=== PATIENT | female | born 1960 | race American Indian/Alaskan Native ===

== ENCOUNTER 2016-10-22 15:02 | Observation (INO) | payer MEDICAID, OTHER ==
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
[2016-10-22 17:06] VITALS: BMI 21.8
[2016-10-22] MEDS ORDERED: Sodium Chloride 0.9% 1,000 ML IV STA (17:07)
[2016-10-22] MEDS ORDERED: Nystatin 100,000 Units/ml Oral Susp 5 ml UD PO STA (17:08)
[2016-10-22 18:10] LABS: ADD MANUAL DIFF? NO
[2016-10-22 18:14] LABS: BASO # 0.01 K/mm3 (0.0-2.0); BASO % 0.3 % (0.0-3.0); EOS # 0.2 (0.0-0.7); GRAN % 41.7 % (50.0-68.0); HEMATOCRIT 34.7 % (36.0-48.0); LYMPH % 35.1 % (22.0-35.0); MEAN CELL VOLUME 97.5 fL (80.0-105.0); MEAN CORPUSCULAR HEMOGLOBIN 33.1 pg (25.0-35.0); MEAN PLATELET VOLUME 10.6 fl (7.0-11.0); MONO # 0.4 (0.1-0.6); MONO % 14.9 % (1.0-6.0); PLATELET COUNT 126 10^3/uL (120.0-450.0); RED CELL DISTRIBUTION WIDTH 12.4 % (11.5-14.5)
[2016-10-22 18:23] LABS: WHITE BLOOD COUNT 2.9 10^3/ul (4.5-11.0)
[2016-10-22 18:24] LABS: ALB/GLOB RATIO 0.8 (1.1-1.8); ALKALINE PHOSPHATASE 62 U/L (38-133); ALT/SGPT 31 U/L (7-56); AST/SGOT 42 U/L (15-39); BILIRUBIN,TOTAL 0.6 mg/dL (0.2-1.3); BLOOD UREA NITROGEN 11 mg/dL (7-21); CALCIUM 8.8 mg/dL (8.4-10.5); CARBON DIOXIDE 26 mmol/L (21-33); CHLORIDE 110 mmol/L (98-107); GFR AFRICAN-AMERICAN > 60; GLUCOSE,RANDOM 85 mg/dL (70-110); LIPASE 182 U/L (23-300); POTASSIUM 3.8 mmol/L (3.6-5.0); SODIUM 144 mmol/L (132-148); TOTAL PROTEIN 8.8 g/dL (5.8-8.3)
[2016-10-22 18:36] LABS: TROPONIN I < 0.01 ng/mL
[2016-10-22 18:39] LABS: URINE BILIRUBIN SMALL (NEGATIVE); URINE BLOOD NEGATIVE (NEGATIVE); URINE GLUCOSE (UA) NEGATIVE (NEGATIVE); URINE KETONE TRACE mg/dL (NEGATIVE); URINE LEUKOCYTE ESTERASE NEGATIVE Leu/uL (NEGATIVE); URINE PROTEIN 30 mg/dL (<30 mg/dL)
[2016-10-22] MEDS ORDERED: Iohexol 350 MG/100 ML VIAL ONE (19:07)
[2016-10-22 19:14] LABS: URINE APPEARANCE CLEAR (CLEAR); URINE COLOR YELLOW (YELLOW)
[2016-10-22 19:24] LABS: URINE RBC 0 - 2 /hpf (0-2)
[2016-10-22 19:25] LABS: URINE BACTERIA RARE (NEG)
--- NOTE | 2016-10-22 21:52 | CP.PCM.HP ---
<BarbaraKelby - Last Filed: 10/22/16 23:05> History of Present Illness - History of Present Illness History of Present Illness: Patient is a 56yo F noncomliant with her HIV and HepB Meds who is coming to the ED for a 1mo history of epigastric pain, that comes and goes, and is usually worse when she eats meals. She has no dysphagia, does not choke on foods, no extreme halitosis. patient denies any CP, or SOB. Patient does not follow up with her doctors or take medicines because she is tired of taking them, and believes that the side effects from the medicines are worse than her illnesses. She has been off of HIV medications for 4-5 years now. She smokes 1 pack of cigarettes daily, and has no desire to quit. She is of sound mind, has good insight into her illness, and knows that not taking her medication will likely leave her at some point dying but believes that the side effects from the medicines are worse than this and will lead to her faster than not taking them. The patient denies any CULLEN, changes in vision, double vision, blurry vision, CP, SOB, PMhx: HIV+, HepB+, denies other medical issues FamHx: Mom DMII, HTN, Dad of unknown causes Health Maintanence: has not had a mammogram, colonoscopy, or pap smear in the past 10-15 years Allergies: denies Social: unemployed; on welfare. Smokes 1ppd x 40 years, denies other illicit drugs Present on Admission - Present on Admission Any Indicators Present on Admission: No History of DVT/PE: No History of Uncontrolled Diabetes: No Urinary Catheter: No Decubitus Ulcer Present: No Review of Systems - Constitutional Constitutional: As Per HPI Past Patient History - Past Social History Smoking Status: Heavy Smoker > 10 Cigarettes Daily - CARDIAC Hx Cardiac Disorders: (m) - HEMATOLOGICAL/ONCOLOGICAL Hx Human Immunodeficiency Virus (HIV): Yes - PSYCHIATRIC Hx Substance Use: No - SURGICAL HISTORY Hx Section: Yes (1979 1982 1984) - ANESTHESIA Hx Anesthesia: Yes Hx Anesthesia Reactions: No Hx Malignant Hyperthermia: No Meds Allergies/Adverse Reactions: Allergies Allergy/AdvReac Type Severity Reaction Status Date / Time No Known Allergies Allergy Unverified 10/22/16 17:07 Physical Exam - Constitutional Appears: Well, Non-toxic - Head Exam Head Exam: ATRAUMATIC - Eye Exam Eye Exam: EOMI, Normal appearance - ENT Exam ENT Exam: Mucous Membranes Moist Additional comments: +Yennifer that is easily scraped off, on tongue and in back of throat - Neck Exam Neck exam: Negative for: Lymphadenopathy - Respiratory Exam Respiratory Exam: Clear to Auscultation Bilateral, NORMAL BREATHING PATTERN. absent: Rales, Rhonchi, Wheezes Additional comments: +cough - Cardiovascular Exam Cardiovascular Exam: REGULAR RHYTHM, +S1, +S2 - GI/Abdominal Exam GI & Abdominal Exam: Normal Bowel Sounds, Organomegaly (Liver palpable below the costal margin +6cm ), Soft. absent: Tenderness - Rectal Exam Rectal Exam: Deferred - Extremities Exam Extremities exam: Positive for: full ROM. Negative for: calf tenderness - Back Exam Back exam: absent: CVA tenderness (L), CVA tenderness (R) Results - Vital Signs Recent Vital Signs: Last Vital Signs Temp 97.8 F 10/22/16 17:11 Pulse 93 H 10/22/16 21:38 Resp 18 10/22/16 21:38 BP 127/73 10/22/16 21:38 Pulse Ox 98 10/22/16 21:38 - Labs Result Diagrams: 10/22/16 18:03 10/22/16 18:03 Assessment & Plan - Assessment and Plan (Free Text) Assessment: Patient is a 56yo F admitted for Esophagitis Esophagitis 2/2 to HIV and non compliance -AIDS defining illness -patient is adamant that drugs will alter her disease course worse than not taking them; education offered and patient is extremely stubborn -Diflucan 200mg PO for 7-14 days -Chest abdomen and pelvis pending HIV; most likely AIDS -Ordered Viral Load, CD4/CD8 levels; most recent was CD4 of 260, as well as HIV typing -ID consult; Dr. Mora Hep B -Viral Loads and typing ordered -patient has never been on treatment Proph -Pepcid -Patient is ambulatory and is requesting to not have DVT prophylaxis Case Discussed and seen with Dr. Meir Castillo PGY1 Night Float [phone] Decision To Admit - Pt Status Changed To: Hospital Disposition Of: Observation - . Bed Request Type: Med/Surg Admitting Physician: Francis Worley <Francis Worley - Last Filed: 11/05/16 19:27> Results - Vital Signs Recent Vital Signs: Last Vital Signs Temp 98.0 F 10/23/16 08:00 Pulse 86 10/23/16 08:00 Resp 20 10/23/16 08:00 BP 96/67 L 10/23/16 08:00 Pulse Ox 100 10/23/16 08:00 - Labs Result Diagrams: 10/23/16 07:00 10/23/16 07:00 Attending/Attestation - Attestation I have personally seen and examined this patient.: Yes I have fully participated in the care of the patient.: Yes I have reviewed all pertinent clinical information: Yes
[2016-10-23 07:23] LABS: BASO # 0.01 K/mm3 (0.0-2.0); BASO % 0.5 % (0.0-3.0); EOS # 0.3 (0.0-0.7); EOS % 11.6 % (1.5-5.0); GRAN # 0.86 (1.4-6.5); GRAN % 39.7 % (50.0-68.0); HEMATOCRIT 33.9 % (36.0-48.0); LYMPH # 0.7 (1.2-3.4); LYMPH % 31.5 % (22.0-35.0); MEAN CELL VOLUME 96.3 fL (80.0-105.0); MEAN CORPUSCULAR HEMOGLOBIN 32.7 pg (25.0-35.0); MEAN CORPUSCULAR HGB CONC 33.9 g/dl (31.0-37.0); MEAN PLATELET VOLUME 10.3 fl (7.0-11.0); MONO # 0.4 (0.1-0.6); MONO % 16.7 % (1.0-6.0); PLATELET COUNT 116 10^3/uL (120.0-450.0); RED CELL DISTRIBUTION WIDTH 12.4 % (11.5-14.5)
[2016-10-23 07:35] LABS: ADD MANUAL DIFF? NO; WHITE BLOOD COUNT 2.2 10^3/ul (4.5-11.0)
[2016-10-23 07:49] LABS: FREE T4 0.85 ng/dL (0.78-2.19)
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
[2016-10-23 08:03] LABS: ALB/GLOB RATIO 0.8 (1.1-1.8); ALKALINE PHOSPHATASE 57 U/L (38-133); ALT/SGPT 21 U/L (7-56); AST/SGOT 38 U/L (15-39); BILIRUBIN,TOTAL 0.5 mg/dL (0.2-1.3); BLOOD UREA NITROGEN 8 mg/dL (7-21); CALCIUM 8.7 mg/dL (8.4-10.5); CARBON DIOXIDE 25 mmol/L (21-33); CHLORIDE 114 mmol/L (98-107); CHOLESTEROL 104 mg/dL (130-200); GFR AFRICAN-AMERICAN > 60; GLUCOSE,RANDOM 86 mg/dL (70-110); POTASSIUM 3.8 mmol/L (3.6-5.0); SODIUM 145 mmol/L (132-148); TOTAL PROTEIN 8.2 g/dL (5.8-8.3)
[2016-10-23 08:04] LABS: THYROID STIMULATING HORMONE 1.27 mIU/mL (0.46-4.68)
--- NOTE | 2016-10-23 08:56 | CP.PCM.PN ---
Subjective - Date & Time of Evaluation Date of Evaluation: 10/23/16 Time of Evaluation: 08:52 - Subjective Subjective: Patient seen at bedside. She notes epigastric and substernal discomfort which is worse with swallowing solids. states she has not been eating regularly due to these symptoms over the past month. Patient denies GERD, hx gastric ulcers, hemoptysis, nausea, vomiting, or diarrhea. There is a persistent cough which she states is chronic. Patient with known hx HIV, Hep B. She is not on any medications currently. Objective - Vital Signs/Intake and Output Vital Signs (last 24 hours): Temp Pulse Resp BP Pulse Ox 97.8 F 76 18 112/74 98 10/22/16 17:11 10/23/16 00:31 10/23/16 00:31 10/23/16 00:31 10/22/16 21:38 - Medications Medications: Current Medications Acetaminophen (Tylenol 325mg Tab) 650 mg PO Q6H PRN PRN Reason: Fever >100.4 F Famotidine (Pepcid) 20 mg PO HS CLARICE Last Admin: 10/23/16 04:51 Dose: Not Given Fluconazole (Diflucan Iv 200 Mg/100 Ml Ns) 100 mls @ 100 mls/hr IVPB DAILY CLARICE PRN Reason: Protocol Nicotine (Nicoderm Cq) 1 patch TD DAILY CLARICE Trimethoprim/Sulfamethoxazole (Bactrim Ds Tab) 1 tab PO DAILY CLARICE PRN Reason: Protocol - Labs Labs: 10/23/16 07:00 10/23/16 07:00 - Head Exam Head Exam: ATRAUMATIC, NORMOCEPHALIC - ENT Exam ENT Exam: Mucous Membranes Moist. absent: Normal Exam (white plaque posterior pharynx ) - Neck Exam Neck Exam: Full ROM. absent: Lymphadenopathy - Respiratory Exam Respiratory Exam: Clear to Ausculation Bilateral, Rales. absent: Rhonchi, Wheezes - Cardiovascular Exam Cardiovascular Exam: REGULAR RHYTHM, +S1, +S2 - GI/Abdominal Exam GI & Abdominal Exam: Soft, Normal Bowel Sounds. absent: Tenderness - Extremities Exam Extremities Exam: absent: Calf Tenderness, Pedal Edema - Neurological Exam Neurological Exam: Alert, Awake, Oriented x3 - Psychiatric Exam Psychiatric exam: Normal Affect, Normal Mood - Skin Skin Exam: Normal Color, Warm Assessment and Plan - Assessment and Plan (Free Text) Assessment: 56 y/o female with hx HIV and Hep B. Patient is noncompliant with antiretroviral therapy. CD4 count and viral load are unknown. Patient presents with dysphagia, odynophagia concerning for infective esophagitis given HIV status. CT abd/pelvis reveals lympadenopathy of the celiac and mesenteric plexus as well as a 2.5 cm bladder lesion. odynophagia and dysphagia 2/2 infective esophagitis vs reflux esophagitis vs gastritis - CT results as above - NPO pending further GI w/u -
--- NOTE | 2016-10-23 08:56 | RAD ---
HISTORY: medical clearance COMPARISON: No prior. FINDINGS: LUNGS: No active pulmonary disease. PLEURA: No significant pleural effusion identified, no pneumothorax apparent. CARDIOVASCULAR: Normal. OSSEOUS STRUCTURES: No significant abnormalities. VISUALIZED UPPER ABDOMEN: Normal. OTHER FINDINGS: None. IMPRESSION: No active disease.
[2016-10-23 09:48] VITALS: BP 96/67; PULSE 86; RESP 20; TEMP 98; O2SAT 100
--- NOTE | 2016-10-23 09:51 | CARD ---
APPROVED REPORT EKG Measurement Heart [id number] <Conclusion> Normal sinus rhythm Normal ECG
[2016-10-23] MEDS ORDERED: Tmp-Smz 800 mg-160 mg DS Tab PO SCH (10:00)
[2016-10-23] MEDS ORDERED: Fluconazole IV 200mg/100 ml NS 100 ML IVPB SCH (10:00)
--- NOTE | 2016-10-23 14:23 | CP.PCM.CON ---
History of Present Illness - History of Present Illness History of Present Illness: 56 year old female with PMH of HIV, non-compliant with medications, does not know her last CD4 count or virus load, chronic active hepatitis B, history of heavy smoking came in to [facility] complaining of epigastric pain for the past month, with worsening in the last 2-3 days, with associated intermittent nausea but no vomiting. The patient denies dysphagia or odynophagia , no fever or chills, no diarrhea. The patient states that she feels food slowly going down into her stomach and then she would feel a sharp pain. The patient denies fever or chills, no chest pain, no SOB, no headache or dizziness , no diarrhea, no dysuria. In the ED, CT scan of the abdomen and pelvis revealed mesenteric lymphadenopathy. Infectious Diseases consult is requested to further evaluate and manage. Review of Systems - Review of Systems All systems: reviewed and no additional remarkable complaints except (as per HPI ) Past Patient History - Past Social History Smoking Status: Heavy Smoker > 10 Cigarettes Daily - CARDIAC Hx Cardiac Disorders: No (m) - HEMATOLOGICAL/ONCOLOGICAL Hx Blood Disorders: Yes Hx Hepatitis B: Yes Hx Human Immunodeficiency Virus (HIV): Yes - MUSCULOSKELETAL/RHEUMATOLOGICAL Hx Falls: No - GENITOURINARY/GYNECOLOGICAL Hx Sexually Transmitted Disorders: Yes - PSYCHIATRIC Hx Substance Use: No - SURGICAL HISTORY Hx Surgeries: Yes (c section X3) - ANESTHESIA Hx Anesthesia: Yes Hx Anesthesia Reactions: No Hx Malignant Hyperthermia: No Meds Allergies/Adverse Reactions: Allergies Allergy/AdvReac Type Severity Reaction Status Date / Time No Known Allergies Allergy Unverified 10/22/16 17:07 Physical Exam - Constitutional Appears: Non-toxic, No Acute Distress - Head Exam Head Exam: NORMAL INSPECTION - ENT Exam ENT Exam: Mucous Membranes Moist Additional comments: thrush noted on the posterior pharyngeal area - Neck Exam Neck exam: Negative for: Lymphadenopathy, Meningismus - Respiratory Exam Respiratory Exam: Decreased Breath Sounds - Cardiovascular Exam Cardiovascular Exam: +S1, +S2 - GI/Abdominal Exam GI & Abdominal Exam: Soft. absent: Tenderness Results - Vital Signs Recent Vital Signs: Last Vital Signs Temp 98.0 F 10/23/16 08:00 Pulse 86 10/23/16 08:00 Resp 20 10/23/16 08:00 BP 96/67 L 10/23/16 08:00 Pulse Ox 100 10/23/16 08:00 - Labs Result Diagrams: 10/23/16 07:00 10/23/16 07:00 Labs: Laboratory Results - last 24 hr 10/23/16 10/23/16 10/23/16 07:00 07:00 07:00 WBC 2.2 L* D RBC 3.52 Hgb 11.5 L Hct 33.9 L MCV 96.3 MCH 32.7 MCHC 33.9 RDW 12.4 Plt Count 116 L MPV 10.3 Gran % 39.7 L Lymph % (Auto) 31.5 Bates % (Auto) 16.7 H Eos % (Auto) 11.6 H Baso % (Auto) 0.5 Gran # 0.86 L Lymph # 0.7 L Bates # 0.4 Eos # 0.3 Baso # 0.01 Sodium 145 Potassium 3.8 Chloride 114 H Carbon Dioxide 25 Anion Gap 10 BUN 8 Creatinine 0.6 Est GFR ( Amer) > 60 Est GFR (Non-Af Amer) > 60 Random Glucose 86 Hemoglobin A1c Calcium 8.7 Total Bilirubin 0.5 AST 38 ALT 21 Alkaline Phosphatase 57 Total Protein 8.2 Albumin 3.6 Globulin 4.6 Albumin/Globulin Ratio 0.8 L Triglycerides 111 Cholesterol 104 L LDL Cholesterol Direct 41 HDL Cholesterol 30 Free T4 0.85 TSH 3rd Generation 1.27 10/23/16 07:30 WBC RBC Hgb Hct MCV MCH MCHC RDW Plt Count MPV Gran % Lymph % (Auto) Bates % (Auto) Eos % (Auto) Baso % (Auto) Gran # Lymph # Bates # Eos # Baso # Sodium Potassium Chloride Carbon Dioxide Anion Gap BUN Creatinine Est GFR ( Amer) Est GFR (Non-Af Amer) Random Glucose Hemoglobin A1c 5.9 Calcium Total Bilirubin AST ALT Alkaline Phosphatase Total Protein Albumin Globulin Albumin/Globulin Ratio Triglycerides Cholesterol LDL Cholesterol Direct HDL Cholesterol Free T4 TSH 3rd Generation Assessment & Plan - Assessment and Plan (Free Text) Plan: Assessment Oral thrush probably candidiasis in a patient with HIV, non-compliant with medications, does not know her last CD4 count or virus load Epigastric pain, etiology to be determined bilateral mesenteric lymphadenopathy, probably related to HIV, need to rule out other causes chronic active hepatitis B history of heavy smoking Plan Started patient on Diflucan and monitor clinical response Follow up CD4 count, HIV-1 virus load, RPR, serum Crypt Ag, Quantiferon TB test ; will start pneumocystis prophylaxis (ie. PO Bactrim) ordered blood cx for AFB as part of work up for mesenteric lymphadenopathy follow up GI evaluation discussed with patient that she needs to be on HIV meds and this is best restarted as an outpatient - patient states she will follow up with her regular HIV doctor
--- NOTE | 2016-10-23 16:45 | CP.PCM.DIS ---
<Swapnil Shields - Last Filed: 10/23/16 16:35> Provider - Provider Date of Admission: 10/22/16 20:43 Attending physician: Susanna Vera MD Primary care physician: NO PRIMARY CARE PROVIDER Consults: Dr. Bossman Long - GI Time Spent in preparation of Discharge (in minutes): 35 Diagnosis - Discharge Diagnosis (1) Dysphagia Status: Acute (2) HIV (human immunodeficiency virus infection) Status: Acute Hospital Course - Lab Results Lab Results: Most Recent Lab Values WBC 2.2 10^3/ul (4.5-11.0) L* D 10/23/16 07:00 RBC 3.52 10^6/uL (3.5-6.1) 10/23/16 07:00 Hgb 11.5 gm/dL (12.0-16.0) L 10/23/16 07:00 Hct 33.9 % (36.0-48.0) L 10/23/16 07:00 MCV 96.3 fL (80.0-105.0) 10/23/16 07:00 MCH 32.7 pg (25.0-35.0) 10/23/16 07:00 MCHC 33.9 g/dl (31.0-37.0) 10/23/16 07:00 RDW 12.4 % (11.5-14.5) 10/23/16 07:00 Plt Count 116 10^3/uL (120.0-450.0) L 10/23/16 07:00 MPV 10.3 fl (7.0-11.0) 10/23/16 07:00 Gran % 39.7 % (50.0-68.0) L 10/23/16 07:00 Lymph % (Auto) 31.5 % (22.0-35.0) 10/23/16 07:00 [place] % (Auto) 16.7 % (1.0-6.0) H 10/23/16 07:00 Eos % (Auto) 11.6 % (1.5-5.0) H 10/23/16 07:00 Baso % (Auto) 0.5 % (0.0-3.0) 10/23/16 07:00 Gran # 0.86 (1.4-6.5) L 10/23/16 07:00 Lymph # 0.7 (1.2-3.4) L 10/23/16 07:00 [place] # 0.4 (0.1-0.6) 10/23/16 07:00 Eos # 0.3 (0.0-0.7) 10/23/16 07:00 Baso # 0.01 K/mm3 (0.0-2.0) 10/23/16 07:00 Sodium 145 mmol/L (132-148) 10/23/16 07:00 Potassium 3.8 mmol/L (3.6-5.0) 10/23/16 07:00 Chloride 114 mmol/L (98-107) H 10/23/16 07:00 Carbon Dioxide 25 mmol/L (21-33) 10/23/16 07:00 Anion Gap 10 (10-20) 10/23/16 07:00 BUN 8 mg/dL (7-21) 10/23/16 07:00 Creatinine 0.6 mg/dL (0.5-1.4) 10/23/16 07:00 Est GFR ( Amer) > 60 10/23/16 07:00 Est GFR (Non-Af Amer) > 60 10/23/16 07:00 Random Glucose 86 mg/dL (70-110) 10/23/16 07:00 Hemoglobin A1c 5.9 % (4.2-6.5) 10/23/16 07:30 Calcium 8.7 mg/dL (8.4-10.5) 10/23/16 07:00 Total Bilirubin 0.5 mg/dL (0.2-1.3) 10/23/16 07:00 AST 38 U/L (15-39) 10/23/16 07:00 ALT 21 U/L (7-56) 10/23/16 07:00 Alkaline Phosphatase 57 U/L (38-133) 10/23/16 07:00 Lactate Dehydrogenase 598 U/L (333-699) 10/22/16 18:03 Total Creatine Kinase 103 U/L (35-230) 10/22/16 18:03 Troponin I < 0.01 ng/mL 10/22/16 18:03 Total Protein 8.2 g/dL (5.8-8.3) 10/23/16 07:00 Albumin 3.6 g/dL (3.0-4.8) 10/23/16 07:00 Globulin 4.6 gm/dL 10/23/16 07:00 Albumin/Globulin Ratio 0.8 (1.1-1.8) L 10/23/16 07:00 Triglycerides 111 mg/dL (35-160) 10/23/16 07:00 Cholesterol 104 mg/dL (130-200) L 10/23/16 07:00 LDL Cholesterol Direct 41 mg/dL (0-129) 10/23/16 07:00 HDL Cholesterol 30 mg/dL (29-60) 10/23/16 07:00 Lipase 182 U/L (23-300) 10/22/16 18:03 Free T4 0.85 ng/dL (0.78-2.19) 10/23/16 07:00 TSH 3rd Generation 1.27 mIU/mL (0.46-4.68) 10/23/16 07:00 Urine Color Yellow (YELLOW) 10/22/16 18:28 Urine Appearance Clear (CLEAR) 10/22/16 18:28 Urine pH 6.0 (4.7-8.0) 10/22/16 18:28 Ur Specific [place] 1.025 (1.005-1.035) 10/22/16 18:28 Urine Protein 30 mg/dL (<30 mg/dL) H 10/22/16 18:28 Urine Glucose (UA) Negative mg/dL (NEGATIVE) 10/22/16 18:28 Urine Ketones Trace mg/dL (NEGATIVE) H 10/22/16 18:28 Urine Blood Negative (NEGATIVE) 10/22/16 18:28 Urine Nitrate Negative (NEGATIVE) 10/22/16 18:28 Urine Bilirubin Small (NEGATIVE) H 10/22/16 18:28 Urine Urobilinogen 4.0 E.U./dL (<1 E.U./dL) H 10/22/16 18:28 Ur Leukocyte Esterase Negative Brennen/uL (NEGATIVE) 10/22/16 18:28 Urine RBC 0 - 2 /hpf (0-2) 10/22/16 18:28 Urine WBC 2 - 5 /hpf (0-6) 10/22/16 18:28 Ur Epithelial Cells 3 - 4 /hpf (0-5) 10/22/16 18:28 Urine Bacteria Rare (NEG) 10/22/16 18:28 Hyaline Casts 0 - 2 /hpf 10/22/16 18:28 - Hospital Course Hospital Course: Patient is a 56yo F noncomliant with her HIV and HepB Meds who is coming to the ED for a 1mo history of epigastric pain and dysphagia. Patient does not follow up with her doctors or take medicines because she is tired of taking them, and believes that the side effects from the medicines are worse than her illnesses. She has been off of HIV medications for 4-5 years. She smokes 1 pack of cigarettes daily, and has no desire to quit. The patient was admitted for epigastric pain and dysphagia in the setting of HIV for concerns of viral esophagitis. CT abd/pelvis was done revealing mesenteric and celiac plexus lymphadenopathy. Lab results revealed leukopenia. Recent CD4 and viral load levels are not known. The patient was started on Nystatin oral suspension for likely oral candidiasis. However this morning the patient expressed wishes to leave AMA. The patient was educated on her chronic diseases including HIV and Hep B. She was instructed on the importance of antiretroviral medications. She was further advised to remain in the hospital for treatment of her acute GI problems. The patient expressed understanding of her disease and of our advice. She ultimately decided to sign out of the hospital AMA. Patient is advised to return to the ED if her symptoms worsen or change. She is advised to seek outpatient care for her HIV. Discharge Exam - Head Exam Head Exam: NORMAL INSPECTION - Eye Exam Eye Exam: EOMI, PERRL - ENT Exam ENT Exam: Mucous Membranes Moist - Respiratory Exam Respiratory Exam: Clear to PA & Lateral. absent: Rales, Rhonchi - Cardiovascular Exam Cardiovascular Exam: REGULAR RHYTHM, +S1, +S2 - GI/Abdominal Exam GI & Abdominal Exam: Normal Bowel Sounds. absent: Soft, Tenderness - Extremities Exam Extremities exam: full ROM, pedal pulses present - Neurological Exam Neurological exam: Alert, Oriented x3 - Psychiatric Exam Psychiatric exam: Normal Affect, Normal Mood - Skin Skin Exam: Normal Color, Warm Discharge Plan - Discharge Medications Prescriptions: Fluconazole [Diflucan] 100 mg PO DAILY #20 tab - Follow Up Plan Condition: STABLE Disposition: AGAINST MEDICAL ADVICE Instructions: Human Immunodeficiency Virus and Acquired Immune Deficiency Syndrome (DC), Human Immunodeficiency Virus and Acquired Immune Deficiency Syndrome (GEN) Referrals: PCP,NO [Primary Care Provider] - <Susanna Vera - Last Filed: 10/23/16 21:34> Provider - Provider Date of Admission: 10/22/16 20:43 Attending physician: Susanna Vera MD Primary care physician: NO PRIMARY CARE PROVIDER Hospital Course - Lab Results Lab Results: Most Recent Lab Values WBC 2.2 10^3/ul (4.5-11.0) L* D 10/23/16 07:00 RBC 3.52 10^6/uL (3.5-6.1) 10/23/16 07:00 Hgb 11.5 gm/dL (12.0-16.0) L 10/23/16 07:00 Hct 33.9 % (36.0-48.0) L 10/23/16 07:00 MCV 96.3 fL (80.0-105.0) 10/23/16 07:00 MCH 32.7 pg (25.0-35.0) 10/23/16 07:00 MCHC 33.9 g/dl (31.0-37.0) 10/23/16 07:00 RDW 12.4 % (11.5-14.5) 10/23/16 07:00 Plt Count 116 10^3/uL (120.0-450.0) L 10/23/16 07:00 MPV 10.3 fl (7.0-11.0) 10/23/16 07:00 Gran % 39.7 % (50.0-68.0) L 10/23/16 07:00 Lymph % (Auto) 31.5 % (22.0-35.0) 10/23/16 07:00 [place] % (Auto) 16.7 % (1.0-6.0) H 10/23/16 07:00 Eos % (Auto) 11.6 % (1.5-5.0) H 10/23/16 07:00 Baso % (Auto) 0.5 % (0.0-3.0) 10/23/16 07:00 Gran # 0.86 (1.4-6.5) L 10/23/16 07:00 Lymph # 0.7 (1.2-3.4) L 10/23/16 07:00 [place] # 0.4 (0.1-0.6) 10/23/16 07:00 Eos # 0.3 (0.0-0.7) 10/23/16 07:00 Baso # 0.01 K/mm3 (0.0-2.0) 10/23/16 07:00 Sodium 145 mmol/L (132-148) 10/23/16 07:00 Potassium 3.8 mmol/L (3.6-5.0) 10/23/16 07:00 Chloride 114 mmol/L (98-107) H 10/23/16 07:00 Carbon Dioxide 25 mmol/L (21-33) 10/23/16 07:00 Anion Gap 10 (10-20) 10/23/16 07:00 BUN 8 mg/dL (7-21) 10/23/16 07:00 Creatinine 0.6 mg/dL (0.5-1.4) 10/23/16 07:00 Est GFR ( Amer) > 60 10/23/16 07:00 Est GFR (Non-Af Amer) > 60 10/23/16 07:00 Random Glucose 86 mg/dL (70-110) 10/23/16 07:00 Hemoglobin A1c 5.9 % (4.2-6.5) 10/23/16 07:30 Calcium 8.7 mg/dL (8.4-10.5) 10/23/16 07:00 Total Bilirubin 0.5 mg/dL (0.2-1.3) 10/23/16 07:00 AST 38 U/L (15-39) 10/23/16 07:00 ALT 21 U/L (7-56) 10/23/16 07:00 Alkaline Phosphatase 57 U/L (38-133) 10/23/16 07:00 Lactate Dehydrogenase 598 U/L (333-699) 10/22/16 18:03 Total Creatine Kinase 103 U/L (35-230) 10/22/16 18:03 Troponin I < 0.01 ng/mL 10/22/16 18:03 Total Protein 8.2 g/dL (5.8-8.3) 10/23/16 07:00 Albumin 3.6 g/dL (3.0-4.8) 10/23/16 07:00 Globulin 4.6 gm/dL 10/23/16 07:00 Albumin/Globulin Ratio 0.8 (1.1-1.8) L 10/23/16 07:00 Triglycerides 111 mg/dL (35-160) 10/23/16 07:00 Cholesterol 104 mg/dL (130-200) L 10/23/16 07:00 LDL Cholesterol Direct 41 mg/dL (0-129) 10/23/16 07:00 HDL Cholesterol 30 mg/dL (29-60) 10/23/16 07:00 Lipase 182 U/L (23-300) 10/22/16 18:03 Free T4 0.85 ng/dL (0.78-2.19) 10/23/16 07:00 TSH 3rd Generation 1.27 mIU/mL (0.46-4.68) 10/23/16 07:00 Urine Color Yellow (YELLOW) 10/22/16 18:28 Urine Appearance Clear (CLEAR) 10/22/16 18:28 Urine pH 6.0 (4.7-8.0) 10/22/16 18:28 Ur Specific [place] 1.025 (1.005-1.035) 10/22/16 18:28 Urine Protein 30 mg/dL (<30 mg/dL) H 10/22/16 18:28 Urine Glucose (UA) Negative mg/dL (NEGATIVE) 10/22/16 18:28 Urine Ketones Trace mg/dL (NEGATIVE) H 10/22/16 18:28 Urine Blood Negative (NEGATIVE) 10/22/16 18:28 Urine Nitrate Negative (NEGATIVE) 10/22/16 18:28 Urine Bilirubin Small (NEGATIVE) H 10/22/16 18:28 Urine Urobilinogen 4.0 E.U./dL (<1 E.U./dL) H 10/22/16 18:28 Ur Leukocyte Esterase Negative Brennen/uL (NEGATIVE) 10/22/16 18:28 Urine RBC 0 - 2 /hpf (0-2) 10/22/16 18:28 Urine WBC 2 - 5 /hpf (0-6) 10/22/16 18:28 Ur Epithelial Cells 3 - 4 /hpf (0-5) 10/22/16 18:28 Urine Bacteria Rare (NEG) 10/22/16 18:28 Hyaline Casts 0 - 2 /hpf 10/22/16 18:28 RPR Nonreactive (NONREACTIVE) 10/23/16 08:39 Attending/Attestation - Attestation I have personally seen and examined this patient.: Yes I have fully participated in the care of the patient.: Yes I have reviewed all pertinent clinical information, including history, physical exam and plan: Yes Notes (Text): Patient left AMA.
[2016-10-25 06:15] LABS: % CD16+CD56+(NK CELL) 19 Percent (4-25); % CD19 (B CELL) 21 Percent (6-29); % CD3 (MATURE T CELL) 58 Percent (57-85); ABSOLUTE CD16+CD56+CELLS 145 Cells/mcL (70-760)
[2016-10-26 10:32] LABS: HEP B VIRUS DNA 2.44 Log IU/mL; HEP B VIRUS DNA 274 IU/mL
[2016-10-29 18:30] LABS: HIV-1 GENOTYPE DETECTED
== END 2016-10-23 12:19 | disposition left against medical advice (07) ==
LOC: ED 15:02 → ERH 20:43 → 5RSO 10-23 00:13
PROVIDERS: ADMIT Hospitalist; ATTEND Hospitalist
DX: B37.0 Candidal stomatitis (principal); B37.81 Candidal esophagitis; B20 Human immunodeficiency virus [HIV] disease; R13.10 Dysphagia, unspecified; Z91.14 Patient's other noncompliance with medication regimen; R59.1 Generalized enlarged lymph nodes; D70.9 Neutropenia, unspecified; B18.1 Chronic viral hepatitis B without delta-agent; F17.210 Nicotine dependence, cigarettes, uncomplicated; Z91.19 Patient's noncompliance with other medical treatment and regimen; Z83.3 Family history of diabetes mellitus; Z82.49 Family history of ischemic heart disease and other diseases of the circulatory system
CPT/HCPCS: 36415; 71010; 74177; 80053; 80061; 81001; 82550; 83036; 83615; 83690; 84439; 84443; 84484; 85025; 86355; 86357; 86359; 86360; 86403; 86480; 86592; 87517; 87536; 87901; 93005; 96374; 99284; G0378; J7040; Q9967

== ENCOUNTER 2017-11-18 12:25 | Emergency (ER) | payer MEDICARE, MEDICAID ==
[2017-11-18 13:03] VITALS: BMI 18.8
[2017-11-18] MEDS ORDERED: Sodium Chloride 0.9% 1,000 ML IV ONE (13:04)
[2017-11-18 13:27] VITALS: RESP 18
--- NOTE | 2017-11-18 13:42 | RAD ---
HISTORY: r/o infiltrate COMPARISON: No prior. FINDINGS: LUNGS: Diffuse interstitial infiltrates. Rule out pulmonary edema/ CHF versus interstitial pneumonitis or interstitial pneumonia. PLEURA: No significant pleural effusion identified, no pneumothorax apparent. CARDIOVASCULAR: Normal. OSSEOUS STRUCTURES: No significant abnormalities. VISUALIZED UPPER ABDOMEN: Normal. OTHER FINDINGS: None. IMPRESSION: Diffuse interstitial infiltrates ; rule out pulmonary edema/ CHF versus interstitial pneumonitis or interstitial pneumonia
[2017-11-18 13:52] LABS: BASO # 0.05 K/mm3 (0.0-2.0); BASO % 0.7 % (0.0-3.0); EOS # 0.2 (0.0-0.7); EOS % 2.5 % (1.5-5.0); GRAN # 5.99 (1.4-6.5); GRAN % 78.4 % (50.0-68.0); LYMPH # 1.1 (1.2-3.4); LYMPH % 14.7 % (22.0-35.0); MEAN CELL VOLUME 98.5 fl (80.0-105.0); MEAN CORPUSCULAR HEMOGLOBIN 32.6 pg (25.0-35.0); MEAN CORPUSCULAR HGB CONC 33.1 g/dl (31.0-37.0); MEAN PLATELET VOLUME 11.4 fl (7.0-11.0); MONO # 0.3 (0.1-0.6); MONO % 3.7 % (1.0-6.0); RBC 3.37 10^6/uL (3.5-6.1); WHITE BLOOD COUNT 7.6 10^3/ul (4.5-11.0)
[2017-11-18 14:10] LABS: ALB/GLOB RATIO 0.7 (1.1-1.8); ALBUMIN 3.1 g/dL (3.0-4.8); CALCIUM 8.4 mg/dL (8.4-10.5); GFR AFRICAN-AMERICAN > 60; GFR NON-AFRICAN AMERICAN > 60
[2017-11-18 14:11] LABS: ALT/SGPT 22 U/L (7-56); AST/SGOT 67 U/L (14-36); BLOOD UREA NITROGEN 32 mg/dL (7-21)
[2017-11-18 14:20] LABS: TROPONIN I < 0.01 ng/mL
[2017-11-18 16:13] VITALS: BP 111/73; PULSE 75; TEMP 98.1; O2SAT 99
--- NOTE | 2017-11-18 17:09 | ED PDOC ---
Arrival/HPI - General Chief Complaint: Weakness/Neurological Deficit Time Seen by Provider: 11/18/17 12:52 Historian: Patient - History of Present Illness Narrative History of Present Illness (Text): 11/18/17 13:03 57 year old female, with past medical history of HIV (diagnosed in 1997) not currently on HAART and unknown CD4 count, presents to the Emergency department complaining of dyspnea on exertion and generalized weakness for past week. Patient states worsening symptoms prompting her to present to the Emergency department for medical evaluation. Patient denies any fever, chills, nausea, vomiting, diarrhea, abdominal pain, chest pain, dysuria or any other complaints. Time/Duration: 1 week Symptom Onset: Gradual Symptom Course: Unchanged Activities at Onset: Light Context: Home Past Medical History - Provider Review Nursing Documentation Reviewed: Yes - Cardiac Hx Cardiac Disorders: No (m) - Hematological/Oncological Hx Blood Disorders: Yes Hx Hepatitis B: Yes - Musculoskeletal/Rheumatological Hx Falls: No - Genitourinary/Gynecological Hx Sexually Transmitted Diseases: Yes - Psychiatric Hx Substance Use: No - Surgical History Hx Section: Yes (1979 1982 1984) - Anesthesia Hx Anesthesia: Yes Hx Anesthesia Reactions: No Hx Malignant Hyperthermia: No Family/Social History - Physician Review Nursing Documentation Reviewed: Yes Family/Social History: No Known Family HX Smoking Status: Heavy Smoker > 10 Cigarettes Daily Hx Alcohol Use: No Hx Substance Use: No Allergies/Home Meds Allergies/Adverse Reactions: Allergies No Known Allergies Allergy (Unverified 10/22/16 17:07) Review of Systems - Physician Review All systems were reviewed & negative as marked: Yes - Review of Systems Constitutional: Normal. absent: Fevers Eyes: Normal ENT: Normal Respiratory: SOB Cardiovascular: Normal. absent: Chest Pain Gastrointestinal: Normal. absent: Abdominal Pain, Diarrhea, Nausea, Vomiting Genitourinary Female: Normal. absent: Dysuria Musculoskeletal: Normal Skin: Normal Neurological: Normal Endocrine: Normal Hemo/Lymphatic: Normal Psychiatric: Normal Physical Exam Vital Signs Reviewed: Yes Vital Signs Temp Pulse Resp BP Pulse Ox 11/18/17 15:30 98.1 F 75 18 111/73 99 11/18/17 13:30 93 H 18 106/71 96 11/18/17 12:26 97.8 F 119 H 18 92/66 L 93 L Temperature: Afebrile Blood Pressure: Hypotensive Pulse: Tachycardic Respiratory Rate: Normal Appearance: Positive for: Non-Toxic, Comfortable, Other (Thin) Pain Distress: None Mental Status: Positive for: Alert and Oriented X 3 - Systems Exam Head: Present: Atraumatic, Normocephalic Pupils: Present: PERRL Extroacular Muscles: Present: EOMI Conjunctiva: Present: Normal Mouth: Present: Other (Small amount of oral thrush.) Neck: Present: Normal Range of Motion Respiratory/Chest: Present: Good Air Exchange, Other (Coarse breath sounds bilaterally.). No: Respiratory Distress, Accessory Muscle Use Cardiovascular: Present: Regular Rate and Rhythm, Normal S1, S2. No: Murmurs Abdomen: No: Tenderness, Distention, Peritoneal Signs Back: Present: Normal Inspection Upper Extremity: Present: Normal Inspection. No: Cyanosis, Edema Lower Extremity: Present: Normal Inspection. No: Edema Neurological: Present: GCS=15, CN II-XII Intact, Speech Normal Skin: Present: Warm, Dry, Normal Color. No: Rashes Psychiatric: Present: Alert, Oriented x 3, Normal Insight, Normal Concentration Medical Decision Making ED Course and Treatment: 11/18/17 13:03 Impression: 57 year old female presents to the Emergency department complaining of dyspnea on exertion and generalized weakness. Plan: -- EKG -- Labs -- IV Fluids -- Chest X-ray -- Blood Culture -- Urine Culture -- Urinalysis -- Reassess and disposition Prior Visits: Notes and results from previous visits were reviewed. Progress Notes: 11/18/17 13:05 EKG: Ordered, reviewed, and independently interpreted the EKG. Rate : 120 BPM Rhythm : Sinus Tachycardia 11/18/17 13:40 Chest X-ray reviewed by radiologist, shows: Diffuse interstitial infiltrates; rule out pulmonary edema/CHF versus interstitial pneumonia or interstitial pneumonia. 11/18/17 14:00 Discussed extensively with patient regarding her chest X-ray and blood work however patient refuses further treatment. Patient is aware and understands and persists with her decision to leave against medical advice. Leaving Against Medical Advice (AMA): The patient is choosing to leave against medical advice. I have personally explained to the patient that choosing to do so may result in permanent bodily harm or . I have discussed at great length that without further evaluation and monitoring there may be unforeseen circumstances and/or deterioration causing permanent bodily harm or as a result of their choice. The patient is alert, oriented, and shows the mental capacity to make clear decisions regarding the patients health care at this time. The patient continues to wish to leave against medical advice. In light of the patients decision to leave against medical advice, follow-up has been arranged and the patient is aware of the importance to following up as instructed. The patient has been advised that they should return to the emergency room immediately if they change their mind at any time, or if their condition begins to change or worsen in any way. - Lab Interpretations Lab Results: 11/18/17 13:10 11/18/17 13:10 Lab Results 11/18/17 13:10: Sodium 147, Potassium 3.2 L, Chloride 112 H, Carbon Dioxide 24, Anion Gap 14, BUN 32 H, Creatinine 0.7, Est GFR ( Amer) > 60, Est GFR ( Non-Af Amer) > 60, Random Glucose 118 H, Calcium 8.4, Magnesium 2.5 H, Total Bilirubin 0.8, AST 67 H, ALT 22, Alkaline Phosphatase 49, Lactate Dehydrogenase 2104 H, Total Creatine Kinase 73, Troponin I < 0.01, Total Protein 7.6, Albumin 3.1, Globulin 4.6, Albumin/Globulin Ratio 0.7 L 11/18/17 13:10: WBC 7.6 D, RBC 3.37 L, Hgb 11.0 L, Hct 33.2 L, MCV 98.5, MCH 32.6, MCHC 33.1, RDW 14.0, Plt Count 234, MPV 11.4 H, Gran % 78.4 H, Lymph % ( Auto) 14.7 L, [place] % (Auto) 3.7, Eos % (Auto) 2.5, Baso % (Auto) 0.7, Gran # 5.99, Lymph # (Auto) 1.1 L, [place] # (Auto) 0.3, Eos # (Auto) 0.2, Baso # (Auto) 0.05 - RAD Interpretation Radiology Orders: 11/18/17 13:04 CHEST PORTABLE [RAD] Stat Nurse Staff: Radiologist - EKG Interpretation Interpreted by ED Physician: Yes Type: 12 lead EKG - Medication Orders Current Medication Orders: Discontinued Medications Sodium Chloride (Sodium Chloride 0.9%) 1,000 mls @ 250 mls/hr IV .Q4H ONE Stop: 11/18/17 17:03 Last Admin: 11/18/17 13:30 Dose: 250 mls/hr eMAR Start Stop Document 11/18/17 13:30 CHARMAINE (Rec: 11/18/17 14:14 CHARMAINE [id number]) Intravenous Solution Start Date 11/18/17 Start Time 13:30 End Date 11/18/17 End time 15:20 Total Infusion Time 110 - Scribe Statement The provider has reviewed the documentation as recorded by the Scribe Rowan Bishop. All medical record entries made by the Scribe were at my direction and personally dictated by me. I have reviewed the chart and agree that the record accurately reflects my personal performance of the history, physical exam, medical decision making, and the department course for this patient. I have also personally directed, reviewed, and agree with the discharge instructions and disposition. Disposition/Present on Arrival - Present on Arrival Any Indicators Present on Arrival: No History of DVT/PE: No History of Uncontrolled Diabetes: No Urinary Catheter: No History of Decub. Ulcer: No History Surgical Site Infection Following: None - Disposition Have Diagnosis and Disposition been Completed?: Yes Diagnosis: PCP (pneumocystis carinii pneumonia), AIDS, Weakness, Oral thrush Disposition: AGAINST MEDICAL ADVICE Disposition Time: 14:00 Patient Problems: Current Active Problems Problem Status Onset PCP (pneumocystis carinii pneumonia) Acute AIDS Acute Weakness Acute Oral thrush Acute Condition: UNKNOWN Discharge Instructions (ExitCare): Pneumocystis Pneumonia (PCP), HIV/AIDS (DC) , Thrush (DC), Human Immunodeficiency Virus and Acquired Immune Deficiency Syndrome (ED), Weakness (ED) Additional Instructions: BJ HUERTA, thank you for letting us take care of you today. Your provider was Michel Collins DO and you were treated for GENERAL WEAKNESS. The emergency medical care you received today was directed at your acute symptoms. If you were prescribed any medication, please fill it and take as directed. It may take several days for your symptoms to resolve. Return to the Emergency Department if your symptoms worsen, do not improve, or if you have any other problems. Please contact your doctor or call one of the physicians/clinics you have been referred to that are listed on the Patient Visit Information form that is included in your discharge packet. Bring any paperwork you were given at discharge with you along with any medications you are taking to your follow up visit. Our treatment cannot replace ongoing medical care by a primary care provider outside of the emergency department. Thank you for allowing the [facility] team to be part of your care today. YOU SIGNED OUT AGAINST MEDICAL ADVICE. YOU HAVE A PNEUMONIA THAT MAY INDICATE A VERY LOW T-CELL COUNT. FOLLOW UP WITH YOUR PRIMARY CARE DOCTOR IMMEDIATELY. RETURN IF YOU HAVE ANY CONCERNS OR SYMPTOMS WORSEN. Prescriptions: Ketoconazole 2% Cr [Nizoral] 1 appl TP BID #1 tube Nystatin [Nystatin Oral Susp] 5 ml PO BID 5 Days ml Sulfamethoxazole/Trimethoprim [Bactrim DS 800 mg-160 mg] 1 tab PO BID #28 tab Referrals: PCP,NO [Primary Care Provider] - Follow up with primary Forms: [employer] ([place]ian), WORK NOTE
--- NOTE | 2017-11-19 09:33 | CARD ---
APPROVED REPORT EKG Measurement Heart [id number] <Conclusion> Sinus tachycardia Small q in lll No change except the rate is faster
== END 2017-11-18 15:30 | disposition left against medical advice (07) ==
LOC: ED 12:25
DX: B59 Pneumocystosis (principal); B20 Human immunodeficiency virus [HIV] disease; R53.1 Weakness; B37.0 Candidal stomatitis
CPT/HCPCS: 71045; 80053; 82550; 83615; 83735; 84484; 85025; 87040; 93005; 96360; 96361; 99285; J7030

== ENCOUNTER 2017-11-20 18:18 | Inpatient (IN) | payer MEDICARE, MEDICAID ==
[2017-11-20 18:19] VITALS: BMI 18.8
[2017-11-20] MEDS ORDERED: Sodium Chloride 0.9% 1,000 ML IV STA (19:04)
--- NOTE | 2017-11-20 19:15 | ED PDOC ---
Arrival/HPI - General Chief Complaint: Respiratory Distress Time Seen by Provider: 11/20/17 18:55 Historian: Patient, Family (Daughter) - History of Present Illness Narrative History of Present Illness (Text): 11/20/17 19:06 Patient is a 57 year old female whose past medical history includes HIV, and who presents to the Emergency department with her daughter complaining of pneumonia and hallucinations. Patient's daughter reports that the patient was at the emergency department 2 days ago and was diagnosed with pneumonia. At that time admission was recommended but the patient refused and signed an AMA. Per daughter, today patient has started to experience hallucinations such as thinking her sister was in the hospital, which she wasn't, and seeing a woman, who wasn't there. Patient has a history of HIV and restarted her HAART treatment 2 days ago. Daughter states that the patient has also been experiencing lightheadedness, headache, stool and urinary incontinence, and nonproductive cough. Patient denies any fever, chest pain, or any other complaints at this time. Of note during the patients last emergency department visit she was discharged with Bactrim and Ketoconazole for her pneumonia and oral thrush. PMD:(patient hasn't seen PMD yet) Time/Duration: < week (2 days ago) Symptom Onset: Sudden Symptom Course: Unchanged Context: Home Past Medical History - Provider Review Nursing Documentation Reviewed: Yes - Infectious Disease Hx of Infectious Diseases: None - Reproductive Menopause: Yes - Cardiac Hx Cardiac Disorders: No (m) - Hematological/Oncological Hx Blood Disorders: Yes Hx Hepatitis B: Yes - Musculoskeletal/Rheumatological Hx Falls: No - Genitourinary/Gynecological Hx Sexually Transmitted Diseases: Yes - Psychiatric Hx Substance Use: No - Surgical History Hx Section: Yes (1979 1982 1984) - Anesthesia Hx Anesthesia: Yes Hx Anesthesia Reactions: No Hx Malignant Hyperthermia: No Family/Social History - Physician Review Nursing Documentation Reviewed: Yes Family/Social History: No Known Family HX Smoking Status: Heavy Smoker > 10 Cigarettes Daily Hx Alcohol Use: No Hx Substance Use: No Allergies/Home Meds Allergies/Adverse Reactions: Allergies No Known Allergies Allergy (Unverified 10/22/16 17:07) Home Medications: Home Meds Medication Instructions Recorded Confirmed Dolutegravir Sodium [Tivicay] 500 mg PO DAILY 11/20/17 11/20/17 Review of Systems - Physician Review All systems were reviewed & negative as marked: Yes - Review of Systems Constitutional: absent: Fevers Cardiovascular: absent: Chest Pain Physical Exam - Physical Exam Narrative Physical Exam (Text): 11/20/17 19:20 Constitutional: No acute distress. Head: Normocephalic. Atraumatic. Eyes: PERRL. ENT: Moist mucous membranes. Oral thrush. Neck: Supple. Cardiovascular: Tachycardic. Chest: No tenderness. Respiratory: Coarse breath sounds bilaterally. Pulse Ox:90% GI: Soft. Nontender. Nondistended. Back: No CVA tenderness. Musculoskeletal: No tenderness or swelling of extremities. Skin: No rash. Neurologic: Alert, no focal deficit. sensation to touch of bilateral lower extremity and saddle area intact. Vital Signs Reviewed: Yes Vital Signs Temp Pulse Resp BP Pulse Ox 11/20/17 20:14 111 H 18 100/67 92 L 11/20/17 18:27 97.2 F L 110 H 22 105/72 86 L Temperature: Afebrile Blood Pressure: Normal Pulse: Tachycardic Respiratory Rate: Normal Appearance: Positive for: Well-Appearing Mental Status: Positive for: Alert and Oriented X 3 Medical Decision Making ED Course and Treatment: 11/20/17 19:04 Impression: Patient is a 57 year old female who presents to the Emergency department complaining of pneumonia and recent hallucinations. Differential Diagnosis included but are not limited to: Pneumonia vs. UTI vs. Anemia vs. Dehydration Plan: --EKG --Chest X-ray --Urinalysis --labs --Blood work --Blood and urine culture -- Reassess and disposition Prior Visits: Notes and results from previous visits were reviewed. Patient was last seen in the emergency department on 11/18/17 and was diagnosed with pneumocystis carinii pneumonia, AIDS, weakness, and oral thrush. Recommended that patient be admitted but she declined and signed an AMA. Of note CD4 count was 95 in October 2016. Progress Notes: 11/20/17 19:04 EKG shows sinus tachycardia at [address]/T wave changes. Interpreted by me. 11/20/17 19:10 Chest X-ray shows diffuse interstitial infiltrates. Interpreted by me. 11/20/17 19:42 Code Sepsis called. 11/20/17 20:49 Discussed case with the medical office representative, who is aware of patient and hand off given. 11/20/17 20:[address]Guli Vera, who is aware and accepts patient's admission to Hospitalist service. - Critical Care Critical Care Minutes: 30 minutes - Lab Interpretations Lab Results: 11/20/17 19:25 11/20/17 19:25 Lab Results 11/20/17 20:17: Blood Type Confirm O POSITIVE 11/20/17 19:56: Urine Color Yellow, Urine Appearance Clear, Urine pH 6.0, Ur Specific [place] >= 1.030, Urine Protein 30 H, Urine Glucose (UA) Negative, Urine Ketones Negative, Urine Blood Negative, Urine Nitrate Negative, Urine Bilirubin Negative, Urine Urobilinogen 4.0 H, Ur Leukocyte Esterase Negative, Urine RBC 0 - 2, Urine WBC 0 - 2, Ur Epithelial Cells 1 - 3 11/20/17 19:36: Blood Type O POSITIVE, Antibody Screen Negative, BBK History Checked No verified bt 11/20/17 19:30: pO2 58 H, VBG pH 7.41, VBG pCO2 32.0 L, VBG HCO3 20.3 L, VBG Total CO2 21.3 L, VBG O2 Sat (Calc) 92.6 H, VBG Base Excess -3.4 L, VBG Potassium 5.1, Glucose 126 H, Lactate 3.8 H, FiO2 21.0, Sodium 137.0, Chloride 110.0 H, Venous Blood Potassium 5.1 11/20/17 19:25: Sodium 142, Potassium 3.2 L, Chloride 109 H, Carbon Dioxide 20 L , Anion Gap 17, BUN 27 H, Creatinine 0.8, Est GFR ( Amer) > 60, Est GFR ( Non-Af Amer) > 60, Random Glucose 118 H, Calcium 8.5, Total Bilirubin 0.7, AST 44 H D, ALT 16, Alkaline Phosphatase 55, Total Protein 6.7, Albumin 2.5 L, Globulin 4.2, Albumin/Globulin Ratio 0.6 L 11/20/17 19:25: WBC 10.9 D, RBC 3.13 L, Hgb 10.4 L, Hct 30.7 L, MCV 98.1, MCH 33.2, MCHC 33.9, RDW 14.6 H, Plt Count 223, MPV 11.7 H, Gran % 74.5 H, Lymph % ( Auto) 18.5 L, [place] % (Auto) 2.8, Eos % (Auto) 1.3 L, Baso % (Auto) 2.9, Gran # 8.11 H, Lymph # (Auto) 2.0, [place] # (Auto) 0.3, Eos # (Auto) 0.1, Baso # (Auto) 0.32 I have reviewed the lab results: Yes - RAD Interpretation Radiology Orders: 11/20/17 19:04 CHEST PORTABLE [RAD] Stat Restaurant Cook: ED Physician - EKG Interpretation Interpreted by ED Physician: Yes Type: 12 lead EKG - Medication Orders Current Medication Orders: Trimethoprim/Sulfamethoxazole (300 mg/ Dextrose) 500 mls @ 250 mls/hr IVPB Q8H CLARICE Discontinued Medications Sodium Chloride (Sodium Chloride 0.9%) 1,000 mls @ 999 mls/hr IV .Q1H1M STA Stop: 11/20/17 20:04 Last Admin: 11/20/17 19:29 Dose: 999 mls/hr eMAR Start Stop Document 11/20/17 19:29 CNR (Rec: 11/20/17 19:29 CNR [facility] [id number] Intravenous Solution Start Date 11/20/17 Start Time 19:29 Sodium Chloride (Sodium Chloride 0.9%) 500 mls @ 999 mls/hr IV .Q31M STA Stop: 11/20/17 20:12 - Scribe Statement The provider has reviewed the documentation as recorded by the Scribe Pollo Flood Provider Scribe Attestation: All medical record entries made by the Scribe were at my direction and personally dictated by me. I have reviewed the chart and agree that the record accurately reflects my personal performance of the history, physical exam, medical decision making, and the department course for this patient. I have also personally directed, reviewed, and agree with the discharge instructions and disposition. Disposition/Present on Arrival - Present on Arrival Any Indicators Present on Arrival: No History of DVT/PE: No History of Uncontrolled Diabetes: No Urinary Catheter: No History of Decub. Ulcer: No History Surgical Site Infection Following: None - Disposition Have Diagnosis and Disposition been Completed?: Yes Diagnosis: PCP (pneumocystis jiroveci pneumonia), Sepsis Disposition: HOSPITALIZED Disposition Time: 21:06 Patient Plan: Admission, Telemetry Condition: GUARDED Forms: [facility] ([place])
[2017-11-20 19:37] LABS: VENOUS BLOOD GAS BASE EXCESS -3.4 mmol/L (0.0-2.0); VENOUS BLOOD GAS PO2 58 mm/Hg (30-55); VENOUS BLOOD PH 7.41 (7.32-7.43)
[2017-11-20 19:41] LABS: BASO # 0.32 K/mm3 (0.0-2.0); BASO % 2.9 % (0.0-3.0); EOS # 0.1 (0.0-0.7); EOS % 1.3 % (1.5-5.0); GRAN # 8.11 (1.4-6.5); GRAN % 74.5 % (50.0-68.0); HEMOGLOBIN 10.4 g/dL (12.0-16.0); LYMPH % 18.5 % (22.0-35.0); MEAN CELL VOLUME 98.1 fl (80.0-105.0); MEAN CORPUSCULAR HEMOGLOBIN 33.2 pg (25.0-35.0); MEAN CORPUSCULAR HGB CONC 33.9 g/dl (31.0-37.0); MEAN PLATELET VOLUME 11.7 fl (7.0-11.0); MONO # 0.3 (0.1-0.6); MONO % 2.8 % (1.0-6.0); RBC 3.13 10^6/uL (3.5-6.1); RED CELL DISTRIBUTION WIDTH 14.6 % (11.5-14.5); WHITE BLOOD COUNT 10.9 10^3/ul (4.5-11.0)
[2017-11-20] MEDS ORDERED: Sodium Chloride 0.9% 500 ML IV STA (19:42)
[2017-11-20 20:00] LABS: ALB/GLOB RATIO 0.6 (1.1-1.8); ALBUMIN 2.5 g/dL (3.0-4.8); ALT/SGPT 16 U/L (7-56); AST/SGOT 44 U/L (14-36); BLOOD UREA NITROGEN 27 mg/dL (7-21); CALCIUM 8.5 mg/dL (8.4-10.5); GFR AFRICAN-AMERICAN > 60; GFR NON-AFRICAN AMERICAN > 60
[2017-11-20 20:00] LABS: URINE BILIRUBIN NEGATIVE (NEGATIVE); URINE BLOOD NEGATIVE (NEGATIVE); URINE GLUCOSE (UA) NEGATIVE (NEGATIVE); URINE LEUKOCYTE ESTERASE NEGATIVE Leu/uL (NEGATIVE); URINE PROTEIN 30 mg/dL (<30 mg/dL)
[2017-11-20 20:11] LABS: URINE COLOR YELLOW (YELLOW)
[2017-11-20 20:12] LABS: URINE APPEARANCE CLEAR (CLEAR)
[2017-11-20 20:34] LABS: URINE RBC 0 - 2 /hpf (0-2); URINE WBC 0 - 2 /hpf (0-6)
[2017-11-20] MEDS: Sulfamethoxazole/Trimethoprim 300 MG in Dextrose 5% In Water 500 ML IVPB SCH (21:29)
[2017-11-20] MEDS ORDERED: Potassium Chloride 40 mEq/30 ml LIQ UD PO STA (22:23)
--- NOTE | 2017-11-20 22:37 | CP.PCM.HP ---
Addendum entered and electronically signed by Job Lawson DO 11/21/17 02:01: Job Lawson, PGY-[address] Vera A rapid response was called at 1:11 am, in which patient was hypoxic, tachypneic and tachycardic. Team responded and patient was noted to be on BIPAP and using accessory respiratory muscles. On auscultation, patient was noted to have bilateral decreased, coarse breath sounds. ABG and CXR were completed. Patient was transferred to ICU for continued monitoring. For further detail, please refer to [employer] OPERATOR note. Plan: - monitor respiratory status - continue patient on BIPAP - start systemic steroids - continue management as previously outlined Original Note: History of Present Illness - History of Present Illness History of Present Illness: PGY-[address] Ruben Vera Ms. Valladares is a 57 year old female with PMH of hepatitis B, non-compliance, HIV , and AIDS with CD4 of 95 in 2017 who presented to ED with daughter for complaints of worsening hallucinations and altered mental status. She was here a few days ago and was diagnosed with PCP pnemonia at that time but signed out AMA. Patient is a poor historian and HPI taken from patient and prior notes. Per daughter, patient began to have visual hallucinations today and she was able to convince her to return to ED. Patient was coughing frequently during exam. Patient has a history of HIV with likely non-compliance but daughter reports HAART therapy was restarted 2 days ago. Per daughter, patient has also been experiencing dizziness, headache, nonproductive cough and incontinence of urine and stool. Patient also admits to feeling abdominal pain. She denies fever , chest pain, shortness of breath, nausea or vomiting. PMH: AIDS, hepatitis B Home Medications: non-compliant with HAART therapy PSH: c/s x 1 Allergies: NKDA Fam Hx: non-contributory Soc Hx: denies drinking or drug use, smokes 1-2 PPD for at least 20 years Present on Admission - Present on Admission Any Indicators Present on Admission: No History of DVT/PE: No History of Uncontrolled Diabetes: No Urinary Catheter: No Decubitus Ulcer Present: No Review of Systems - Review of Systems Review of Systems: A 12 point ROS was reviewed with patient and negative except as stated in HPI Past Patient History - Infectious Disease Hx of Infectious Diseases: None - Past Social History Smoking Status: Heavy Smoker > 10 Cigarettes Daily - CARDIAC Hx Cardiac Disorders: No (m) - HEMATOLOGICAL/ONCOLOGICAL Hx Blood Disorders: Yes Hx Hepatitis B: Yes - MUSCULOSKELETAL/RHEUMATOLOGICAL Hx Falls: No - GENITOURINARY/GYNECOLOGICAL Hx Sexually Transmitted Disorders: Yes - PSYCHIATRIC Hx Substance Use: No - SURGICAL HISTORY Hx Section: Yes (1979 1982 1984) - ANESTHESIA Hx Anesthesia: Yes Hx Anesthesia Reactions: No Hx Malignant Hyperthermia: No Meds Allergies/Adverse Reactions: Allergies Allergy/AdvReac Type Severity Reaction Status Date / Time No Known Allergies Allergy Unverified 10/22/16 17:07 Results - Vital Signs Recent Vital Signs: Last Vital Signs Temp 97.2 F L 11/20/17 18:27 Pulse 111 H 11/20/17 20:14 Resp 18 11/20/17 20:14 BP 100/67 11/20/17 20:14 Pulse Ox 92 L 11/20/17 20:14 - Labs Result Diagrams: 11/20/17 19:25 11/20/17 19:25 Assessment & Plan - Assessment and Plan (Free Text) Assessment: Ms. Valladares is a 57 year old female with PMH of hepatitis B, non-compliance, HIV , and AIDS with CD4 of 95 in 2017 presents with sepsis likely secondary to PCP PNA. 1. Sepsis -Likely secondary to PCP PNA -Lactate of 3.8, tachycardic, hypoxic -Bactrim continued -Broad spectrum vanc/zosyn -Septic w/u -ID consult, pulm consult -F/u repeat lactate in AM -F/u CD4 count 2. Hypokalemia -KCl 40mEq given -F/u K and Mg in AM 3. Hepatitis B -Patient non-compliant, unknown if treated in past -Will educate importance of treatment 4. GI/DVT prophylaxis: protonix 40 and lovenox 40 sunitha Ward DO IM Resident PGY-1
--- NOTE | 2017-11-20 22:45 | PCM.SEPTIC ---
<WardMichael - Last Filed: 11/20/17 22:42> Sepsis Progress Note - Reassessment Type Date of Evaluation: 11/20/17 Time of Evaluation: 22:30 Reassessment Type: Non-invasive reassessment - Non Invasive Reassessment Were the most recent vital sign reviewed: Yes Vital Sign (Latest): Temp Pulse Resp BP Pulse Ox 97.2 F L 111 H 18 100/67 92 L 11/20/17 18:27 11/20/17 20:14 11/20/17 20:14 11/20/17 20:14 11/20/17 20:14 Cardiovascular: Yes: Tachycardia. No: Gallop, JVD, Murmur, Irregularly Irregular Respiratory: Yes: Normal Breath Sounds Capillary Refill: Normal (Less than 2 sec) Pulses: Normal Radial, Normal Dorsalis Pedis, Normal Posterior Tibialis Skin: Normal Color, Warm, Dry - Invasive Reassessment (complete 2 of 4) Was a Central Venous Pressure Measurement obtained within 6 Hours after the presentation of septic shock: No Was a central venous oxygen measurement obtained within 6 hours after the presentation of septic shock: No Was a bedside cardiovascular ultrasound performed within 6 hours after the presentation of septic shock: No Was a passive leg raise performed or was a fluid challenge performed within 6 hrs of the initial fluid bolus: No Passive Leg Raise Result: Not Applicable Fluid Challenge performed: No <Marva Rendon - Last Filed: 11/21/17 01:49> Sepsis Progress Note - Non Invasive Reassessment Vital Sign (Latest): Temp Pulse Resp BP Pulse Ox 99.6 F 126 H 36 H 116/83 99 11/20/17 23:25 11/21/17 00:47 11/21/17 00:50 11/21/17 00:47 11/21/17 00:50 Attending/Attestation - Attestation I have personally seen and examined this patient.: Yes I have fully participated in the care of the patient.: Yes I have reviewed all pertinent clinical information, including history, physical exam and plan: Yes Notes (Text): 11/21/17 01:00 Pt seen with the resident.Agree with documentation .Plan of treatment is already in place.
[2017-11-20] MEDS: Sodium Chloride 0.9% 1,000 ML IV SCH (22:55)
[2017-11-20 23:23] LABS: VENOUS BLOOD GAS BASE EXCESS -7.3 mmol/L (0.0-2.0); VENOUS BLOOD GAS PO2 72 mm/Hg (30-55); VENOUS BLOOD PH 7.32 (7.32-7.43)
[2017-11-20 23:25] LABS: IRON 51 ug/dL (45-180)
[2017-11-20 23:35] LABS: % IRON SATURATION 31 % (20-55); TOTAL IRON BINDING CAPACITY 167 ug/dL (265-497)
[2017-11-20] MEDS: Vancomycin 1gm in NS 250ml 1 GM/250 ML BAG IVPB SCH (23:41)
[2017-11-20] MEDS ORDERED: Albuterol-Ipratrop 3 mg / 0.5 (3 ml) UD IH STA ×2 (23:48→23:53)
[2017-11-21] MEDS: Levalbuterol 1.25 MG/3 ML Inhal Soln UD IH PRN ×2 (00:06→07:46)
[2017-11-21 01:41] LABS: ARTERIAL BLOOD GAS HCO3 17.3 mmol/L (21-28); ARTERIAL BLOOD GAS O2 SAT 100.1 % (95-98); ARTERIAL BLOOD GAS PCO2 26 mm/Hg (35-45); ARTERIAL BLOOD GAS PH 7.43 (7.35-7.45); ARTERIAL BLOOD GAS TCO2 18.1 mmol.L (22-28)
--- NOTE | 2017-11-21 01:59 | CP.PCM.CON ---
History of Present Illness - History of Present Illness History of Present Illness: Ms. Valladares is a 57 year old female with PMH of hepatitis B, non-compliance, HIV , and AIDS with CD4 of 95 in 2017 who presented to ED with daughter for complaints of worsening hallucinations and altered mental status. She was here a few days ago and was diagnosed with PCP pnemonia at that time but signed out AMA. Patient is a poor historian and HPI taken from patient and prior notes. Per daughter, patient began to have visual hallucinations today and she was able to convince her to return to ED. Patient was coughing frequently during exam. Patient has a history of HIV with likely non-compliance but daughter reports HAART therapy was restarted 2 days ago. Per daughter, patient has also been experiencing dizziness, headache, nonproductive cough and incontinence of urine and stool. Patient also admits to feeling abdominal pain. She denies fever , chest pain, shortness of breath, nausea or vomiting. PMH: AIDS, hepatitis B Home Medications: non-compliant with HAART therapy PSH: c/s x 1 Allergies: NKDA Fam Hx: non-contributory Soc Hx: denies drinking or drug use, smokes 1-2 PPD for at least 20 years Review of Systems - Review of Systems Systems not reviewed;Unavailable: Respiratory Distress Past Patient History - Infectious Disease Hx of Infectious Diseases: None - Past Social History Smoking Status: Heavy Smoker > 10 Cigarettes Daily - CARDIAC Hx Cardiac Disorders: No (m) - HEMATOLOGICAL/ONCOLOGICAL Hx Blood Disorders: Yes Hx Hepatitis B: Yes - MUSCULOSKELETAL/RHEUMATOLOGICAL Hx Falls: No - GENITOURINARY/GYNECOLOGICAL Hx Sexually Transmitted Disorders: Yes - PSYCHIATRIC Hx Substance Use: No - SURGICAL HISTORY Hx Section: Yes (1979 1982 1984) - ANESTHESIA Hx Anesthesia: Yes Hx Anesthesia Reactions: No Hx Malignant Hyperthermia: No Meds Allergies/Adverse Reactions: Allergies Allergy/AdvReac Type Severity Reaction Status Date / Time No Known Allergies Allergy Unverified 10/22/16 17:07 - Medications Medications: Current Medications Enoxaparin Sodium (Lovenox) 40 mg SC DAILY [facility] PRN Reason: Protocol Fluconazole (Diflucan) 100 mg PO BID [facility] PRN Reason: Protocol Trimethoprim/Sulfamethoxazole (300 mg/ Dextrose) 500 mls @ 250 mls/hr IVPB Q8H [facility] Last Admin: 11/20/17 21:29 Dose: 250 mls/hr Sodium Chloride (Sodium Chloride 0.9%) 1,000 mls @ 125 mls/hr IV .Q8H [facility] Last Admin: 11/20/17 22:55 Dose: 125 mls/hr Vancomycin HCl (Vancomycin 1gm) 1 gm in 250 mls @ 167 mls/hr IVPB Q12H [facility] PRN Reason: Protocol Last Admin: 11/20/17 23:41 Dose: 167 mls/hr Piperacillin Sod/Tazobactam Sod (Zosyn 4.5 Gm In Ns 100ml) 4.5 gm in 100 mls @ 200 mls/hr IVPB Q6 [facility] PRN Reason: Protocol Stop: 11/21/17 06:29 Levalbuterol HCl (Xopenex) 1.25 mg IH [id number] PRN PRN Reason: Shortness of Breath Last Admin: 11/21/17 00:06 Dose: 1.25 mg Dolutegravir Sodium [Tivicay] 500 Mg ( Home Med) 500 mg PO DAILY [facility] Pantoprazole Sodium (Protonix Ec Tab) 40 mg PO 0600 [facility] Results - Vital Signs Recent Vital Signs: Last Vital Signs Temp 99.6 F 11/20/17 23:25 Pulse 126 H 11/21/17 00:47 Resp 36 H 11/21/17 00:50 BP 116/83 11/21/17 00:47 Pulse Ox 99 11/21/17 00:50 - Labs Result Diagrams: 11/20/17 19:25 11/20/17 19:25 Labs: Laboratory Results - last 24 hr 11/20/17 11/20/17 11/20/17 23:00 23:00 23:00 pO2 72 H VBG pH 7.32 VBG pCO2 35.0 L VBG HCO3 18.0 L VBG Total CO2 19.1 L VBG O2 Sat (Calc) 95.6 H VBG Base Excess -7.3 L VBG Potassium 3.2 L Sodium 139.0 Chloride 114.0 H Glucose 126 H Lactate 2.7 H FiO2 21.0 POC Glucose (mg/dL) Magnesium 1.9 Iron 51 TIBC 167 L % Saturation 31 Lactate Dehydrogenase Venous Blood Potassium 3.2 L 11/20/17 11/21/17 23:00 01:37 pO2 VBG pH VBG pCO2 VBG HCO3 VBG Total CO2 VBG O2 Sat (Calc) VBG Base Excess VBG Potassium Sodium Chloride Glucose Lactate FiO2 POC Glucose (mg/dL) 93 Magnesium Iron TIBC % Saturation Lactate Dehydrogenase 1624 H Venous Blood Potassium
--- NOTE | 2017-11-21 02:00 | PCM.RRT ---
<Michael Ward - Last Filed: 11/21/17 03:16> [employer] Nurse Assessment - Situation Date: 11/21/17 Time [employer] was called: 01:10 [employer] Responder Arrival Time: 01:12 [employer] Location:: [address] [place] [address] Room Number: 264 [employer] Reason for Call: Respiratory Distress [employer] Called By: RN - IV IV Inserted during [employer]?: No - Respiratory Oxygen Delivery Method: BiPAP @% Received Nebulizer Treatments:: No Was the Patient Ventilated with Bag/Mask 100% O2?: No Secretions Suctioned?: No Was the Patient Intubated?: No Was the Patient Placed on a Ventilator?: No - Diagnostic Test Ordered EKG: No Chest X-Ray: Yes CT Scan: No - Stat Labs Ordered [employer] Stat Labs Ordered: ABG [employer] Other Labs Ordered: ABG SHOCK CPR started during [employer]?: No - Vital Signs Vital Sign: Rapid Response Vital Sign Blood Pressure 100/72 Pulse Rate 125 Respiratory Rate 45 Oxygen Saturation 99 - Finger Stick Blood Glucose Finger Stick Blood Glucose: 93 - Time [employer] Ended Time [employer] Ended: 01:47 - Vital Signs at end of [employer] Vital Signs at end of [employer]: Rapid Response End Vital Sign Blood Pressure 116/83 Pulse Rate 121 Respiratory Rate 40 Temperature 100.0 F O2 Sat by Pulse Oximetry 91 - Recommendations 5) [employer] Level of Care Recommendations: Transfer to ICU Notifications: Attending Physician I.Reason for [employer] - A) Acute Change in Patient: (Select all that apply): Acute change in SpO2 less - Neurological Status (Select all that apply): Alert, Responsive, Verbal, Follows Commands Other (Please specify): hallucinating - Respiratory Oxygen Delivery Method: BiPAP @% - Constitutional Appears: In Acute Distress, Unkempt - Head Head Exam: ATRAUMATIC, NORMAL INSPECTION, NORMOCEPHALIC - Eyes Eye Exam: Normal appearance - Respiratory Exam Respiratory Exam: Wheezes, Respiratory Distress Additional comments: tachypneic, coarse breath sounds b/l - Cardiovascular Exam Cardiovascular Exam: Tachycardia. absent: Diastolic murmur, Gallop, +S4, Murmur - GI/Abdominal Exam GI & Abdominal Exam: Soft. absent: Guarding, Tenderness - Neurological Exam Neurological Exam: Alert, Awake - Extremities Exam Extremities Exam: Normal Capillary Refill Plan - Assessment of Findings&Treatment Plan [employer] called by RN at 1:11 am Patient was found to be short of breath. Patient was found tachypneic and tachycardic. Patient has a history of HIV with last CD4 count of 95 in 2017. She was admitted last month for shortness of breath and was being treated for PCP pnemonia. She then signed out AMA. Today she was admitted again with sepsis (lactate of 3.8-->2.5) and likely PCP pneumonia. Patient denies any chest pain or any other complaints. Parking Enforcement Technician present at bedside. BiPap was placed on the patient. ABG was performed. pH of 7.47, PCO2 26 and PO2 of 123. CXR was performed. Pending official read. No acute changes from prior CXR on admission. Patient was transferred to ICU for continued care. Case and plan was discussed in detail and referred to Dr Ruben Vera on ICU service. Michael Ward DO IM Resident PGY-1 <Marva Rendon - Last Filed: 11/21/17 06:22> [employer] Nurse Assessment - Vital Signs Vital Sign: Rapid Response Vital Sign Blood Pressure 100/72 Pulse Rate 125 Respiratory Rate 45 Oxygen Saturation 99 - Vital Signs at end of [employer] Vital Signs at end of [employer]: Rapid Response End Vital Sign Blood Pressure 116/83 Pulse Rate 121 Respiratory Rate 40 Temperature 100.0 F O2 Sat by Pulse Oximetry 91 Attending/Attestation - Attestation I have personally seen and examined this patient.: Yes I have fully participated in the care of the patient.: Yes I have reviewed all pertinent clinical information, including history, physical exam and plan: Yes Notes (Text): 11/21/17 06:07 Pt seen and examined with the resident during RR encounter. She was noted to be tachypneic.Her accessory muscles were in use. O/E her breath sounds were noted to be coarse,no wheezing was noted. IMP:Respiratory Insufficiency. PLAN;:Pt was referred to Dr Ruben Vera for transfer to ICU.She was accepted by her and transferred to the ICU. 11/21/17 06:21
[2017-11-21] MEDS: Piperacill/Tazo 4.5gm in NS 4.5 GM/100 ML BAG IVPB SCH ×2 (02:58→05:24)
[2017-11-21] MEDS: Sulfamethoxazole/Trimethoprim 300 MG in Dextrose 5% In Water 500 ML IVPB SCH ×3 (04:15→20:32)
[2017-11-21] MEDS: Pantoprazole 40 mg EC Tab PO SCH (05:24)
--- NOTE | 2017-11-21 07:02 | RAD ---
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 FINDINGS: LUNGS: Bilateral airspace disease identified at the bilateral bases likely reflecting atelectasis. This overlies diffuse increased interstitial pattern which is a granular interstitial projection suggesting likely acute subacute interstitial pneumonitis as the pulmonary vascular pattern appears normal and the interstitial pattern and appeared normal in prior chest radiograph 10/22/2016. Further clinical correlation recommended. PLEURA: No significant pleural effusion identified, no pneumothorax apparent. CARDIOVASCULAR: Normal. OSSEOUS STRUCTURES: No significant abnormalities. VISUALIZED UPPER ABDOMEN: Normal. OTHER FINDINGS: None. IMPRESSION: Bilateral basilar atelectasis likely overlies diffuse interstitial pulmonary disease of a likely infectious or inflammatory etiology. Cardiac silhouette appears normal again and there is no definitive pulmonary vascular congestion. 1. Bold
--- NOTE | 2017-11-21 07:23 | RAD ---
HISTORY: cough, dyspnea COMPARISON: Portable chest 11/18/2017. FINDINGS: LUNGS: Additional or inflammatory pneumonitis is again reiterated though mild CHF is not excluded. No interval change in appearance bilaterally. . PLEURA: No significant pleural effusion identified, no pneumothorax apparent. CARDIOVASCULAR: Normal. OSSEOUS STRUCTURES: No significant abnormalities. VISUALIZED UPPER ABDOMEN: Normal. OTHER FINDINGS: None. IMPRESSION: Stable mild diffuse bilateral pulmonary infiltrates persist. No alveolitis pleural effusion or pneumothorax bilaterally. No pulmonary vascular congestion apparent.
[2017-11-21 07:52] LABS: VENOUS BLOOD GAS BASE EXCESS -8.8 mmol/L (0.0-2.0); VENOUS BLOOD GAS PO2 149 mm/Hg (30-55); VENOUS BLOOD PH 7.34 (7.32-7.43)
[2017-11-21 08:30] LABS: BASO # 0.05 K/mm3 (0.0-2.0); BASO % 0.5 % (0.0-3.0); EOS # 0.1 (0.0-0.7); EOS % 0.5 % (1.5-5.0); GRAN # 9.48 (1.4-6.5); GRAN % 87.7 % (50.0-68.0); HEMOGLOBIN 8.4 g/dL (12.0-16.0); LYMPH # 1.1 (1.2-3.4); MEAN CELL VOLUME 97.6 fl (80.0-105.0); MEAN CORPUSCULAR HEMOGLOBIN 33.1 pg (25.0-35.0); MEAN CORPUSCULAR HGB CONC 33.9 g/dl (31.0-37.0); MEAN PLATELET VOLUME 11.4 fl (7.0-11.0); MONO # 0.1 (0.1-0.6); MONO % 1.3 % (1.0-6.0); RBC 2.54 10^6/uL (3.5-6.1); RED CELL DISTRIBUTION WIDTH 14.3 % (11.5-14.5); WHITE BLOOD COUNT 10.8 10^3/ul (4.5-11.0)
[2017-11-21] MEDS: Enoxaparin 40 mg Syringe SC SCH (09:14)
[2017-11-21] MEDS: MethylPREDNISolone 40 mg Vial IVP SCH ×2 (09:14→21:56)
[2017-11-21] MEDS ORDERED: Magnesium Sulfate 2 gm/50 ml 2 GM/50 ML BAG IVPB ONE (09:14)
[2017-11-21] MEDS: Vancomycin 1gm in NS 250ml 1 GM/250 ML BAG IVPB SCH (09:15)
[2017-11-21] MEDS: Nystatin-Triamcinolone Ointment(30 gm) TOP SCH ×2 (09:15→18:14)
[2017-11-21] MEDS: Sodium Chloride 0.9% 1,000 ML IV SCH (09:17)
[2017-11-21] MEDS ORDERED: DOLUTEGRAVIR SODIUM PO SCH (10:00)
--- NOTE | 2017-11-21 11:01 | CP.CCUPN ---
<Foreign Cormier - Last Filed: 11/21/17 12:41> CCU Subjective - Physician Review Subjective (Free Text): Foreign Cormier, PGY1 Critical Care Progress Note for Dr. Borges Patient was examined at bedside this morning. She was alert and oriented to person and place (AAOx2). Patient was able to have a brief conversation with me but is a poor historian. Patient unable to give an appropriate review of systems. CCU Objective - Vital Signs / Intake & Output Vital Signs (Last 4 hours): Vital Signs Resp 11/21/17 09:23 31 H Intake and Output (Last 8hrs): Intake & Output 11/20/17 11/21/17 11/21/17 22:59 06:59 14:59 Intake Total 2950 Output Total 600 Balance 2350 Intake: IV 2950 0.9 1500 Left Hand 250 abx 200 bactrim 1000 Output: Urine 600 Urethral (Whelan) 0 Urine, Voided 600 Other: Voiding Method Incontinent # Bowel Movements 1 - Physical Exam Head: Positive for: Atraumatic, Normocephalic. Negative for: Tenderness Pupils: Positive for: PERRL Extroacular Muscles: Positive for: EOMI Conjunctiva: Positive for: Normal Nose (External): Positive for: Other (High Flow 100% ) Nose (Internal): Positive for: Normal Inspection Respiratory/Chest: Positive for: Decreased Breath Sounds. Negative for: Respiratory Distress, Wheezes, Rales, Rhonchi Cardiovascular: Positive for: Normal S1, S2, Tachycardic. Negative for: Murmurs Abdomen: Positive for: Normal Bowel Sounds. Negative for: Tenderness, Distention, Peritoneal Signs, Rebound, Guarding Upper Extremity: Positive for: Normal Inspection Lower Extremity: Positive for: Normal Inspection, NORMAL PULSES. Negative for: Edema, CALF TENDERNESS, Cyanosis Neurological: Positive for: Speech Normal Skin: Positive for: Warm, Dry, Rashes (Fungal rash at perineal crease) Psychiatric: Positive for: Alert (x2 ), Other (Unknown baseline mental status) . Negative for: Oriented x 3 - Medications Active Medications: Active Medications Generic Name Dose Route Start Last Admin Trade Name Freq PRN Reason Stop Dose Admin Enoxaparin Sodium 40 mg 11/21/17 10:00 11/21/17 09:14 Lovenox SC 40 mg DAILY CLARICE Administration Protocol Fluconazole 100 mg 11/21/17 10:00 11/21/17 09:15 Diflucan PO 100 mg BID CLARICE Administration Protocol Trimethoprim/Sulfamethoxazole 500 mls @ 250 mls/hr 11/20/17 20:30 11/21/17 04 :15 300 mg/ Dextrose IVPB 250 mls/hr Q8H CLARICE Administration Levalbuterol HCl 1.25 mg 11/20/17 23:54 11/21/17 07:46 Xopenex IH 1.25 mg [id number] PRN Administration Shortness of Breath Levofloxacin/Dextrose 750 mg 11/22/17 10:00 Levaquin 750mg IVPB 12/01/17 10:01 DAILY CLARICE Protocol Methylprednisolone 40 mg 11/21/17 10:00 11/21/17 09:14 Solu-Medrol IVP 40 mg Q12 CLARICE Administration Dolutegravir Sodium 500 mg 11/21/17 10:00 [Tivicay] 500 Mg ( PO Home Med) DAILY CLARICE Nystatin/Triamcinolone Acetonide 0 gm 11/21/17 10:00 11/21/17 09:15 Nystatin/Triamcinolone Ointment TOP 1 applic BID CLARICE Administration Pantoprazole Sodium 40 mg 11/21/17 06:00 11/21/17 05:24 Protonix Ec Tab PO 40 mg 0600 CLARICE Administration - Patient Studies Lab Studies: Lab Studies 11/21/17 11/21/17 11/21/17 Range/Units 08:00 07:15 07:15 WBC 10.8 (4.5-11.0) 10^3/ul RBC 2.54 L (3.5-6.1) 10^6/uL Hgb 8.4 L D (12.0-16.0) g/dL Hct 24.8 L (36.0-48.0) % MCV 97.6 (80.0-105.0) fl MCH 33.1 (25.0-35.0) pg MCHC 33.9 (31.0-37.0) g/dl RDW 14.3 (11.5-14.5) % Plt Count 171 (120.0-450.0) 10^3/uL MPV 11.4 H (7.0-11.0) fl Gran % 87.7 H (50.0-68.0) % Lymph % (Auto) 10.0 L (22.0-35.0) % Peach % (Auto) 1.3 (1.0-6.0) % Eos % (Auto) 0.5 L (1.5-5.0) % Baso % (Auto) 0.5 (0.0-3.0) % Gran # 9.48 H (1.4-6.5) Lymph # (Auto) 1.1 L (1.2-3.4) Peach # (Auto) 0.1 (0.1-0.6) Eos # (Auto) 0.1 (0.0-0.7) Baso # (Auto) 0.05 (0.0-2.0) K/mm3 pCO2 (35-45) mm/Hg pO2 149 H (30-55) mm/Hg HCO3 (21-28) mmol/L ABG pH (7.35-7.45) ABG Total CO2 (22-28) mmol.L ABG O2 Saturation (95-98) % ABG Base Excess (-2.0-3.0) mmol/L ABG Potassium (3.6-5.2) mmol/L VBG pH 7.34 (7.32-7.43) VBG pCO2 29.0 L (40-60) VBG HCO3 15.6 L (21-28) mmol/l VBG Total CO2 16.5 L (22-28) mmol.L VBG O2 Sat (Calc) 100.1 H (40-65) % VBG Base Excess -8.8 L (0.0-2.0) mmol/L VBG Potassium 3.0 L (3.6-5.2) mmol/L Sodium 142.0 (132-148) mmol/L Chloride 116.0 H (98-107) mmol/L Glucose 93 (65-105) mg/dl Lactate 3.8 H (0.7-2.1) mmol/L FiO2 21.0 % POC Glucose (mg/dL) (65-110) mg/dL Magnesium 1.2 L (1.7-2.2) mg/dL Iron (45-180) ug/dL TIBC (265-497) ug/dL % Saturation (20-55) % Lactate Dehydrogenase (333-699) U/L Arterial Blood Potassium (3.6-5.2) mmol/L Venous Blood Potassium 3.0 L (3.6-5.2) mmol/L 11/21/17 11/21/17 11/20/17 Range/Units 01:37 01:30 23:00 WBC (4.5-11.0) 10^3/ul RBC (3.5-6.1) 10^6/uL Hgb (12.0-16.0) g/dL Hct (36.0-48.0) % MCV (80.0-105.0) fl MCH (25.0-35.0) pg MCHC (31.0-37.0) g/dl RDW (11.5-14.5) % Plt Count (120.0-450.0) 10^3/uL MPV (7.0-11.0) fl Gran % (50.0-68.0) % Lymph % (Auto) (22.0-35.0) % Peach % (Auto) (1.0-6.0) % Eos % (Auto) (1.5-5.0) % Baso % (Auto) (0.0-3.0) % Gran # (1.4-6.5) Lymph # (Auto) (1.2-3.4) Peach # (Auto) (0.1-0.6) Eos # (Auto) (0.0-0.7) Baso # (Auto) (0.0-2.0) K/mm3 pCO2 26 L (35-45) mm/Hg pO2 128.0 H (30-55) mm/Hg HCO3 17.3 L (21-28) mmol/L ABG pH 7.43 (7.35-7.45) ABG Total CO2 18.1 L (22-28) mmol.L ABG O2 Saturation 100.1 H (95-98) % ABG Base Excess -5.4 L (-2.0-3.0) mmol/L ABG Potassium 2.9 L (3.6-5.2) mmol/L VBG pH (7.32-7.43) VBG pCO2 (40-60) VBG HCO3 (21-28) mmol/l VBG Total CO2 (22-28) mmol.L VBG O2 Sat (Calc) (40-65) % VBG Base Excess (0.0-2.0) mmol/L VBG Potassium (3.6-5.2) mmol/L Sodium 142.0 (132-148) mmol/L Chloride 114.0 H (98-107) mmol/L Glucose 92 (65-105) mg/dl Lactate 2.4 H (0.7-2.1) mmol/L FiO2 100.0 % POC Glucose (mg/dL) 93 (65-110) mg/dL Magnesium (1.7-2.2) mg/dL Iron (45-180) ug/dL TIBC (265-497) ug/dL % Saturation (20-55) % Lactate Dehydrogenase 1624 H (333-699) U/L Arterial Blood Potassium 2.9 L (3.6-5.2) mmol/L Venous Blood Potassium (3.6-5.2) mmol/L 11/20/17 11/20/17 11/20/17 Range/Units 23:00 23:00 23:00 WBC (4.5-11.0) 10^3/ul RBC (3.5-6.1) 10^6/uL Hgb (12.0-16.0) g/dL Hct (36.0-48.0) % MCV (80.0-105.0) fl MCH (25.0-35.0) pg MCHC (31.0-37.0) g/dl RDW (11.5-14.5) % Plt Count (120.0-450.0) 10^3/uL MPV (7.0-11.0) fl Gran % (50.0-68.0) % Lymph % (Auto) (22.0-35.0) % Peach % (Auto) (1.0-6.0) % Eos % (Auto) (1.5-5.0) % Baso % (Auto) (0.0-3.0) % Gran # (1.4-6.5) Lymph # (Auto) (1.2-3.4) Peach # (Auto) (0.1-0.6) Eos # (Auto) (0.0-0.7) Baso # (Auto) (0.0-2.0) K/mm3 pCO2 (35-45) mm/Hg pO2 72 H (30-55) mm/Hg HCO3 (21-28) mmol/L ABG pH (7.35-7.45) ABG Total CO2 (22-28) mmol.L ABG O2 Saturation (95-98) % ABG Base Excess (-2.0-3.0) mmol/L ABG Potassium (3.6-5.2) mmol/L VBG pH 7.32 (7.32-7.43) VBG pCO2 35.0 L (40-60) VBG HCO3 18.0 L (21-28) mmol/l VBG Total CO2 19.1 L (22-28) mmol.L VBG O2 Sat (Calc) 95.6 H (40-65) % VBG Base Excess -7.3 L (0.0-2.0) mmol/L VBG Potassium 3.2 L (3.6-5.2) mmol/L Sodium 139.0 (132-148) mmol/L Chloride 114.0 H (98-107) mmol/L Glucose 126 H (65-105) mg/dl Lactate 2.7 H (0.7-2.1) mmol/L FiO2 21.0 % POC Glucose (mg/dL) (65-110) mg/dL Magnesium 1.9 (1.7-2.2) mg/dL Iron 51 (45-180) ug/dL TIBC 167 L (265-497) ug/dL % Saturation 31 (20-55) % Lactate Dehydrogenase (333-699) U/L Arterial Blood Potassium (3.6-5.2) mmol/L Venous Blood Potassium 3.2 L (3.6-5.2) mmol/L Laboratory Results - last 24 hr 11/20/17 11/20/17 11/20/17 23:00 23:00 23:00 WBC RBC Hgb Hct MCV MCH MCHC RDW Plt Count MPV Gran % Lymph % (Auto) Peach % (Auto) Eos % (Auto) Baso % (Auto) Gran # Lymph # (Auto) Peach # (Auto) Eos # (Auto) Baso # (Auto) pCO2 pO2 72 H HCO3 ABG pH ABG Total CO2 ABG O2 Saturation ABG Base Excess ABG Potassium VBG pH 7.32 VBG pCO2 35.0 L VBG HCO3 18.0 L VBG Total CO2 19.1 L VBG O2 Sat (Calc) 95.6 H VBG Base Excess -7.3 L VBG Potassium 3.2 L Sodium 139.0 Chloride 114.0 H Glucose 126 H Lactate 2.7 H FiO2 21.0 POC Glucose (mg/dL) Magnesium 1.9 Iron 51 TIBC 167 L % Saturation 31 Lactate Dehydrogenase Arterial Blood Potassium Venous Blood Potassium 3.2 L 11/20/17 11/21/17 11/21/17 23:00 01:30 01:37 WBC RBC Hgb Hct MCV MCH MCHC RDW Plt Count MPV Gran % Lymph % (Auto) Peach % (Auto) Eos % (Auto) Baso % (Auto) Gran # Lymph # (Auto) Peach # (Auto) Eos # (Auto) Baso # (Auto) pCO2 26 L pO2 128.0 H HCO3 17.3 L ABG pH 7.43 ABG Total CO2 18.1 L ABG O2 Saturation 100.1 H ABG Base Excess -5.4 L ABG Potassium 2.9 L VBG pH VBG pCO2 VBG HCO3 VBG Total CO2 VBG O2 Sat (Calc) VBG Base Excess VBG Potassium Sodium 142.0 Chloride 114.0 H Glucose 92 Lactate 2.4 H FiO2 100.0 POC Glucose (mg/dL) 93 Magnesium Iron TIBC % Saturation Lactate Dehydrogenase 1624 H Arterial Blood Potassium 2.9 L Venous Blood Potassium 11/21/17 11/21/17 11/21/17 07:15 07:15 08:00 WBC 10.8 RBC 2.54 L Hgb 8.4 L D Hct 24.8 L MCV 97.6 MCH 33.1 MCHC 33.9 RDW 14.3 Plt Count 171 MPV 11.4 H Gran % 87.7 H Lymph % (Auto) 10.0 L Peach % (Auto) 1.3 Eos % (Auto) 0.5 L Baso % (Auto) 0.5 Gran # 9.48 H Lymph # (Auto) 1.1 L Peach # (Auto) 0.1 Eos # (Auto) 0.1 Baso # (Auto) 0.05 pCO2 pO2 149 H HCO3 ABG pH ABG Total CO2 ABG O2 Saturation ABG Base Excess ABG Potassium VBG pH 7.34 VBG pCO2 29.0 L VBG HCO3 15.6 L VBG Total CO2 16.5 L VBG O2 Sat (Calc) 100.1 H VBG Base Excess -8.8 L VBG Potassium 3.0 L Sodium 142.0 Chloride 116.0 H Glucose 93 Lactate 3.8 H FiO2 21.0 POC Glucose (mg/dL) Magnesium 1.2 L Iron TIBC % Saturation Lactate Dehydrogenase Arterial Blood Potassium Venous Blood Potassium 3.0 L Review of Systems - Review of Systems Systems not reviewed;Unavailable: Altered Mental Status Critical Care Progress Note - Extremities/Vascular Does the Patient have a Central Venous Catheter?: No Does the Patient need a Central Venous Catheter?: No Does the Patient have a Whelan Catheter?: Yes Does the Patient need a Whelan Catheter?: Yes (AMS (baseline unknown)) - Prophylaxis GI Prophylaxis GI: PPI - Prophylaxis DVT Prophylaxis DVT: Lovenox - Nutrition Nutrition: Nutrition Category Date Time Status Regular Diet [DIET] Diets 11/21/17 Breakfast Ordered Assessment/Plan - Assessment and Plan (Free Text) Assessment: Patient is a 57 y/o F with PMHx of hepatitis B, non-compliance, HIV and AIDS ( last CD4 95) who presented to the ED for hallucinations and altered mental status, as per daughter. Patient was recently diagnosed with Pneumocystis pneumonia (PCP) but signed out AMA after last visit. Patient is on HAART therapy. Imaging showed diffuse pulmonary infiltrates - patient started on bactrim and steroids to resolve PCP Pneumonia. Patient became anxious, hypoxic, and was using respiratory muscles for breathing - FILTER TIP INSPECTOR was called and patient started on BiPAP and managed under ICU. Currently, patient hypoxia has improved and has been switched off to High flow. Plan: Neuro: - Altered Mental Status - baseline unknown, currently AAOx2 - Maintain normothermia - Utox f/u - Psych f/u Pulm: - Patient switched from BiPAP to High Flow 100% - Maintain SaO2 > 92% - CXR (11/20): diffuse pulmonary infiltrates Cardio: - Maintain MAP > 65 - Monitor sinus tachycardia GI: - GI ppx - protonix - Diet: regular Renal: - Replete lytes as needed Heme: - Lovenox ppx ID: - PCP Pneumonia (Last CD4 count 95 in 2017) - f/u new CD4 count - c/w bactrim and steroids - c/w vanco - Confirm with ID in regards to restarting on HAART therapy Endo: - Maintain euglycemia - Glucose within normal limits Dispo: Patient is still under management of the ICU. Case discussed and reviewed with Attending Physician - Dr. Borges. <Roger Borges - Last Filed: 11/21/17 13:11> CCU Objective - Vital Signs / Intake & Output Vital Signs (Last 4 hours): Vital Signs Pulse Resp BP Pulse Ox 11/21/17 12:10 106 H 35 H 96 11/21/17 12:03 89/55 L 93 L 11/21/17 12:00 89/52 L 94 L 11/21/17 11:59 111 H 29 H 95/59 L 92 L 11/21/17 11:50 112 H 33 H 88 L 11/21/17 11:40 110 H 53 H 98 11/21/17 11:30 108 H 32 H 98 11/21/17 11:20 113 H 43 H 92 L 11/21/17 11:10 111 H 34 H 91 L 11/21/17 11:00 111 H 28 H 88/60 L 98 11/21/17 10:50 113 H 31 H 94 L 11/21/17 10:40 115 H 40 H 94 L 11/21/17 10:30 110 H 34 H 96 11/21/17 10:20 119 H 30 H 92 L 11/21/17 10:10 116 H 92 L 11/21/17 10:00 113 H 98/64 L 91 L 11/21/17 09:50 112 H 37 H 97 11/21/17 09:40 116 H 35 H 92 L 11/21/17 09:30 121 H 29 H 87 L 11/21/17 09:23 31 H 11/21/17 09:20 117 H 43 H 92 L 11/21/17 09:10 120 H 38 H 87 L Intake and Output (Last 8hrs): Intake & Output 11/20/17 11/21/17 11/21/17 22:59 06:59 14:59 Intake Total 2950 Output Total 600 Balance 2350 Intake: IV 2950 0.9 1500 Left Hand 250 abx 200 bactrim 1000 Output: Urine 600 Urethral (Whelan) 0 Urine, Voided 600 Other: Voiding Method Incontinent # Bowel Movements 1 - Medications Active Medications: Active Medications Generic Name Dose Route Start Last Admin Trade Name Freq PRN Reason Stop Dose Admin Enoxaparin Sodium 40 mg 11/21/17 10:00 11/21/17 09:14 Lovenox SC 40 mg DAILY CLARICE Administration Protocol Fluconazole 100 mg 11/21/17 10:00 11/21/17 09:15 Diflucan PO 100 mg BID CLARICE Administration Protocol Trimethoprim/Sulfamethoxazole 500 mls @ 250 mls/hr 11/20/17 20:30 11/21/17 04 :15 300 mg/ Dextrose IVPB 250 mls/hr Q8H CLARICE Administration Levalbuterol HCl 1.25 mg 11/20/17 23:54 11/21/17 07:46 Xopenex IH 1.25 mg [id number] PRN Administration Shortness of Breath Levofloxacin/Dextrose 750 mg 11/22/17 10:00 Levaquin 750mg IVPB 12/01/17 10:01 DAILY CLARICE Protocol Methylprednisolone 40 mg 11/21/17 10:00 11/21/17 09:14 Solu-Medrol IVP 40 mg Q12 CLARICE Administration Dolutegravir Sodium 500 mg 11/21/17 10:00 [Tivicay] 500 Mg ( PO Home Med) DAILY CLARICE Nystatin/Triamcinolone Acetonide 0 gm 11/21/17 10:00 11/21/17 09:15 Nystatin/Triamcinolone Ointment TOP 1 applic BID CLARICE Administration Pantoprazole Sodium 40 mg 11/21/17 06:00 11/21/17 05:24 Protonix Ec Tab PO 40 mg 0600 CLARICE Administration Quetiapine Fumarate 25 mg 11/21/17 22:00 Seroquel PO HS CLARICE Protocol Ziprasidone 10 mg 11/21/17 12:23 Geodon Inj IM Q12H PRN severe agitaiton/psychosis Protocol - Patient Studies Lab Studies: Lab Studies 11/21/17 11/21/17 11/21/17 Range/Units 12:00 10:00 08:00 WBC 10.8 (4.5-11.0) 10^3/ul RBC 2.54 L (3.5-6.1) 10^6/uL Hgb 8.4 L D (12.0-16.0) g/dL Hct 24.8 L (36.0-48.0) % MCV 97.6 (80.0-105.0) fl MCH 33.1 (25.0-35.0) pg MCHC 33.9 (31.0-37.0) g/dl RDW 14.3 (11.5-14.5) % Plt Count 171 (120.0-450.0) 10^3/uL MPV 11.4 H (7.0-11.0) fl Gran % 87.7 H (50.0-68.0) % Lymph % (Auto) 10.0 L (22.0-35.0) % Peach % (Auto) 1.3 (1.0-6.0) % Eos % (Auto) 0.5 L (1.5-5.0) % Baso % (Auto) 0.5 (0.0-3.0) % Gran # 9.48 H (1.4-6.5) Lymph # (Auto) 1.1 L (1.2-3.4) Peach # (Auto) 0.1 (0.1-0.6) Eos # (Auto) 0.1 (0.0-0.7) Baso # (Auto) 0.05 (0.0-2.0) K/mm3 pCO2 (35-45) mm/Hg pO2 82 H (30-55) mm/Hg HCO3 (21-28) mmol/L ABG pH (7.35-7.45) ABG Total CO2 (22-28) mmol.L ABG O2 Saturation (95-98) % ABG Base Excess (-2.0-3.0) mmol/L ABG Potassium (3.6-5.2) mmol/L VBG pH 7.45 H (7.32-7.43) VBG pCO2 26.0 L (40-60) VBG HCO3 18.1 L (21-28) mmol/l VBG Total CO2 18.9 L (22-28) mmol.L VBG O2 Sat (Calc) 98.3 H (40-65) % VBG Base Excess -4.3 L (0.0-2.0) mmol/L VBG Potassium 4.4 (3.6-5.2) mmol/L Sodium 139.0 142 (132-148) mmol/L Chloride 113.0 H 112 H (98-107) mmol/L Glucose 112 H (65-105) mg/dl Lactate 3.3 H (0.7-2.1) mmol/L FiO2 21.0 % Potassium 4.1 (3.6-5.0) mmol/L Carbon Dioxide 18 L (21-33) mmol/L Anion Gap 16 (10-20) BUN 16 (7-21) mg/dL Creatinine 0.7 (0.7-1.2) mg/dl Est GFR ( Amer) > 60 Est GFR (Non-Af Amer) > 60 POC Glucose (mg/dL) (65-110) mg/dL Random Glucose 100 (70-110) mg/dL Calcium 7.4 L (8.4-10.5) mg/dL Magnesium (1.7-2.2) mg/dL Iron (45-180) ug/dL TIBC (265-497) ug/dL % Saturation (20-55) % Transferrin (206-381) mg/dL Ferritin ng/mL Total Bilirubin 0.8 (0.2-1.3) mg/dL AST 58 H D (14-36) U/L ALT 20 (7-56) U/L Alkaline Phosphatase 57 (38-126) U/L Lactate Dehydrogenase (333-699) U/L Total Protein 6.6 (5.8-8.3) g/dL Albumin 2.5 L (3.0-4.8) g/dL Globulin 4.1 gm/dL Albumin/Globulin Ratio 0.6 L (1.1-1.8) Procalcitonin (0.19-0.49) NG/ML Arterial Blood Potassium (3.6-5.2) mmol/L Venous Blood Potassium 4.4 (3.6-5.2) mmol/L 11/21/17 11/21/17 11/21/17 Range/Units 07:15 07:15 01:37 WBC (4.5-11.0) 10^3/ul RBC (3.5-6.1) 10^6/uL Hgb (12.0-16.0) g/dL Hct (36.0-48.0) % MCV (80.0-105.0) fl MCH (25.0-35.0) pg MCHC (31.0-37.0) g/dl RDW (11.5-14.5) % Plt Count (120.0-450.0) 10^3/uL MPV (7.0-11.0) fl Gran % (50.0-68.0) % Lymph % (Auto) (22.0-35.0) % Peach % (Auto) (1.0-6.0) % Eos % (Auto) (1.5-5.0) % Baso % (Auto) (0.0-3.0) % Gran # (1.4-6.5) Lymph # (Auto) (1.2-3.4) Peach # (Auto) (0.1-0.6) Eos # (Auto) (0.0-0.7) Baso # (Auto) (0.0-2.0) K/mm3 pCO2 (35-45) mm/Hg pO2 149 H (30-55) mm/Hg HCO3 (21-28) mmol/L ABG pH (7.35-7.45) ABG Total CO2 (22-28) mmol.L ABG O2 Saturation (95-98) % ABG Base Excess (-2.0-3.0) mmol/L ABG Potassium (3.6-5.2) mmol/L VBG pH 7.34 (7.32-7.43) VBG pCO2 29.0 L (40-60) VBG HCO3 15.6 L (21-28) mmol/l VBG Total CO2 16.5 L (22-28) mmol.L VBG O2 Sat (Calc) 100.1 H (40-65) % VBG Base Excess -8.8 L (0.0-2.0) mmol/L VBG Potassium 3.0 L (3.6-5.2) mmol/L Sodium 142.0 (132-148) mmol/L Chloride 116.0 H (98-107) mmol/L Glucose 93 (65-105) mg/dl Lactate 3.8 H (0.7-2.1) mmol/L FiO2 21.0 % Potassium (3.6-5.0) mmol/L Carbon Dioxide (21-33) mmol/L Anion Gap (10-20) BUN (7-21) mg/dL Creatinine (0.7-1.2) mg/dl Est GFR ( Amer) Est GFR (Non-Af Amer) POC Glucose (mg/dL) 93 (65-110) mg/dL Random Glucose (70-110) mg/dL Calcium (8.4-10.5) mg/dL Magnesium 1.2 L (1.7-2.2) mg/dL Iron (45-180) ug/dL TIBC (265-497) ug/dL % Saturation (20-55) % Transferrin (206-381) mg/dL Ferritin ng/mL Total Bilirubin (0.2-1.3) mg/dL AST (14-36) U/L ALT (7-56) U/L Alkaline Phosphatase (38-126) U/L Lactate Dehydrogenase (333-699) U/L Total Protein (5.8-8.3) g/dL Albumin (3.0-4.8) g/dL Globulin gm/dL Albumin/Globulin Ratio (1.1-1.8) Procalcitonin (0.19-0.49) NG/ML Arterial Blood Potassium (3.6-5.2) mmol/L Venous Blood Potassium 3.0 L (3.6-5.2) mmol/L 11/21/17 11/20/17 11/20/17 Range/Units 01:30 23:00 23:00 WBC (4.5-11.0) 10^3/ul RBC (3.5-6.1) 10^6/uL Hgb (12.0-16.0) g/dL Hct (36.0-48.0) % MCV (80.0-105.0) fl MCH (25.0-35.0) pg MCHC (31.0-37.0) g/dl RDW (11.5-14.5) % Plt Count (120.0-450.0) 10^3/uL MPV (7.0-11.0) fl Gran % (50.0-68.0) % Lymph % (Auto) (22.0-35.0) % Peach % (Auto) (1.0-6.0) % Eos % (Auto) (1.5-5.0) % Baso % (Auto) (0.0-3.0) % Gran # (1.4-6.5) Lymph # (Auto) (1.2-3.4) Peach # (Auto) (0.1-0.6) Eos # (Auto) (0.0-0.7) Baso # (Auto) (0.0-2.0) K/mm3 pCO2 26 L (35-45) mm/Hg pO2 128.0 H 72 H (30-55) mm/Hg HCO3 17.3 L (21-28) mmol/L ABG pH 7.43 (7.35-7.45) ABG Total CO2 18.1 L (22-28) mmol.L ABG O2 Saturation 100.1 H (95-98) % ABG Base Excess -5.4 L (-2.0-3.0) mmol/L ABG Potassium 2.9 L (3.6-5.2) mmol/L VBG pH 7.32 (7.32-7.43) VBG pCO2 35.0 L (40-60) VBG HCO3 18.0 L (21-28) mmol/l VBG Total CO2 19.1 L (22-28) mmol.L VBG O2 Sat (Calc) 95.6 H (40-65) % VBG Base Excess -7.3 L (0.0-2.0) mmol/L VBG Potassium 3.2 L (3.6-5.2) mmol/L Sodium 142.0 139.0 (132-148) mmol/L Chloride 114.0 H 114.0 H (98-107) mmol/L Glucose 92 126 H (65-105) mg/dl Lactate 2.4 H 2.7 H (0.7-2.1) mmol/L FiO2 100.0 21.0 % Potassium (3.6-5.0) mmol/L Carbon Dioxide (21-33) mmol/L Anion Gap (10-20) BUN (7-21) mg/dL Creatinine (0.7-1.2) mg/dl Est GFR ( Amer) Est GFR (Non-Af Amer) POC Glucose (mg/dL) (65-110) mg/dL Random Glucose (70-110) mg/dL Calcium (8.4-10.5) mg/dL Magnesium (1.7-2.2) mg/dL Iron (45-180) ug/dL TIBC (265-497) ug/dL % Saturation (20-55) % Transferrin (206-381) mg/dL Ferritin ng/mL Total Bilirubin (0.2-1.3) mg/dL AST (14-36) U/L ALT (7-56) U/L Alkaline Phosphatase (38-126) U/L Lactate Dehydrogenase 1624 H (333-699) U/L Total Protein (5.8-8.3) g/dL Albumin (3.0-4.8) g/dL Globulin gm/dL Albumin/Globulin Ratio (1.1-1.8) Procalcitonin (0.19-0.49) NG/ML Arterial Blood Potassium 2.9 L (3.6-5.2) mmol/L Venous Blood Potassium 3.2 L (3.6-5.2) mmol/L 11/20/17 11/20/17 11/20/17 Range/Units 23:00 23:00 23:00 WBC (4.5-11.0) 10^3/ul RBC (3.5-6.1) 10^6/uL Hgb (12.0-16.0) g/dL Hct (36.0-48.0) % MCV (80.0-105.0) fl MCH (25.0-35.0) pg MCHC (31.0-37.0) g/dl RDW (11.5-14.5) % Plt Count (120.0-450.0) 10^3/uL MPV (7.0-11.0) fl Gran % (50.0-68.0) % Lymph % (Auto) (22.0-35.0) % Peach % (Auto) (1.0-6.0) % Eos % (Auto) (1.5-5.0) % Baso % (Auto) (0.0-3.0) % Gran # (1.4-6.5) Lymph # (Auto) (1.2-3.4) Peach # (Auto) (0.1-0.6) Eos # (Auto) (0.0-0.7) Baso # (Auto) (0.0-2.0) K/mm3 pCO2 (35-45) mm/Hg pO2 (30-55) mm/Hg HCO3 (21-28) mmol/L ABG pH (7.35-7.45) ABG Total CO2 (22-28) mmol.L ABG O2 Saturation (95-98) % ABG Base Excess (-2.0-3.0) mmol/L ABG Potassium (3.6-5.2) mmol/L VBG pH (7.32-7.43) VBG pCO2 (40-60) VBG HCO3 (21-28) mmol/l VBG Total CO2 (22-28) mmol.L VBG O2 Sat (Calc) (40-65) % VBG Base Excess (0.0-2.0) mmol/L VBG Potassium (3.6-5.2) mmol/L Sodium (132-148) mmol/L Chloride (98-107) mmol/L Glucose (65-105) mg/dl Lactate (0.7-2.1) mmol/L FiO2 % Potassium (3.6-5.0) mmol/L Carbon Dioxide (21-33) mmol/L Anion Gap (10-20) BUN (7-21) mg/dL Creatinine (0.7-1.2) mg/dl Est GFR ( Amer) Est GFR (Non-Af Amer) POC Glucose (mg/dL) (65-110) mg/dL Random Glucose (70-110) mg/dL Calcium (8.4-10.5) mg/dL Magnesium (1.7-2.2) mg/dL Iron 51 (45-180) ug/dL TIBC 167 L (265-497) ug/dL % Saturation 31 (20-55) % Transferrin 86.34 L (206-381) mg/dL Ferritin ng/mL Total Bilirubin (0.2-1.3) mg/dL AST (14-36) U/L ALT (7-56) U/L Alkaline Phosphatase (38-126) U/L Lactate Dehydrogenase (333-699) U/L Total Protein (5.8-8.3) g/dL Albumin (3.0-4.8) g/dL Globulin gm/dL Albumin/Globulin Ratio (1.1-1.8) Procalcitonin 0.21 (0.19-0.49) NG/ML Arterial Blood Potassium (3.6-5.2) mmol/L Venous Blood Potassium (3.6-5.2) mmol/L 11/20/17 Range/Units 23:00 WBC (4.5-11.0) 10^3/ul RBC (3.5-6.1) 10^6/uL Hgb (12.0-16.0) g/dL Hct (36.0-48.0) % MCV (80.0-105.0) fl MCH (25.0-35.0) pg MCHC (31.0-37.0) g/dl RDW (11.5-14.5) % Plt Count (120.0-450.0) 10^3/uL MPV (7.0-11.0) fl Gran % (50.0-68.0) % Lymph % (Auto) (22.0-35.0) % Peach % (Auto) (1.0-6.0) % Eos % (Auto) (1.5-5.0) % Baso % (Auto) (0.0-3.0) % Gran # (1.4-6.5) Lymph # (Auto) (1.2-3.4) Peach # (Auto) (0.1-0.6) Eos # (Auto) (0.0-0.7) Baso # (Auto) (0.0-2.0) K/mm3 pCO2 (35-45) mm/Hg pO2 (30-55) mm/Hg HCO3 (21-28) mmol/L ABG pH (7.35-7.45) ABG Total CO2 (22-28) mmol.L ABG O2 Saturation (95-98) % ABG Base Excess (-2.0-3.0) mmol/L ABG Potassium (3.6-5.2) mmol/L VBG pH (7.32-7.43) VBG pCO2 (40-60) VBG HCO3 (21-28) mmol/l VBG Total CO2 (22-28) mmol.L VBG O2 Sat (Calc) (40-65) % VBG Base Excess (0.0-2.0) mmol/L VBG Potassium (3.6-5.2) mmol/L Sodium (132-148) mmol/L Chloride (98-107) mmol/L Glucose (65-105) mg/dl Lactate (0.7-2.1) mmol/L FiO2 % Potassium (3.6-5.0) mmol/L Carbon Dioxide (21-33) mmol/L Anion Gap (10-20) BUN (7-21) mg/dL Creatinine (0.7-1.2) mg/dl Est GFR ( Amer) Est GFR (Non-Af Amer) POC Glucose (mg/dL) (65-110) mg/dL Random Glucose (70-110) mg/dL Calcium (8.4-10.5) mg/dL Magnesium 1.9 (1.7-2.2) mg/dL Iron (45-180) ug/dL TIBC (265-497) ug/dL % Saturation (20-55) % Transferrin (206-381) mg/dL Ferritin 444.0 ng/mL Total Bilirubin (0.2-1.3) mg/dL AST (14-36) U/L ALT (7-56) U/L Alkaline Phosphatase (38-126) U/L Lactate Dehydrogenase (333-699) U/L Total Protein (5.8-8.3) g/dL Albumin (3.0-4.8) g/dL Globulin gm/dL Albumin/Globulin Ratio (1.1-1.8) Procalcitonin (0.19-0.49) NG/ML Arterial Blood Potassium (3.6-5.2) mmol/L Venous Blood Potassium (3.6-5.2) mmol/L Laboratory Results - last 24 hr 11/20/17 11/20/17 11/20/17 23:00 23:00 23:00 WBC RBC Hgb Hct MCV MCH MCHC RDW Plt Count MPV Gran % Lymph % (Auto) Peach % (Auto) Eos % (Auto) Baso % (Auto) Gran # Lymph # (Auto) Peach # (Auto) Eos # (Auto) Baso # (Auto) pCO2 pO2 HCO3 ABG pH ABG Total CO2 ABG O2 Saturation ABG Base Excess ABG Potassium VBG pH VBG pCO2 VBG HCO3 VBG Total CO2 VBG O2 Sat (Calc) VBG Base Excess VBG Potassium Sodium Chloride Glucose Lactate FiO2 Potassium Carbon Dioxide Anion Gap BUN Creatinine Est GFR ( Amer) Est GFR (Non-Af Amer) POC Glucose (mg/dL) Random Glucose Calcium Magnesium 1.9 Iron TIBC % Saturation Transferrin 86.34 L Ferritin 444.0 Total Bilirubin AST ALT Alkaline Phosphatase Lactate Dehydrogenase Total Protein Albumin Globulin Albumin/Globulin Ratio Procalcitonin 0.21 Arterial Blood Potassium Venous Blood Potassium 11/20/17 11/20/17 11/20/17 23:00 23:00 23:00 WBC RBC Hgb Hct MCV MCH MCHC RDW Plt Count MPV Gran % Lymph % (Auto) Peach % (Auto) Eos % (Auto) Baso % (Auto) Gran # Lymph # (Auto) Peach # (Auto) Eos # (Auto) Baso # (Auto) pCO2 pO2 72 H HCO3 ABG pH ABG Total CO2 ABG O2 Saturation ABG Base Excess ABG Potassium VBG pH 7.32 VBG pCO2 35.0 L VBG HCO3 18.0 L VBG Total CO2 19.1 L VBG O2 Sat (Calc) 95.6 H VBG Base Excess -7.3 L VBG Potassium 3.2 L Sodium 139.0 Chloride 114.0 H Glucose 126 H Lactate 2.7 H FiO2 21.0 Potassium Carbon Dioxide Anion Gap BUN Creatinine Est GFR ( Amer) Est GFR (Non-Af Amer) POC Glucose (mg/dL) Random Glucose Calcium Magnesium Iron 51 TIBC 167 L % Saturation 31 Transferrin Ferritin Total Bilirubin AST ALT Alkaline Phosphatase Lactate Dehydrogenase 1624 H Total Protein Albumin Globulin Albumin/Globulin Ratio Procalcitonin Arterial Blood Potassium Venous Blood Potassium 3.2 L 11/21/17 11/21/17 11/21/17 01:30 01:37 07:15 WBC RBC Hgb Hct MCV MCH MCHC RDW Plt Count MPV Gran % Lymph % (Auto) Peach % (Auto) Eos % (Auto) Baso % (Auto) Gran # Lymph # (Auto) Peach # (Auto) Eos # (Auto) Baso # (Auto) pCO2 26 L pO2 128.0 H HCO3 17.3 L ABG pH 7.43 ABG Total CO2 18.1 L ABG O2 Saturation 100.1 H ABG Base Excess -5.4 L ABG Potassium 2.9 L VBG pH VBG pCO2 VBG HCO3 VBG Total CO2 VBG O2 Sat (Calc) VBG Base Excess VBG Potassium Sodium 142.0 Chloride 114.0 H Glucose 92 Lactate 2.4 H FiO2 100.0 Potassium Carbon Dioxide Anion Gap BUN Creatinine Est GFR ( Amer) Est GFR (Non-Af Amer) POC Glucose (mg/dL) 93 Random Glucose Calcium Magnesium 1.2 L Iron TIBC % Saturation Transferrin Ferritin Total Bilirubin AST ALT Alkaline Phosphatase Lactate Dehydrogenase Total Protein Albumin Globulin Albumin/Globulin Ratio Procalcitonin Arterial Blood Potassium 2.9 L Venous Blood Potassium 11/21/17 11/21/17 11/21/17 07:15 08:00 10:00 WBC 10.8 RBC 2.54 L Hgb 8.4 L D Hct 24.8 L MCV 97.6 MCH 33.1 MCHC 33.9 RDW 14.3 Plt Count 171 MPV 11.4 H Gran % 87.7 H Lymph % (Auto) 10.0 L Peach % (Auto) 1.3 Eos % (Auto) 0.5 L Baso % (Auto) 0.5 Gran # 9.48 H Lymph # (Auto) 1.1 L Peach # (Auto) 0.1 Eos # (Auto) 0.1 Baso # (Auto) 0.05 pCO2 pO2 149 H HCO3 ABG pH ABG Total CO2 ABG O2 Saturation ABG Base Excess ABG Potassium VBG pH 7.34 VBG pCO2 29.0 L VBG HCO3 15.6 L VBG Total CO2 16.5 L VBG O2 Sat (Calc) 100.1 H VBG Base Excess -8.8 L VBG Potassium 3.0 L Sodium 142.0 142 Chloride 116.0 H 112 H Glucose 93 Lactate 3.8 H FiO2 21.0 Potassium 4.1 Carbon Dioxide 18 L Anion Gap 16 BUN 16 Creatinine 0.7 Est GFR ( Amer) > 60 Est GFR (Non-Af Amer) > 60 POC Glucose (mg/dL) Random Glucose 100 Calcium 7.4 L Magnesium Iron TIBC % Saturation Transferrin Ferritin Total Bilirubin 0.8 AST 58 H D ALT 20 Alkaline Phosphatase 57 Lactate Dehydrogenase Total Protein 6.6 Albumin 2.5 L Globulin 4.1 Albumin/Globulin Ratio 0.6 L Procalcitonin Arterial Blood Potassium Venous Blood Potassium 3.0 L 11/21/17 12:00 WBC RBC Hgb Hct MCV MCH MCHC RDW Plt Count MPV Gran % Lymph % (Auto) Peach % (Auto) Eos % (Auto) Baso % (Auto) Gran # Lymph # (Auto) Peach # (Auto) Eos # (Auto) Baso # (Auto) pCO2 pO2 82 H HCO3 ABG pH ABG Total CO2 ABG O2 Saturation ABG Base Excess ABG Potassium VBG pH 7.45 H VBG pCO2 26.0 L VBG HCO3 18.1 L VBG Total CO2 18.9 L VBG O2 Sat (Calc) 98.3 H VBG Base Excess -4.3 L VBG Potassium 4.4 Sodium 139.0 Chloride 113.0 H Glucose 112 H Lactate 3.3 H FiO2 21.0 Potassium Carbon Dioxide Anion Gap BUN Creatinine Est GFR ( Amer) Est GFR (Non-Af Amer) POC Glucose (mg/dL) Random Glucose Calcium Magnesium Iron TIBC % Saturation Transferrin Ferritin Total Bilirubin AST ALT Alkaline Phosphatase Lactate Dehydrogenase Total Protein Albumin Globulin Albumin/Globulin Ratio Procalcitonin Arterial Blood Potassium Venous Blood Potassium 4.4 Critical Care Progress Note - Nutrition Nutrition: Nutrition Category Date Time Status Regular Diet [DIET] Diets 11/21/17 Breakfast Ordered Assessment/Plan - Assessment and Plan (Free Text) Plan: Patient seen and examined on rounds with resident, agree with note with following additions/exceptions: Patient is 57yo female with PMHx of hepatitis B, non-compliance, HIV and AIDS ( last CD4 95), presented with AMS, and diffuse bilateral infiltrates on CXR, and hypoxia. Pt is currently afebrile, BP stable, remains on high flow O2, on Bactrim and Steroids for PCP tx, AAOx2, NAD. LDH markedly increased. Pt has hx of non compliance, and has signed out AMA in the past. ABg with improving oxygenation PNA, PCP Hypoxia HIV/AIDS Hep B Recommend: - cont with high flow as toelrated, maintain sat 90%, monitor resp status closely - duonebs PRN - Steroids, IV Solumedrol - Cont with Bactrim IV for PCP tx - follow up ID - repeat CD4 count - daily CXR, ABG - FS control - monitor LFTs - GI ppx - DVT ppx - monitor in MICU
[2017-11-21 11:25] LABS: ALB/GLOB RATIO 0.6 (1.1-1.8); ALBUMIN 2.5 g/dL (3.0-4.8); ALT/SGPT 20 U/L (7-56); AST/SGOT 58 U/L (14-36); BLOOD UREA NITROGEN 16 mg/dL (7-21); CALCIUM 7.4 mg/dL (8.4-10.5); GFR AFRICAN-AMERICAN > 60; GFR NON-AFRICAN AMERICAN > 60
[2017-11-21 12:10] LABS: VENOUS BLOOD GAS BASE EXCESS -4.3 mmol/L (0.0-2.0); VENOUS BLOOD GAS PO2 82 mm/Hg (30-55); VENOUS BLOOD PH 7.45 (7.32-7.43)
--- NOTE | 2017-11-21 14:45 | CON ---
DATE: 11/21/2017 CHIEF COMPLAINT: Shortness of breath and cough. HISTORY OF PRESENT ILLNESS: This is a 57-year-old female, positive HIV and AIDS, noncompliant with medications, admitted to the emergency room. Two days prior to the emergency room, the patient was in the emergency room, was found have a pneumonia and advised admission, she signed out AMA. The patient is a poor historian. She appears to be confused at times at times; however, at times she is awake. There is no chest pain. No abdominal pain, diarrhea, or constipation. PAST MEDICAL HISTORY: Significant for HIV and AIDS, and hepatitis B. PAST SURGICAL HISTORY: Noncontributory. ALLERGIES: THE PATIENT HAS NO KNOWN ALLERGIES. The patient is noncompliant with her HIV medications. She is noncompliant for health maintenance. She has not had the mammogram, colonoscopy, or Pap smears. SOCIAL HISTORY: She is a smoker. Unemployed. MEDICATIONS: Listed as dolutegravir. PHYSICAL EXAMINATION: GENERAL: The patient is in bed, appearing chronically ill, debilitated. VITAL SIGNS: Temperature of 99.6, heart rate of 115, respiratory rate of 22, and blood pressure is 92/50. The patient's oxygen saturation was 63% and came up to 100% on BiPAP. HEENT: Oral thrush. NECK: Supple. LUNGS: Decreased breath sounds. HEART: Normal S1 and S2. ABDOMEN: Soft and nontender. LABORATORY EXAMINATION: Reveals white count of 10,000, hemoglobin of 10, and platelets of 223. ABG reveals the patient's pCO2 is 26. The patient's pO2 was 58 with a pH of 7.41 and lactic acid 3.8. The patient's LDH is 1624. BUN of 27, creatinine of 0.8. Random glucose 118. LFTs; AST is mildly elevated. Urinalysis is unremarkable. Microbiology is pending. The patient had a chest x-ray from yesterday reveals inflammatory pneumonitis, mild congestive heart failure is not excluded. I reviewed the chest x-ray myself, it appears like a PCP. The patient also had a chest x-ray this morning with bilateral atelectasis, diffuse interstitial pulmonary disease. History and examination written by Dr. Michael Ward reviewed. ASSESSMENT AND PLAN: This is a 57-year-old female, who was admitted with tachycardia, dyspnea, hypoxic, with infiltrates, no LDH elevation, patient with acquired immunodeficiency syndrome with hepatitis B. The patient had an elevated human immunodeficiency virus RNA in 10/2016, 5.29 logs with a t-cell of 11% last year and absolute T4 of 95, which meets criteria for acquired immunodeficiency syndrome. 1. The patient had severe sepsis with end stage acquired immunodeficiency syndrome and Pneumocystis carinii pneumonia. Review of orders reveals a repeat t-cells had been requested. Blood cultures, urine cultures, and sputum cultures requested. Procalcitonin has been requested. The patient has been started on Bactrim, fluconazole, dolutegravir, vancomycin, losartan, and started the patient also on Levaquin. Discontinue the vancomycin, I do not believe the patient is an intravenous drug abuser. This is most consistent with PCP. Cryptococcal pneumonia may present with x-ray as CMV, although the t-cells may be too high for CMV; however, it is from the last year and we will order a CMV, PCR, Cryptococcal antigen. I will follow closely with you. Overall prognosis is quite poor for this patient who is noncompliant with medications. We are interested to find out what HIV medication she is taking in addition to the dolutegravir. Dolutegravir is integrase inhibitor and it should be a part of a combination of antiviral drug most often either tenofovir or FTC or abacavir. It should not be taken as monotherapy as an integrase inhibitor. We will follow closely with you. Kelby Justin MD
[2017-11-21] MEDS: Emtricitabine-Tenofovir 200 mg-300 mg Tab PO SCH (18:13)
--- NOTE | 2017-11-21 19:42 | CP.PCM.PN ---
<Omari Davis - Last Filed: 11/21/17 19:37> Subjective - Date & Time of Evaluation Date of Evaluation: 11/21/17 Time of Evaluation: 17:10 - Subjective Subjective: Omari Davis DO PGY-1, [facility] Progress Note Pt seen and examined at bedside this am. States she feels tired, otherwise denies any acute complaints. Pt a poor historian, unable to verbalize why she was admitted to the hospital. Pt observed dry coughing during encounter. Pt had rapid response overnight on medical floor for respiratory distress and was thus transferred to the ICU. Objective - Vital Signs/Intake and Output Vital Signs (last 24 hours): Temp Pulse Resp BP Pulse Ox 97.7 F 98 H 26 H 95/64 L 97 11/21/17 08:04 11/21/17 18:00 11/21/17 17:20 11/21/17 17:00 11/21/17 17:20 Intake and Output: 11/21/17 11/22/17 18:59 06:59 Intake Total 2400 Output Total 290 Balance 2110 - Medications Medications: Current Medications Emtricitabine/Tenofovir (Truvada 200 Mg-300 Mg) 1 tab PO DAILY [facility] PRN Reason: Protocol Last Admin: 11/21/17 18:13 Dose: 1 tab Enoxaparin Sodium (Lovenox) 40 mg SC DAILY [facility] PRN Reason: Protocol Last Admin: 11/21/17 09:14 Dose: 40 mg Fluconazole (Diflucan) 100 mg PO BID [facility] PRN Reason: Protocol Last Admin: 11/21/17 18:13 Dose: 100 mg Trimethoprim/Sulfamethoxazole (300 mg/ Dextrose) 500 mls @ 250 mls/hr IVPB Q8H [facility] Last Admin: 11/21/17 13:00 Dose: 250 mls/hr Levalbuterol HCl (Xopenex) 1.25 mg IH [id number] PRN PRN Reason: Shortness of Breath Last Admin: 11/21/17 07:46 Dose: 1.25 mg Levofloxacin/Dextrose (Levaquin 750mg) 750 mg IVPB DAILY [facility] PRN Reason: Protocol Stop: 12/01/17 10:01 Methylprednisolone (Solu-Medrol) 40 mg IVP Q12 [facility] Last Admin: 11/21/17 09:14 Dose: 40 mg Non-Formulary Medication (Dolutegravir Sodium [Tivicay]) 50 mg PO DAILY [facility] Nystatin/Triamcinolone Acetonide (Nystatin/Triamcinolone Ointment) 0 gm TOP BID [facility] Last Admin: 11/21/17 18:14 Dose: 1 applic Pantoprazole Sodium (Protonix Ec Tab) 40 mg PO 0600 [facility] Last Admin: 11/21/17 05:24 Dose: 40 mg Quetiapine Fumarate (Seroquel) 25 mg PO HS [facility] PRN Reason: Protocol Ziprasidone (Geodon Inj) 10 mg IM Q12H PRN; Protocol PRN Reason: severe agitaiton/psychosis - Labs Labs: 11/21/17 08:00 11/21/17 10:00 - Constitutional Appears: No Acute Distress, Chronically Ill - Head Exam Head Exam: ATRAUMATIC, NORMOCEPHALIC - Eye Exam Eye Exam: EOMI, Normal appearance, PERRL - Respiratory Exam Respiratory Exam: Decreased Breath Sounds - Cardiovascular Exam Cardiovascular Exam: Tachycardia, +S1, +S2 - GI/Abdominal Exam GI & Abdominal Exam: Soft, Normal Bowel Sounds - Extremities Exam Extremities Exam: Full ROM, Normal Capillary Refill, Normal Inspection - Neurological Exam Neurological Exam: Alert, Awake Additional comments: Oriented x2 - Psychiatric Exam Psychiatric exam: Flat Affect - Skin Skin Exam: Dry, Intact, Normal Color, Warm Assessment and Plan - Assessment and Plan (Free Text) Assessment: 57 y/o F with PMHx of hepatitis B, non-compliance, HIV and AIDS (last CD4 95) who presented to the ED for hallucinations and altered mental status, as per daughter. Patient was recently diagnosed with Pneumocystis pneumonia (PCP) but signed out AMA after last visit. Patient is on HAART therapy. Imaging showed diffuse pulmonary infiltrates - patient started on bactrim and steroids for PCP Pneumonia. Patient became anxious, hypoxic, and was using respiratory muscles for breathing - QUALITY MEASUREMENT SPECIALIST was called overnight and patient started on BiPAP and managed under ICU. Pt's hypoxia has since improved and pt was transitioned from BiPap to high flow. Plan: Sepsis Likely secondary to PCP PNA Lactate of 3.8 on admission trending down, pt tachycardic, hypoxic C/w Bactrim for PCP Pneumonia Broad spectrum vanc/zosyn F/u lab work-up ID and pulm consulted, f/u recs F/u repeat CD4 ct (last CD4 was 95 in 2017) Hypokalemia S/p KCl 40mEq Continue to trend electrolytes Hepatitis B Patient non-compliant, unknown if treated in past Will educate importance of treatment AIDS Hx non-compliance with HAART therapy Spoke with [facility] pharmacy to get updated med list for pt Pt was on dolutegravir and truvada prior F/u ID recs re restarting HAART therapy Will follow while pt is in CCU GI/DVT prophylaxis: protonix 40 and lovenox 40 subQ Plan d/w Dr. Christianson, attending <Day Christianson - Last Filed: 11/22/17 07:53> Objective - Vital Signs/Intake and Output Vital Signs (last 24 hours): Temp Pulse Resp BP Pulse Ox 97.7 F 93 H 25 H 94/57 L 98 11/21/17 08:04 11/22/17 05:00 11/22/17 06:00 11/22/17 05:00 11/22/17 05:00 Intake and Output: 11/22/17 11/22/17 06:59 18:59 Intake Total 2400 Output Total 290 Balance 2110 - Medications Medications: Current Medications Emtricitabine/Tenofovir (Truvada 200 Mg-300 Mg) 1 tab PO DAILY [facility] PRN Reason: Protocol Last Admin: 11/21/17 18:13 Dose: 1 tab Enoxaparin Sodium (Lovenox) 40 mg SC DAILY [facility] PRN Reason: Protocol Last Admin: 11/21/17 09:14 Dose: 40 mg Fluconazole (Diflucan) 100 mg PO BID [facility] PRN Reason: Protocol Last Admin: 11/21/17 18:13 Dose: 100 mg Trimethoprim/Sulfamethoxazole (300 mg/ Dextrose) 500 mls @ 250 mls/hr IVPB Q8H [facility] Last Admin: 11/22/17 03:39 Dose: 250 mls/hr Levalbuterol HCl (Xopenex) 1.25 mg IH [id number] PRN PRN Reason: Shortness of Breath Last Admin: 11/21/17 07:46 Dose: 1.25 mg Levofloxacin/Dextrose (Levaquin 750mg) 750 mg IVPB DAILY [facility] PRN Reason: Protocol Stop: 12/01/17 10:01 Methylprednisolone (Solu-Medrol) 40 mg IVP Q12 [facility] Last Admin: 11/21/17 21:56 Dose: 40 mg Non-Formulary Medication (Dolutegravir Sodium [Tivicay]) 50 mg PO DAILY [facility] Nystatin/Triamcinolone Acetonide (Nystatin/Triamcinolone Ointment) 0 gm TOP BID [facility] Last Admin: 11/21/17 18:14 Dose: 1 applic Pantoprazole Sodium (Protonix Ec Tab) 40 mg PO 0600 [facility] Last Admin: 11/22/17 05:11 Dose: 40 mg Quetiapine Fumarate (Seroquel) 25 mg PO HS [facility] PRN Reason: Protocol Last Admin: 11/21/17 21:57 Dose: 25 mg Ziprasidone (Geodon Inj) 10 mg IM Q12H PRN; Protocol PRN Reason: severe agitaiton/psychosis - Labs Labs: 11/21/17 08:00 11/21/17 10:00 Attending/Attestation - Attestation I have personally seen and examined this patient.: Yes I have fully participated in the care of the patient.: Yes I have reviewed all pertinent clinical information, including history, physical exam and plan: Yes Notes (Text): 11/21/17 57 year old female with past medical history of hepatitis B, HIV/AIDS (last CD4 count 95) who presented with AMS, hallucinations and dyspnea. CXR showed diffuse pulmonary infiltrates and she is being treated for PCP pneumonia with bactrim and steroids. On HAART therapy. ID and pulmonary are following. Psychiatry evaluation was appreciated for delirium. Will replete and repeat lytes (potassium). Day Christianson MD Hospitalist.
--- NOTE | 2017-11-21 23:04 | CON ---
DATE: 11/21/2017 HISTORY OF PRESENT ILLNESS: Shortly, patient is a 57-year-old female with reported history of HIV. Recently, patient was evaluated by emergency room physician. Patient was diagnosed with pneumonia, but patient signed against medical advice. Patient was brought in by her daughter on 11/20/2017 status post altered mental status and visual hallucinations and worsening of breathing symptoms. Psych consult was called for hallucinations and possible medication management. Patient was seen and examined. Previous history reviewed. Discussed with the nursing staff at ICU. Patient presented to be confused, disorganized. Patient does not know where she is. Actively hallucinating during the interview. Patient was staring on the wall and appears to be frightened, started to cry. Patient said that she is seeing unusual things such as bad people. Patient obviously is in delirium stage. Patient is a poor and unreliable historian, was not able to provide any history. PHYSICAL EXAMINATION: VITAL SIGNS: Reviewed. Pulse was 106, blood pressure 89/55, respirations 35, oxygen saturation was low at 93. MEDICATIONS: Reviewed. Patient is on Lovenox, Diflucan, levalbuterol, Levaquin, Solu-Medrol, Tivicay, nystatin. Also, patient is on Protonix, trimethoprim, sulfamethoxazole. This senior writer will implement Geodon as needed for severe agitation and Seroquel 25 mg at the nighttime to help the patient with psychotic symptoms and delirium stage. LABORATORY DATA: Hematology reviewed. Hemoglobin and hematocrit 8.4 and 24.8. Blood gas reviewed. Chemistry reviewed. Urinalysis did not show any infection. Patient had chest x-ray which showed bilateral basilar atelectasis, likely diffuse interstitial pulmonary disease, likely infectious or inflammatory etiology. MENTAL STATUS EXAMINATION: As this senior writer described above, patient is confused, disoriented, was not able to provide any history. Patient is actually hallucinating, paranoid and guarded during the interview. Patient was not able to describe her mood, but basically, patient is on altered mental status, impaired insight and judgment, and impulses are unpredictable. IMPRESSION: Most likely, patient is in delirium stage which is related to the medical issues, human immunodeficiency virus as well as pneumonia. PLAN: Continue current management. Continue current medication. This senior writer implemented Geodon as needed for agitation as well as Seroquel at the nighttime scheduled in order to help the patient with psychotic symptoms which are related to delirium stage patient is in. We will follow up and advise accordingly. Should you have any questions, give me a call back. Thank you very much for letting me participate in the care of your patient. Marla Najera MD
[2017-11-22 00:22] LABS: BARBITURATES, UR NEGATIVE (NEGATIVE); BENZODIAZEPINES, UR NEGATIVE (NEGATIVE); OPIATES, UR NEGATIVE (NEGATIVE); PHENCYCLIDINE, UR NEGATIVE (NEGATIVE)
[2017-11-22] MEDS: Sulfamethoxazole/Trimethoprim 300 MG in Dextrose 5% In Water 500 ML IVPB SCH ×3 (03:39→20:59)
[2017-11-22] MEDS: Pantoprazole 40 mg EC Tab PO SCH (05:11)
--- NOTE | 2017-11-22 08:32 | CARD ---
APPROVED REPORT EKG Measurement Heart [id number] MD [id number] <Conclusion> Sinus tachycardia NSSTW changes Small q in lll Mildly prolonged QTc
[2017-11-22 08:38] LABS: HEMOGLOBIN 9.3 g/dL (12.0-16.0); MEAN CELL VOLUME 95.7 fl (80.0-105.0); MEAN CORPUSCULAR HEMOGLOBIN 33.3 pg (25.0-35.0); MEAN CORPUSCULAR HGB CONC 34.8 g/dl (31.0-37.0); MEAN PLATELET VOLUME 10.7 fl (7.0-11.0); RBC 2.79 10^6/uL (3.5-6.1); RED CELL DISTRIBUTION WIDTH 14.6 % (11.5-14.5); WHITE BLOOD COUNT 12.6 10^3/ul (4.5-11.0)
[2017-11-22 08:49] LABS: ALB/GLOB RATIO 0.6 (1.1-1.8); ALBUMIN 2.2 g/dL (3.0-4.8); ALT/SGPT 25 U/L (7-56); AST/SGOT 54 U/L (14-36); BLOOD UREA NITROGEN 17 mg/dL (7-21); CALCIUM 7.7 mg/dL (8.4-10.5); GFR AFRICAN-AMERICAN > 60; GFR NON-AFRICAN AMERICAN > 60
[2017-11-22 09:08] LABS: INR 1.26 (0.93-1.08); PROTHROMBIN TIME 14.6 SECONDS (9.4-12.5)
--- NOTE | 2017-11-22 10:32 | CP.PCM.CON ---
History of Present Illness - History of Present Illness History of Present Illness: Neurology Consult Note for Dr. Lewis CC: AMS HPI: 57 year old female with past medical history of AIDS with recent initiation of HAART therapy, last known CD4 count 95 in 2017, PCP, oral thrush, who presented to [facility] complaining of pneumonia and hallucinations. Per reports patient had been experiencing visual hallucinations and false thoughts. Per report patient has been experiencing lightheadedness, headache, stool and urinary incontinence. 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 Patient was evaluated in ED and found to have sepsis secondary to PCP pneumonia with elevated lactate of 3.8 and tachycardia. While on floor(11/21/17) patient was found to be tachypneic and tachycardic. Patient was placed on BiPAP and transferred to ICU for respiratory distress. ICU notes indicate patient was AAOx2 and conversant. Today during interview patient is noted to have limited cooperation with active response to internal stimuli. Patient reports seeing and hearing 2 dogs in the room with the intent of hurting her. Patient is able to offer her name only. She denies pain, weakness, numbness. 12 point ROS is limited secondary to poor cooperation with questioning. PMH: HIV with recent start of HAART therapy, Hepatitis B PSH: x1 FMH: Non-contributory SOCHx: Tobacco: 1-2 PPD for 20+ years, ETOH: Denies, ID: Denies ALL: NKDA MEDS: Non compliance Review of Systems - Review of Systems Review of Systems: Limited ROS by patient secondary to delirium vs. psychosis Past Patient History - Infectious Disease Hx of Infectious Diseases: None - Past Social History Smoking Status: Heavy Smoker > 10 Cigarettes Daily Alcohol: None Drugs: Denies - CARDIAC Hx Cardiac Disorders: No - PULMONARY Hx Respiratory Disorders: Yes Hx Pneumonia: Yes - NEUROLOGICAL Hx Neurological Disorder: No - HEENT Hx HEENT Problems: No - RENAL Hx Chronic Kidney Disease: No - ENDOCRINE/METABOLIC Hx Endocrine Disorders: No - HEMATOLOGICAL/ONCOLOGICAL Hx Blood Disorders: Yes Hx AIDS: Yes Hx Hepatitis B: Yes Hx Human Immunodeficiency Virus (HIV): Yes - INTEGUMENTARY Hx Dermatological Problems: Yes (DERMATITIS) - MUSCULOSKELETAL/RHEUMATOLOGICAL Hx Falls: No (DENIES) - GASTROINTESTINAL Hx Gastrointestinal Disorders: Yes (ESOPHAGITIS, THRUSH) - GENITOURINARY/GYNECOLOGICAL Hx Sexually Transmitted Disorders: Yes - PSYCHIATRIC Hx Psychophysiologic Disorder: No (DENIES) - SURGICAL HISTORY Hx Surgeries: Yes (C SECTION) - ANESTHESIA Hx Anesthesia: Yes Hx Anesthesia Reactions: No Hx Malignant Hyperthermia: No Meds Allergies/Adverse Reactions: Allergies Allergy/AdvReac Type Severity Reaction Status Date / Time No Known Allergies Allergy Unverified 10/22/16 17:07 - Medications Medications: Current Medications Emtricitabine/Tenofovir (Truvada 200 Mg-300 Mg) 1 tab PO DAILY [facility] PRN Reason: Protocol Last Admin: 11/21/17 18:13 Dose: 1 tab Enoxaparin Sodium (Lovenox) 40 mg SC DAILY [facility] PRN Reason: Protocol Last Admin: 11/21/17 09:14 Dose: 40 mg Fluconazole (Diflucan) 100 mg PO BID [facility] PRN Reason: Protocol Last Admin: 11/21/17 18:13 Dose: 100 mg Trimethoprim/Sulfamethoxazole (300 mg/ Dextrose) 500 mls @ 250 mls/hr IVPB Q8H [facility] Last Admin: 11/22/17 03:39 Dose: 250 mls/hr Levalbuterol HCl (Xopenex) 1.25 mg IH [id number] PRN PRN Reason: Shortness of Breath Last Admin: 11/21/17 07:46 Dose: 1.25 mg Levofloxacin/Dextrose (Levaquin 750mg) 750 mg IVPB DAILY [facility] PRN Reason: Protocol Stop: 12/01/17 10:01 Methylprednisolone (Solu-Medrol) 40 mg IVP Q12 [facility] Last Admin: 11/21/17 21:56 Dose: 40 mg Non-Formulary Medication (Dolutegravir Sodium [Tivicay]) 50 mg PO DAILY [facility] Nystatin/Triamcinolone Acetonide (Nystatin/Triamcinolone Ointment) 0 gm TOP BID [facility] Last Admin: 11/21/17 18:14 Dose: 1 applic Pantoprazole Sodium (Protonix Ec Tab) 40 mg PO 0600 [facility] Last Admin: 11/22/17 05:11 Dose: 40 mg Quetiapine Fumarate (Seroquel) 25 mg PO HS [facility] PRN Reason: Protocol Last Admin: 11/21/17 21:57 Dose: 25 mg Ziprasidone (Geodon Inj) 10 mg IM Q12H PRN; Protocol PRN Reason: severe agitaiton/psychosis Physical Exam - Constitutional Appears: Agitated Additional comments: 57 year old female who appears stated age with active response to internal stimuli - Head Exam Head Exam: ATRAUMATIC, NORMAL INSPECTION, NORMOCEPHALIC - Eye Exam Eye Exam: EOMI, PERRL. absent: Nystagmus, Scleral icterus - ENT Exam Additional comments: oral thrush - Neck Exam Neck exam: Positive for: Full Rom - Cardiovascular Exam Cardiovascular Exam: REGULAR RHYTHM, +S1, +S2 - GI/Abdominal Exam GI & Abdominal Exam: Soft. absent: Tenderness - Extremities Exam Extremities exam: Negative for: calf tenderness, pedal edema - Neurological Exam Neurological exam: Alert Additional comments: Motor and sensory grossly intact Limited neuro exam due to patient poor cooperation with instruction - Psychiatric Exam Psychiatric exam: Agitated Additional comments: Reports visual and auditory hallucinations Poor insight Tangentential speech at times, time-delayed response to questioning - Skin Skin Exam: Dry, Intact Results - Vital Signs Recent Vital Signs: Last Vital Signs Temp 97.7 F 11/21/17 08:04 Pulse 93 H 11/22/17 08:50 Resp 24 11/22/17 08:50 BP 89/53 L 11/22/17 08:00 Pulse Ox 96 11/22/17 08:50 - Labs Result Diagrams: 11/22/17 08:20 11/22/17 08:20 Labs: Laboratory Results - last 24 hr 11/20/17 11/20/17 11/20/17 23:00 23:00 23:00 WBC RBC Hgb Hct MCV MCH MCHC RDW Plt Count MPV PT INR pO2 VBG pH VBG pCO2 VBG HCO3 VBG Total CO2 VBG O2 Sat (Calc) VBG Base Excess VBG Potassium Glucose Lactate FiO2 Sodium Potassium Chloride Carbon Dioxide Anion Gap BUN Creatinine Est GFR ( Amer) Est GFR (Non-Af Amer) Random Glucose Calcium Phosphorus Magnesium Transferrin 86.34 L Ferritin 444.0 Total Bilirubin AST ALT Alkaline Phosphatase Total Protein Albumin Globulin Albumin/Globulin Ratio Procalcitonin 0.21 Venous Blood Potassium Urine Opiates Screen Urine Methadone Screen Ur Barbiturates Screen Ur Phencyclidine Scrn Ur Amphetamines Screen U Benzodiazepines Scrn U Oth Cocaine Metabols U Cannabinoids Screen 11/21/17 11/21/17 11/21/17 10:00 12:00 23:50 WBC RBC Hgb Hct MCV MCH MCHC RDW Plt Count MPV PT INR pO2 82 H VBG pH 7.45 H VBG pCO2 26.0 L VBG HCO3 18.1 L VBG Total CO2 18.9 L VBG O2 Sat (Calc) 98.3 H VBG Base Excess -4.3 L VBG Potassium 4.4 Glucose 112 H Lactate 3.3 H FiO2 21.0 Sodium 142 139.0 Potassium 4.1 Chloride 112 H 113.0 H Carbon Dioxide 18 L Anion Gap 16 BUN 16 Creatinine 0.7 Est GFR ( Amer) > 60 Est GFR (Non-Af Amer) > 60 Random Glucose 100 Calcium 7.4 L Phosphorus Magnesium Transferrin Ferritin Total Bilirubin 0.8 AST 58 H D ALT 20 Alkaline Phosphatase 57 Total Protein 6.6 Albumin 2.5 L Globulin 4.1 Albumin/Globulin Ratio 0.6 L Procalcitonin Venous Blood Potassium 4.4 Urine Opiates Screen Negative Urine Methadone Screen Negative Ur Barbiturates Screen Negative Ur Phencyclidine Scrn Negative Ur Amphetamines Screen Negative U Benzodiazepines Scrn Negative U Oth Cocaine Metabols Negative U Cannabinoids Screen Negative 11/22/17 11/22/17 11/22/17 08:20 08:20 08:20 WBC 12.6 H RBC 2.79 L Hgb 9.3 L Hct 26.7 L MCV 95.7 MCH 33.3 MCHC 34.8 RDW 14.6 H Plt Count 191 MPV 10.7 PT 14.6 H INR 1.26 H pO2 VBG pH VBG pCO2 VBG HCO3 VBG Total CO2 VBG O2 Sat (Calc) VBG Base Excess VBG Potassium Glucose Lactate FiO2 Sodium 141 Potassium 4.1 Chloride 113 H Carbon Dioxide 17 L Anion Gap 16 BUN 17 Creatinine 0.7 Est GFR ( Amer) > 60 Est GFR (Non-Af Amer) > 60 Random Glucose 99 Calcium 7.7 L Phosphorus 3.5 Magnesium 2.7 H Transferrin Ferritin Total Bilirubin 0.3 AST 54 H ALT 25 Alkaline Phosphatase 56 Total Protein 6.2 Albumin 2.2 L Globulin 4.0 Albumin/Globulin Ratio 0.6 L Procalcitonin Venous Blood Potassium Urine Opiates Screen Urine Methadone Screen Ur Barbiturates Screen Ur Phencyclidine Scrn Ur Amphetamines Screen U Benzodiazepines Scrn U Oth Cocaine Metabols U Cannabinoids Screen Assessment & Plan - Assessment and Plan (Free Text) Assessment: 57 year old female with past medical history of AIDS last known CD4 count of 95 in 2017, Hepatitis B, with recent diagnosis of PCP started on bactrim, patient had acute respiratory distress on floor thought to be secondary to acute exacerbation of chf, patient transferred to ICU. Neurology has been consulted for altered mental status. AMS: - Etiology: Delerium vs. AIDS related infectious process vs. psychosis with underlying psychiatric disorder vs. metabolic derangement - Psych intiated Geodon, Seroquel HS - MRI w/ and without contrast - RPR negative , absent ring enhancing lesions on imaging - CMV, HSV Case and plan discussed with attending - Date & Time Date: 11/22/17 Time: 10:32
[2017-11-22] MEDS: Enoxaparin 40 mg Syringe SC SCH (10:37)
[2017-11-22] MEDS: levoFLOXacin 750 mg in D5W 150 ML BAG IVPB SCH (10:38)
[2017-11-22] MEDS: MethylPREDNISolone 40 mg Vial IVP SCH ×2 (10:44→21:00)
--- NOTE | 2017-11-22 10:49 | CP.CCUPN ---
<Foreign Cormier - Last Filed: 11/22/17 11:47> CCU Subjective - Physician Review Subjective (Free Text): Foreign Cormier, PGY1 Critical Care Progress Note for Dr. Borges Patient was examined at bedside this morning. She was alert and oriented to person only (AAOx1). Patient is a poor historian and is unable to give an appropriate review of systems. Patient has occasional hallucinations during interview. CCU Objective - Vital Signs / Intake & Output Vital Signs (Last 4 hours): Vital Signs Pulse Resp BP Pulse Ox 11/22/17 08:50 93 H 24 96 11/22/17 08:40 94 H 45 H 97 11/22/17 08:30 102 H 32 H 99 11/22/17 08:20 92 H 22 98 11/22/17 08:10 91 H 22 98 11/22/17 08:00 94 H 27 H 89/53 L 97 11/22/17 07:50 94 H 25 H 98 11/22/17 07:40 95 H 27 H 98 11/22/17 07:30 92 H 32 H 98 11/22/17 07:20 94 H 24 98 11/22/17 07:10 93 H 24 98 11/22/17 07:03 93 H 28 H 92/65 L 97 11/22/17 07:00 89/47 L 98 11/22/17 06:50 97 Intake and Output (Last 8hrs): Intake & Output 11/21/17 11/22/17 11/22/17 22:59 06:59 14:59 Intake Total 2400 1200 Output Total 290 700 Balance 2110 500 Intake: IV 1000 bactrim 1000 Oral 200 Other 2400 Output: Urine 290 700 Urethral (Whelan) 290 700 Other: # Bowel Movements 1 - Physical Exam Head: Positive for: Atraumatic, Normocephalic. Negative for: Tenderness Pupils: Positive for: PERRL Extroacular Muscles: Positive for: EOMI Conjunctiva: Positive for: Normal Mouth: Positive for: Moist Mucous Membranes Nose (External): Positive for: Other (High Flow 50%) Nose (Internal): Positive for: Normal Inspection Respiratory/Chest: Positive for: Decreased Breath Sounds. Negative for: Respiratory Distress, Wheezes, Rales, Rhonchi Cardiovascular: Positive for: Regular Rate and Rhythm, Normal S1, S2. Negative for: Murmurs Abdomen: Positive for: Normal Bowel Sounds. Negative for: Tenderness, Distention, Peritoneal Signs, Rebound, Guarding Genitourinary/Pelvic Exam: Positive for: Other (Whelan in place) Upper Extremity: Positive for: Normal Inspection. Negative for: Cyanosis, Edema Lower Extremity: Positive for: Normal Inspection, NORMAL PULSES. Negative for: Edema, CALF TENDERNESS, Cyanosis Neurological: Positive for: Speech Normal Skin: Positive for: Warm, Dry, Rashes (Fungal rash at perineal crease) Psychiatric: Positive for: Alert (x1 ), Hallucinations, Other (Unknown baseline mental status). Negative for: Oriented x 3 - Medications Active Medications: Active Medications Generic Name Dose Route Start Last Admin Trade Name Freq PRN Reason Stop Dose Admin Emtricitabine/Tenofovir 1 tab 11/21/17 15:30 11/21/17 18:13 Truvada 200 Mg-300 Mg PO 1 tab DAILY CLARICE Administration Protocol Enoxaparin Sodium 40 mg 11/21/17 10:00 11/22/17 10:37 Lovenox SC 40 mg DAILY CLARICE Administration Protocol Fluconazole 100 mg 11/21/17 10:00 11/22/17 10:37 Diflucan PO 100 mg BID CLARICE Administration Protocol Trimethoprim/Sulfamethoxazole 500 mls @ 250 mls/hr 11/20/17 20:30 11/22/17 03 :39 300 mg/ Dextrose IVPB 250 mls/hr Q8H CLARICE Administration Levalbuterol HCl 1.25 mg 11/20/17 23:54 11/21/17 07:46 Xopenex IH 1.25 mg [id number] PRN Administration Shortness of Breath Levofloxacin/Dextrose 750 mg 11/22/17 10:00 11/22/17 10:38 Levaquin 750mg IVPB 12/01/17 10:01 750 mg DAILY CLARICE Administration Protocol Methylprednisolone 40 mg 11/21/17 10:00 11/21/17 21:56 Solu-Medrol IVP 40 mg Q12 CLARICE Administration Non-Formulary Medication 50 mg 11/21/17 15:09 Dolutegravir Sodium [Tivicay] PO DAILY CLARICE Nystatin/Triamcinolone Acetonide 0 gm 11/21/17 10:00 11/21/17 18:14 Nystatin/Triamcinolone Ointment TOP 1 applic BID CLARICE Administration Pantoprazole Sodium 40 mg 11/21/17 06:00 11/22/17 05:11 Protonix Ec Tab PO 40 mg 0600 CLARICE Administration Quetiapine Fumarate 25 mg 11/21/17 22:00 11/21/17 21:57 Seroquel PO 25 mg HS CLARICE Administration Protocol Ziprasidone 10 mg 11/21/17 12:23 Geodon Inj IM Q12H PRN severe agitaiton/psychosis Protocol - Patient Studies Lab Studies: Lab Studies 11/22/17 11/22/17 11/22/17 Range/Units 08:20 08:20 08:20 WBC 12.6 H (4.5-11.0) 10^3/ul RBC 2.79 L (3.5-6.1) 10^6/uL Hgb 9.3 L (12.0-16.0) g/dL Hct 26.7 L (36.0-48.0) % MCV 95.7 (80.0-105.0) fl MCH 33.3 (25.0-35.0) pg MCHC 34.8 (31.0-37.0) g/dl RDW 14.6 H (11.5-14.5) % Plt Count 191 (120.0-450.0) 10^3/uL MPV 10.7 (7.0-11.0) fl PT 14.6 H (9.4-12.5) SECONDS INR 1.26 H (0.93-1.08) pO2 (30-55) mm/Hg VBG pH (7.32-7.43) VBG pCO2 (40-60) VBG HCO3 (21-28) mmol/l VBG Total CO2 (22-28) mmol.L VBG O2 Sat (Calc) (40-65) % VBG Base Excess (0.0-2.0) mmol/L VBG Potassium (3.6-5.2) mmol/L Glucose (65-105) mg/dl Lactate (0.7-2.1) mmol/L FiO2 % Sodium 141 (132-148) mmol/L Potassium 4.1 (3.6-5.0) mmol/L Chloride 113 H (98-107) mmol/L Carbon Dioxide 17 L (21-33) mmol/L Anion Gap 16 (10-20) BUN 17 (7-21) mg/dL Creatinine 0.7 (0.7-1.2) mg/dl Est GFR ( Amer) > 60 Est GFR (Non-Af Amer) > 60 Random Glucose 99 (70-110) mg/dL Calcium 7.7 L (8.4-10.5) mg/dL Phosphorus 3.5 (2.5-4.5) mg/dL Magnesium 2.7 H (1.7-2.2) mg/dL Transferrin (206-381) mg/dL Ferritin ng/mL Total Bilirubin 0.3 (0.2-1.3) mg/dL AST 54 H (14-36) U/L ALT 25 (7-56) U/L Alkaline Phosphatase 56 (38-126) U/L Total Protein 6.2 (5.8-8.3) g/dL Albumin 2.2 L (3.0-4.8) g/dL Globulin 4.0 gm/dL Albumin/Globulin Ratio 0.6 L (1.1-1.8) Procalcitonin (0.19-0.49) NG/ML Venous Blood Potassium (3.6-5.2) mmol/L Urine Opiates Screen (NEGATIVE) Urine Methadone Screen (NEGATIVE) Ur Barbiturates Screen (NEGATIVE) Ur Phencyclidine Scrn (NEGATIVE) Ur Amphetamines Screen (NEGATIVE) U Benzodiazepines Scrn (NEGATIVE) U Oth Cocaine Metabols (NEGATIVE) U Cannabinoids Screen (NEGATIVE) 11/21/17 11/21/17 11/21/17 Range/Units 23:50 12:00 10:00 WBC (4.5-11.0) 10^3/ul RBC (3.5-6.1) 10^6/uL Hgb (12.0-16.0) g/dL Hct (36.0-48.0) % MCV (80.0-105.0) fl MCH (25.0-35.0) pg MCHC (31.0-37.0) g/dl RDW (11.5-14.5) % Plt Count (120.0-450.0) 10^3/uL MPV (7.0-11.0) fl PT (9.4-12.5) SECONDS INR (0.93-1.08) pO2 82 H (30-55) mm/Hg VBG pH 7.45 H (7.32-7.43) VBG pCO2 26.0 L (40-60) VBG HCO3 18.1 L (21-28) mmol/l VBG Total CO2 18.9 L (22-28) mmol.L VBG O2 Sat (Calc) 98.3 H (40-65) % VBG Base Excess -4.3 L (0.0-2.0) mmol/L VBG Potassium 4.4 (3.6-5.2) mmol/L Glucose 112 H (65-105) mg/dl Lactate 3.3 H (0.7-2.1) mmol/L FiO2 21.0 % Sodium 139.0 142 (132-148) mmol/L Potassium 4.1 (3.6-5.0) mmol/L Chloride 113.0 H 112 H (98-107) mmol/L Carbon Dioxide 18 L (21-33) mmol/L Anion Gap 16 (10-20) BUN 16 (7-21) mg/dL Creatinine 0.7 (0.7-1.2) mg/dl Est GFR ( Amer) > 60 Est GFR (Non-Af Amer) > 60 Random Glucose 100 (70-110) mg/dL Calcium 7.4 L (8.4-10.5) mg/dL Phosphorus (2.5-4.5) mg/dL Magnesium (1.7-2.2) mg/dL Transferrin (206-381) mg/dL Ferritin ng/mL Total Bilirubin 0.8 (0.2-1.3) mg/dL AST 58 H D (14-36) U/L ALT 20 (7-56) U/L Alkaline Phosphatase 57 (38-126) U/L Total Protein 6.6 (5.8-8.3) g/dL Albumin 2.5 L (3.0-4.8) g/dL Globulin 4.1 gm/dL Albumin/Globulin Ratio 0.6 L (1.1-1.8) Procalcitonin (0.19-0.49) NG/ML Venous Blood Potassium 4.4 (3.6-5.2) mmol/L Urine Opiates Screen Negative (NEGATIVE) Urine Methadone Screen Negative (NEGATIVE) Ur Barbiturates Screen Negative (NEGATIVE) Ur Phencyclidine Scrn Negative (NEGATIVE) Ur Amphetamines Screen Negative (NEGATIVE) U Benzodiazepines Scrn Negative (NEGATIVE) U Oth Cocaine Metabols Negative (NEGATIVE) U Cannabinoids Screen Negative (NEGATIVE) 11/20/17 11/20/17 11/20/17 Range/Units 23:00 23:00 23:00 WBC (4.5-11.0) 10^3/ul RBC (3.5-6.1) 10^6/uL Hgb (12.0-16.0) g/dL Hct (36.0-48.0) % MCV (80.0-105.0) fl MCH (25.0-35.0) pg MCHC (31.0-37.0) g/dl RDW (11.5-14.5) % Plt Count (120.0-450.0) 10^3/uL MPV (7.0-11.0) fl PT (9.4-12.5) SECONDS INR (0.93-1.08) pO2 (30-55) mm/Hg VBG pH (7.32-7.43) VBG pCO2 (40-60) VBG HCO3 (21-28) mmol/l VBG Total CO2 (22-28) mmol.L VBG O2 Sat (Calc) (40-65) % VBG Base Excess (0.0-2.0) mmol/L VBG Potassium (3.6-5.2) mmol/L Glucose (65-105) mg/dl Lactate (0.7-2.1) mmol/L FiO2 % Sodium (132-148) mmol/L Potassium (3.6-5.0) mmol/L Chloride (98-107) mmol/L Carbon Dioxide (21-33) mmol/L Anion Gap (10-20) BUN (7-21) mg/dL Creatinine (0.7-1.2) mg/dl Est GFR ( Amer) Est GFR (Non-Af Amer) Random Glucose (70-110) mg/dL Calcium (8.4-10.5) mg/dL Phosphorus (2.5-4.5) mg/dL Magnesium (1.7-2.2) mg/dL Transferrin 86.34 L (206-381) mg/dL Ferritin 444.0 ng/mL Total Bilirubin (0.2-1.3) mg/dL AST (14-36) U/L ALT (7-56) U/L Alkaline Phosphatase (38-126) U/L Total Protein (5.8-8.3) g/dL Albumin (3.0-4.8) g/dL Globulin gm/dL Albumin/Globulin Ratio (1.1-1.8) Procalcitonin 0.21 (0.19-0.49) NG/ML Venous Blood Potassium (3.6-5.2) mmol/L Urine Opiates Screen (NEGATIVE) Urine Methadone Screen (NEGATIVE) Ur Barbiturates Screen (NEGATIVE) Ur Phencyclidine Scrn (NEGATIVE) Ur Amphetamines Screen (NEGATIVE) U Benzodiazepines Scrn (NEGATIVE) U Oth Cocaine Metabols (NEGATIVE) U Cannabinoids Screen (NEGATIVE) Laboratory Results - last 24 hr 11/20/17 11/20/17 11/20/17 23:00 23:00 23:00 WBC RBC Hgb Hct MCV MCH MCHC RDW Plt Count MPV PT INR pO2 VBG pH VBG pCO2 VBG HCO3 VBG Total CO2 VBG O2 Sat (Calc) VBG Base Excess VBG Potassium Glucose Lactate FiO2 Sodium Potassium Chloride Carbon Dioxide Anion Gap BUN Creatinine Est GFR ( Amer) Est GFR (Non-Af Amer) Random Glucose Calcium Phosphorus Magnesium Transferrin 86.34 L Ferritin 444.0 Total Bilirubin AST ALT Alkaline Phosphatase Total Protein Albumin Globulin Albumin/Globulin Ratio Procalcitonin 0.21 Venous Blood Potassium Urine Opiates Screen Urine Methadone Screen Ur Barbiturates Screen Ur Phencyclidine Scrn Ur Amphetamines Screen U Benzodiazepines Scrn U Oth Cocaine Metabols U Cannabinoids Screen 11/21/17 11/21/17 11/21/17 10:00 12:00 23:50 WBC RBC Hgb Hct MCV MCH MCHC RDW Plt Count MPV PT INR pO2 82 H VBG pH 7.45 H VBG pCO2 26.0 L VBG HCO3 18.1 L VBG Total CO2 18.9 L VBG O2 Sat (Calc) 98.3 H VBG Base Excess -4.3 L VBG Potassium 4.4 Glucose 112 H Lactate 3.3 H FiO2 21.0 Sodium 142 139.0 Potassium 4.1 Chloride 112 H 113.0 H Carbon Dioxide 18 L Anion Gap 16 BUN 16 Creatinine 0.7 Est GFR ( Amer) > 60 Est GFR (Non-Af Amer) > 60 Random Glucose 100 Calcium 7.4 L Phosphorus Magnesium Transferrin Ferritin Total Bilirubin 0.8 AST 58 H D ALT 20 Alkaline Phosphatase 57 Total Protein 6.6 Albumin 2.5 L Globulin 4.1 Albumin/Globulin Ratio 0.6 L Procalcitonin Venous Blood Potassium 4.4 Urine Opiates Screen Negative Urine Methadone Screen Negative Ur Barbiturates Screen Negative Ur Phencyclidine Scrn Negative Ur Amphetamines Screen Negative U Benzodiazepines Scrn Negative U Oth Cocaine Metabols Negative U Cannabinoids Screen Negative 11/22/17 11/22/17 11/22/17 08:20 08:20 08:20 WBC 12.6 H RBC 2.79 L Hgb 9.3 L Hct 26.7 L MCV 95.7 MCH 33.3 MCHC 34.8 RDW 14.6 H Plt Count 191 MPV 10.7 PT 14.6 H INR 1.26 H pO2 VBG pH VBG pCO2 VBG HCO3 VBG Total CO2 VBG O2 Sat (Calc) VBG Base Excess VBG Potassium Glucose Lactate FiO2 Sodium 141 Potassium 4.1 Chloride 113 H Carbon Dioxide 17 L Anion Gap 16 BUN 17 Creatinine 0.7 Est GFR ( Amer) > 60 Est GFR (Non-Af Amer) > 60 Random Glucose 99 Calcium 7.7 L Phosphorus 3.5 Magnesium 2.7 H Transferrin Ferritin Total Bilirubin 0.3 AST 54 H ALT 25 Alkaline Phosphatase 56 Total Protein 6.2 Albumin 2.2 L Globulin 4.0 Albumin/Globulin Ratio 0.6 L Procalcitonin Venous Blood Potassium Urine Opiates Screen Urine Methadone Screen Ur Barbiturates Screen Ur Phencyclidine Scrn Ur Amphetamines Screen U Benzodiazepines Scrn U Oth Cocaine Metabols U Cannabinoids Screen Review of Systems - Review of Systems Systems not reviewed;Unavailable: Altered Mental Status Critical Care Progress Note - Extremities/Vascular Does the Patient have a Central Venous Catheter?: No Does the Patient need a Central Venous Catheter?: No Does the Patient have a Whelan Catheter?: Yes Does the Patient need a Whelan Catheter?: Yes (AMS) - Prophylaxis GI Prophylaxis GI: PPI - Prophylaxis DVT Prophylaxis DVT: Lovenox - Nutrition Nutrition: Nutrition Category Date Time Status Heart Healthy Diet [DIET] Diets 11/22/17 Breakfast Active Assessment/Plan - Assessment and Plan (Free Text) Assessment: Patient is a 57 y/o F with PMHx of hepatitis B, non-compliance, HIV and AIDS ( last CD4 95) who presented to the ED for hallucinations and altered mental status, as per daughter. Patient was recently diagnosed with Pneumocystis pneumonia (PCP) but signed out AMA after last visit. Patient is on HAART therapy. Imaging showed diffuse pulmonary infiltrates - patient started on bactrim and steroids to resolve PCP Pneumonia. Patient became anxious, hypoxic, and was using respiratory muscles for breathing - [employer] OPERATOR was called and patient started on BiPAP and managed under ICU. Currently, patient hypoxia has improved and has been switched off to High flow 50% with plan to titrate off and switch to ventimask. Plan: Neuro: - Altered Mental Status - baseline unknown, currently AAOx1 with occasional visual hallucinations - Maintain normothermia - Utox negative - Psych rec to c/w current management and Geoden PRN/Seroquel CLARICE - Neurology f/u Pulm: - Patient on High Flow 50%, goal is to titrate down to ventimask - Maintain SaO2 > 92% - CXR (11/20): diffuse pulmonary infiltrates - c/w steroids Cardio: - Maintain MAP > 65 - Sinus tachycardia - resolving, HR 90s GI: - GI ppx - protonix - Diet: regular Renal: - Replete lytes as needed Heme: - Lovenox DVT ppx ID: - PCP Pneumonia (Last CD4 count 95 in 2017) - f/u new CD4 count - c/w bactrim - Patient taking Truvada and Dolutegravir for HAART (med-rec on 11/21) - ID f/u: patient restarted on HAART therapy - Blood Cx negative x2 (11/22) Endo: - Maintain euglycemia - Glucose within normal limits Dispo: Patient is still under management of the ICU. Case discussed and reviewed with Attending Physician - Dr. Borges. <Roger Borges - Last Filed: 11/22/17 12:03> CCU Objective - Vital Signs / Intake & Output Vital Signs (Last 4 hours): Vital Signs Pulse Resp Pulse Ox 11/22/17 08:50 93 H 24 96 11/22/17 08:40 94 H 45 H 97 11/22/17 08:30 102 H 32 H 99 11/22/17 08:20 92 H 22 98 11/22/17 08:10 91 H 22 98 Intake and Output (Last 8hrs): Intake & Output 11/21/17 11/22/17 11/22/17 22:59 06:59 14:59 Intake Total 2400 1200 Output Total 290 700 Balance 2110 500 Intake: IV 1000 bactrim 1000 Oral 200 Other 2400 Output: Urine 290 700 Urethral (Whelan) 290 700 Other: # Bowel Movements 1 - Medications Active Medications: Active Medications Generic Name Dose Route Start Last Admin Trade Name Freq PRN Reason Stop Dose Admin Emtricitabine/Tenofovir 1 tab 11/21/17 15:30 11/21/17 18:13 Truvada 200 Mg-300 Mg PO 1 tab DAILY CLARICE Administration Protocol Enoxaparin Sodium 40 mg 11/21/17 10:00 11/22/17 10:37 Lovenox SC 40 mg DAILY CLARICE Administration Protocol Fluconazole 100 mg 11/21/17 10:00 11/22/17 10:37 Diflucan PO 100 mg BID CLARICE Administration Protocol Trimethoprim/Sulfamethoxazole 500 mls @ 250 mls/hr 11/20/17 20:30 11/22/17 03 :39 300 mg/ Dextrose IVPB 250 mls/hr Q8H CLARICE Administration Levalbuterol HCl 1.25 mg 11/20/17 23:54 11/21/17 07:46 Xopenex IH 1.25 mg [id number] PRN Administration Shortness of Breath Levofloxacin/Dextrose 750 mg 11/22/17 10:00 11/22/17 10:38 Levaquin 750mg IVPB 12/01/17 10:01 750 mg DAILY CLARICE Administration Protocol Methylprednisolone 40 mg 11/21/17 10:00 11/22/17 10:44 Solu-Medrol IVP 40 mg Q12 CLARICE Administration Non-Formulary Medication 50 mg 11/21/17 15:09 Dolutegravir Sodium [Tivicay] PO DAILY CLARICE Nystatin/Triamcinolone Acetonide 0 gm 11/21/17 10:00 11/21/17 18:14 Nystatin/Triamcinolone Ointment TOP 1 applic BID CLARICE Administration Pantoprazole Sodium 40 mg 11/21/17 06:00 11/22/17 05:11 Protonix Ec Tab PO 40 mg 0600 CLARICE Administration Quetiapine Fumarate 25 mg 11/21/17 22:00 11/21/17 21:57 Seroquel PO 25 mg HS CLARICE Administration Protocol Ziprasidone 10 mg 11/21/17 12:23 Geodon Inj IM Q12H PRN severe agitaiton/psychosis Protocol - Patient Studies Lab Studies: Lab Studies 11/22/17 11/22/17 11/22/17 Range/Units 08:20 08:20 08:20 WBC 12.6 H (4.5-11.0) 10^3/ul RBC 2.79 L (3.5-6.1) 10^6/uL Hgb 9.3 L (12.0-16.0) g/dL Hct 26.7 L (36.0-48.0) % MCV 95.7 (80.0-105.0) fl MCH 33.3 (25.0-35.0) pg MCHC 34.8 (31.0-37.0) g/dl RDW 14.6 H (11.5-14.5) % Plt Count 191 (120.0-450.0) 10^3/uL MPV 10.7 (7.0-11.0) fl PT 14.6 H (9.4-12.5) SECONDS INR 1.26 H (0.93-1.08) pO2 (30-55) mm/Hg VBG pH (7.32-7.43) VBG pCO2 (40-60) VBG HCO3 (21-28) mmol/l VBG Total CO2 (22-28) mmol.L VBG O2 Sat (Calc) (40-65) % VBG Base Excess (0.0-2.0) mmol/L VBG Potassium (3.6-5.2) mmol/L Sodium 141 (132-148) mmol/L Chloride 113 H (98-107) mmol/L Glucose (65-105) mg/dl Lactate (0.7-2.1) mmol/L FiO2 % Potassium 4.1 (3.6-5.0) mmol/L Carbon Dioxide 17 L (21-33) mmol/L Anion Gap 16 (10-20) BUN 17 (7-21) mg/dL Creatinine 0.7 (0.7-1.2) mg/dl Est GFR ( Amer) > 60 Est GFR (Non-Af Amer) > 60 Random Glucose 99 (70-110) mg/dL Calcium 7.7 L (8.4-10.5) mg/dL Phosphorus 3.5 (2.5-4.5) mg/dL Magnesium 2.7 H (1.7-2.2) mg/dL Total Bilirubin 0.3 (0.2-1.3) mg/dL AST 54 H (14-36) U/L ALT 25 (7-56) U/L Alkaline Phosphatase 56 (38-126) U/L Total Protein 6.2 (5.8-8.3) g/dL Albumin 2.2 L (3.0-4.8) g/dL Globulin 4.0 gm/dL Albumin/Globulin Ratio 0.6 L (1.1-1.8) Procalcitonin (0.19-0.49) NG/ML Venous Blood Potassium (3.6-5.2) mmol/L Urine Opiates Screen (NEGATIVE) Urine Methadone Screen (NEGATIVE) Ur Barbiturates Screen (NEGATIVE) Ur Phencyclidine Scrn (NEGATIVE) Ur Amphetamines Screen (NEGATIVE) U Benzodiazepines Scrn (NEGATIVE) U Oth Cocaine Metabols (NEGATIVE) U Cannabinoids Screen (NEGATIVE) 11/21/17 11/21/17 11/21/17 Range/Units 23:50 12:00 10:00 WBC (4.5-11.0) 10^3/ul RBC (3.5-6.1) 10^6/uL Hgb (12.0-16.0) g/dL Hct (36.0-48.0) % MCV (80.0-105.0) fl MCH (25.0-35.0) pg MCHC (31.0-37.0) g/dl RDW (11.5-14.5) % Plt Count (120.0-450.0) 10^3/uL MPV (7.0-11.0) fl PT (9.4-12.5) SECONDS INR (0.93-1.08) pO2 82 H (30-55) mm/Hg VBG pH 7.45 H (7.32-7.43) VBG pCO2 26.0 L (40-60) VBG HCO3 18.1 L (21-28) mmol/l VBG Total CO2 18.9 L (22-28) mmol.L VBG O2 Sat (Calc) 98.3 H (40-65) % VBG Base Excess -4.3 L (0.0-2.0) mmol/L VBG Potassium 4.4 (3.6-5.2) mmol/L Sodium 139.0 (132-148) mmol/L Chloride 113.0 H (98-107) mmol/L Glucose 112 H (65-105) mg/dl Lactate 3.3 H (0.7-2.1) mmol/L FiO2 21.0 % Potassium 4.1 (3.6-5.0) mmol/L Carbon Dioxide (21-33) mmol/L Anion Gap (10-20) BUN (7-21) mg/dL Creatinine (0.7-1.2) mg/dl Est GFR ( Amer) Est GFR (Non-Af Amer) Random Glucose (70-110) mg/dL Calcium (8.4-10.5) mg/dL Phosphorus (2.5-4.5) mg/dL Magnesium (1.7-2.2) mg/dL Total Bilirubin (0.2-1.3) mg/dL AST (14-36) U/L ALT (7-56) U/L Alkaline Phosphatase (38-126) U/L Total Protein (5.8-8.3) g/dL Albumin (3.0-4.8) g/dL Globulin gm/dL Albumin/Globulin Ratio (1.1-1.8) Procalcitonin (0.19-0.49) NG/ML Venous Blood Potassium 4.4 (3.6-5.2) mmol/L Urine Opiates Screen Negative (NEGATIVE) Urine Methadone Screen Negative (NEGATIVE) Ur Barbiturates Screen Negative (NEGATIVE) Ur Phencyclidine Scrn Negative (NEGATIVE) Ur Amphetamines Screen Negative (NEGATIVE) U Benzodiazepines Scrn Negative (NEGATIVE) U Oth Cocaine Metabols Negative (NEGATIVE) U Cannabinoids Screen Negative (NEGATIVE) 11/20/17 Range/Units 23:00 WBC (4.5-11.0) 10^3/ul RBC (3.5-6.1) 10^6/uL Hgb (12.0-16.0) g/dL Hct (36.0-48.0) % MCV (80.0-105.0) fl MCH (25.0-35.0) pg MCHC (31.0-37.0) g/dl RDW (11.5-14.5) % Plt Count (120.0-450.0) 10^3/uL MPV (7.0-11.0) fl PT (9.4-12.5) SECONDS INR (0.93-1.08) pO2 (30-55) mm/Hg VBG pH (7.32-7.43) VBG pCO2 (40-60) VBG HCO3 (21-28) mmol/l VBG Total CO2 (22-28) mmol.L VBG O2 Sat (Calc) (40-65) % VBG Base Excess (0.0-2.0) mmol/L VBG Potassium (3.6-5.2) mmol/L Sodium (132-148) mmol/L Chloride (98-107) mmol/L Glucose (65-105) mg/dl Lactate (0.7-2.1) mmol/L FiO2 % Potassium (3.6-5.0) mmol/L Carbon Dioxide (21-33) mmol/L Anion Gap (10-20) BUN (7-21) mg/dL Creatinine (0.7-1.2) mg/dl Est GFR ( Amer) Est GFR (Non-Af Amer) Random Glucose (70-110) mg/dL Calcium (8.4-10.5) mg/dL Phosphorus (2.5-4.5) mg/dL Magnesium (1.7-2.2) mg/dL Total Bilirubin (0.2-1.3) mg/dL AST (14-36) U/L ALT (7-56) U/L Alkaline Phosphatase (38-126) U/L Total Protein (5.8-8.3) g/dL Albumin (3.0-4.8) g/dL Globulin gm/dL Albumin/Globulin Ratio (1.1-1.8) Procalcitonin 0.21 (0.19-0.49) NG/ML Venous Blood Potassium (3.6-5.2) mmol/L Urine Opiates Screen (NEGATIVE) Urine Methadone Screen (NEGATIVE) Ur Barbiturates Screen (NEGATIVE) Ur Phencyclidine Scrn (NEGATIVE) Ur Amphetamines Screen (NEGATIVE) U Benzodiazepines Scrn (NEGATIVE) U Oth Cocaine Metabols (NEGATIVE) U Cannabinoids Screen (NEGATIVE) Laboratory Results - last 24 hr 11/20/17 11/21/17 11/21/17 23:00 10:00 12:00 WBC RBC Hgb Hct MCV MCH MCHC RDW Plt Count MPV PT INR pO2 82 H VBG pH 7.45 H VBG pCO2 26.0 L VBG HCO3 18.1 L VBG Total CO2 18.9 L VBG O2 Sat (Calc) 98.3 H VBG Base Excess -4.3 L VBG Potassium 4.4 Sodium 139.0 Chloride 113.0 H Glucose 112 H Lactate 3.3 H FiO2 21.0 Potassium 4.1 Carbon Dioxide Anion Gap BUN Creatinine Est GFR ( Amer) Est GFR (Non-Af Amer) Random Glucose Calcium Phosphorus Magnesium Total Bilirubin AST ALT Alkaline Phosphatase Total Protein Albumin Globulin Albumin/Globulin Ratio Procalcitonin 0.21 Venous Blood Potassium 4.4 Urine Opiates Screen Urine Methadone Screen Ur Barbiturates Screen Ur Phencyclidine Scrn Ur Amphetamines Screen U Benzodiazepines Scrn U Oth Cocaine Metabols U Cannabinoids Screen 11/21/17 11/22/17 11/22/17 23:50 08:20 08:20 WBC 12.6 H RBC 2.79 L Hgb 9.3 L Hct 26.7 L MCV 95.7 MCH 33.3 MCHC 34.8 RDW 14.6 H Plt Count 191 MPV 10.7 PT 14.6 H INR 1.26 H pO2 VBG pH VBG pCO2 VBG HCO3 VBG Total CO2 VBG O2 Sat (Calc) VBG Base Excess VBG Potassium Sodium Chloride Glucose Lactate FiO2 Potassium Carbon Dioxide Anion Gap BUN Creatinine Est GFR ( Amer) Est GFR (Non-Af Amer) Random Glucose Calcium Phosphorus Magnesium Total Bilirubin AST ALT Alkaline Phosphatase Total Protein Albumin Globulin Albumin/Globulin Ratio Procalcitonin Venous Blood Potassium Urine Opiates Screen Negative Urine Methadone Screen Negative Ur Barbiturates Screen Negative Ur Phencyclidine Scrn Negative Ur Amphetamines Screen Negative U Benzodiazepines Scrn Negative U Oth Cocaine Metabols Negative U Cannabinoids Screen Negative 11/22/17 08:20 WBC RBC Hgb Hct MCV MCH MCHC RDW Plt Count MPV PT INR pO2 VBG pH VBG pCO2 VBG HCO3 VBG Total CO2 VBG O2 Sat (Calc) VBG Base Excess VBG Potassium Sodium 141 Chloride 113 H Glucose Lactate FiO2 Potassium 4.1 Carbon Dioxide 17 L Anion Gap 16 BUN 17 Creatinine 0.7 Est GFR ( Amer) > 60 Est GFR (Non-Af Amer) > 60 Random Glucose 99 Calcium 7.7 L Phosphorus 3.5 Magnesium 2.7 H Total Bilirubin 0.3 AST 54 H ALT 25 Alkaline Phosphatase 56 Total Protein 6.2 Albumin 2.2 L Globulin 4.0 Albumin/Globulin Ratio 0.6 L Procalcitonin Venous Blood Potassium Urine Opiates Screen Urine Methadone Screen Ur Barbiturates Screen Ur Phencyclidine Scrn Ur Amphetamines Screen U Benzodiazepines Scrn U Oth Cocaine Metabols U Cannabinoids Screen Critical Care Progress Note - Nutrition Nutrition: Nutrition Category Date Time Status Heart Healthy Diet [DIET] Diets 11/22/17 Breakfast Active Assessment/Plan - Assessment and Plan (Free Text) Plan: Patient seen and examined on rounds with resident, agree with note with following additions/exceptions: Patient is 57yo female with PMHx of hepatitis B, non-compliance, HIV and AIDS ( last CD4 95), presented with AMS, and diffuse bilateral infiltrates on CXR, and hypoxia. Pt is currently afebrile, BP stable, remains on high flow O2, O2 requirements decreasing, currently on 50%, 50LPM On Bactrim and Steroids for PCP tx. LDH markedly increased. ABG with improving oxygenation Comfortable in NAD PNA, PCP Hypoxia HIV/AIDS Hep B Recommend: - cont with high flow as tolerated, maintain sat 90%, monitor resp status closely - duonebs PRN - Steroids, IV Solumedrol - Cont with Bactrim IV for PCP tx - follow up ID - repeat CD4 count - daily CXR, ABG - FS control - monitor LFTs - GI ppx - DVT ppx - monitor in MICU
[2017-11-22] MEDS: Emtricitabine-Tenofovir 200 mg-300 mg Tab PO SCH (12:38)
[2017-11-22] MEDS: Nystatin-Triamcinolone Ointment(30 gm) TOP SCH ×2 (12:45→17:15)
--- NOTE | 2017-11-22 15:16 | PN ---
DATE: 11/22/2017 SUBJECTIVE: The patient was admitted to ICU, status post change in mental status and pneumonia. Psych consult was called for evaluation of hallucinations which seems to be disturbing for the patient. The patient had visual hallucinations and auditory hallucinations for what this instructional writer started Seroquel 25 mg at the nighttime. From this instructional writer perspective, the patient most likely has delirium and some cognitive limitations due to AIDS and HIV. The patient was followed up today. The patient presented to be psychotic and actively hallucinating, seeing people and the patient feels that she is in hell. The patient obviously appears to be frightened and scared. The patient denied history of mental illness, but seems to be very poor and unreliable historian. This instructional writer obtained collateral information from the nursing staff. As per nursing staff, the patient is hallucinating, disorganized, had difficulty to eat. PHYSICAL EXAMINATION: VITAL SIGNS: Reviewed. Pulse is 93, blood pressure is low 90/47, respirations 23, oxygen saturation is 97. MEDICATIONS: Reviewed. The patient is on Truvada, Lovenox, fluconazole, Xopenex, Levaquin, Solu-Medrol, nystatin, Protonix, Seroquel 25 mg at the nighttime. This instructional writer will increase it to 25 mg twice a day. The patient is on trimethoprim-sulfamethoxazole and Geodon as needed. The patient did not required Geodon, but was compliant with the Seroquel. Overall, the patient does not exhibit any aggressive for agitated behavior, but the patient obviously is psychotic and delirious. MENTAL STATUS EXAMINATION: The patient appears to be alert. The patient appears to be actively hallucinating and responding to internal stimuli. The patient was not able to describe her mood, but she feels that she is in hell. Thought process disorganized. Thought content, the patient obviously psychotic, disorganized, paranoid and actively hallucinating. Insight and judgment seems to be impaired. Impulses are unpredictable. IMPRESSION: Patient is in delirium stage, also rule out human immunodeficiency virus-related dementia. PLAN: Seroquel was increased. Continue current management, and current indications. Dr. Brown will follow up on this patient over the weekend. Should you have any questions give me a call back. Thank you very much for letting me participate in the care of your patient Marla Najera MD [facility] # [id number]
[2017-11-22 17:13] LABS: % CD4 (T HELPER CELL) 17 Percent (30-61); % CD8 (SUPPRESSOR T CELL) 35 Percent (12-42); ABSOLUTE CD19 CELLS 182 Cells/mcL (110-660); ABSOLUTE CD3 CELLS 322 Cells/mcL (840-3060); ABSOLUTE CD4 CELLS 99 Cells/mcL (490-1740); ABSOLUTE CD8 CELLS 204 Cells/mcL (180-1170); ABSOLUTE LYMPHOCYTES 612 Cells/mcL (850-3900); HELPER/SUPPRESSOR RATIO 0.49 Ratio (0.86-5.00)
[2017-11-22] MEDS: Non Formulary Medication (Dolutegravir Sodium [Tivicay] 50 MG) PO SCH ×2 (17:38→18:55)
--- NOTE | 2017-11-22 18:18 | CP.PCM.PN ---
<Omari Davis - Last Filed: 11/22/17 18:14> Subjective - Date & Time of Evaluation Date of Evaluation: 11/22/17 Time of Evaluation: 11:00 - Subjective Subjective: Pt seen and examined at bedside. Agusto, lacks insight into why she was admitted. No acute complaints, on high flow oxygen. Objective - Vital Signs/Intake and Output Vital Signs (last 24 hours): Temp Pulse Resp BP Pulse Ox 97.7 F 112 H 32 H 114/65 79 L 11/21/17 08:04 11/22/17 18:00 11/22/17 18:00 11/22/17 18:00 11/22/17 18:00 Intake and Output: 11/22/17 11/22/17 06:59 18:59 Intake Total 3600 Output Total 990 Balance 2610 - Medications Medications: Current Medications Emtricitabine/Tenofovir (Truvada 200 Mg-300 Mg) 1 tab PO DAILY [facility] PRN Reason: Protocol Last Admin: 11/22/17 12:38 Dose: 1 tab Enoxaparin Sodium (Lovenox) 40 mg SC DAILY [facility] PRN Reason: Protocol Last Admin: 11/22/17 10:37 Dose: 40 mg Fluconazole (Diflucan) 100 mg PO BID [facility] PRN Reason: Protocol Last Admin: 11/22/17 17:14 Dose: 100 mg Trimethoprim/Sulfamethoxazole (300 mg/ Dextrose) 500 mls @ 250 mls/hr IVPB Q8H [facility] Last Admin: 11/22/17 13:27 Dose: 250 mls/hr Levalbuterol HCl (Xopenex) 1.25 mg IH [id number] PRN PRN Reason: Shortness of Breath Last Admin: 11/21/17 07:46 Dose: 1.25 mg Levofloxacin/Dextrose (Levaquin 750mg) 750 mg IVPB DAILY [facility] PRN Reason: Protocol Stop: 12/01/17 10:01 Last Admin: 11/22/17 10:38 Dose: 750 mg Methylprednisolone (Solu-Medrol) 40 mg IVP Q12 [facility] Last Admin: 11/22/17 10:44 Dose: 40 mg Non-Formulary Medication (Dolutegravir Sodium [Tivicay]) 50 mg PO DAILY [facility] Last Admin: 11/22/17 17:38 Dose: Not Given Nystatin/Triamcinolone Acetonide (Nystatin/Triamcinolone Ointment) 0 gm TOP BID [facility] Last Admin: 11/22/17 17:15 Dose: 1 applic Pantoprazole Sodium (Protonix Ec Tab) 40 mg PO 0600 [facility] Last Admin: 11/22/17 05:11 Dose: 40 mg Quetiapine Fumarate (Seroquel) 25 mg PO AMHS [facility] PRN Reason: Protocol Ziprasidone (Geodon Inj) 10 mg IM Q12H PRN; Protocol PRN Reason: severe agitaiton/psychosis - Labs Labs: 11/22/17 08:20 11/22/17 08:20 PT 14.6 SECONDS (9.4-12.5) H 11/22/17 08:20 INR 1.26 (0.93-1.08) H 11/22/17 08:20 - Constitutional Appears: No Acute Distress, Older Than Stated Age, Chronically Ill - Head Exam Head Exam: ATRAUMATIC, NORMAL INSPECTION - Eye Exam Eye Exam: EOMI, Normal appearance, PERRL - ENT Exam ENT Exam: Mucous Membranes Moist - Neck Exam Neck Exam: Full ROM, Normal Inspection - Respiratory Exam Respiratory Exam: Decreased Breath Sounds - Cardiovascular Exam Cardiovascular Exam: REGULAR RHYTHM, +S1, +S2 - GI/Abdominal Exam GI & Abdominal Exam: Soft, Normal Bowel Sounds - Extremities Exam Extremities Exam: Full ROM, Normal Capillary Refill, Normal Inspection - Neurological Exam Neurological Exam: Alert, Awake - Skin Skin Exam: Dry, Intact, Normal Color, Warm Assessment and Plan - Assessment and Plan (Free Text) Assessment: 57 y/o F with PMHx of hepatitis B, non-compliance, HIV and AIDS (last CD4 95) who presented to the ED for hallucinations and altered mental status, as per daughter. Patient was recently diagnosed with Pneumocystis pneumonia (PCP) but signed out AMA after last visit. Patient is on HAART therapy. Imaging showed diffuse pulmonary infiltrates - patient started on bactrim and steroids for PCP Pneumonia. Patient became anxious, hypoxic, and was using respiratory muscles for breathing - [employer] was called overnight and patient started on BiPAP and managed under ICU. Pt's hypoxia has since improved and pt was transitioned from BiPap to high flow. Plan: Sepsis Likely secondary to PCP PNA Lactate of 3.8 on admission trending down, pt tachycardic, hypoxic C/w Bactrim for PCP Pneumonia Levaquin 750 mg daily F/u lab work-up ID and pulm consulted, f/u recs F/u repeat CD4 ct (last CD4 was 95 in 2017) Altered Mental Status Neuro, psych consulted, f/u results F/u MRI brain Hypokalemia S/p KCl 40mEq Continue to trend electrolytes Hepatitis B Patient non-compliant, unknown if treated in past Will educate importance of treatment AIDS Hx non-compliance with HAART therapy Spoke with [facility] pharmacy to get updated med list for pt Pt was on dolutegravir and truvada prior F/u ID recs re restarting HAART therapy Will follow while pt is in CCU GI/DVT prophylaxis: protonix 40 and lovenox 40 subQ Plan d/w Dr. Christianson, attending <Day Christianson - Last Filed: 11/22/17 18:34> Objective - Vital Signs/Intake and Output Vital Signs (last 24 hours): Temp Pulse Resp BP Pulse Ox 97.7 F 112 H 32 H 114/65 79 L 11/21/17 08:04 11/22/17 18:00 11/22/17 18:00 11/22/17 18:00 11/22/17 18:00 Intake and Output: 11/22/17 11/22/17 06:59 18:59 Intake Total 3600 Output Total 990 Balance 2610 - Medications Medications: Current Medications Emtricitabine/Tenofovir (Truvada 200 Mg-300 Mg) 1 tab PO DAILY [facility] PRN Reason: Protocol Last Admin: 11/22/17 12:38 Dose: 1 tab Enoxaparin Sodium (Lovenox) 40 mg SC DAILY [facility] PRN Reason: Protocol Last Admin: 11/22/17 10:37 Dose: 40 mg Fluconazole (Diflucan) 100 mg PO BID [facility] PRN Reason: Protocol Last Admin: 11/22/17 17:14 Dose: 100 mg Trimethoprim/Sulfamethoxazole (300 mg/ Dextrose) 500 mls @ 250 mls/hr IVPB Q8H [facility] Last Admin: 11/22/17 13:27 Dose: 250 mls/hr Levalbuterol HCl (Xopenex) 1.25 mg IH [id number] PRN PRN Reason: Shortness of Breath Last Admin: 11/21/17 07:46 Dose: 1.25 mg Levofloxacin/Dextrose (Levaquin 750mg) 750 mg IVPB DAILY [facility] PRN Reason: Protocol Stop: 12/01/17 10:01 Last Admin: 11/22/17 10:38 Dose: 750 mg Methylprednisolone (Solu-Medrol) 40 mg IVP Q12 [facility] Last Admin: 11/22/17 10:44 Dose: 40 mg Non-Formulary Medication (Dolutegravir Sodium [Tivicay]) 50 mg PO DAILY [facility] Last Admin: 11/22/17 17:38 Dose: Not Given Nystatin/Triamcinolone Acetonide (Nystatin/Triamcinolone Ointment) 0 gm TOP BID [facility] Last Admin: 11/22/17 17:15 Dose: 1 applic Pantoprazole Sodium (Protonix Ec Tab) 40 mg PO 0600 [facility] Last Admin: 11/22/17 05:11 Dose: 40 mg Quetiapine Fumarate (Seroquel) 25 mg PO AMHS [facility] PRN Reason: Protocol Ziprasidone (Geodon Inj) 10 mg IM Q12H PRN; Protocol PRN Reason: severe agitaiton/psychosis - Labs Labs: 11/22/17 08:20 11/22/17 08:20 PT 14.6 SECONDS (9.4-12.5) H 11/22/17 08:20 INR 1.26 (0.93-1.08) H 11/22/17 08:20 Attending/Attestation - Attestation I have personally seen and examined this patient.: Yes I have fully participated in the care of the patient.: Yes I have reviewed all pertinent clinical information, including history, physical exam and plan: Yes Notes (Text): 11/22/17 18:33 57 year old female with past medical history of hepatitis B, HIV/AIDS (last CD4 count 95) who presented with AMS, hallucinations and dyspnea. CXR showed diffuse pulmonary infiltrates and she is being treated for PCP pneumonia with bactrim and steroids. HAART therapy ordered. ID and pulmonary are following. Psychiatry is following for delirium. Neurology consultation was requested as well and MRI brain study is ordered. Day Christianson MD Hospitalist.
[2017-11-22] MEDS: DOLUTEGRAVIR SODIUM 50 MG PO SCH (18:56)
--- NOTE | 2017-11-22 23:33 | PN ---
DATE: 11/22/2017 SUBJECTIVE: Patient is in bed, in no acute distress, seen earlier this morning in the ICU 129, bed 2. She is short of breath. She had un uneventful night. PHYSICAL EXAMINATION: VITAL SIGNS: Temperature is 97, blood pressure is 114/60, respiratory rate of 30, heart rate of 112. HEENT: Unremarkable. NECK: Supple. LUNGS: Decreased breath sounds. HEART: Normal S1 and S2. ABDOMEN: Soft. LABORATORY DATA: Reveals a white count 12,600, hemoglobin of 9, platelets of 197. BUN is 17, creatinine of 0.7, procalcitonin 0.21. Microbiology reveals the patient's blood cultures are negative, nasal MRSA is negative, urine cultures are negative. Patient's T-cells are reported to be 17% with an absolute count of 99%. Review of orders revealed the patient's CMV, PCR is pending, Cryptococcal antigen is pending and currently the patient is on Bactrim, Levaquin, Solu-Medrol. MRI of the head is ordered. ASSESSMENT AND PLAN: This is a 57-year-old female with end-stage acquired immune deficiency syndrome and hepatitis B. 1. Sepsis with most likely pneumocystis pneumonia, although pathogen should be consider, currently on Bactrim, steroids, awaiting for further workup, order of should be positive in pneumocystis pneumonia. Overall prognosis is quite poor for this patient, who is noncompliant with her HIV medications. Kelby Justin MD
[2017-11-23] MEDS: Sulfamethoxazole/Trimethoprim 300 MG in Dextrose 5% In Water 500 ML IVPB SCH ×3 (05:56→19:54)
[2017-11-23] MEDS: Pantoprazole 40 mg EC Tab PO SCH (05:57)
[2017-11-23 06:20] LABS: BASO # 0.02 K/mm3 (0.0-2.0); BASO % 0.2 % (0.0-3.0); GRAN % 92.1 % (50.0-68.0); HEMOGLOBIN 9.5 g/dL (12.0-16.0); LYMPH # 0.9 (1.2-3.4); LYMPH % 6.5 % (22.0-35.0); MEAN CELL VOLUME 96.2 fl (80.0-105.0); MEAN CORPUSCULAR HEMOGLOBIN 32.6 pg (25.0-35.0); MEAN CORPUSCULAR HGB CONC 33.9 g/dl (31.0-37.0); MEAN PLATELET VOLUME 10.7 fl (7.0-11.0); MONO # 0.2 (0.1-0.6); MONO % 1.2 % (1.0-6.0); PLATELET COUNT 199 10^3/uL (120.0-450.0); RBC 2.91 10^6/uL (3.5-6.1); RED CELL DISTRIBUTION WIDTH 14.9 % (11.5-14.5); WHITE BLOOD COUNT 13.1 10^3/ul (4.5-11.0)
[2017-11-23 06:37] LABS: ALB/GLOB RATIO 0.5 (1.1-1.8); ALBUMIN 2.3 g/dL (3.0-4.8); ALT/SGPT 24 U/L (7-56); AST/SGOT 59 U/L (14-36); BLOOD UREA NITROGEN 18 mg/dL (7-21); CALCIUM 8.3 mg/dL (8.4-10.5); GFR AFRICAN-AMERICAN > 60; GFR NON-AFRICAN AMERICAN > 60
[2017-11-23 07:28] LABS: ATYPICAL LYMPHOCYTE 1 % (0.0-0.0); BAND 1 % (0-2); LYMPHOCYTE 3 % (22.0-35.0); MONOCYTE 1 % (1.0-6.0); NEUTROPHIL 94 % (50.0-70.0)
[2017-11-23 07:29] LABS: ANISOCYTOSIS 1+; PLATELET ESTIMATE NORMAL (NORMAL)
--- NOTE | 2017-11-23 09:39 | PN ---
DATE: 11/23/2017 SUBJECTIVE: The patient is in seen early this morning in the unit. She is less short of breath. No fevers. PHYSICAL EXAMINATION: VITAL SIGNS: Temperature is 97, blood pressure is 101/60, respiratory rate of 18, heart rate of 98. HEENT: Examination is unremarkable. NECK: Supple. LUNGS: Have decreased breath sounds. HEART: Normal S1, S2. ABDOMEN: Soft, nontender. DATA: Laboratory examination reveals a white count of 13,000, hemoglobin of 9, platelets of 199. Coagulation is noted. Chemistries reveal a BUN of 18, creatinine of 0.8 and urinalysis is noted. T cells, absolute T4 is 99 with percentage at 17%. ASSESSMENT AND PLAN: This is a 57-year-old female seen in the Intensive Care Unit 129, bed 2, who has end-stage acquired immunodeficiency syndrome, hepatitis B, sepsis with Pneumocystis carinii, on Bactrim, steroids and Levaquin; workup in progress. The patient is scheduled for an MRI of the brain. We will follow with you. Kelby Justin MD
[2017-11-23] MEDS: levoFLOXacin 750 mg in D5W 150 ML BAG IVPB SCH (10:48)
[2017-11-23] MEDS: Emtricitabine-Tenofovir 200 mg-300 mg Tab PO SCH (10:48)
[2017-11-23] MEDS: MethylPREDNISolone 40 mg Vial IVP SCH ×2 (10:48→23:00)
[2017-11-23] MEDS: Enoxaparin 40 mg Syringe SC SCH (10:49)
[2017-11-23] MEDS: DOLUTEGRAVIR SODIUM 50 MG PO SCH (10:50)
--- NOTE | 2017-11-23 11:21 | PN ---
DATE: 11/23/2017 SUBJECTIVE: The patient is resting in bed, comfortable, on facemask O2, O2 saturation is stable. No active coughing or congestion. No complaints of pain. No respiratory distress. The patient is awake and responds to the spoken word. No abdominal pain. No diarrhea. PHYSICAL EXAMINATION: VITAL SIGNS: Note that his temperature is 97.5, pulse is 98, respirations are 25 and her BP is 101/60. SKIN: Warm and dry. HEENT: Head atraumatic, normocephalic. Eyes reactive to light. Ears, Nose and Throat seemed to be within normal limits. NECK: Supple. No JVD. No thyroid enlargement or lymph nodes. HEART: Has regular rate and rhythm. Normal S1, S2. LUNGS: Reveal rare rhonchi at the bases. ABDOMEN: Soft. Decreased bowel sounds. GENITALIA AND RECTAL: Deferred. MUSCULOSKELETAL: No joint deformities. EXTREMITIES: Reveal trace to 1+ lower extremity edema. NEUROLOGIC: The patient is awake and alert. Moving all extremities. LABORATORY DATA: Laboratories reveal a white count of 13.1, hemoglobin is 9.5, hematocrit 28 with platelets of 199,000. Sodium is 143, potassium 4.4, chloride 114, CO2 of 18 with a BUN of 18, creatinine of 0.8 and glucose of 101. IMPRESSION: This patient has Pneumocystis carinii pneumonia with acquired immune deficiency syndrome. She has resolving sepsis and anemia as well as hepatitis B. As far as our plan, we will continue with O2 support and follow her O2 saturations closely. The patient will continue with Bactrim, Diflucan as well as Levaquin and is on prophylactic Lovenox as well. She is getting Protonix and Xopenex and is on Solu-Medrol. We will continue to treat aggressively along with the other consultants and the primary care doctor. Gallito Ramos MD
--- NOTE | 2017-11-23 12:43 | CP.PCM.PN ---
<Omari Davis - Last Filed: 11/23/17 18:06> Subjective - Date & Time of Evaluation Date of Evaluation: 11/23/17 Time of Evaluation: 11:30 - Subjective Subjective: Pt seen at bedside. AAOx1, alert but confused. Unable to verbalize how she is feeling or why she is in the hospital. No acute complaints. No acute events reported overnight. Objective - Vital Signs/Intake and Output Vital Signs (last 24 hours): Temp Pulse Resp BP Pulse Ox 97.5 F L 98 H 43 H 101/60 74 L 11/23/17 06:00 11/23/17 06:20 11/23/17 06:20 11/23/17 06:00 11/23/17 06:20 Intake and Output: 11/23/17 11/23/17 06:59 18:59 Intake Total 1160 Output Total 1200 Balance -40 - Medications Medications: Current Medications Emtricitabine/Tenofovir (Truvada 200 Mg-300 Mg) 1 tab PO DAILY [facility] PRN Reason: Protocol Last Admin: 11/23/17 10:48 Dose: 1 tab Enoxaparin Sodium (Lovenox) 40 mg SC DAILY [facility] PRN Reason: Protocol Last Admin: 11/23/17 10:49 Dose: 40 mg Fluconazole (Diflucan) 100 mg PO BID [facility] PRN Reason: Protocol Last Admin: 11/23/17 10:48 Dose: 100 mg Home Med (Home Med) 1 unit PO DAILY [facility] Last Admin: 11/23/17 10:50 Dose: 1 unit Trimethoprim/Sulfamethoxazole (300 mg/ Dextrose) 500 mls @ 250 mls/hr IVPB Q8H [facility] Last Admin: 11/23/17 05:56 Dose: 250 mls/hr Levalbuterol HCl (Xopenex) 1.25 mg IH [id number] PRN PRN Reason: Shortness of Breath Last Admin: 11/21/17 07:46 Dose: 1.25 mg Levofloxacin/Dextrose (Levaquin 750mg) 750 mg IVPB DAILY [facility] PRN Reason: Protocol Stop: 12/01/17 10:01 Last Admin: 11/23/17 10:48 Dose: 750 mg Methylprednisolone (Solu-Medrol) 40 mg IVP Q12 [facility] Last Admin: 11/23/17 10:48 Dose: 40 mg Nystatin/Triamcinolone Acetonide (Nystatin/Triamcinolone Ointment) 0 gm TOP BID [facility] Last Admin: 11/22/17 17:15 Dose: 1 applic Pantoprazole Sodium (Protonix Ec Tab) 40 mg PO 0600 [facility] Last Admin: 11/23/17 05:57 Dose: 40 mg Quetiapine Fumarate (Seroquel) 25 mg PO AMHS [facility] PRN Reason: Protocol Last Admin: 11/23/17 10:48 Dose: 25 mg Ziprasidone (Geodon Inj) 10 mg IM Q12H PRN; Protocol PRN Reason: severe agitaiton/psychosis - Labs Labs: 11/23/17 05:30 11/23/17 05:30 PT 14.6 SECONDS (9.4-12.5) H 11/22/17 08:20 INR 1.26 (0.93-1.08) H 11/22/17 08:20 - Constitutional Appears: No Acute Distress, Older Than Stated Age, Chronically Ill - Head Exam Head Exam: ATRAUMATIC, NORMOCEPHALIC - Eye Exam Eye Exam: EOMI, Normal appearance - ENT Exam ENT Exam: Mucous Membranes Moist - Neck Exam Neck Exam: Full ROM, Normal Inspection - Respiratory Exam Respiratory Exam: Decreased Breath Sounds - Cardiovascular Exam Cardiovascular Exam: REGULAR RHYTHM, +S1, +S2 - GI/Abdominal Exam GI & Abdominal Exam: Soft, Normal Bowel Sounds - Extremities Exam Extremities Exam: Full ROM, Normal Capillary Refill, Normal Inspection - Neurological Exam Neurological Exam: Alert, Awake Additional comments: Oriented x1 - Psychiatric Exam Psychiatric exam: Flat Affect - Skin Skin Exam: Dry, Intact, Normal Color, Warm Assessment and Plan - Assessment and Plan (Free Text) Assessment: 57 y/o F with PMHx of hepatitis B, non-compliance, HIV and AIDS (last CD4 95) who presented to the ED for hallucinations and altered mental status, as per daughter. Patient was recently diagnosed with Pneumocystis pneumonia (PCP) but signed out AMA after last visit. Patient is on HAART therapy. Imaging showed diffuse pulmonary infiltrates - patient started on bactrim and steroids for PCP Pneumonia. Patient became anxious, hypoxic, and was using respiratory muscles for breathing - ARCHITECTURE TECHNICIAN was called overnight and patient started on BiPAP and managed under ICU. Pt's hypoxia has since improved and pt was transitioned from BiPap to high flow to venti mask. Plan: Sepsis Likely secondary to PCP PNA Lactate of 3.8 on admission trending down, pt tachycardic, hypoxic CXR demonstrated diffuse pulmonary infiltrates C/w Bactrim for PCP Pneumonia Levaquin 750 mg daily F/u lab work-up Blood cx NGTD after 48 hrs MRSA neg, urine cx neg RPR neg, f/u CMV and HSV ID and pulm consulted, f/u recs Repeat CD4 ct 99 (previous CD4 was 95 in 2017) Altered Mental Status Neuro, psych consulted, f/u results Per psych: pt on Seroquel; Ziprasidone prn F/u MRI brain Hypokalemia S/p KCl 40mEq Continue to trend electrolytes Hepatitis B Patient non-compliant, unknown if treated in past Will educate importance of treatment AIDS Hx non-compliance with HAART therapy Spoke with [facility] pharmacy to get updated med list for pt Pt was on dolutegravir and truvada prior Pt restarted on HAART therapy F/u ID recs Will follow while pt is in CCU GI/DVT prophylaxis: protonix 40 and lovenox 40 subQ Plan d/w Dr. Christianson, attending Omari Davis DO PGY-1, Metallurgical Engineering Teacher Pager #[phone] <Day Christianson - Last Filed: 11/23/17 19:14> Objective - Vital Signs/Intake and Output Vital Signs (last 24 hours): Temp Pulse Resp BP Pulse Ox 96.7 F L 120 H 26 H 106/66 95 11/23/17 16:35 11/23/17 16:44 11/23/17 12:00 11/23/17 12:00 11/23/17 12:00 Intake and Output: 11/23/17 11/24/17 18:59 06:59 Intake Total 570 Output Total 900 Balance -330 - Medications Medications: Current Medications Emtricitabine/Tenofovir (Truvada 200 Mg-300 Mg) 1 tab PO DAILY [facility] PRN Reason: Protocol Last Admin: 11/23/17 10:48 Dose: 1 tab Enoxaparin Sodium (Lovenox) 40 mg SC DAILY [facility] PRN Reason: Protocol Last Admin: 11/23/17 10:49 Dose: 40 mg Fluconazole (Diflucan) 100 mg PO BID [facility] PRN Reason: Protocol Last Admin: 11/23/17 17:03 Dose: 100 mg Home Med (Home Med) 1 unit PO DAILY [facility] Last Admin: 11/23/17 10:50 Dose: 1 unit Trimethoprim/Sulfamethoxazole (300 mg/ Dextrose) 500 mls @ 250 mls/hr IVPB Q8H [facility] Last Admin: 11/23/17 13:14 Dose: 250 mls/hr Levalbuterol HCl (Xopenex) 1.25 mg IH [id number] PRN PRN Reason: Shortness of Breath Last Admin: 11/21/17 07:46 Dose: 1.25 mg Levofloxacin/Dextrose (Levaquin 750mg) 750 mg IVPB DAILY [facility] PRN Reason: Protocol Stop: 12/01/17 10:01 Last Admin: 11/23/17 10:48 Dose: 750 mg Methylprednisolone (Solu-Medrol) 40 mg IVP Q12 [facility] Last Admin: 11/23/17 10:48 Dose: 40 mg Nystatin/Triamcinolone Acetonide (Nystatin/Triamcinolone Ointment) 0 gm TOP BID [facility] Last Admin: 11/23/17 17:02 Dose: 1 applic Pantoprazole Sodium (Protonix Ec Tab) 40 mg PO 0600 [facility] Last Admin: 11/23/17 05:57 Dose: 40 mg Quetiapine Fumarate (Seroquel) 25 mg PO AMHS [facility] PRN Reason: Protocol Last Admin: 11/23/17 10:48 Dose: 25 mg Ziprasidone (Geodon Inj) 10 mg IM Q12H PRN; Protocol PRN Reason: severe agitaiton/psychosis - Labs Labs: 11/23/17 05:30 11/23/17 05:30 PT 14.6 SECONDS (9.4-12.5) H 11/22/17 08:20 INR 1.26 (0.93-1.08) H 11/22/17 08:20 Attending/Attestation - Attestation I have personally seen and examined this patient.: Yes I have fully participated in the care of the patient.: Yes I have reviewed all pertinent clinical information, including history, physical exam and plan: Yes Notes (Text): 11/23/17 19:13 57 year old female with past medical history of hepatitis B, HIV/AIDS (last CD4 count 95) who presented with AMS, hallucinations and dyspnea. CXR showed diffuse pulmonary infiltrates and she is being treated for PCP pneumonia with bactrim and steroids. HAART therapy ordered. ID and pulmonary are following. Psychiatry and neurolog are following for delirium. MRI brain is pending. Will replete and repeat lytes. Day Christianson MD Hospitalist.
[2017-11-23] MEDS: Nystatin-Triamcinolone Ointment(30 gm) TOP SCH ×2 (12:49→17:02)
--- NOTE | 2017-11-23 21:08 | CON ---
DATE: 11/23/2017 HISTORY OF PRESENT ILLNESS: The patient is a 57-year-old -[place], whom psychiatrist is following for visual and auditory hallucinations while being admitted to the ICU. It seems to be secondary to delirium and possibly dementia. The patient apparently had been actively hallucinating and started on Seroquel for these symptoms. I reviewed Dr. Najera's psychiatric consultation and recent staff note from the unit. I also visited the patient at the bedside. The patient appears to comprehend most of my questioning; however, her responses are brief and she appears anxious and hypervigilant. The patient continues to report that she is hallucinating, she sees people their head being cut off and she feels hallucination. She does not really endorse having any auditory hallucinations right now. She is distressed and depressed about the hallucinations; however, she does not want to . She denies having any suicidal thoughts or thoughts of harming others. The patient is disoriented. She does not know where she is. She has no idea what the month or the year are. When I asked her about location, she says that she is in "[facility] She remains disorganized, unpredictable, confused, hallucinating, and requires continued psychiatric and medical followup as she cannot care for herself. Vital signs and labs were reviewed. IMPRESSION: The patient has delirium, rule out age-related dementia as well with Dr. Najera. RELEVANT PSYCHIATRIC MEDICATIONS: Include Seroquel 25 mg in the a.m. and at bedtime as well as Geodon 10 mg IM every 12 hours p.r.n. RECOMMENDATIONS: We will continue with Seroquel total of 25 mg in the a.m. and at bedtime. Here, the patient received one dose yesterday last night and another dose on 11/21/2017. The patient has not received enough of these doses to determine if current regimen is effective. We will follow up in the a.m., Saturday, to monitor her progress at this medication dose. If she requires earlier followup, please re-consult and I would be glad to follow up earlier. Maria Victoria Brown MD [facility] # [id number]
[2017-11-24] MEDS: Sulfamethoxazole/Trimethoprim 300 MG in Dextrose 5% In Water 500 ML IVPB SCH ×3 (05:30→21:03)
[2017-11-24] MEDS: Pantoprazole 40 mg EC Tab PO SCH (05:36)
--- NOTE | 2017-11-24 05:46 | CP.PCM.PN ---
Subjective - Date & Time of Evaluation Date of Evaluation: 11/24/17 Time of Evaluation: 05:41 - Subjective Subjective: Ms. Valladares was seen and examined at the bedside in ICU. She is awake, but confused and hallucinations. She claims of seeing ants by the bedside and state of being in her aunt's house. She is unable to participate during assessment. However, she does not exhibit any restlessness or agitation. According to staff , she moves all extremities but guards.She is currently on venti mask for oxygen maintenance. There was no untoward events overnight. Objective - Vital Signs/Intake and Output Vital Signs (last 24 hours): Temp Pulse Resp BP Pulse Ox 96.7 F L 108 H 22 111/66 98 11/23/17 16:35 11/23/17 19:00 11/23/17 19:00 11/23/17 19:00 11/23/17 19:00 Intake and Output: 11/23/17 11/24/17 18:59 06:59 Intake Total 570 Output Total 900 Balance -330 - Medications Medications: Current Medications Emtricitabine/Tenofovir (Truvada 200 Mg-300 Mg) 1 tab PO DAILY [facility] PRN Reason: Protocol Last Admin: 11/23/17 10:48 Dose: 1 tab Enoxaparin Sodium (Lovenox) 40 mg SC DAILY [facility] PRN Reason: Protocol Last Admin: 11/23/17 10:49 Dose: 40 mg Fluconazole (Diflucan) 100 mg PO BID [facility] PRN Reason: Protocol Last Admin: 11/23/17 17:03 Dose: 100 mg Home Med (Home Med) 1 unit PO DAILY [facility] Last Admin: 11/23/17 10:50 Dose: 1 unit Trimethoprim/Sulfamethoxazole (300 mg/ Dextrose) 500 mls @ 250 mls/hr IVPB Q8H [facility] Last Admin: 11/24/17 05:30 Dose: 250 mls/hr Levalbuterol HCl (Xopenex) 1.25 mg IH [id number] PRN PRN Reason: Shortness of Breath Last Admin: 11/21/17 07:46 Dose: 1.25 mg Levofloxacin/Dextrose (Levaquin 750mg) 750 mg IVPB DAILY [facility] PRN Reason: Protocol Stop: 12/01/17 10:01 Last Admin: 11/23/17 10:48 Dose: 750 mg Methylprednisolone (Solu-Medrol) 40 mg IVP Q12 [facility] Last Admin: 11/23/17 23:00 Dose: 40 mg Nystatin/Triamcinolone Acetonide (Nystatin/Triamcinolone Ointment) 0 gm TOP BID [facility] Last Admin: 11/23/17 17:02 Dose: 1 applic Pantoprazole Sodium (Protonix Ec Tab) 40 mg PO 0600 [facility] Last Admin: 11/24/17 05:36 Dose: Not Given Quetiapine Fumarate (Seroquel) 25 mg PO AMHS [facility] PRN Reason: Protocol Last Admin: 11/23/17 23:00 Dose: 25 mg Ziprasidone (Geodon Inj) 10 mg IM Q12H PRN; Protocol PRN Reason: severe agitaiton/psychosis - Labs Labs: 11/23/17 05:30 11/23/17 05:30 PT 14.6 SECONDS (9.4-12.5) H 11/22/17 08:20 INR 1.26 (0.93-1.08) H 11/22/17 08:20 - Constitutional Appears: No Acute Distress - Head Exam Head Exam: NORMAL INSPECTION - Eye Exam Pupil Exam: PERRL - Neurological Exam Neurological Exam: Awake Neuro motor strength exam: Left Upper Extremity: 3, Right Upper Extremity: 3, Left Lower Extremity: 3, Right Lower Extremity: 3 Additional comments: awake, unable to participate during assessment. Assessment and Plan (1) Altered mental status Assessment & Plan: Case discussed with Dr. Lewis, continue all current medical regimen including antiviral. Pending MRI of the brain. Recommend to treat any underlying infection , hydration, supportive management. Status: Acute
[2017-11-24 06:28] LABS: BASO # 0.01 K/mm3 (0.0-2.0); BASO % 0.1 % (0.0-3.0); GRAN # 8.75 (1.4-6.5); GRAN % 92.1 % (50.0-68.0); HEMOGLOBIN 8.8 g/dL (12.0-16.0); LYMPH # 0.5 (1.2-3.4); LYMPH % 5.5 % (22.0-35.0); MEAN CELL VOLUME 95.5 fl (80.0-105.0); MEAN CORPUSCULAR HEMOGLOBIN 32.8 pg (25.0-35.0); MEAN CORPUSCULAR HGB CONC 34.4 g/dl (31.0-37.0); MEAN PLATELET VOLUME 11.9 fl (7.0-11.0); MONO # 0.2 (0.1-0.6); MONO % 2.3 % (1.0-6.0); RBC 2.68 10^6/uL (3.5-6.1); RED CELL DISTRIBUTION WIDTH 15.5 % (11.5-14.5); WHITE BLOOD COUNT 9.5 10^3/ul (4.5-11.0)
[2017-11-24 08:21] LABS: ALB/GLOB RATIO 0.6 (1.1-1.8); ALBUMIN 2.3 g/dL (3.0-4.8); ALT/SGPT 34 U/L (7-56); AST/SGOT 55 U/L (14-36); BLOOD UREA NITROGEN 17 mg/dL (7-21); CALCIUM 8.3 mg/dL (8.4-10.5); GFR AFRICAN-AMERICAN > 60; GFR NON-AFRICAN AMERICAN > 60
--- NOTE | 2017-11-24 09:23 | CT ---
PROCEDURE: CT HEAD WITHOUT CONTRAST. HISTORY: AMS change COMPARISON: None available. TECHNIQUE: Axial computed tomography images were obtained through the head/brain without intravenous contrast. Coronal and sagittal reconstructed images. Radiation dose: Total exam DLP = 746.32 mGy-cm. This CT exam was performed using one or more of the following dose reduction techniques: Automated exposure control, adjustment of the mA and/or kV according to patient size, and/or use of iterative reconstruction technique. FINDINGS: HEMORRHAGE: No intracranial hemorrhage. BRAIN: No mass effect or edema. Cortical atrophy, periventricular small vessel disease. VENTRICLES: Unremarkable. No hydrocephalus. CALVARIUM: Unremarkable. PARANASAL SINUSES: Unremarkable as visualized. No significant inflammatory changes. MASTOID AIR CELLS: Unremarkable as visualized. No inflammatory changes. OTHER FINDINGS: None. IMPRESSION: No acute intracranial abnormalities. No significant findings to account for the clinical presentation.
[2017-11-24] MEDS: Emtricitabine-Tenofovir 200 mg-300 mg Tab PO SCH (09:46)
[2017-11-24] MEDS: Enoxaparin 40 mg Syringe SC SCH (09:46)
[2017-11-24] MEDS: Nystatin-Triamcinolone Ointment(30 gm) TOP SCH ×2 (09:47→17:29)
[2017-11-24] MEDS: levoFLOXacin 500 MG TAB PO SCH (09:47)
[2017-11-24] MEDS: DOLUTEGRAVIR SODIUM 50 MG PO SCH (09:47)
[2017-11-24] MEDS: MethylPREDNISolone 40 mg Vial IVP SCH ×2 (09:47→22:31)
[2017-11-24] MEDS: Dextrose 5%/0.45% NS 1,000 ML IV SCH (10:59)
--- NOTE | 2017-11-24 11:00 | CON ---
DATE: 11/24/2017 THIS IS A PROGRESS NOTE HISTORY OF PRESENT ILLNESS: The patient is seen early this morning in the ICU. She is doing much better. No fevers. No chills. PHYSICAL EXAMINATION: VITAL SIGNS: Temperature is 97, blood pressure is 114/60, respiratory rate of 20. HEENT: Examination of HEENT is unremarkable. NECK: Supple. LUNGS: Have decreased breath sounds. HEART: Normal S1 and S2. ABDOMEN: Soft. LABORATORY DATA: Laboratory examination reveals a white count of 9.5, hemoglobin of 8, platelets of 191. Coagulation is noted. INR of 1.26. Chemistries are noted. The patient's BUN 17, creatinine of 0.3. The patient's procalcitonin is 0.21. The urinalysis is noted. T cells are noted to be at 17% with a absolute count of 99. Blood cultures are negative. Urine cultures are no growth. MRSA screen is not detected. CAT scan of the head was done, results are not available. progress note from this morning. ASSESSMENT AND PLAN: A 57-year-old female in the Intensive Care Unit 129, bed 2 with end-stage acquired immune deficiency syndrome and hepatitis B, who was admitted with sepsis with end-stage acquired immune deficiency syndrome and Pneumocystis carinii, on steroids, Bactrim, Levaquin. Agree with an MRI of the head. I will follow closely with you. Kelby Justin MD MTDSreedhar
--- NOTE | 2017-11-24 12:57 | PN ---
DATE: 11/24/2017 INDUSTRIAL REAL ESTATE AGENT NOTE SUBJECTIVE: The patient is resting in bed. No acute distress. Still seems to be fairly confused. The patient is scheduled for CT scan of the head. increased shortness of breath, cough, congestion. PHYSICAL EXAMINATION: VITAL SIGNS: Note that her temperature is 97.1, her pulse is 91, respirations 17, and BP is 114/69. SKIN: Warm and dry. HEENT: Head is atraumatic, normocephalic. Eyes reactive to light. Ears, nose and throat seemed to be within normal limits. NECK: Supple. No JVD. No thyroid enlargement or lymph nodes. HEART: Has regular rate and rhythm. Normal S1, S2. LUNGS: Reveal rare rhonchi at the bases. ABDOMEN: Soft. Decreased bowel sounds. GENITALIA: Deferred. RECTAL: Deferred. MUSCULOSKELETAL: No joint deformities. EXTREMITIES: Reveal no significant edema. NEUROLOGICAL: She seems to be confused, but moving all extremities. DATA: Laboratories reveal a white count of 9.5, hemoglobin is 8.8, hematocrit 25.6 with platelets of 191,000. The patient's sodium is 143, potassium 4.4, chloride 114, CO2 of 18 with a BUN of 18, creatinine of 0.8 and a glucose of 101. IMPRESSION: As far as my impression, this patient has Pneumocystis pneumonia with acquired immune deficiency syndrome. She has resolving sepsis with anemia and hepatitis B. Note that the patient does have some altered mental status, etiology unclear. PLAN: As far as our plan, we will continue with O2 support and follow her O2 saturations. The patient is scheduled for CT scan of the head. The patient is on Bactrim as well as Diflucan and Levaquin and prophylactic Lovenox. She is getting Protonix and Xopenex as well as Solu-Medrol. Gallito Ramos MD
--- NOTE | 2017-11-24 17:37 | CP.PCM.PN ---
<Omari Davis - Last Filed: 11/24/17 17:32> Subjective - Date & Time of Evaluation Date of Evaluation: 11/24/17 Time of Evaluation: 08:30 - Subjective Subjective: Pt examined at bedside. Per RN, pt was having issues with swallowing food, eval done today with ADVERTISING WRITER. Per overnight ICU team, pt appeared more confused from baseline and CT head was done this am. Pt stated "[id number]" when asked to state her name. Objective - Vital Signs/Intake and Output Vital Signs (last 24 hours): Temp Pulse Resp BP Pulse Ox 97.8 F 130 H 22 114/71 94 L 11/24/17 09:35 11/24/17 16:01 11/24/17 16:01 11/24/17 16:01 11/24/17 16:01 Intake and Output: 11/24/17 11/24/17 06:59 18:59 Intake Total 1100 Output Total 1000 Balance 100 - Medications Medications: Current Medications Emtricitabine/Tenofovir (Truvada 200 Mg-300 Mg) 1 tab PO DAILY [facility] PRN Reason: Protocol Last Admin: 11/24/17 09:46 Dose: 1 tab Enoxaparin Sodium (Lovenox) 40 mg SC DAILY [facility] PRN Reason: Protocol Last Admin: 11/24/17 09:46 Dose: 40 mg Fluconazole (Diflucan) 100 mg PO DAILY [facility] PRN Reason: Protocol Stop: 12/01/17 10:01 Last Admin: 11/24/17 09:47 Dose: 100 mg Home Med (Home Med) 1 unit PO DAILY [facility] Last Admin: 11/24/17 09:47 Dose: 1 unit Trimethoprim/Sulfamethoxazole (300 mg/ Dextrose) 500 mls @ 250 mls/hr IVPB Q8H [facility] Last Admin: 11/24/17 13:14 Dose: 250 mls/hr Dextrose/Sodium Chloride (Dextrose 5%/0.45% Ns 1000 Ml) 1,000 mls @ 75 mls/hr IV .[id number] [facility] Last Admin: 11/24/17 10:59 Dose: 75 mls/hr Levalbuterol HCl (Xopenex) 1.25 mg IH [id number] PRN PRN Reason: Shortness of Breath Last Admin: 11/21/17 07:46 Dose: 1.25 mg Levofloxacin (Levaquin) 500 mg PO DAILY [facility] PRN Reason: Protocol Stop: 12/01/17 10:01 Last Admin: 11/24/17 09:47 Dose: 500 mg Methylprednisolone (Solu-Medrol) 40 mg IVP Q12 [facility] Last Admin: 11/24/17 09:47 Dose: 40 mg Nystatin/Triamcinolone Acetonide (Nystatin/Triamcinolone Ointment) 0 gm TOP BID [facility] Last Admin: 11/24/17 09:47 Dose: 1 applic Pantoprazole Sodium (Protonix Ec Tab) 40 mg PO 0600 [facility] Last Admin: 11/24/17 05:36 Dose: Not Given Quetiapine Fumarate (Seroquel) 25 mg PO AMHS [facility] PRN Reason: Protocol Last Admin: 11/24/17 09:46 Dose: 25 mg Ziprasidone (Geodon Inj) 10 mg IM Q12H PRN; Protocol PRN Reason: severe agitaiton/psychosis Last Admin: 11/24/17 07:36 Dose: 10 mg - Labs Labs: 11/24/17 06:00 11/24/17 07:55 PT 14.6 SECONDS (9.4-12.5) H 11/22/17 08:20 INR 1.26 (0.93-1.08) H 11/22/17 08:20 - Constitutional Appears: No Acute Distress, Chronically Ill - Head Exam Head Exam: ATRAUMATIC, NORMAL INSPECTION, NORMOCEPHALIC - Eye Exam Eye Exam: EOMI, Normal appearance, PERRL - ENT Exam ENT Exam: Mucous Membranes Moist - Neck Exam Neck Exam: Full ROM, Normal Inspection - Respiratory Exam Additional comments: Decreased breath sounds in lungs b/l - Cardiovascular Exam Cardiovascular Exam: Tachycardia, +S1, +S2 - GI/Abdominal Exam GI & Abdominal Exam: Soft, Normal Bowel Sounds - Extremities Exam Extremities Exam: Full ROM, Normal Capillary Refill, Normal Inspection - Neurological Exam Neurological Exam: Alert, Awake Additional comments: Oriented x1 - Psychiatric Exam Psychiatric exam: Flat Affect - Skin Skin Exam: Dry, Intact, Normal Color, Warm Assessment and Plan - Assessment and Plan (Free Text) Assessment: 57 y/o F with PMHx of hepatitis B, non-compliance, HIV and AIDS (last CD4 95) who presented to the ED for hallucinations and altered mental status, as per daughter. Patient was recently diagnosed with Pneumocystis pneumonia (PCP) but signed out AMA after last visit. Patient is on HAART therapy. Imaging showed diffuse pulmonary infiltrates - patient started on bactrim and steroids for PCP Pneumonia. Patient became anxious, hypoxic, and was using respiratory muscles for breathing - WEB OPERATIONS SPECIALIST was called overnight and patient started on BiPAP and managed under ICU. Pt's hypoxia has since improved and pt was transitioned from BiPap to high flow to venti mask, now saturating well on nasal cannula. Plan: Sepsis Likely secondary to PCP PNA Lactate of 3.8 on admission trending down, pt tachycardic, hypoxic CXR demonstrated diffuse pulmonary infiltrates C/w Bactrim for PCP Pneumonia Levaquin 750 mg daily F/u lab work-up Blood cx neg MRSA neg, urine cx neg RPR neg, f/u CMV and HSV ID and pulm consulted, f/u recs Repeat CD4 ct 99 (previous CD4 was 95 in 2017) Altered Mental Status Neuro, psych consulted, f/u results Per psych: pt on Seroquel; Ziprasidone prn Repeat CT this am showed no acute change F/u MRI brain tomorrow am Hypokalemia S/p KCl 40mEq Continue to trend electrolytes Hepatitis B Patient non-compliant, unknown if treated in past Will educate importance of treatment AIDS Hx non-compliance with HAART therapy [facility] for [facility] Pt was on dolutegravir and truvada prior Pt restarted on HAART therapy F/u ID recs Will follow while pt is in CCU GI/DVT prophylaxis: protonix 40 and lovenox 40 subQ Plan d/w Dr. Christianson, attending Omari Davis DO PGY-1, Physical Therapy Professor Pager #[phone] <Day Christianson - Last Filed: 12/03/17 07:43> Objective - Vital Signs/Intake and Output Vital Signs (last 24 hours): Temp Pulse Resp BP Pulse Ox 97.8 F 85 18 94/59 L 93 L 12/02/17 21:50 12/02/17 21:50 12/02/17 21:50 12/02/17 21:50 12/02/17 21:50 Intake and Output: 12/03/17 12/03/17 06:59 18:59 Intake Total 540 Balance 540 - Medications Medications: Current Medications Atovaquone (Mepron) 750 mg PO BID [facility] PRN Reason: Protocol Last Admin: 12/02/17 18:16 Dose: Not Given Emtricitabine/Tenofovir (Truvada 200 Mg-300 Mg) 1 tab PO DAILY [facility] PRN Reason: Protocol Last Admin: 12/02/17 10:22 Dose: 1 tab Enoxaparin Sodium (Lovenox) 40 mg SC DAILY [facility] PRN Reason: Protocol Last Admin: 11/30/17 10:17 Dose: 40 mg Home Med (Home Med) 1 unit PO DAILY [facility] Last Admin: 12/02/17 10:21 Dose: 1 unit Dextrose/Sodium Chloride (Dextrose 5%/0.45% Ns 1000 Ml) 1,000 mls @ 75 mls/hr IV .[id number] [facility] Last Admin: 12/02/17 04:54 Dose: Not Given Levetiracetam (Keppra 500mg Ivpb) 500 mg in 100 mls @ 400 mls/hr IV Q12 [facility] Last Admin: 12/02/17 21:35 Dose: 400 mls/hr Levalbuterol HCl (Xopenex) 1.25 mg IH [id number] PRN PRN Reason: Shortness of Breath Last Admin: 11/21/17 07:46 Dose: 1.25 mg Metoprolol Tartrate (Lopressor) 12.5 mg PO BID [facility] Last Admin: 12/02/17 18:16 Dose: Not Given Nystatin/Triamcinolone Acetonide (Nystatin/Triamcinolone Ointment) 0 gm TOP BID [facility] Last Admin: 12/02/17 18:16 Dose: 1 applic Pantoprazole Sodium (Protonix Ec Tab) 40 mg PO 0600 [facility] Last Admin: 12/03/17 05:49 Dose: 40 mg Prednisone (Prednisone Tab) 30 mg PO DAILY [facility] Stop: 12/03/17 23:59 Last Admin: 12/02/17 10:23 Dose: 30 mg Prednisone (Prednisone Tab) 20 mg PO DAILY [facility] Stop: 12/05/17 23:59 Prednisone (Prednisone Tab) 10 mg PO DAILY [facility] Stop: 12/08/17 23:55 Prednisone (Prednisone Tab) 5 mg PO DAILY [facility] Stop: 12/10/17 11:55 Quetiapine Fumarate (Seroquel) 200 mg PO AMHS [facility] PRN Reason: Protocol Last Admin: 12/02/17 21:35 Dose: 200 mg Ziprasidone (Geodon Inj) 20 mg IM Q8H PRN; Protocol PRN Reason: severe agitaiton/psychosis Last Admin: 12/02/17 03:41 Dose: 20 mg - Labs Labs: 12/03/17 06:45 12/03/17 06:45 PT 14.6 SECONDS (9.4-12.5) H 11/22/17 08:20 INR 1.26 (0.93-1.08) H 11/22/17 08:20 Attending/Attestation - Attestation I have personally seen and examined this patient.: Yes I have fully participated in the care of the patient.: Yes I have reviewed all pertinent clinical information, including history, physical exam and plan: Yes Notes (Text): 57 year old female with past medical history of hepatitis B, HIV/AIDS (last CD4 count 95) who presented with AMS, hallucinations and dyspnea. CXR showed diffuse pulmonary infiltrates and she is being treated for PCP pneumonia with bactrim and steroids. HAART therapy ordered. ID and pulmonary are following. Psychiatry and neurology are following for delirium. MRI brain is still pending and CT head was ordered for this morning. Day Christianson MD Hospitalist.
[2017-11-25] MEDS: Dextrose 5%/0.45% NS 1,000 ML IV SCH ×2 (02:34→13:30)
[2017-11-25] MEDS: Sulfamethoxazole/Trimethoprim 300 MG in Dextrose 5% In Water 500 ML IVPB SCH ×3 (05:00→20:22)
[2017-11-25 05:35] LABS: GRAN # 6.8 (1.4-6.5); GRAN % 93.1 % (50.0-68.0); HEMOGLOBIN 10.2 g/dL (12.0-16.0); LYMPH # 0.4 (1.2-3.4); LYMPH % 4.8 % (22.0-35.0); MEAN CELL VOLUME 95.2 fl (80.0-105.0); MEAN CORPUSCULAR HEMOGLOBIN 32.4 pg (25.0-35.0); MEAN PLATELET VOLUME 10.6 fl (7.0-11.0); MONO # 0.2 (0.1-0.6); MONO % 2.1 % (1.0-6.0); RBC 3.15 10^6/uL (3.5-6.1); RED CELL DISTRIBUTION WIDTH 15.4 % (11.5-14.5); WHITE BLOOD COUNT 7.3 10^3/ul (4.5-11.0)
[2017-11-25 06:00] LABS: ALB/GLOB RATIO 0.6 (1.1-1.8); ALBUMIN 2.4 g/dL (3.0-4.8); ALT/SGPT 42 U/L (7-56); AST/SGOT 96 U/L (14-36); BLOOD UREA NITROGEN 13 mg/dL (7-21); CALCIUM 8.6 mg/dL (8.4-10.5); GFR AFRICAN-AMERICAN > 60; GFR NON-AFRICAN AMERICAN > 60
[2017-11-25] MEDS: Pantoprazole 40 mg EC Tab PO SCH (07:36)
[2017-11-25] MEDS ORDERED: Gadodiamide 287 MG/ML VIAL (15ML) IV ONE (08:29)
[2017-11-25] MEDS: DOLUTEGRAVIR SODIUM 50 MG PO SCH (09:29)
[2017-11-25] MEDS: levoFLOXacin 500 MG TAB PO SCH (09:30)
[2017-11-25] MEDS: Nystatin-Triamcinolone Ointment(30 gm) TOP SCH ×2 (09:30→18:32)
[2017-11-25] MEDS: Enoxaparin 40 mg Syringe SC SCH (09:30)
--- NOTE | 2017-11-25 09:52 | CP.CCUPN ---
<Foreign Cormier - Last Filed: 11/25/17 11:13> CCU Subjective - Physician Review Subjective (Free Text): Foreign Cormier PGY1 Critical Care Progress Note for Dr. Borges Patient was examined at bedside this morning. Patient appeared to be tired and was unable to respond to questions appropriately. Patient is a poor historian and is unable to give an appropriate review of systems. No overnight changes, as per nursing staff. CCU Objective - Vital Signs / Intake & Output Vital Signs (Last 4 hours): Vital Signs Pulse 11/25/17 06:00 88 Intake and Output (Last 8hrs): Intake & Output 11/24/17 11/25/17 11/25/17 22:59 06:59 14:59 Intake Total 1300 900 Output Total 1600 1400 Balance -300 -500 Intake: IV 1100 900 Right Wrist 600 900 bactrim 500 Oral 200 Output: Urine 1400 1400 Urethral (Whelan) 1400 1400 Stool 200 Other: # Bowel Movements 1 - Physical Exam Head: Positive for: Atraumatic, Normocephalic. Negative for: Tenderness Pupils: Positive for: PERRL Extroacular Muscles: Positive for: EOMI Conjunctiva: Positive for: Normal Mouth: Positive for: Moist Mucous Membranes Nose (External): Positive for: Other (Nasal Cannula (2 L)) Nose (Internal): Positive for: Normal Inspection Respiratory/Chest: Positive for: Decreased Breath Sounds. Negative for: Respiratory Distress, Accessory Muscle Use, Wheezes, Rales, Rhonchi Cardiovascular: Positive for: Normal S1, S2, Tachycardic. Negative for: Murmurs Abdomen: Positive for: Normal Bowel Sounds. Negative for: Tenderness, Distention, Peritoneal Signs, Rebound, Guarding Genitourinary/Pelvic Exam: Positive for: Other (Whelan in place) Upper Extremity: Positive for: Normal Inspection. Negative for: Cyanosis, Edema Lower Extremity: Positive for: Normal Inspection, NORMAL PULSES. Negative for: Edema, CALF TENDERNESS, Cyanosis Neurological: Positive for: Speech Normal Skin: Positive for: Warm, Dry, Rashes (Fungal rash at perineal crease) Psychiatric: Positive for: Hallucinations. Negative for: Alert, Oriented x 3 - Medications Active Medications: Active Medications Generic Name Dose Route Start Last Admin Trade Name Freq PRN Reason Stop Dose Admin Emtricitabine/Tenofovir 1 tab 11/21/17 15:30 11/24/17 09:46 Truvada 200 Mg-300 Mg PO 1 tab DAILY CL[facility]ICE Administration Protocol Enoxaparin Sodium 40 mg 11/21/17 10:00 11/25/17 09:30 Lovenox SC 40 mg DAILY CL[facility] Administration Protocol Fluconazole 100 mg 11/24/17 10:00 11/25/17 09:29 Diflucan PO 12/01/17 10:01 100 mg DAILY [facility] Administration Protocol Home Med 1 unit 11/22/17 10:00 11/25/17 09:29 Home Med PO 1 unit DAILY [facility] Administration Trimethoprim/Sulfamethoxazole 500 mls @ 250 mls/hr 11/20/17 20:30 11/25/17 05 :00 300 mg/ Dextrose IVPB 250 mls/hr Q8H [facility] Administration Dextrose/Sodium Chloride 1,000 mls @ 75 mls/hr 11/24/17 10:45 11/25/17 02:34 Dextrose 5%/0.45% Ns 1000 Ml IV 75 mls/hr .[id number] [facility] Administration Levalbuterol HCl 1.25 mg 11/20/17 23:54 11/21/17 07:46 Xopenex IH 1.25 mg [id number] PRN Administration Shortness of Breath Levofloxacin 500 mg 11/24/17 10:00 11/25/17 09:30 Levaquin PO 12/01/17 10:01 500 mg DAILY [facility] Administration Protocol Methylprednisolone 40 mg 11/25/17 10:00 Solu-Medrol IVP DAILY [facility] Metoprolol Tartrate 25 mg 11/25/17 10:00 Lopressor PO BID [facility] Nystatin/Triamcinolone Acetonide 0 gm 11/21/17 10:00 11/25/17 09:30 Nystatin/Triamcinolone Ointment TOP 1 applic BID [facility] Administration Pantoprazole Sodium 40 mg 11/21/17 06:00 11/25/17 07:36 Protonix Ec Tab PO 40 mg 0600 [facility] Administration Quetiapine Fumarate 25 mg 11/22/17 22:00 11/25/17 09:31 Seroquel PO 25 mg AMHS [facility] Administration Protocol Ziprasidone 10 mg 11/21/17 12:23 11/25/17 02:27 Geodon Inj IM 10 mg Q12H PRN Administration severe agitaiton/psychosis Protocol - Patient Studies Lab Studies: Lab Studies 11/25/17 11/25/17 11/25/17 Range/Units 06:45 05:15 05:15 WBC 7.3 D (4.5-11.0) 10^3/ul RBC 3.15 L (3.5-6.1) 10^6/uL Hgb 10.2 L (12.0-16.0) g/dL Hct 30.0 L (36.0-48.0) % MCV 95.2 (80.0-105.0) fl MCH 32.4 (25.0-35.0) pg MCHC 34.0 (31.0-37.0) g/dl RDW 15.4 H (11.5-14.5) % Plt Count 194 (120.0-450.0) 10^3/uL MPV 10.6 (7.0-11.0) fl Gran % 93.1 H (50.0-68.0) % Lymph % (Auto) 4.8 L (22.0-35.0) % Redwood % (Auto) 2.1 (1.0-6.0) % Eos % (Auto) 0.0 L (1.5-5.0) % Baso % (Auto) 0.0 (0.0-3.0) % Gran # 6.80 H (1.4-6.5) Lymph # (Auto) 0.4 L (1.2-3.4) Redwood # (Auto) 0.2 (0.1-0.6) Eos # (Auto) 0.0 (0.0-0.7) Baso # (Auto) 0.00 (0.0-2.0) K/mm3 Sodium 144 (132-148) mmol/L Potassium 4.4 (3.6-5.0) mmol/L Chloride 114 H (98-107) mmol/L Carbon Dioxide 20 L (21-33) mmol/L Anion Gap 14 (10-20) BUN 13 (7-21) mg/dL Creatinine 0.8 (0.7-1.2) mg/dl Est GFR ( Amer) > 60 Est GFR (Non-Af Amer) > 60 Random Glucose 126 H (70-110) mg/dL Calcium 8.6 (8.4-10.5) mg/dL Phosphorus 3.2 (2.5-4.5) mg/dL Magnesium 2.3 H (1.7-2.2) mg/dL Total Bilirubin 0.3 (0.2-1.3) mg/dL AST 96 H D (14-36) U/L ALT 42 (7-56) U/L Alkaline Phosphatase 54 (38-126) U/L Total Protein 6.6 (5.8-8.3) g/dL Albumin 2.4 L (3.0-4.8) g/dL Globulin 4.3 gm/dL Albumin/Globulin Ratio 0.6 L (1.1-1.8) Cryptococcus Ag Screen (Not Detected) 11/21/17 Range/Units 10:45 WBC (4.5-11.0) 10^3/ul RBC (3.5-6.1) 10^6/uL Hgb (12.0-16.0) g/dL Hct (36.0-48.0) % MCV (80.0-105.0) fl MCH (25.0-35.0) pg MCHC (31.0-37.0) g/dl RDW (11.5-14.5) % Plt Count (120.0-450.0) 10^3/uL MPV (7.0-11.0) fl Gran % (50.0-68.0) % Lymph % (Auto) (22.0-35.0) % Redwood % (Auto) (1.0-6.0) % Eos % (Auto) (1.5-5.0) % Baso % (Auto) (0.0-3.0) % Gran # (1.4-6.5) Lymph # (Auto) (1.2-3.4) Redwood # (Auto) (0.1-0.6) Eos # (Auto) (0.0-0.7) Baso # (Auto) (0.0-2.0) K/mm3 Sodium (132-148) mmol/L Potassium (3.6-5.0) mmol/L Chloride (98-107) mmol/L Carbon Dioxide (21-33) mmol/L Anion Gap (10-20) BUN (7-21) mg/dL Creatinine (0.7-1.2) mg/dl Est GFR ( Amer) Est GFR (Non-Af Amer) Random Glucose (70-110) mg/dL Calcium (8.4-10.5) mg/dL Phosphorus (2.5-4.5) mg/dL Magnesium (1.7-2.2) mg/dL Total Bilirubin (0.2-1.3) mg/dL AST (14-36) U/L ALT (7-56) U/L Alkaline Phosphatase (38-126) U/L Total Protein (5.8-8.3) g/dL Albumin (3.0-4.8) g/dL Globulin gm/dL Albumin/Globulin Ratio (1.1-1.8) Cryptococcus Ag Screen Not detected (Not Detected) Laboratory Results - last 24 hr 11/21/17 11/25/17 11/25/17 10:45 05:15 05:15 WBC 7.3 D RBC 3.15 L Hgb 10.2 L Hct 30.0 L MCV 95.2 MCH 32.4 MCHC 34.0 RDW 15.4 H Plt Count 194 MPV 10.6 Gran % 93.1 H Lymph % (Auto) 4.8 L Redwood % (Auto) 2.1 Eos % (Auto) 0.0 L Baso % (Auto) 0.0 Gran # 6.80 H Lymph # (Auto) 0.4 L Redwood # (Auto) 0.2 Eos # (Auto) 0.0 Baso # (Auto) 0.00 Sodium 144 Potassium 4.4 Chloride 114 H Carbon Dioxide 20 L Anion Gap 14 BUN 13 Creatinine 0.8 Est GFR ( Amer) > 60 Est GFR (Non-Af Amer) > 60 Random Glucose 126 H Calcium 8.6 Phosphorus Magnesium Total Bilirubin 0.3 AST 96 H D ALT 42 Alkaline Phosphatase 54 Total Protein 6.6 Albumin 2.4 L Globulin 4.3 Albumin/Globulin Ratio 0.6 L Cryptococcus Ag Screen Not detected 11/25/17 06:45 WBC RBC Hgb Hct MCV MCH MCHC RDW Plt Count MPV Gran % Lymph % (Auto) Redwood % (Auto) Eos % (Auto) Baso % (Auto) Gran # Lymph # (Auto) Redwood # (Auto) Eos # (Auto) Baso # (Auto) Sodium Potassium Chloride Carbon Dioxide Anion Gap BUN Creatinine Est GFR ( Amer) Est GFR (Non-Af Amer) Random Glucose Calcium Phosphorus 3.2 Magnesium 2.3 H Total Bilirubin AST ALT Alkaline Phosphatase Total Protein Albumin Globulin Albumin/Globulin Ratio Cryptococcus Ag Screen Review of Systems - Review of Systems Systems not reviewed;Unavailable: Altered Mental Status Critical Care Progress Note - Extremities/Vascular Does the Patient have a Central Venous Catheter?: No Does the Patient need a Central Venous Catheter?: No Does the Patient have a Whelan Catheter?: Yes Does the Patient need a Whelan Catheter?: Yes (AMS) - Prophylaxis GI Prophylaxis GI: PPI - Prophylaxis DVT Prophylaxis DVT: Lovenox - Nutrition Nutrition: Nutrition Category Date Time Status Altered GI/Hepatic Diet [DIET] Diets 11/24/17 Dinner Ordered Assessment/Plan - Assessment and Plan (Free Text) Assessment: Patient is a 57 y/o F with PMHx of hepatitis B, non-compliance, HIV and AIDS ( last CD4 95) who presented to the ED for hallucinations and altered mental status, as per daughter. Patient was recently diagnosed with Pneumocystis pneumonia (PCP) but signed out AMA after last visit. Patient is on HAART therapy. Imaging showed diffuse pulmonary infiltrates - patient started on bactrim and steroids to resolve PCP Pneumonia. Patient became anxious, hypoxic, and was using respiratory muscles for breathing - [employer] was called and patient started on BiPAP and managed under ICU. During ICU course, patient hypoxia has improved and has been switched off from High Flow to Ventimask. Patient is currently on nasal cannula (2 Liters) and saturating well with no respiratory distress. There are no acute issues at the present moment and patient will be transferred out of the ICU to telemetry due to sinus tachycardia. Plan: Neuro: - Altered Mental Status - baseline unknown with occasional hallucinations - Maintain normothermia - Utox negative - Psych rec to c/w current management and Geoden PRN/Seroquel [facility] - Neurology recs appreciated - MRI (11/25): official read pending Pulm: - Patient on Nasal Cannula 2 Liters, saturating well and in no respiratory distress - Maintain SaO2 > 92% - CXR (11/20): diffuse pulmonary infiltrates - Taper steroids Cardio: - Maintain MAP > 65 - Sinus tachycardia: HR 116 today - Lopressor 25 q12 GI: - GI ppx - protonix - Diet: regular Renal: - Replete lytes as needed Heme: - Lovenox DVT ppx ID: - PCP Pneumonia (Last CD4 count 95 in 2017) - f/u new CD4 count - c/w bactrim - Patient taking Truvada and Dolutegravir for HAART (med-rec on 11/21) - ID f/u: patient restarted on HAART therapy - Blood Cx negative x2 (11/22) Endo: - Maintain euglycemia - Glucose within normal limits Dispo: There are no acute issues. Patient is hemodynamically stable for transfer to Telemetry. Case discussed and reviewed with Attending Physician - Dr. Borges. <Roger Borges - Last Filed: 11/25/17 11:33> CCU Objective - Vital Signs / Intake & Output Vital Signs (Last 4 hours): Vital Signs Pulse BP 11/25/17 10:08 133 H 111/84 Intake and Output (Last 8hrs): Intake & Output 11/24/17 11/25/17 11/25/17 22:59 06:59 14:59 Intake Total 1300 900 Output Total 1600 1400 Balance -300 -500 Intake: IV 1100 900 Right Wrist 600 900 bactrim 500 Oral 200 Output: Urine 1400 1400 Urethral (Whelan) 1400 1400 Stool 200 Other: # Bowel Movements 1 - Medications Active Medications: Active Medications Generic Name Dose Route Start Last Admin Trade Name Amie PRN Reason Stop Dose Admin Emtricitabine/Tenofovir 1 tab 11/21/17 15:30 11/25/17 10:10 Truvada 200 Mg-300 Mg PO 1 tab DAILY [facility] Administration Protocol Enoxaparin Sodium 40 mg 11/21/17 10:00 11/25/17 09:30 Lovenox SC 40 mg DAILY CL[facility] Administration Protocol Fluconazole 100 mg 11/24/17 10:00 11/25/17 09:29 Diflucan PO 12/01/17 10:01 100 mg DAILY CL[facility] Administration Protocol Home Med 1 unit 11/22/17 10:00 11/25/17 09:29 Home Med PO 1 unit DAILY [facility] Administration Trimethoprim/Sulfamethoxazole 500 mls @ 250 mls/hr 11/20/17 20:30 11/25/17 05 :00 300 mg/ Dextrose IVPB 250 mls/hr Q8H [facility] Administration Dextrose/Sodium Chloride 1,000 mls @ 75 mls/hr 11/24/17 10:45 11/25/17 02:34 Dextrose 5%/0.45% Ns 1000 Ml IV 75 mls/hr .[id number] [facility] Administration Levalbuterol HCl 1.25 mg 11/20/17 23:54 11/21/17 07:46 Xopenex IH 1.25 mg [id number] PRN Administration Shortness of Breath Levofloxacin 500 mg 11/24/17 10:00 11/25/17 09:30 Levaquin PO 12/01/17 10:01 500 mg DAILY CL[facility] Administration Protocol Methylprednisolone 40 mg 11/25/17 10:00 11/25/17 10:10 Solu-Medrol IVP 40 mg DAILY [facility] Administration Metoprolol Tartrate 25 mg 11/25/17 10:00 11/25/17 10:08 Lopressor PO 25 mg BID CL[facility] Administration Nystatin/Triamcinolone Acetonide 0 gm 11/21/17 10:00 11/25/17 09:30 Nystatin/Triamcinolone Ointment TOP 1 applic BID CL[facility] Administration Pantoprazole Sodium 40 mg 11/21/17 06:00 11/25/17 07:36 Protonix Ec Tab PO 40 mg 0600 [facility] Administration Quetiapine Fumarate 25 mg 11/22/17 22:00 11/25/17 09:31 Seroquel PO 25 mg AMHS CL[facility] Administration Protocol Ziprasidone 10 mg 11/21/17 12:23 11/25/17 02:27 Geodon Inj IM 10 mg Q12H PRN Administration severe agitaiton/psychosis Protocol - Patient Studies Lab Studies: Lab Studies 11/25/17 11/25/17 11/25/17 Range/Units 06:45 05:15 05:15 WBC 7.3 D (4.5-11.0) 10^3/ul RBC 3.15 L (3.5-6.1) 10^6/uL Hgb 10.2 L (12.0-16.0) g/dL Hct 30.0 L (36.0-48.0) % MCV 95.2 (80.0-105.0) fl MCH 32.4 (25.0-35.0) pg MCHC 34.0 (31.0-37.0) g/dl RDW 15.4 H (11.5-14.5) % Plt Count 194 (120.0-450.0) 10^3/uL MPV 10.6 (7.0-11.0) fl Gran % 93.1 H (50.0-68.0) % Lymph % (Auto) 4.8 L (22.0-35.0) % Redwood % (Auto) 2.1 (1.0-6.0) % Eos % (Auto) 0.0 L (1.5-5.0) % Baso % (Auto) 0.0 (0.0-3.0) % Gran # 6.80 H (1.4-6.5) Lymph # (Auto) 0.4 L (1.2-3.4) Redwood # (Auto) 0.2 (0.1-0.6) Eos # (Auto) 0.0 (0.0-0.7) Baso # (Auto) 0.00 (0.0-2.0) K/mm3 Sodium 144 (132-148) mmol/L Potassium 4.4 (3.6-5.0) mmol/L Chloride 114 H (98-107) mmol/L Carbon Dioxide 20 L (21-33) mmol/L Anion Gap 14 (10-20) BUN 13 (7-21) mg/dL Creatinine 0.8 (0.7-1.2) mg/dl Est GFR ( Amer) > 60 Est GFR (Non-Af Amer) > 60 Random Glucose 126 H (70-110) mg/dL Calcium 8.6 (8.4-10.5) mg/dL Phosphorus 3.2 (2.5-4.5) mg/dL Magnesium 2.3 H (1.7-2.2) mg/dL Total Bilirubin 0.3 (0.2-1.3) mg/dL AST 96 H D (14-36) U/L ALT 42 (7-56) U/L Alkaline Phosphatase 54 (38-126) U/L Total Protein 6.6 (5.8-8.3) g/dL Albumin 2.4 L (3.0-4.8) g/dL Globulin 4.3 gm/dL Albumin/Globulin Ratio 0.6 L (1.1-1.8) Cryptococcus Ag Screen (Not Detected) 11/21/17 Range/Units 10:45 WBC (4.5-11.0) 10^3/ul RBC (3.5-6.1) 10^6/uL Hgb (12.0-16.0) g/dL Hct (36.0-48.0) % MCV (80.0-105.0) fl MCH (25.0-35.0) pg MCHC (31.0-37.0) g/dl RDW (11.5-14.5) % Plt Count (120.0-450.0) 10^3/uL MPV (7.0-11.0) fl Gran % (50.0-68.0) % Lymph % (Auto) (22.0-35.0) % Redwood % (Auto) (1.0-6.0) % Eos % (Auto) (1.5-5.0) % Baso % (Auto) (0.0-3.0) % Gran # (1.4-6.5) Lymph # (Auto) (1.2-3.4) Redwood # (Auto) (0.1-0.6) Eos # (Auto) (0.0-0.7) Baso # (Auto) (0.0-2.0) K/mm3 Sodium (132-148) mmol/L Potassium (3.6-5.0) mmol/L Chloride (98-107) mmol/L Carbon Dioxide (21-33) mmol/L Anion Gap (10-20) BUN (7-21) mg/dL Creatinine (0.7-1.2) mg/dl Est GFR ( Amer) Est GFR (Non-Af Amer) Random Glucose (70-110) mg/dL Calcium (8.4-10.5) mg/dL Phosphorus (2.5-4.5) mg/dL Magnesium (1.7-2.2) mg/dL Total Bilirubin (0.2-1.3) mg/dL AST (14-36) U/L ALT (7-56) U/L Alkaline Phosphatase (38-126) U/L Total Protein (5.8-8.3) g/dL Albumin (3.0-4.8) g/dL Globulin gm/dL Albumin/Globulin Ratio (1.1-1.8) Cryptococcus Ag Screen Not detected (Not Detected) Laboratory Results - last 24 hr 11/21/17 11/25/17 11/25/17 10:45 05:15 05:15 WBC 7.3 D RBC 3.15 L Hgb 10.2 L Hct 30.0 L MCV 95.2 MCH 32.4 MCHC 34.0 RDW 15.4 H Plt Count 194 MPV 10.6 Gran % 93.1 H Lymph % (Auto) 4.8 L Redwood % (Auto) 2.1 Eos % (Auto) 0.0 L Baso % (Auto) 0.0 Gran # 6.80 H Lymph # (Auto) 0.4 L Redwood # (Auto) 0.2 Eos # (Auto) 0.0 Baso # (Auto) 0.00 Sodium 144 Potassium 4.4 Chloride 114 H Carbon Dioxide 20 L Anion Gap 14 BUN 13 Creatinine 0.8 Est GFR ( Amer) > 60 Est GFR (Non-Af Amer) > 60 Random Glucose 126 H Calcium 8.6 Phosphorus Magnesium Total Bilirubin 0.3 AST 96 H D ALT 42 Alkaline Phosphatase 54 Total Protein 6.6 Albumin 2.4 L Globulin 4.3 Albumin/Globulin Ratio 0.6 L Cryptococcus Ag Screen Not detected 11/25/17 06:45 WBC RBC Hgb Hct MCV MCH MCHC RDW Plt Count MPV Gran % Lymph % (Auto) Redwood % (Auto) Eos % (Auto) Baso % (Auto) Gran # Lymph # (Auto) Redwood # (Auto) Eos # (Auto) Baso # (Auto) Sodium Potassium Chloride Carbon Dioxide Anion Gap BUN Creatinine Est GFR ( Amer) Est GFR (Non-Af Amer) Random Glucose Calcium Phosphorus 3.2 Magnesium 2.3 H Total Bilirubin AST ALT Alkaline Phosphatase Total Protein Albumin Globulin Albumin/Globulin Ratio Cryptococcus Ag Screen Critical Care Progress Note - Nutrition Nutrition: Nutrition Category Date Time Status Altered GI/Hepatic Diet [DIET] Diets 11/24/17 Dinner Ordered Assessment/Plan - Assessment and Plan (Free Text) Plan: Patient seen and examined on rounds with resident, agree with note with following additions/exceptions: Patient is 57yo female with PMHx of hepatitis B, non-compliance, HIV and AIDS ( last CD4 95), presented with AMS, and diffuse bilateral infiltrates on CXR, and hypoxia. Pt is currently afebrile, BP stable, on room air, sat 93%, O2 requirements decreasing On Bactrim and Steroids for PCP tx. LDH markedly increased. ABG with improving oxygenation Comfortable in NAD Periods of delirium and hallucinations, neurology and psych following PNA, PCP Hypoxia HIV/AIDS Hep B Delirium Recommend: - cont with high flow as tolerated, maintain sat 90%, monitor resp status closely - duonebs PRN - Steroids, IV Solumedrol, taper - Cont with Bactrim IV for PCP tx - follow up ID - FS control - follow up neuro, Psych - start on Lopressor 25mg BID - GI ppx - DVT ppx - transfer to telemetry
--- NOTE | 2017-11-25 10:00 | MRI ---
PROCEDURE: MRI BRAIN WITH AND WITHOUT CONTRAST HISTORY: AMS. History of AIDS noncompliant COMPARISON: Comparison made with CT scan of the brain 11/24/2017 TECHNIQUE: Multiplanar, multisequence MR images of the brain were obtained with and without intravenous contrast enhancement. 15 cc gadolinium contrast material injected for this procedure. Note that this examination is limited by motion artifact FINDINGS: HEMORRHAGE: No acute parenchymal, subarachnoid nor extra-axial hemorrhage. No evidence of hemosiderin deposition identified on gradient echo weighted sequence DWI: No evidence of an acute or early subacute infarction seen on diffusion imaging. BRAIN PARENCHYMA: Re- demonstrated to better advantage are moderate diffuse/confluent nonenhancing nonspecific prolonged T2 signal changes within the periventricular white matter extending peripherally into the deep and subcortical regions of both cerebral hemispheres. Changes are most significant in the frontal lobes bilaterally. In addition, there are a few more discrete focal areas of increased T2 signal scattered about the superior basal ganglia. These changes are of uncertain etiology however differential diagnosis would include HIV encephalopathy or possibly progressive multifocal leukoencephalopathy (PML). Clinical correlation recommended. Moderate generalized volume loss. ENHANCEMENT: No enhancing parenchymal nor extra-axial masses or collections. No evidence of unusual meningeal enhancement. VENTRICLES: No obstructive hydrocephalus. Again noted is a cavum septum pellucidum and vergae CRANIUM: Calvarium appears unremarkable ORBITS: Orbits and contents unremarkable so far as can be seen through motion artifact. . PARANASAL SINUSES/MASTOIDS: Visualized paranasal and mastoid air complexes are clear. VASCULAR SYSTEM: Visualized major vascular flow voids at skull base patent so far as can be seen through motion artifact. OTHER FINDINGS: None . IMPRESSION: Limited motion degraded study. . Diffuse/confluent chronic white matter prolonged T2 signal changes seen within the periventricular deep and subcortical white matter as well as superior basal ganglia/coronal radiata junction. Changes are of uncertain etiology though differential diagnosis would include sequela of HIV encephalopathy or PML as above. No enhancing lesions. Moderate volume loss.
[2017-11-25] MEDS: MethylPREDNISolone 40 mg Vial IVP SCH (10:10)
[2017-11-25] MEDS: Emtricitabine-Tenofovir 200 mg-300 mg Tab PO SCH (10:10)
[2017-11-25] MEDS ORDERED: levETIRAcetam 1,000 MG in Sodium Chloride 0.9% 100 ML IV ONE (11:41)
--- NOTE | 2017-11-25 12:37 | CP.PCM.PN ---
Subjective - Date & Time of Evaluation Date of Evaluation: 11/25/17 Time of Evaluation: 12:33 - Subjective Subjective: Patient seen and evaluated this AM. Patient has fluent tangential speech. Appears to be reacting to internal stimuli. Patient able to follow simple commands. Clinically more somnolent and requiring arousal during interview than past interaction Objective - Vital Signs/Intake and Output Vital Signs (last 24 hours): Temp Pulse Resp BP Pulse Ox 97.8 F 133 H 22 111/84 94 L 11/24/17 09:35 11/25/17 10:08 11/24/17 16:01 11/25/17 10:08 11/24/17 16:01 Intake and Output: 11/25/17 11/25/17 06:59 18:59 Intake Total 900 Output Total 1400 Balance -500 - Medications Medications: Current Medications Emtricitabine/Tenofovir (Truvada 200 Mg-300 Mg) 1 tab PO DAILY [facility]ARICE PRN Reason: Protocol Last Admin: 11/25/17 10:10 Dose: 1 tab Enoxaparin Sodium (Lovenox) 40 mg SC DAILY [facility] PRN Reason: Protocol Last Admin: 11/25/17 09:30 Dose: 40 mg Fluconazole (Diflucan) 100 mg PO DAILY [facility] PRN Reason: Protocol Stop: 12/01/17 10:01 Last Admin: 11/25/17 09:29 Dose: 100 mg Home Med (Home Med) 1 unit PO DAILY [facility] Last Admin: 11/25/17 09:29 Dose: 1 unit Trimethoprim/Sulfamethoxazole (300 mg/ Dextrose) 500 mls @ 250 mls/hr IVPB Q8H [facility] Last Admin: 11/25/17 05:00 Dose: 250 mls/hr Dextrose/Sodium Chloride (Dextrose 5%/0.45% Ns 1000 Ml) 1,000 mls @ 75 mls/hr IV .[id number] [facility] Last Admin: 11/25/17 02:34 Dose: 75 mls/hr Levetiracetam 500 mg/ Sodium (Chloride) 105 mls @ 460 mls/hr IV Q12 [facility] Levalbuterol HCl (Xopenex) 1.25 mg IH [id number] PRN PRN Reason: Shortness of Breath Last Admin: 11/21/17 07:46 Dose: 1.25 mg Levofloxacin (Levaquin) 500 mg PO DAILY [facility] PRN Reason: Protocol Stop: 12/01/17 10:01 Last Admin: 11/25/17 09:30 Dose: 500 mg Methylprednisolone (Solu-Medrol) 40 mg IVP DAILY [facility] Last Admin: 11/25/17 10:10 Dose: 40 mg Metoprolol Tartrate (Lopressor) 25 mg PO BID [facility] Last Admin: 11/25/17 10:08 Dose: 25 mg Nystatin/Triamcinolone Acetonide (Nystatin/Triamcinolone Ointment) 0 gm TOP BID [facility] Last Admin: 11/25/17 09:30 Dose: 1 applic Pantoprazole Sodium (Protonix Ec Tab) 40 mg PO 0600 [facility] Last Admin: 11/25/17 07:36 Dose: 40 mg Quetiapine Fumarate (Seroquel) 50 mg PO AMHS [facility] PRN Reason: Protocol Ziprasidone (Geodon Inj) 10 mg IM Q12H PRN; Protocol PRN Reason: severe agitaiton/psychosis Last Admin: 11/25/17 02:27 Dose: 10 mg - Labs Labs: 11/25/17 05:15 11/25/17 05:15 PT 14.6 SECONDS (9.4-12.5) H 11/22/17 08:20 INR 1.26 (0.93-1.08) H 11/22/17 08:20 - Constitutional Appears: Unkempt - Head Exam Head Exam: ATRAUMATIC, NORMAL INSPECTION, NORMOCEPHALIC - Eye Exam Eye Exam: EOMI, PERRL - Respiratory Exam Respiratory Exam: Clear to Ausculation Bilateral, Rhonchi, Wheezes, NORMAL BREATHING PATTERN - Cardiovascular Exam Cardiovascular Exam: REGULAR RHYTHM, +S1, +S2 - GI/Abdominal Exam GI & Abdominal Exam: Soft, Normal Bowel Sounds - Neurological Exam Neurological Exam: Alert, Altered Additional comments: tangential fluent speech upon arousal cranial nerves grossly intact No evidence of astrixis Patient able to move all four extremities spontaneously, no spasticity or tremor appreciated Assessment and Plan - Assessment and Plan (Free Text) Assessment: 57 year old female with past medical history of AIDS last known CD4 count of 99 from this admission, Hepatitis B with recent dx of PCP. Patient currently being evaluated for altered mental status Plan: Altered Mental Status - Etiology: Delerium vs. HIV encephalopathy vs. PML vs. hepatic encephalopathy - Psych initiated Geodon Seroquel HS - MRI with and with out contrast showing: diffuse/confluent chronic white matter prolonged T2 signals changes within the pervintricular deep and subcortical white matter as superior basal ganglia/coronal radiata junction - EEG asleep/awake - Keppra load with 1 gram today, start 500mg BID tomorrow - Check Ammonia level - Maintain euglycemia, replete lytes as necessary - Further ID work up pending - Further recs per Dr. Almeida Case and plan discussed with attending, Dr. Juan Pablo Alejo PGY-2
--- NOTE | 2017-11-25 15:19 | CP.PCM.PN ---
<Omari Davis - Last Filed: 11/25/17 15:33> Subjective - Date & Time of Evaluation Date of Evaluation: 11/25/17 Time of Evaluation: 11:30 - Subjective Subjective: Omari Davis DO PGY-1, Appeals Nurse Hospitalist Progress Note Pt seen and examined at bedside. Speech more coherent this am, when asked to state her name pt states "that information is in my bag with my things over there". Responds to commands when asked to lift her legs. No acute events overnight. Pt has no acute complaints. Objective - Vital Signs/Intake and Output Vital Signs (last 24 hours): Temp Pulse Resp BP Pulse Ox 97.8 F 133 H 22 111/84 94 L 11/24/17 09:35 11/25/17 10:08 11/24/17 16:01 11/25/17 10:08 11/24/17 16:01 Intake and Output: 11/25/17 11/25/17 06:59 18:59 Intake Total 900 Output Total 1400 Balance -500 - Medications Medications: Current Medications Emtricitabine/Tenofovir (Truvada 200 Mg-300 Mg) 1 tab PO DAILY [facility] PRN Reason: Protocol Last Admin: 11/25/17 10:10 Dose: 1 tab Enoxaparin Sodium (Lovenox) 40 mg SC DAILY [facility] PRN Reason: Protocol Last Admin: 11/25/17 09:30 Dose: 40 mg Fluconazole (Diflucan) 100 mg PO DAILY [facility] PRN Reason: Protocol Stop: 12/01/17 10:01 Last Admin: 11/25/17 09:29 Dose: 100 mg Home Med (Home Med) 1 unit PO DAILY [facility] Last Admin: 11/25/17 09:29 Dose: 1 unit Trimethoprim/Sulfamethoxazole (300 mg/ Dextrose) 500 mls @ 250 mls/hr IVPB Q8H [facility] Last Admin: 11/25/17 13:30 Dose: 250 mls/hr Dextrose/Sodium Chloride (Dextrose 5%/0.45% Ns 1000 Ml) 1,000 mls @ 75 mls/hr IV .[id number] [facility] Last Admin: 11/25/17 02:34 Dose: 75 mls/hr Levetiracetam 500 mg/ Sodium (Chloride) 105 mls @ 460 mls/hr IV Q12 [facility] Levalbuterol HCl (Xopenex) 1.25 mg IH [id number] PRN PRN Reason: Shortness of Breath Last Admin: 11/21/17 07:46 Dose: 1.25 mg Levofloxacin (Levaquin) 500 mg PO DAILY [facility] PRN Reason: Protocol Stop: 12/01/17 10:01 Last Admin: 11/25/17 09:30 Dose: 500 mg Methylprednisolone (Solu-Medrol) 40 mg IVP DAILY [facility] Last Admin: 11/25/17 10:10 Dose: 40 mg Metoprolol Tartrate (Lopressor) 25 mg PO BID [facility] Last Admin: 11/25/17 10:08 Dose: 25 mg Nystatin/Triamcinolone Acetonide (Nystatin/Triamcinolone Ointment) 0 gm TOP BID [facility] Last Admin: 11/25/17 09:30 Dose: 1 applic Pantoprazole Sodium (Protonix Ec Tab) 40 mg PO 0600 [facility] Last Admin: 11/25/17 07:36 Dose: 40 mg Quetiapine Fumarate (Seroquel) 50 mg PO [facility] PRN Reason: Protocol Ziprasidone (Geodon Inj) 10 mg IM Q12H PRN; Protocol PRN Reason: severe agitaiton/psychosis Last Admin: 11/25/17 02:27 Dose: 10 mg - Labs Labs: 11/25/17 05:15 11/25/17 05:15 PT 14.6 SECONDS (9.4-12.5) H 11/22/17 08:20 INR 1.26 (0.93-1.08) H 11/22/17 08:20 - Constitutional Appears: No Acute Distress, Older Than Stated Age, Chronically Ill - Head Exam Head Exam: ATRAUMATIC, NORMAL INSPECTION, NORMOCEPHALIC - Eye Exam Eye Exam: EOMI, Normal appearance, PERRL - ENT Exam ENT Exam: Mucous Membranes Moist, Normal Oropharynx - Neck Exam Neck Exam: Full ROM, Normal Inspection - Respiratory Exam Respiratory Exam: Decreased Breath Sounds - Cardiovascular Exam Cardiovascular Exam: REGULAR RHYTHM, +S1, +S2 - GI/Abdominal Exam GI & Abdominal Exam: Soft, Normal Bowel Sounds - Extremities Exam Extremities Exam: Full ROM, Normal Capillary Refill, Normal Inspection - Neurological Exam Neurological Exam: Alert, Awake Additional comments: Oriented x1 - Psychiatric Exam Psychiatric exam: Flat Affect - Skin Skin Exam: Dry, Intact, Normal Color, Warm Assessment and Plan - Assessment and Plan (Free Text) Assessment: 57 y/o F with PMHx of hepatitis B, non-compliance, HIV and AIDS (last CD4 95) who presented to the ED for hallucinations and altered mental status, as per daughter. Patient was recently diagnosed with Pneumocystis pneumonia (PCP) but signed out AMA after last visit. Patient is on HAART therapy. Imaging showed diffuse pulmonary infiltrates - patient started on bactrim and steroids for PCP Pneumonia. 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 Pt's hypoxia has since improved and pt was transitioned from BiPap to high flow to venti mask, now saturating well on nasal cannula. Plan: Sepsis Likely secondary to PCP PNA Lactate of 3.8 on admission trending down, pt tachycardic, hypoxia improved CXR 11/20 and 11/21 demonstrated diffuse pulmonary infiltrates C/w Bactrim day#5 C/w Levaquin 750 mg IVPB day # Blood cx /2 on neg on day 4 MRSA neg, urine cx neg RPR neg, f/u CMV and HSV, Cryptococcal Ag neg ID and pulm consulted, recs appreciated Repeat CD4 ct 99 (previous CD4 was 95 in 2017) Altered Mental Status Likely 2/2 dementia vs. 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 Changes of uncertain etiology though differential diagnosis would include sequela of HIV encephalopathy or PML. Per psych: pt on Seroquel; Ziprasidone prn Per neuro: Start keppra load with 1 g today, 500 mg bid tomorrow. F/u ammonia level. AIDS Hx non-compliance with HAART therapy Spoke with [facility] to get updated med list for pt Pt was on dolutegravir and truvada prior Pt restarted on HAART therapy F/u ID recs Hepatitis B Patient non-compliant, unknown if treated in past Will educate importance of treatment Hypokalemia - resolved Will follow while pt is in CCU GI/DVT prophylaxis: protonix 40 and lovenox 40 subQ Pt seen, examined with, and plan d/w Dr. Schultz, attending Omari Davis DO PGY-1 Pager #[phone] <Christ Schultz - Last Filed: 11/25/17 17:35> Objective - Vital Signs/Intake and Output Vital Signs (last 24 hours): Temp Pulse Resp BP Pulse Ox 97.8 F 133 H 22 111/84 94 L 11/24/17 09:35 11/25/17 10:08 11/24/17 16:01 11/25/17 10:08 11/24/17 16:01 Intake and Output: 11/25/17 11/25/17 06:59 18:59 Intake Total 900 Output Total 1400 Balance -500 - Medications Medications: Current Medications Emtricitabine/Tenofovir (Truvada 200 Mg-300 Mg) 1 tab PO DAILY [facility] PRN Reason: Protocol Last Admin: 11/25/17 10:10 Dose: 1 tab Enoxaparin Sodium (Lovenox) 40 mg SC DAILY [facility] PRN Reason: Protocol Last Admin: 11/25/17 09:30 Dose: 40 mg Fluconazole (Diflucan) 100 mg PO DAILY [facility] PRN Reason: Protocol Stop: 12/01/17 10:01 Last Admin: 11/25/17 09:29 Dose: 100 mg Home Med (Home Med) 1 unit PO DAILY [facility] Last Admin: 11/25/17 09:29 Dose: 1 unit Trimethoprim/Sulfamethoxazole (300 mg/ Dextrose) 500 mls @ 250 mls/hr IVPB Q8H [facility] Last Admin: 11/25/17 13:30 Dose: 250 mls/hr Dextrose/Sodium Chloride (Dextrose 5%/0.45% Ns 1000 Ml) 1,000 mls @ 75 mls/hr IV .[id number] [facility] Last Admin: 11/25/17 13:30 Dose: 75 mls/hr Levetiracetam 500 mg/ Sodium (Chloride) 105 mls @ 460 mls/hr IV Q12 [facility] Levalbuterol HCl (Xopenex) 1.25 mg IH [id number] PRN PRN Reason: Shortness of Breath Last Admin: 11/21/17 07:46 Dose: 1.25 mg Levofloxacin (Levaquin) 500 mg PO DAILY [facility] PRN Reason: Protocol Stop: 12/01/17 10:01 Last Admin: 11/25/17 09:30 Dose: 500 mg Methylprednisolone (Solu-Medrol) 40 mg IVP DAILY [facility] Last Admin: 11/25/17 10:10 Dose: 40 mg Metoprolol Tartrate (Lopressor) 25 mg PO BID [facility] Last Admin: 11/25/17 10:08 Dose: 25 mg Nystatin/Triamcinolone Acetonide (Nystatin/Triamcinolone Ointment) 0 gm TOP BID [facility] Last Admin: 11/25/17 09:30 Dose: 1 applic Pantoprazole Sodium (Protonix Ec Tab) 40 mg PO 0600 [facility] Last Admin: 11/25/17 07:36 Dose: 40 mg Quetiapine Fumarate (Seroquel) 50 mg PO [facility] PRN Reason: Protocol Ziprasidone (Geodon Inj) 10 mg IM Q12H PRN; Protocol PRN Reason: severe agitaiton/psychosis Last Admin: 11/25/17 02:27 Dose: 10 mg - Labs Labs: 11/25/17 05:15 11/25/17 05:15 PT 14.6 SECONDS (9.4-12.5) H 11/22/17 08:20 INR 1.26 (0.93-1.08) H 11/22/17 08:20 Attending/Attestation - Attestation I have personally seen and examined this patient.: Yes I have fully participated in the care of the patient.: Yes I have reviewed all pertinent clinical information, including history, physical exam and plan: Yes Notes (Text): 11/25/17 17:32 Medical record note made by the resident after discussion with my direction and input after the patient was personally seen and examined by me. I have reviewed the chart and agree that the record accurately reflects by personal performance of the history, physical exam, data review, and medical decision-making, in the course for the patient. I have also personally directed the plan of care. 57 yrs old female with PMH of hepatitis B, non-compliance, HIV and AIDS (last CD4 95), presented with AMS, and diffuse bilateral infiltrates on CXR, and hypoxia. Patient was treated with broad with Vancomycin .zosyn , Bactrim and steroid , currently on levofoxacin, bactrim and steroid. Pt is currently afebrile, BP stable, on room air, sat 93%, O2 requirements decreasing Mental status is better.Patient is awake but confused.MRI finding were reviewed, Case was discussed with Neurology. Prognosis is guarded.
--- NOTE | 2017-11-25 15:35 | CP.PCM.PN ---
Subjective - Date & Time of Evaluation Date of Evaluation: 11/25/17 Time of Evaluation: 08:15 - Subjective Subjective: Patient still with confusion, no fevers, occasional cough, no diarrhea. Objective - Vital Signs/Intake and Output Vital Signs (last 24 hours): Temp Pulse Resp BP Pulse Ox 97.8 F 116 H 22 114/71 94 L 11/24/17 09:35 11/24/17 16:34 11/24/17 16:01 11/24/17 16:01 11/24/17 16:01 Intake and Output: 11/24/17 11/25/17 18:59 06:59 Intake Total 1300 Output Total 1600 Balance -300 - Medications Medications: Current Medications Emtricitabine/Tenofovir (Truvada 200 Mg-300 Mg) 1 tab PO DAILY [facility] PRN Reason: Protocol Last Admin: 11/24/17 09:46 Dose: 1 tab Enoxaparin Sodium (Lovenox) 40 mg SC DAILY [facility] PRN Reason: Protocol Last Admin: 11/24/17 09:46 Dose: 40 mg Fluconazole (Diflucan) 100 mg PO DAILY [facility] PRN Reason: Protocol Stop: 12/01/17 10:01 Last Admin: 11/24/17 09:47 Dose: 100 mg Home Med (Home Med) 1 unit PO DAILY [facility] Last Admin: 11/24/17 09:47 Dose: 1 unit Trimethoprim/Sulfamethoxazole (300 mg/ Dextrose) 500 mls @ 250 mls/hr IVPB Q8H [facility] Last Admin: 11/24/17 21:03 Dose: 250 mls/hr Dextrose/Sodium Chloride (Dextrose 5%/0.45% Ns 1000 Ml) 1,000 mls @ 75 mls/hr IV .[id number] [facility] Last Admin: 11/25/17 02:34 Dose: 75 mls/hr Levalbuterol HCl (Xopenex) 1.25 mg IH [id number] PRN PRN Reason: Shortness of Breath Last Admin: 11/21/17 07:46 Dose: 1.25 mg Levofloxacin (Levaquin) 500 mg PO DAILY [facility] PRN Reason: Protocol Stop: 12/01/17 10:01 Last Admin: 11/24/17 09:47 Dose: 500 mg Methylprednisolone (Solu-Medrol) 40 mg IVP Q12 [facility] Last Admin: 11/24/17 22:31 Dose: 40 mg Nystatin/Triamcinolone Acetonide (Nystatin/Triamcinolone Ointment) 0 gm TOP BID [facility] Last Admin: 11/24/17 17:29 Dose: 1 applic Pantoprazole Sodium (Protonix Ec Tab) 40 mg PO 0600 [facility] Last Admin: 11/24/17 05:36 Dose: Not Given Quetiapine Fumarate (Seroquel) 25 mg PO AMHS [facility] PRN Reason: Protocol Last Admin: 11/25/17 02:32 Dose: 25 mg Ziprasidone (Geodon Inj) 10 mg IM Q12H PRN; Protocol PRN Reason: severe agitaiton/psychosis Last Admin: 11/25/17 02:27 Dose: 10 mg - Labs Labs: 11/25/17 05:15 11/25/17 05:15 PT 14.6 SECONDS (9.4-12.5) H 11/22/17 08:20 INR 1.26 (0.93-1.08) H 11/22/17 08:20 - Constitutional Appears: Chronically Ill - Head Exam Head Exam: NORMAL INSPECTION - Respiratory Exam Respiratory Exam: Decreased Breath Sounds - Cardiovascular Exam Cardiovascular Exam: +S1, +S2 - GI/Abdominal Exam GI & Abdominal Exam: Soft. absent: Tenderness Assessment and Plan - Assessment and Plan (Free Text) Plan: Assessment sepsis due to probable pneumocystis jiroveci pneumonia, on top of community- acquired bacterial pneumonia AIDS with last CD4 count 99, non-compliant with meds confusion, R/O encephalopathy history of bilateral mesenteric lymphadenopathy, probably related to HIV chronic active hepatitis B history of heavy smoking Plan continue IV Bactrim with steroids, Levaquin continue ART which also treats the Hepatitis B infection follow up Fungitell, final culture results follow up MRI brain results will continue to monitor clinically
--- NOTE | 2017-11-25 17:18 | PN ---
DATE: 11/25/2017 SUBJECTIVE: Shortly, the patient is 57-year-old female, not known previous psychiatric history. 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 Psych consult was called for evaluation of hallucinations. The patient was started on Seroquel. The patient was followed up by Dr. Brown over the weekend. The patient has episodes of hallucinations, talking to herself, but no agitation or aggression. This lyric writer followed up on the patient today. The patient presented to be alert, talking to the people who are not there. The patient talking about some put on her, which is not true. The patient was talking to the people next room, but obviously there is no people in the next room. The patient appears to be confused, irritable, and angry, but the patient was more coherent and the patient was improved with fluency of the speech. The patient also presented to be less lethargic. OBJECTIVE: VITAL SIGNS: Stable, but the patient has episodes of tachycardia 133. Blood pressure 111/84, respirations 22, oxygen saturation is 94%. MEDICATIONS: Reviewed. The patient is on dextrose, Truvada, Lovenox, Diflucan, Zenapax. The patient also is on Tivicay. The patient also is on Zenapax, Keppra, Levaquin, Solu-Medrol, Lopressor, nystatin, and Protonix. Seroquel 50 mg twice a day will be increased today. The patient is on trimethoprim-sulfamethoxazole and Geodon as needed, last Geodon was given tonight for agitated behavior. LABORATORY DATA: Most recent labs for today: Hemoglobin and hematocrit 10.2 and 30 respectively. Chemistry reviewed, chloride low. MENTAL STATUS EXAMINATION: The patient appears to be alert, disoriented, and talking to herself. The patient was not able to describe her mood. Thought process disorganized, tangential, and circumstantial. The patient actively hallucinating and talking to the people who are not there. The judgment seems to be severely impaired. Impulses are not predictable. 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 Seroquel was increased. The patient was seen. We will follow up and advise accordingly. Thank you very much for letting me to participate in the care of your patient. Should you have any questions, give me a call back. Marla Najera MD
[2017-11-26] MEDS: Dextrose 5%/0.45% NS 1,000 ML IV SCH ×2 (03:00→16:56)
[2017-11-26] MEDS: Sulfamethoxazole/Trimethoprim 300 MG in Dextrose 5% In Water 500 ML IVPB SCH ×4 (03:38→22:32)
[2017-11-26] MEDS: Pantoprazole 40 mg EC Tab PO SCH (05:27)
[2017-11-26 06:14] LABS: GRAN # 7.63 (1.4-6.5); GRAN % 92.5 % (50.0-68.0); HEMOGLOBIN 9.8 g/dL (12.0-16.0); LYMPH # 0.4 (1.2-3.4); LYMPH % 4.6 % (22.0-35.0); MEAN CELL VOLUME 95.3 fl (80.0-105.0); MEAN CORPUSCULAR HEMOGLOBIN 33.1 pg (25.0-35.0); MEAN CORPUSCULAR HGB CONC 34.8 g/dl (31.0-37.0); MEAN PLATELET VOLUME 10.4 fl (7.0-11.0); MONO # 0.2 (0.1-0.6); MONO % 2.9 % (1.0-6.0); PLATELET COUNT 158 10^3/uL (120.0-450.0); RBC 2.96 10^6/uL (3.5-6.1); RED CELL DISTRIBUTION WIDTH 15.1 % (11.5-14.5); WHITE BLOOD COUNT 8.3 10^3/ul (4.5-11.0)
[2017-11-26 06:28] LABS: SOURCE: PLASMA
[2017-11-26 06:59] LABS: ALB/GLOB RATIO 0.6 (1.1-1.8); ALBUMIN 2.4 g/dL (3.0-4.8); ALT/SGPT 71 U/L (7-56); AST/SGOT 108 U/L (14-36); BLOOD UREA NITROGEN 13 mg/dL (7-21); CALCIUM 8.9 mg/dL (8.4-10.5); GFR AFRICAN-AMERICAN > 60; GFR NON-AFRICAN AMERICAN > 60
[2017-11-26 07:09] LABS: BAND 1 % (0-2); LYMPHOCYTE 2 % (22.0-35.0); MONOCYTE 2 % (1.0-6.0); NEUTROPHIL 95 % (50.0-70.0); PLATELET ESTIMATE NORMAL (NORMAL)
[2017-11-26] MEDS ORDERED: Tmp-Smz 16 mg-80 mg/ml Inj IVPB SCH (09:00)
[2017-11-26] MEDS: MethylPREDNISolone 40 mg Vial IVP SCH (09:09)
[2017-11-26] MEDS: DOLUTEGRAVIR SODIUM 50 MG PO SCH (09:10)
[2017-11-26] MEDS: Enoxaparin 40 mg Syringe SC SCH (09:10)
[2017-11-26] MEDS: levoFLOXacin 500 MG TAB PO SCH (09:11)
[2017-11-26] MEDS: levETIRAcetam 500mg IVPB 500 MG/100 ML BAG IV SCH ×2 (09:12→21:36)
[2017-11-26] MEDS: Emtricitabine-Tenofovir 200 mg-300 mg Tab PO SCH (09:19)
[2017-11-26] MEDS: Nystatin-Triamcinolone Ointment(30 gm) TOP SCH ×2 (09:20→17:07)
--- NOTE | 2017-11-26 10:37 | CP.PCM.PN ---
Subjective - Date & Time of Evaluation Date of Evaluation: 11/26/17 Time of Evaluation: 08:25 - Subjective Subjective: Resting comfortably in bed, no fevers overnight, not in distress. Objective - Vital Signs/Intake and Output Vital Signs (last 24 hours): Temp Pulse Resp BP Pulse Ox 97.6 F 77 15 104/72 99 11/26/17 06:00 11/26/17 06:01 11/26/17 06:01 11/25/17 18:30 11/25/17 18:00 Intake and Output: 11/26/17 11/26/17 06:59 18:59 Intake Total 1600 Output Total 1200 Balance 400 - Medications Medications: Current Medications Emtricitabine/Tenofovir (Truvada 200 Mg-300 Mg) 1 tab PO DAILY [facility] PRN Reason: Protocol Last Admin: 11/25/17 10:10 Dose: 1 tab Enoxaparin Sodium (Lovenox) 40 mg SC DAILY [facility] PRN Reason: Protocol Last Admin: 11/25/17 09:30 Dose: 40 mg Fluconazole (Diflucan) 100 mg PO DAILY [facility] PRN Reason: Protocol Stop: 12/01/17 10:01 Last Admin: 11/25/17 09:29 Dose: 100 mg Home Med (Home Med) 1 unit PO DAILY [facility] Last Admin: 11/25/17 09:29 Dose: 1 unit Dextrose/Sodium Chloride (Dextrose 5%/0.45% Ns 1000 Ml) 1,000 mls @ 75 mls/hr IV .[id number] [facility] Last Admin: 11/26/17 03:00 Dose: 75 mls/hr Levetiracetam 500 mg/ Sodium (Chloride) 105 mls @ 460 mls/hr IV Q12 [facility] Levalbuterol HCl (Xopenex) 1.25 mg IH [id number] PRN PRN Reason: Shortness of Breath Last Admin: 11/21/17 07:46 Dose: 1.25 mg Levofloxacin (Levaquin) 500 mg PO DAILY [facility] PRN Reason: Protocol Stop: 12/01/17 10:01 Last Admin: 11/25/17 09:30 Dose: 500 mg Methylprednisolone (Solu-Medrol) 40 mg IVP DAILY [facility] Last Admin: 11/25/17 10:10 Dose: 40 mg Metoprolol Tartrate (Lopressor) 25 mg PO BID [facility] Last Admin: 11/25/17 18:30 Dose: 25 mg Nystatin/Triamcinolone Acetonide (Nystatin/Triamcinolone Ointment) 0 gm TOP BID [facility] Last Admin: 11/25/17 18:32 Dose: 1 applic Pantoprazole Sodium (Protonix Ec Tab) 40 mg PO 0600 [facility] Last Admin: 11/26/17 05:27 Dose: 40 mg Quetiapine Fumarate (Seroquel) 50 mg PO [facility] PRN Reason: Protocol Last Admin: 11/25/17 21:48 Dose: 50 mg Ziprasidone (Geodon Inj) 10 mg IM Q12H PRN; Protocol PRN Reason: severe agitaiton/psychosis Last Admin: 11/26/17 05:27 Dose: 10 mg - Labs Labs: 11/26/17 05:40 11/26/17 05:40 PT 14.6 SECONDS (9.4-12.5) H 11/22/17 08:20 INR 1.26 (0.93-1.08) H 11/22/17 08:20 - Constitutional Appears: Chronically Ill - Head Exam Head Exam: NORMAL INSPECTION - Respiratory Exam Respiratory Exam: Decreased Breath Sounds - Cardiovascular Exam Cardiovascular Exam: +S1, +S2 - GI/Abdominal Exam GI & Abdominal Exam: Soft. 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
--- NOTE | 2017-11-26 15:30 | CP.PCM.PN ---
<Omari Davis - Last Filed: 11/26/17 15:27> Subjective - Date & Time of Evaluation Date of Evaluation: 11/26/17 Time of Evaluation: 11:35 - Subjective Subjective: Omari Davis DO PGY-1, [facility] Progress Note Pt seen and examined at bedside. Pt responsive to commands, but not too verbal, AAOx1. Unable to obtain review of systems. Denies acute complaints. Objective - Vital Signs/Intake and Output Vital Signs (last 24 hours): Temp Pulse Resp BP Pulse Ox 97.6 F 75 11 L 116/85 99 11/26/17 06:00 11/26/17 14:00 11/26/17 10:00 11/26/17 09:10 11/25/17 18:00 Intake and Output: 11/26/17 11/26/17 06:59 18:59 Intake Total 1600 Output Total 1200 Balance 400 - Medications Medications: Current Medications Emtricitabine/Tenofovir (Truvada 200 Mg-300 Mg) 1 tab PO DAILY [facility] PRN Reason: Protocol Last Admin: 11/26/17 09:19 Dose: 1 tab Enoxaparin Sodium (Lovenox) 40 mg SC DAILY [facility] PRN Reason: Protocol Last Admin: 11/26/17 09:10 Dose: 40 mg Fluconazole (Diflucan) 100 mg PO DAILY [facility] PRN Reason: Protocol Stop: 12/01/17 10:01 Last Admin: 11/26/17 09:11 Dose: 100 mg Home Med (Home Med) 1 unit PO DAILY [facility] Last Admin: 11/26/17 09:10 Dose: 1 unit Dextrose/Sodium Chloride (Dextrose 5%/0.45% Ns 1000 Ml) 1,000 mls @ 75 mls/hr IV .[id number] [facility] Last Admin: 11/26/17 03:00 Dose: 75 mls/hr Levetiracetam (Keppra 500mg Ivpb) 500 mg in 100 mls @ 400 mls/hr IV Q12 [facility] Last Admin: 11/26/17 09:12 Dose: 400 mls/hr Trimethoprim/Sulfamethoxazole (300 mg/ Dextrose) 500 mls @ 250 mls/hr IVPB Q8 [facility] Last Admin: 11/26/17 14:06 Dose: Not Given Levalbuterol HCl (Xopenex) 1.25 mg IH [id number] PRN PRN Reason: Shortness of Breath Last Admin: 11/21/17 07:46 Dose: 1.25 mg Levofloxacin (Levaquin) 500 mg PO DAILY [facility] PRN Reason: Protocol Stop: 12/01/17 10:01 Last Admin: 11/26/17 09:11 Dose: 500 mg Methylprednisolone (Solu-Medrol) 40 mg IVP DAILY [facility] Last Admin: 11/26/17 09:09 Dose: 40 mg Metoprolol Tartrate (Lopressor) 25 mg PO BID [facility] Last Admin: 11/26/17 09:10 Dose: 25 mg Nystatin/Triamcinolone Acetonide (Nystatin/Triamcinolone Ointment) 0 gm TOP BID [facility] Last Admin: 11/26/17 09:20 Dose: 1 applic Pantoprazole Sodium (Protonix Ec Tab) 40 mg PO 0600 [facility] Last Admin: 11/26/17 05:27 Dose: 40 mg Quetiapine Fumarate (Seroquel) 50 mg PO AMHS [facility] PRN Reason: Protocol Last Admin: 11/26/17 09:12 Dose: 50 mg Ziprasidone (Geodon Inj) 10 mg IM Q12H PRN; Protocol PRN Reason: severe agitaiton/psychosis Last Admin: 11/26/17 05:27 Dose: 10 mg - Labs Labs: 11/26/17 05:40 11/26/17 05:40 PT 14.6 SECONDS (9.4-12.5) H 11/22/17 08:20 INR 1.26 (0.93-1.08) H 11/22/17 08:20 - Constitutional Appears: No Acute Distress, Older Than Stated Age, Chronically Ill - Head Exam Head Exam: ATRAUMATIC, NORMAL INSPECTION - Eye Exam Eye Exam: EOMI, Normal appearance, PERRL - ENT Exam ENT Exam: Mucous Membranes Moist, Normal Oropharynx - Neck Exam Neck Exam: Full ROM, Normal Inspection - Respiratory Exam Respiratory Exam: NORMAL BREATHING PATTERN Additional comments: Decreased breath sounds b/l - Cardiovascular Exam Cardiovascular Exam: REGULAR RHYTHM, +S1, +S2 - GI/Abdominal Exam GI & Abdominal Exam: Soft, Normal Bowel Sounds - Extremities Exam Extremities Exam: Full ROM, Normal Capillary Refill, Normal Inspection - Back Exam Back Exam: NORMAL INSPECTION - Neurological Exam Neurological Exam: Alert, Awake Additional comments: Oriented x1 - Psychiatric Exam Psychiatric exam: Flat Affect - Skin Skin Exam: Dry, Intact, Normal Color, Warm Assessment and Plan - Assessment and Plan (Free Text) Assessment: 57 y/o F with PMHx of hepatitis B, non-compliance, HIV and AIDS (last CD4 95) who presented to the ED for hallucinations and altered mental status, as per daughter. Patient was recently diagnosed with Pneumocystis pneumonia (PCP) but signed out AMA after last visit. Patient is on HAART therapy. Imaging showed diffuse pulmonary infiltrates - patient started on bactrim and steroids for PCP Pneumonia. Patient became anxious, hypoxic, and was using respiratory muscles for breathing - BIOMETRIC TECHNICIAN was called overnight on day of admission and patient started on BiPAP and managed under ICU. Pt's hypoxia has since improved and pt was transitioned from BiPap to high flow to venti mask, now saturating well on nasal cannula. 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 Changes of uncertain etiology though differential diagnosis would include sequela of HIV encephalopathy or PML. Per psych: pt on Seroquel; Ziprasidone prn Per neuro: Keppra 500 mg bid. Ammonia level wnl. AIDS Hx non-compliance with HAART therapy Spoke with [facility] to get updated med list for pt Pt was on dolutegravir and truvada prior Pt restarted on HAART therapy F/u ID recs Hepatitis B Patient non-compliant, unknown if treated in past Will educate importance of treatment Hypokalemia - resolved GI/DVT prophylaxis: protonix 40 and lovenox 40 subQ Dispo: pt medically stable. D/c planning. Spoke with social work today who will contact daughter of pt regarding goals of care. Pt seen, examined with, and plan d/w Dr. Schultz, attending Omari Davis DO PGY-1 Pager #[phone] <Christ Schutlz - Last Filed: 11/30/17 11:09> Objective - Vital Signs/Intake and Output Vital Signs (last 24 hours): Temp Pulse Resp BP Pulse Ox 97.5 F L 75 18 108/70 93 L 11/30/17 06:00 11/30/17 06:00 11/30/17 06:00 11/30/17 06:00 11/30/17 06:00 Intake and Output: 11/30/17 11/30/17 06:59 18:59 Intake Total 1680 Balance 1680 - Medications Medications: Current Medications Emtricitabine/Tenofovir (Truvada 200 Mg-300 Mg) 1 tab PO DAILY [facility] PRN Reason: Protocol Last Admin: 11/30/17 10:15 Dose: 1 tab Enoxaparin Sodium (Lovenox) 40 mg SC DAILY [facility] PRN Reason: Protocol Last Admin: 11/30/17 10:17 Dose: 40 mg Home Med (Home Med) 1 unit PO DAILY [facility] Last Admin: 11/30/17 10:21 Dose: 1 unit Dextrose/Sodium Chloride (Dextrose 5%/0.45% Ns 1000 Ml) 1,000 mls @ 75 mls/hr IV .[id number] [facility] Last Admin: 11/30/17 04:57 Dose: 75 mls/hr Levetiracetam (Keppra 500mg Ivpb) 500 mg in 100 mls @ 400 mls/hr IV Q12 [facility] Last Admin: 11/29/17 21:33 Dose: 400 mls/hr Trimethoprim/Sulfamethoxazole (300 mg/ Dextrose) 500 mls @ 250 mls/hr IVPB 0100 ,0900,1700 [facility] Last Admin: 11/30/17 10:15 Dose: 250 mls/hr Levalbuterol HCl (Xopenex) 1.25 mg IH [id number] PRN PRN Reason: Shortness of Breath Last Admin: 11/21/17 07:46 Dose: 1.25 mg Metoprolol Tartrate (Lopressor) 25 mg PO BID [facility] Last Admin: 11/30/17 10:18 Dose: 25 mg Nystatin/Triamcinolone Acetonide (Nystatin/Triamcinolone Ointment) 0 gm TOP BID [facility] Last Admin: 11/30/17 10:20 Dose: 1 applic Pantoprazole Sodium (Protonix Ec Tab) 40 mg PO 0600 [facility] Last Admin: 11/30/17 05:12 Dose: 40 mg Prednisone (Prednisone Tab) 30 mg PO DAILY [facility] Stop: 12/03/17 23:59 Last Admin: 11/30/17 10:17 Dose: 30 mg Prednisone (Prednisone Tab) 20 mg PO DAILY [facility] Stop: 12/05/17 23:59 Prednisone (Prednisone Tab) 10 mg PO DAILY [facility] Stop: 12/08/17 23:55 Prednisone (Prednisone Tab) 5 mg PO DAILY [facility] Stop: 12/10/17 11:55 Quetiapine Fumarate (Seroquel) 200 mg PO AMHS [facility] PRN Reason: Protocol Last Admin: 11/30/17 10:16 Dose: 200 mg Ziprasidone (Geodon Inj) 20 mg IM Q8H PRN; Protocol PRN Reason: severe agitaiton/psychosis - Labs Labs: 11/30/17 06:20 11/30/17 06:20 PT 14.6 SECONDS (9.4-12.5) H 11/22/17 08:20 INR 1.26 (0.93-1.08) H 11/22/17 08:20 Attending/Attestation - Attestation I have personally seen and examined this patient.: Yes I have fully participated in the care of the patient.: Yes I have reviewed all pertinent clinical information, including history, physical exam and plan: Yes Notes (Text): 11/30/17 11:07 Medical record note made by the resident after discussion with my direction and input after the patient was personally seen and examined by me. I have reviewed the chart and agree that the record accurately reflects by personal performance of the history, physical exam, data review, and medical decision-making, in the course for the patient. I have also personally directed the plan of care. 57 yrs old female with PMH of hepatitis B, non-compliance, HIV and AIDS (last CD4 95), presented with AMS, and diffuse bilateral infiltrates on CXR, and hypoxia. Patient is currently on treatment for PCP Pneumonia , , bactrim and steroid.She is also on Levofloxacin Pt is currently afebrile, BP stable, on room air, sat 93%, O2 requirements decreasing Mental status , more awake but confused, has intermittent agitation, . Possible seizure disorder on Keppra. Neurology and Psychiatry are following Prognosis is guarded.
--- NOTE | 2017-11-26 16:06 | PN ---
DATE: 11/26/2017 FOLLOWUP NOTE SUBJECTIVE: The patient was not doing well over nighttime. The patient needed to be medicated overnight and at the morning time, the patient appears to be sedated status post Geodon IM. As per staff, the patient still appears to be psychotic, agitated and delirium stage. ID consultation reviewed. As per Dr. Antoine, the patient had sepsis due to probable Pneumocystis pneumonia and community-acquired bacterial pneumonia. 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 The patient still is in delirium stage. Vital signs seems to be stable. Blood pressure 116/85, respirations 75. Medications reviewed. From the psychiatric standpoint, the patient is on Seroquel as well as Geodon only as needed. The patient is on antibiotics as well. Labs reviewed, most recent were from today. Hemoglobin and hematocrit 9.8, 28.2. Chemistry reviewed. Toxicology reviewed. Serology reviewed. MENTAL STATUS EXAMINATION: Was not able to assess because the patient is status post medication. The patient is deeply sedated, but was able to open her eyes. IMPRESSION: Most likely, multifactorial delirium, which is not improving. The patient has multiple medical issues, human immunodeficiency virus, sepsis due to pneumonia. PLAN: Continue current management. Continue current medications. Continue Geodon and Seroquel for psychosis. We will follow up and advise accordingly. The patient is still on ICU. Thank you very much for letting me participate in the care of your patient. Marla Najera MD ANG[facility]
[2017-11-27] MEDS: Dextrose 5%/0.45% NS 1,000 ML IV SCH ×2 (05:21→18:35)
[2017-11-27] MEDS: Pantoprazole 40 mg EC Tab PO SCH (05:22)
[2017-11-27] MEDS: Sulfamethoxazole/Trimethoprim 300 MG in Dextrose 5% In Water 500 ML IVPB SCH ×3 (05:22→22:10)
[2017-11-27 06:39] LABS: GRAN # 5.89 (1.4-6.5); GRAN % 92.2 % (50.0-68.0); HEMOGLOBIN 9.3 g/dL (12.0-16.0); LYMPH # 0.4 (1.2-3.4); LYMPH % 5.9 % (22.0-35.0); MEAN CELL VOLUME 95.8 fl (80.0-105.0); MEAN CORPUSCULAR HEMOGLOBIN 32.5 pg (25.0-35.0); MEAN CORPUSCULAR HGB CONC 33.9 g/dl (31.0-37.0); MEAN PLATELET VOLUME 10.6 fl (7.0-11.0); MONO # 0.1 (0.1-0.6); MONO % 1.9 % (1.0-6.0); RBC 2.86 10^6/uL (3.5-6.1); RED CELL DISTRIBUTION WIDTH 15.3 % (11.5-14.5)
[2017-11-27 07:01] LABS: WHITE BLOOD COUNT 6.4 10^3/ul (4.5-11.0)
[2017-11-27 07:10] LABS: ALB/GLOB RATIO 0.6 (1.1-1.8); ALBUMIN 2.2 g/dL (3.0-4.8); ALT/SGPT 93 U/L (7-56); AST/SGOT 108 U/L (14-36); BLOOD UREA NITROGEN 14 mg/dL (7-21); CALCIUM 8.7 mg/dL (8.4-10.5); GFR AFRICAN-AMERICAN > 60; GFR NON-AFRICAN AMERICAN > 60
--- NOTE | 2017-11-27 10:14 | CP.PCM.PN ---
Subjective - Date & Time of Evaluation Date of Evaluation: 11/27/17 Time of Evaluation: 08:00 - Subjective Subjective: Patient still having confusion, no fevers, breathing a little better. Objective - Vital Signs/Intake and Output Vital Signs (last 24 hours): Temp Pulse Resp BP Pulse Ox 97.8 F 70 20 133/89 100 11/27/17 05:37 11/27/17 05:37 11/27/17 05:37 11/27/17 05:37 11/27/17 05:37 Intake and Output: 11/27/17 11/27/17 06:59 18:59 Intake Total 1375 Output Total 1600 Balance -225 - Medications Medications: Current Medications Emtricitabine/Tenofovir (Truvada 200 Mg-300 Mg) 1 tab PO DAILY [facility] PRN Reason: Protocol Last Admin: 11/26/17 09:19 Dose: 1 tab Enoxaparin Sodium (Lovenox) 40 mg SC DAILY [facility] PRN Reason: Protocol Last Admin: 11/26/17 09:10 Dose: 40 mg Fluconazole (Diflucan) 100 mg PO DAILY [facility] PRN Reason: Protocol Stop: 12/01/17 10:01 Last Admin: 11/26/17 09:11 Dose: 100 mg Home Med (Home Med) 1 unit PO DAILY [facility] Last Admin: 11/26/17 09:10 Dose: 1 unit Dextrose/Sodium Chloride (Dextrose 5%/0.45% Ns 1000 Ml) 1,000 mls @ 75 mls/hr IV .[id number] [facility] Last Admin: 11/27/17 05:21 Dose: 75 mls/hr Levetiracetam (Keppra 500mg Ivpb) 500 mg in 100 mls @ 400 mls/hr IV Q12 [facility] Last Admin: 11/26/17 21:36 Dose: 400 mls/hr Trimethoprim/Sulfamethoxazole (300 mg/ Dextrose) 500 mls @ 250 mls/hr IVPB Q8 [facility] Last Admin: 11/27/17 05:22 Dose: 250 mls/hr Levalbuterol HCl (Xopenex) 1.25 mg IH [id number] PRN PRN Reason: Shortness of Breath Last Admin: 11/21/17 07:46 Dose: 1.25 mg Levofloxacin (Levaquin) 500 mg PO DAILY [facility] PRN Reason: Protocol Stop: 12/01/17 10:01 Last Admin: 11/26/17 09:11 Dose: 500 mg Methylprednisolone (Solu-Medrol) 40 mg IVP DAILY [facility] Last Admin: 11/26/17 09:09 Dose: 40 mg Metoprolol Tartrate (Lopressor) 25 mg PO BID [facility] Last Admin: 11/26/17 17:09 Dose: Not Given Nystatin/Triamcinolone Acetonide (Nystatin/Triamcinolone Ointment) 0 gm TOP BID [facility] Last Admin: 11/26/17 17:07 Dose: 1 applic Pantoprazole Sodium (Protonix Ec Tab) 40 mg PO 0600 [facility] Last Admin: 11/27/17 05:22 Dose: 40 mg Quetiapine Fumarate (Seroquel) 50 mg PO AMHS [facility] PRN Reason: Protocol Last Admin: 11/26/17 21:43 Dose: Not Given Ziprasidone (Geodon Inj) 10 mg IM Q12H PRN; Protocol PRN Reason: severe agitaiton/psychosis Last Admin: 11/26/17 18:07 Dose: 10 mg - Labs Labs: 11/27/17 06:00 11/27/17 06:00 PT 14.6 SECONDS (9.4-12.5) H 11/22/17 08:20 INR 1.26 (0.93-1.08) H 11/22/17 08:20 - Constitutional Appears: Chronically Ill - Head Exam Head Exam: NORMAL INSPECTION - Respiratory Exam Respiratory Exam: Decreased Breath Sounds - Cardiovascular Exam Cardiovascular Exam: +S1, +S2 - GI/Abdominal Exam GI & Abdominal Exam: Soft. 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
[2017-11-27] MEDS: levETIRAcetam 500mg IVPB 500 MG/100 ML BAG IV SCH ×2 (10:55→21:36)
[2017-11-27] MEDS: Enoxaparin 40 mg Syringe SC SCH (10:55)
[2017-11-27] MEDS: Emtricitabine-Tenofovir 200 mg-300 mg Tab PO SCH (10:56)
[2017-11-27] MEDS: levoFLOXacin 500 MG TAB PO SCH (10:56)
[2017-11-27] MEDS: DOLUTEGRAVIR SODIUM 50 MG PO SCH (11:06)
[2017-11-27] MEDS: Nystatin-Triamcinolone Ointment(30 gm) TOP SCH ×2 (11:07→18:34)
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
--- NOTE | 2017-11-27 11:31 | CP.PCM.PN ---
<SusanOmari - Last Filed: 11/27/17 14:54> Subjective - Date & Time of Evaluation Date of Evaluation: 11/27/17 Time of Evaluation: 09:45 - Subjective Subjective: Pt seen and examined at bedside. Code Jones called today, please see earlier progress note for dictation. Pt appeared calm and relaxed s/p Geodon. No acute distress. Denies any acute complaints. AAOx2. Objective - Vital Signs/Intake and Output Vital Signs (last 24 hours): Temp Pulse Resp BP Pulse Ox 97.8 F 70 20 133/89 100 11/27/17 05:37 11/27/17 10:56 11/27/17 05:37 11/27/17 10:56 11/27/17 05:37 Intake and Output: 11/27/17 11/27/17 06:59 18:59 Intake Total 1375 Output Total 1600 Balance -225 - Medications Medications: Current Medications Emtricitabine/Tenofovir (Truvada 200 Mg-300 Mg) 1 tab PO DAILY [facility] PRN Reason: Protocol Last Admin: 11/27/17 10:56 Dose: 1 tab Enoxaparin Sodium (Lovenox) 40 mg SC DAILY [facility] PRN Reason: Protocol Last Admin: 11/27/17 10:55 Dose: 40 mg Fluconazole (Diflucan) 100 mg PO DAILY [facility] PRN Reason: Protocol Stop: 12/01/17 10:01 Last Admin: 11/27/17 10:56 Dose: 100 mg Home Med (Home Med) 1 unit PO DAILY [facility] Last Admin: 11/27/17 11:06 Dose: 1 unit Dextrose/Sodium Chloride (Dextrose 5%/0.45% Ns 1000 Ml) 1,000 mls @ 75 mls/hr IV .[id number] [facility] Last Admin: 11/27/17 05:21 Dose: 75 mls/hr Levetiracetam (Keppra 500mg Ivpb) 500 mg in 100 mls @ 400 mls/hr IV Q12 [facility] Last Admin: 11/27/17 10:55 Dose: 400 mls/hr Trimethoprim/Sulfamethoxazole (300 mg/ Dextrose) 500 mls @ 250 mls/hr IVPB Q8 [facility] Last Admin: 11/27/17 05:22 Dose: 250 mls/hr Levalbuterol HCl (Xopenex) 1.25 mg IH [id number] PRN PRN Reason: Shortness of Breath Last Admin: 11/21/17 07:46 Dose: 1.25 mg Levofloxacin (Levaquin) 500 mg PO DAILY [facility] PRN Reason: Protocol Stop: 12/01/17 10:01 Last Admin: 11/27/17 10:56 Dose: 500 mg Metoprolol Tartrate (Lopressor) 25 mg PO BID [facility] Last Admin: 11/27/17 10:56 Dose: 25 mg Nystatin/Triamcinolone Acetonide (Nystatin/Triamcinolone Ointment) 0 gm TOP BID [facility] Last Admin: 11/27/17 11:07 Dose: 1 applic Pantoprazole Sodium (Protonix Ec Tab) 40 mg PO 0600 [facility] Last Admin: 11/27/17 05:22 Dose: 40 mg Prednisone (Prednisone Tab) 40 mg PO DAILY [facility] Stop: 11/29/17 23:59 Last Admin: 11/27/17 10:56 Dose: 40 mg Prednisone (Prednisone Tab) 30 mg PO DAILY [facility] Stop: 12/03/17 23:59 Prednisone (Prednisone Tab) 20 mg PO DAILY [facility] Stop: 12/05/17 23:59 Prednisone (Prednisone Tab) 10 mg PO DAILY [facility] Stop: 12/08/17 23:55 Prednisone (Prednisone Tab) 5 mg PO DAILY [facility] Stop: 12/10/17 11:55 Quetiapine Fumarate (Seroquel) 100 mg PO AMHS [facility] PRN Reason: Protocol Last Admin: 11/27/17 10:56 Dose: 100 mg Ziprasidone (Geodon Inj) 10 mg IM Q8H PRN; Protocol PRN Reason: severe agitaiton/psychosis Last Admin: 11/27/17 09:20 Dose: 10 mg - Labs Labs: 11/27/17 06:00 11/27/17 06:00 PT 14.6 SECONDS (9.4-12.5) H 11/22/17 08:20 INR 1.26 (0.93-1.08) H 11/22/17 08:20 - Constitutional Appears: No Acute Distress, Older Than Stated Age, Confused, Chronically Ill - Head Exam Head Exam: ATRAUMATIC, NORMAL INSPECTION, NORMOCEPHALIC - Eye Exam Eye Exam: EOMI, Normal appearance - ENT Exam ENT Exam: Mucous Membranes Moist, Normal Oropharynx - Neck Exam Neck Exam: Full ROM, Normal Inspection - Respiratory Exam Respiratory Exam: Clear to Ausculation Bilateral, NORMAL BREATHING PATTERN - Cardiovascular Exam Cardiovascular Exam: REGULAR RHYTHM, +S1, +S2 - GI/Abdominal Exam GI & Abdominal Exam: Soft, Normal Bowel Sounds - Back Exam Back Exam: Full ROM, NORMAL INSPECTION - Neurological Exam Neurological Exam: Alert Additional comments: AAOx2, rest of exam deferred due to pt unable to follow commands - Psychiatric Exam Psychiatric exam: Flat Affect - Skin Skin Exam: Dry, Intact, Normal Color, Warm Assessment and Plan - Assessment and Plan (Free Text) Assessment: 57 y/o F with PMHx of hepatitis B, non-compliance, HIV and AIDS (last CD4 95) who presented to the ED for hallucinations and altered mental status, as per daughter. Patient was recently diagnosed with Pneumocystis pneumonia (PCP) but signed out AMA after last visit. Patient is on HAART therapy. Imaging showed diffuse pulmonary infiltrates - patient started on bactrim and steroids for PCP Pneumonia. Patient became anxious, hypoxic, and was using respiratory muscles for breathing - DINKEY LOCOMOTIVE ENGINEER was called overnight on day of admission and patient started on BiPAP and managed under ICU. Pt's hypoxia has since improved and pt was transitioned from BiPap to high flow to venti mask, now saturating well on nasal cannula. Pt downgraded to medical floor. Code Jones called earlier today. Change in mental status likely due to delirium 2/2 to PCP Pneumonia. Plan: Sepsis Likely secondary to PCP PNA Lactate of 3.8 on admission trending down, pt tachycardic, hypoxia improved CXR / and 11/21 demonstrated diffuse pulmonary infiltrates C/w Bactrim day#6 C/w Levaquin 750 mg IVPB as per ID Blood cx 2/2 on neg on day 5 MRSA neg, urine cx neg RPR neg, f/u CMV and HSV, Cryptococcal Ag neg ID and pulm consulted, recs appreciated Repeat CD4 ct 99 (previous CD4 was 95 in 2017) Altered Mental Status Likely 2/2 dementia vs. 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 Changes of uncertain etiology though differential diagnosis would include sequela of HIV encephalopathy or PML. Per psych: pt on Seroquel; Ziprasidone prn Per neuro: Keppra 500 mg bid. Ammonia level wnl. Code Jones called today for pt threatening staff with butter knife. Psych meds adjusted as per Dr. Gutiérrez. Continue to monitor. AIDS Hx non-compliance with HAART therapy Spoke with [facility] pharmacy to get updated med list for pt Pt was on dolutegravir and truvada prior Pt restarted on HAART therapy F/u ID recs Hypokalemia - resolved GI/DVT prophylaxis: protonix 40 and lovenox 40 subQ Dispo: D/c planning. ROQUE when pt is stable. Pt seen, examined with, and plan d/w Dr. Schultz, attending Omari Davis DO PGY-1 Pager #[phone] <Christ Schultz - Last Filed: 11/30/17 11:11> Objective - Vital Signs/Intake and Output Vital Signs (last 24 hours): Temp Pulse Resp BP Pulse Ox 97.5 F L 75 18 108/70 93 L 11/30/17 06:00 11/30/17 06:00 11/30/17 06:00 11/30/17 06:00 11/30/17 06:00 Intake and Output: 11/30/17 11/30/17 06:59 18:59 Intake Total 1680 Balance 1680 - Medications Medications: Current Medications Emtricitabine/Tenofovir (Truvada 200 Mg-300 Mg) 1 tab PO DAILY [facility] PRN Reason: Protocol Last Admin: 11/30/17 10:15 Dose: 1 tab Enoxaparin Sodium (Lovenox) 40 mg SC DAILY [facility] PRN Reason: Protocol Last Admin: 11/30/17 10:17 Dose: 40 mg Home Med (Home Med) 1 unit PO DAILY [facility] Last Admin: 11/30/17 10:21 Dose: 1 unit Dextrose/Sodium Chloride (Dextrose 5%/0.45% Ns 1000 Ml) 1,000 mls @ 75 mls/hr IV .[id number] [facility] Last Admin: 11/30/17 04:57 Dose: 75 mls/hr Levetiracetam (Keppra 500mg Ivpb) 500 mg in 100 mls @ 400 mls/hr IV Q12 [facility] Last Admin: 11/29/17 21:33 Dose: 400 mls/hr Trimethoprim/Sulfamethoxazole (300 mg/ Dextrose) 500 mls @ 250 mls/hr IVPB 0100 ,0900,1700 [facility] Last Admin: 11/30/17 10:15 Dose: 250 mls/hr Levalbuterol HCl (Xopenex) 1.25 mg IH [id number] PRN PRN Reason: Shortness of Breath Last Admin: 11/21/17 07:46 Dose: 1.25 mg Metoprolol Tartrate (Lopressor) 25 mg PO BID [facility] Last Admin: 11/30/17 10:18 Dose: 25 mg Nystatin/Triamcinolone Acetonide (Nystatin/Triamcinolone Ointment) 0 gm TOP BID [facility] Last Admin: 11/30/17 10:20 Dose: 1 applic Pantoprazole Sodium (Protonix Ec Tab) 40 mg PO 0600 [facility] Last Admin: 11/30/17 05:12 Dose: 40 mg Prednisone (Prednisone Tab) 30 mg PO DAILY [facility] Stop: 12/03/17 23:59 Last Admin: 11/30/17 10:17 Dose: 30 mg Prednisone (Prednisone Tab) 20 mg PO DAILY [facility] Stop: 12/05/17 23:59 Prednisone (Prednisone Tab) 10 mg PO DAILY [facility] Stop: 12/08/17 23:55 Prednisone (Prednisone Tab) 5 mg PO DAILY [facility] Stop: 12/10/17 11:55 Quetiapine Fumarate (Seroquel) 200 mg PO AMHS [facility] PRN Reason: Protocol Last Admin: 11/30/17 10:16 Dose: 200 mg Ziprasidone (Geodon Inj) 20 mg IM Q8H PRN; Protocol PRN Reason: severe agitaiton/psychosis - Labs Labs: 11/30/17 06:20 11/30/17 06:20 PT 14.6 SECONDS (9.4-12.5) H 11/22/17 08:20 INR 1.26 (0.93-1.08) H 11/22/17 08:20 Attending/Attestation - Attestation I have personally seen and examined this patient.: Yes I have fully participated in the care of the patient.: Yes I have reviewed all pertinent clinical information, including history, physical exam and plan: Yes Notes (Text): 11/30/17 11:11 Medical record note made by the resident after discussion with my direction and input after the patient was personally seen and examined by me. I have reviewed the chart and agree that the record accurately reflects by personal performance of the history, physical exam, data review, and medical decision-making, in the course for the patient. I have also personally directed the plan of care.
--- NOTE | 2017-11-27 11:53 | PN ---
DATE: 11/27/2017 SUBJECTIVE: Shortly, the patient is a 57-year-old female with not known previous psychiatric history. The patient has multiple medical issues including HIV. The patient developed pneumonia and sepsis due to that. The patient was in the ICU and downgraded to the medical site to the second floor. This travel writer responded to leni ross which was called because the patient was extremely paranoid, was holding a knife in her hand, also was saying that people want to hurt her and also in the hospital people killing each other. The patient is obviously disorganized, paranoid and does not make any sense. The patient was seen and examined. The patient presented to be confused, angry, agitated, was refusing to give back the knife, but it was successfully taken by nursing staff and security. Medications were increased. Seroquel was increased to 100 mg twice a day as well as Geodon 10 mg three times a day as needed for agitation. Vital signs reviewed, seems to be stable. Temperature 97.8, pulse is 70, blood pressure 133/89, respirations 20, oxygen saturations 100. Medications reviewed. The patient is on Truvada, Lovenox, Diflucan, Xopenex, Keppra, Levaquin, Lopressor, Seroquel, trimethoprim and sulfamethoxazole as well as Geodon. Labs reviewed, most recently was from today. Hemoglobin and hematocrit 9.3 and 27.4 respectively. Chemistry reviewed. Chloride and carbon monoxide 112 and 19 respectively. Toxicology reviewed. Serology reviewed. MENTAL STATUS EXAMINATION: As this travel writer described above, the patient presented to be alert, agitated. Intense eye contacts. Speech was pressured. The patient does not make any sense. Mood described that people want to kill me. Affect was angry. Mood congruent. Thought process disorganized. Thought content, the patient obviously psychotic, has visual hallucinations. The patient also saying that people around her, which obviously it is not true. Insight and judgment seems to be impaired. Impulses are unpredictable. IMPRESSION: The patient is obviously in delirium stage due to multifactorial problems. The patient has human immunodeficiency virus, sepsis due to pneumonia. PLAN: This travel writer recommended one-to-one observation. The patient's medications increased. Discussed with the durable medical equipment technician and staff internist office based only. Meanwhile, continue monitoring. Should you have any questions, give me a call back. The patient is currently under care of Internal Medicine as well as Infectious Disease as well as Neurology team. Thank you very much for letting me participate in the care of your patient. Should you have any questions, give me a call back. Marla Najera MD
[2017-11-28] MEDS: Pantoprazole 40 mg EC Tab PO SCH (05:20)
[2017-11-28] MEDS: Sulfamethoxazole/Trimethoprim 300 MG in Dextrose 5% In Water 500 ML IVPB SCH ×3 (05:36→21:33)
[2017-11-28] MEDS: Dextrose 5%/0.45% NS 1,000 ML IV SCH ×3 (05:37→21:40)
[2017-11-28 06:19] LABS: EOS % 0.6 % (1.5-5.0); GRAN # 4.68 (1.4-6.5); GRAN % 90.4 % (50.0-68.0); HEMOGLOBIN 8.9 g/dL (12.0-16.0); LYMPH # 0.4 (1.2-3.4); LYMPH % 7.1 % (22.0-35.0); MEAN CELL VOLUME 95.9 fl (80.0-105.0); MEAN CORPUSCULAR HEMOGLOBIN 32.8 pg (25.0-35.0); MEAN CORPUSCULAR HGB CONC 34.2 g/dl (31.0-37.0); MONO # 0.1 (0.1-0.6); MONO % 1.9 % (1.0-6.0); RBC 2.71 10^6/uL (3.5-6.1); RED CELL DISTRIBUTION WIDTH 15.5 % (11.5-14.5); WHITE BLOOD COUNT 5.2 10^3/ul (4.5-11.0)
[2017-11-28 06:59] LABS: ALB/GLOB RATIO 0.6 (1.1-1.8); ALBUMIN 2.2 g/dL (3.0-4.8); ALT/SGPT 102 U/L (7-56); AST/SGOT 113 U/L (14-36); BLOOD UREA NITROGEN 11 mg/dL (7-21); CALCIUM 8.6 mg/dL (8.4-10.5); GFR AFRICAN-AMERICAN > 60; GFR NON-AFRICAN AMERICAN > 60
--- NOTE | 2017-11-28 07:03 | PQF ---
Patient has moderate malnutrition PROVIDER RESPONSE TEXT: E44.1 - Malnutrition of mild degree REVIEWER QUERY TEXT: Malnutrition Severity Malnutrition is documented in the Medical Record. Please specify the severity Such as: -- Mild - first degree -- Moderate - second degree -- Severe - third degree -- Severe malnutrition with marasmus -- Other, please specify The patient's Clinical Indicators include: Query created by: Jerica Garcia on 11/27/2017 9:29 AM Electronically signed by: Giovanni Neves 11/28/2017 7:00 AM ANGIE
--- NOTE | 2017-11-28 10:04 | CP.PCM.PN ---
Subjective - Date & Time of Evaluation Date of Evaluation: 11/28/17 Time of Evaluation: 08:30 - Subjective Subjective: Patient is adamant about going home, no SOB at rest, more awake today but agitated. No fevers overnight. Objective - Vital Signs/Intake and Output Vital Signs (last 24 hours): Temp Pulse Resp BP Pulse Ox 98.0 F 91 H 18 110/71 97 11/28/17 06:00 11/28/17 06:00 11/28/17 06:00 11/28/17 06:00 11/28/17 06:00 Intake and Output: 11/27/17 11/28/17 18:59 06:59 Intake Total 660 1895 Output Total 1000 Balance -340 1895 - Medications Medications: Current Medications Emtricitabine/Tenofovir (Truvada 200 Mg-300 Mg) 1 tab PO DAILY [facility] PRN Reason: Protocol Last Admin: 11/27/17 10:56 Dose: 1 tab Enoxaparin Sodium (Lovenox) 40 mg SC DAILY [facility] PRN Reason: Protocol Last Admin: 11/27/17 10:55 Dose: 40 mg Fluconazole (Diflucan) 100 mg PO DAILY [facility] PRN Reason: Protocol Stop: 12/01/17 10:01 Last Admin: 11/27/17 10:56 Dose: 100 mg Home Med (Home Med) 1 unit PO DAILY [facility] Last Admin: 11/27/17 11:06 Dose: 1 unit Dextrose/Sodium Chloride (Dextrose 5%/0.45% Ns 1000 Ml) 1,000 mls @ 75 mls/hr IV .[id number] [facility] Last Admin: 11/28/17 05:37 Dose: 75 mls/hr Levetiracetam (Keppra 500mg Ivpb) 500 mg in 100 mls @ 400 mls/hr IV Q12 [facility] Last Admin: 11/27/17 21:36 Dose: 400 mls/hr Trimethoprim/Sulfamethoxazole (300 mg/ Dextrose) 500 mls @ 250 mls/hr IVPB Q8 [facility] Last Admin: 11/28/17 05:36 Dose: 250 mls/hr Levalbuterol HCl (Xopenex) 1.25 mg IH [id number] PRN PRN Reason: Shortness of Breath Last Admin: 11/21/17 07:46 Dose: 1.25 mg Levofloxacin (Levaquin) 500 mg PO DAILY [facility] PRN Reason: Protocol Stop: 12/01/17 10:01 Last Admin: 11/27/17 10:56 Dose: 500 mg Metoprolol Tartrate (Lopressor) 25 mg PO BID [facility] Last Admin: 11/27/17 18:33 Dose: Not Given Nystatin/Triamcinolone Acetonide (Nystatin/Triamcinolone Ointment) 0 gm TOP BID [facility] Last Admin: 11/27/17 18:34 Dose: Not Given Pantoprazole Sodium (Protonix Ec Tab) 40 mg PO 0600 [facility] Last Admin: 11/28/17 05:20 Dose: Not Given Prednisone (Prednisone Tab) 40 mg PO DAILY [facility] Stop: 11/29/17 23:59 Last Admin: 11/27/17 10:56 Dose: 40 mg Prednisone (Prednisone Tab) 30 mg PO DAILY [facility] Stop: 12/03/17 23:59 Prednisone (Prednisone Tab) 20 mg PO DAILY [facility] Stop: 12/05/17 23:59 Prednisone (Prednisone Tab) 10 mg PO DAILY [facility] Stop: 12/08/17 23:55 Prednisone (Prednisone Tab) 5 mg PO DAILY [facility] Stop: 12/10/17 11:55 Quetiapine Fumarate (Seroquel) 100 mg PO [facility] PRN Reason: Protocol Last Admin: 11/27/17 21:40 Dose: Not Given Ziprasidone (Geodon Inj) 10 mg IM Q8H PRN; Protocol PRN Reason: severe agitaiton/psychosis Last Admin: 11/27/17 09:20 Dose: 10 mg - Labs Labs: 11/28/17 05:30 11/27/17 06:00 PT 14.6 SECONDS (9.4-12.5) H 11/22/17 08:20 INR 1.26 (0.93-1.08) H 11/22/17 08:20 - Constitutional Appears: Agitated, Chronically Ill - Head Exam Head Exam: NORMAL INSPECTION - ENT Exam ENT Exam: Mucous Membranes Moist - Respiratory Exam Respiratory Exam: Decreased Breath Sounds - Cardiovascular Exam Cardiovascular Exam: +S1, +S2 - GI/Abdominal Exam GI & Abdominal Exam: Soft. 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) history of bilateral mesenteric lymphadenopathy, probably related to HIV chronic active hepatitis B history of heavy smoking Plan continue IV Bactrim with steroids, Levaquin (day 4) - patient will need 3 more days of Levaquin, complete 14-21 days of Bactrim (can be switched to PO Bactrim DS 3 tabs PO twice a day) and tapering steroids for another week continue ART (antiretroviral therapy) which also treats the Hepatitis B infection (Truvada and Dolutegravir) Fungitell is elevated, suggestive of Pneumocystis pneumonia serum Crypt Ag is negative and CMV PCR is negative - follow up RPR reviewed MRI brain results - treatment for either of the two differential diagnoses is ART will continue to follow clinically while the patient is in the hospital - patient will need to follow up with HIV provider as outpatient with close follow up
[2017-11-28] MEDS: levETIRAcetam 500mg IVPB 500 MG/100 ML BAG IV SCH ×2 (10:11→21:33)
[2017-11-28] MEDS: DOLUTEGRAVIR SODIUM 50 MG PO SCH (10:12)
[2017-11-28] MEDS: levoFLOXacin 500 MG TAB PO SCH (10:12)
[2017-11-28] MEDS: Emtricitabine-Tenofovir 200 mg-300 mg Tab PO SCH (10:12)
[2017-11-28] MEDS: Nystatin-Triamcinolone Ointment(30 gm) TOP SCH ×2 (10:13→18:13)
[2017-11-28] MEDS: Enoxaparin 40 mg Syringe SC SCH ×2 (10:13→10:28)
--- NOTE | 2017-11-28 15:24 | CP.PCM.PN ---
<Omari Davis - Last Filed: 11/29/17 05:37> Subjective - Date & Time of Evaluation Date of Evaluation: 11/28/17 Time of Evaluation: 10:30 - Subjective Subjective: Pt seen and examined at [facility]. Patient was agitated and expressed a strong desire to go home. No major overnight events. Physical exam was deferred by patient. Objective - Vital Signs/Intake and Output Vital Signs (last 24 hours): Temp Pulse Resp BP Pulse Ox 97.5 F L 100 H 18 88/58 L 97 11/28/17 12:00 11/28/17 12:00 11/28/17 12:00 11/28/17 12:00 11/28/17 06:00 Intake and Output: 11/28/17 11/28/17 06:59 18:59 Intake Total 1895 240 Balance 1895 240 - Medications Medications: Current Medications Emtricitabine/Tenofovir (Truvada 200 Mg-300 Mg) 1 tab PO DAILY [facility] PRN Reason: Protocol Last Admin: 11/28/17 10:12 Dose: 1 tab Enoxaparin Sodium (Lovenox) 40 mg SC DAILY [facility] PRN Reason: Protocol Last Admin: 11/28/17 10:28 Dose: Not Given Fluconazole (Diflucan) 100 mg PO DAILY [facility] PRN Reason: Protocol Stop: 12/01/17 10:01 Last Admin: 11/28/17 10:12 Dose: 100 mg Home Med (Home Med) 1 unit PO DAILY [facility] Last Admin: 11/28/17 10:12 Dose: 1 unit Dextrose/Sodium Chloride (Dextrose 5%/0.45% Ns 1000 Ml) 1,000 mls @ 75 mls/hr IV .[id number] [facility] Last Admin: 11/28/17 10:28 Dose: 75 mls/hr Levetiracetam (Keppra 500mg Ivpb) 500 mg in 100 mls @ 400 mls/hr IV Q12 [facility] Last Admin: 11/28/17 10:11 Dose: 400 mls/hr Trimethoprim/Sulfamethoxazole (300 mg/ Dextrose) 500 mls @ 250 mls/hr IVPB Q8 [facility] Last Admin: 11/28/17 05:36 Dose: 250 mls/hr Levalbuterol HCl (Xopenex) 1.25 mg IH [id number] PRN PRN Reason: Shortness of Breath Last Admin: 11/21/17 07:46 Dose: 1.25 mg Levofloxacin (Levaquin) 500 mg PO DAILY [facility] PRN Reason: Protocol Stop: 12/01/17 10:01 Last Admin: 11/28/17 10:12 Dose: 500 mg Metoprolol Tartrate (Lopressor) 25 mg PO BID [facility] Last Admin: 11/28/17 10:12 Dose: 25 mg Nystatin/Triamcinolone Acetonide (Nystatin/Triamcinolone Ointment) 0 gm TOP BID [facility] Last Admin: 11/28/17 10:13 Dose: 1 applic Pantoprazole Sodium (Protonix Ec Tab) 40 mg PO 0600 [facility] Last Admin: 11/28/17 05:20 Dose: Not Given Prednisone (Prednisone Tab) 40 mg PO DAILY [facility] Stop: 11/29/17 23:59 Last Admin: 11/28/17 10:12 Dose: 40 mg Prednisone (Prednisone Tab) 30 mg PO DAILY [facility] Stop: 12/03/17 23:59 Prednisone (Prednisone Tab) 20 mg PO DAILY [facility] Stop: 12/05/17 23:59 Prednisone (Prednisone Tab) 10 mg PO DAILY [facility] Stop: 12/08/17 23:55 Prednisone (Prednisone Tab) 5 mg PO DAILY [facility] Stop: 12/10/17 11:55 Quetiapine Fumarate (Seroquel) 100 mg PO AMHS [facility] PRN Reason: Protocol Last Admin: 11/28/17 10:12 Dose: 100 mg Ziprasidone (Geodon Inj) 10 mg IM Q8H PRN; Protocol PRN Reason: severe agitaiton/psychosis Last Admin: 11/27/17 09:20 Dose: 10 mg - Labs Labs: 11/28/17 05:30 11/28/17 05:30 PT 14.6 SECONDS (9.4-12.5) H 11/22/17 08:20 INR 1.26 (0.93-1.08) H 11/22/17 08:20 Assessment and Plan - Assessment and Plan (Free Text) Assessment: 57 y/o F with PMHx of hepatitis B, non-compliance, HIV and AIDS (last CD4 95) who presented to the ED for hallucinations and altered mental status, as per daughter. Patient was recently diagnosed with Pneumocystis pneumonia (PCP) but signed out AMA after last visit. Patient is on HAART therapy. Imaging showed diffuse pulmonary infiltrates - patient started on bactrim and steroids for PCP Pneumonia. Patient became anxious, hypoxic, and was using respiratory muscles for breathing - SENIOR MECHANICAL DEVELOPMENT ENGINEER was called overnight on day of admission and patient started on BiPAP and managed under ICU. Pt's hypoxia has since improved and pt was transitioned from BiPap to high flow to venti mask, now saturating well on nasal cannula. Pt downgraded to medical floor. Ladonna Jones called on 11/27/17. Change in mental status likely due to delirium 2/2 to PCP Pneumonia. Pt had no acute events today. Plan: Sepsis Likely secondary to PCP PNA Lactate of 3.8 on admission trending down, pt tachycardic, hypoxia improved CXR 11/20 and 11/21 demonstrated diffuse pulmonary infiltrates C/w Bactrim, ID ok with pt going to PO anbx on d/c C/w Levaquin 750 mg IVPB as per ID Blood cx 2/2 on neg on day 5 MRSA neg, urine cx neg RPR neg, f/u CMV and HSV, Cryptococcal Ag neg ID and pulm consulted, recs appreciated Repeat CD4 ct 99 (previous CD4 was 95 in 2017) Altered Mental Status Likely 2/2 dementia vs. 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 Changes of uncertain etiology though differential diagnosis would include sequela of HIV encephalopathy or PML. Per psych: pt on Seroquel; Ziprasidone prn Per neuro: Keppra 500 mg bid. Ammonia level wnl. Ladonna Jones called 11/27/17 for pt threatening staff with butter knife. Psych meds adjusted as per Dr. Gutiérrez. No acute events reported today, pt appeared calm. AIDS Hx non-compliance with HAART therapy Spoke with [facility] to get updated med list for pt Pt was on dolutegravir and truvada prior Pt restarted on HAART therapy F/u ID recs Hypokalemia - resolved GI/DVT prophylaxis: protonix 40 and lovenox 40 subQ Dispo: D/c planning. ROQUE when pt is cleared by psych. Pt seen, examined with, and plan d/w Dr. Schultz, dottie Davis DO PGY-1 Pager #[phone] <Christ Schultz - Last Filed: 11/30/17 11:12> Objective - Vital Signs/Intake and Output Vital Signs (last 24 hours): Temp Pulse Resp BP Pulse Ox 97.5 F L 75 18 108/70 93 L 11/30/17 06:00 11/30/17 06:00 11/30/17 06:00 11/30/17 06:00 11/30/17 06:00 Intake and Output: 11/30/17 11/30/17 06:59 18:59 Intake Total 1680 Balance 1680 - Medications Medications: Current Medications Emtricitabine/Tenofovir (Truvada 200 Mg-300 Mg) 1 tab PO DAILY [facility] PRN Reason: Protocol Last Admin: 11/30/17 10:15 Dose: 1 tab Enoxaparin Sodium (Lovenox) 40 mg SC DAILY [facility] PRN Reason: Protocol Last Admin: 11/30/17 10:17 Dose: 40 mg Home Med (Home Med) 1 unit PO DAILY [facility] Last Admin: 11/30/17 10:21 Dose: 1 unit Dextrose/Sodium Chloride (Dextrose 5%/0.45% Ns 1000 Ml) 1,000 mls @ 75 mls/hr IV .[id number] [facility] Last Admin: 11/30/17 04:57 Dose: 75 mls/hr Levetiracetam (Keppra 500mg Ivpb) 500 mg in 100 mls @ 400 mls/hr IV Q12 [facility] Last Admin: 11/29/17 21:33 Dose: 400 mls/hr Trimethoprim/Sulfamethoxazole (300 mg/ Dextrose) 500 mls @ 250 mls/hr IVPB 0100 ,0900,1700 [facility] Last Admin: 11/30/17 10:15 Dose: 250 mls/hr Levalbuterol HCl (Xopenex) 1.25 mg IH [id number] PRN PRN Reason: Shortness of Breath Last Admin: 11/21/17 07:46 Dose: 1.25 mg Metoprolol Tartrate (Lopressor) 25 mg PO BID [facility] Last Admin: 11/30/17 10:18 Dose: 25 mg Nystatin/Triamcinolone Acetonide (Nystatin/Triamcinolone Ointment) 0 gm TOP BID [facility] Last Admin: 11/30/17 10:20 Dose: 1 applic Pantoprazole Sodium (Protonix Ec Tab) 40 mg PO 0600 [facility] Last Admin: 11/30/17 05:12 Dose: 40 mg Prednisone (Prednisone Tab) 30 mg PO DAILY [facility] Stop: 12/03/17 23:59 Last Admin: 11/30/17 10:17 Dose: 30 mg Prednisone (Prednisone Tab) 20 mg PO DAILY [facility] Stop: 12/05/17 23:59 Prednisone (Prednisone Tab) 10 mg PO DAILY [facility] Stop: 12/08/17 23:55 Prednisone (Prednisone Tab) 5 mg PO DAILY [facility] Stop: 12/10/17 11:55 Quetiapine Fumarate (Seroquel) 200 mg PO AMHS [facility] PRN Reason: Protocol Last Admin: 11/30/17 10:16 Dose: 200 mg Ziprasidone (Geodon Inj) 20 mg IM Q8H PRN; Protocol PRN Reason: severe agitaiton/psychosis - Labs Labs: 11/30/17 06:20 11/30/17 06:20 PT 14.6 SECONDS (9.4-12.5) H 11/22/17 08:20 INR 1.26 (0.93-1.08) H 11/22/17 08:20 Attending/Attestation - Attestation I have personally seen and examined this patient.: Yes I have fully participated in the care of the patient.: Yes I have reviewed all pertinent clinical information, including history, physical exam and plan: Yes Notes (Text): 11/30/17 11:11 Medical record note made by the resident after discussion with my direction and input after the patient was personally seen and examined by me. I have reviewed the chart and agree that the record accurately reflects by personal performance of the history, physical exam, data review, and medical decision-making, in the course for the patient. I have also personally directed the plan of care. 57 yrs old female with PMH of hepatitis B, non-compliance, HIV and AIDS (last CD4 95), presented with AMS, and diffuse bilateral infiltrates on CXR, and hypoxia. Patient is currently on treatment for PCP Pneumonia , , bactrim and steroid.She is also on Levofloxacin Pt is currently afebrile, BP stable, on room air, Mental status , more awake but confused, has intermittent agitation, . Possible seizure disorder on Keppra. Neurology and Psychiatry are following. Prognosis is guarded.
--- NOTE | 2017-11-28 19:42 | PN ---
DATE: 11/28/2017 SUBJECTIVE: Shortly, the patient is 57-year-old female with not known previous psychiatric history. The patient was admitted on the medical side in septic stage. The patient was in ICU. The patient was downgraded to the medical side. 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 The patient has multiple medical problems. Psych consult was called for evaluation of agitated, bizarre behavior as well as hallucinations. Majority of the time visual and paranoia. The patient was seen by this advertising copywriter on daily basis. Medications were adjusted on daily basis. This advertising copywriter had a chance to have collateral information from the patient's son, Benjamin who is next to her at the morning time, phone number [phone]. As per son, Benjamin, the patient does not have history of mental illness, never been admitted to the Psychiatric Inpatient Unit and such behavior, which this advertising copywriter has described above. 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 Going back to the patient's presentation, the patient is obviously paranoid, disorganized. The patient wants to go home. The patient feels that she is poisoned here in [place], which is obviously not true. The patient also has visual hallucinations. The patient sees people as well as she feels that she is in hell. VITAL SIGNS: Seems to be stable. Temperature 97.5, pulse is 100, blood pressure 88/58, respirations 18, oxygen saturation is 97. MEDICATIONS: Reviewed. The patient is on dextrose, Truvada, Lovenox, Diflucan, Tivicay. The patient is on levalbuterol, Keppra, Levaquin, Lopressor, nystatin, Protonix, prednisone. The patient is on Seroquel 100 mg twice a day; yesterday at the evening time, the patient refused to take. Today, the patient took 100 mg at the morning time. The patient is on trimethoprim and sulfamethoxazole as well as Geodon was increased today to 20 mg three times a day. LABORATORY DATA: Reviewed. Most recent was from today. Hemoglobin and hematocrit 8.9 and 26. Chemistry reviewed. AST and ALT is still elevated. MENTAL STATUS EXAMINATION: As this advertising copywriter described above, the patient is agitated and paranoid. The patient feels that she has been poisoned. The patient also has visual hallucinations and restless behavior. Mood described as not good. Affect was constricted, irritable and angry. Thought process seems to be disorganized. Thought content, patient is obviously psychotic and paranoid. Insight and judgment seems to be severely impaired at present moment, and impulses are unpredictable. IMPRESSION: As this advertising copywriter described above, the patient is in delirium stage. 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 The patient also is on steroids, which could contribute to the patient's psychotic symptoms. As per collateral information from the son, the patient does not have history of mental illness. PLAN: The patient should continue on Seroquel and Geodon was increased today. The patient lacks capacity to sign herself out of the hospital because the patient does not have basic understanding of the diagnosis, treatment offered and was not able to indicate her preferences. Now, the patient is to be on one-to-one. Continue current management. Continue current treatment. We will follow up and advise accordingly. Marla Najera MD
[2017-11-29] MEDS: Sulfamethoxazole/Trimethoprim 300 MG in Dextrose 5% In Water 500 ML IVPB SCH ×2 (05:20→17:00)
[2017-11-29] MEDS: Pantoprazole 40 mg EC Tab PO SCH (05:21)
[2017-11-29 07:09] LABS: EOS % 0.3 % (1.5-5.0); GRAN # 2.89 (1.4-6.5); GRAN % 88.2 % (50.0-68.0); HEMOGLOBIN 8.5 g/dL (12.0-16.0); LYMPH # 0.3 (1.2-3.4); LYMPH % 9.1 % (22.0-35.0); MEAN CELL VOLUME 94.2 fl (80.0-105.0); MEAN CORPUSCULAR HEMOGLOBIN 32.8 pg (25.0-35.0); MEAN CORPUSCULAR HGB CONC 34.8 g/dl (31.0-37.0); MEAN PLATELET VOLUME 10.2 fl (7.0-11.0); MONO # 0.1 (0.1-0.6); MONO % 2.4 % (1.0-6.0); RBC 2.59 10^6/uL (3.5-6.1); WHITE BLOOD COUNT 3.3 10^3/ul (4.5-11.0)
[2017-11-29 07:35] LABS: ALB/GLOB RATIO 0.6 (1.1-1.8); ALBUMIN 2.1 g/dL (3.0-4.8); ALT/SGPT 100 U/L (7-56); AST/SGOT 87 U/L (14-36); BLOOD UREA NITROGEN 10 mg/dL (7-21); CALCIUM 8.4 mg/dL (8.4-10.5); GFR AFRICAN-AMERICAN > 60; GFR NON-AFRICAN AMERICAN > 60
[2017-11-29] MEDS: Emtricitabine-Tenofovir 200 mg-300 mg Tab PO SCH (10:06)
[2017-11-29] MEDS: levoFLOXacin 500 MG TAB PO SCH (10:06)
[2017-11-29] MEDS: DOLUTEGRAVIR SODIUM 50 MG PO SCH (10:07)
[2017-11-29] MEDS: levETIRAcetam 500mg IVPB 500 MG/100 ML BAG IV SCH ×2 (10:07→21:33)
[2017-11-29] MEDS: Enoxaparin 40 mg Syringe SC SCH (10:14)
[2017-11-29] MEDS: Nystatin-Triamcinolone Ointment(30 gm) TOP SCH ×2 (11:10→18:14)
--- NOTE | 2017-11-29 11:37 | CP.PCM.PN ---
Subjective - Date & Time of Evaluation Date of Evaluation: 11/28/17 Time of Evaluation: 09:30 - Subjective Subjective: Patient awake but still confused, no SOB at rest, no fevers. Objective - Vital Signs/Intake and Output Vital Signs (last 24 hours): Temp Pulse Resp BP Pulse Ox 98.4 F 82 20 94/60 L 97 11/28/17 17:26 11/28/17 18:00 11/28/17 17:26 11/28/17 17:26 11/28/17 06:00 Intake and Output: 11/28/17 11/29/17 18:59 06:59 Intake Total 240 Balance 240 - Medications Medications: Current Medications Emtricitabine/Tenofovir (Truvada 200 Mg-300 Mg) 1 tab PO DAILY [facility] PRN Reason: Protocol Last Admin: 11/28/17 10:12 Dose: 1 tab Enoxaparin Sodium (Lovenox) 40 mg SC DAILY [facility] PRN Reason: Protocol Last Admin: 11/28/17 10:28 Dose: Not Given Fluconazole (Diflucan) 100 mg PO DAILY [facility] PRN Reason: Protocol Stop: 12/01/17 10:01 Last Admin: 11/28/17 10:12 Dose: 100 mg Home Med (Home Med) 1 unit PO DAILY [facility] Last Admin: 11/28/17 10:12 Dose: 1 unit Dextrose/Sodium Chloride (Dextrose 5%/0.45% Ns 1000 Ml) 1,000 mls @ 75 mls/hr IV .[id number] [facility] Last Admin: 11/28/17 10:28 Dose: 75 mls/hr Levetiracetam (Keppra 500mg Ivpb) 500 mg in 100 mls @ 400 mls/hr IV Q12 [facility] Last Admin: 11/28/17 10:11 Dose: 400 mls/hr Trimethoprim/Sulfamethoxazole (300 mg/ Dextrose) 500 mls @ 250 mls/hr IVPB Q8 [facility] Last Admin: 11/28/17 15:10 Dose: 250 mls/hr Levalbuterol HCl (Xopenex) 1.25 mg IH [id number] PRN PRN Reason: Shortness of Breath Last Admin: 11/21/17 07:46 Dose: 1.25 mg Levofloxacin (Levaquin) 500 mg PO DAILY [facility] PRN Reason: Protocol Stop: 12/01/17 10:01 Last Admin: 11/28/17 10:12 Dose: 500 mg Metoprolol Tartrate (Lopressor) 25 mg PO BID [facility] Last Admin: 11/28/17 18:13 Dose: Not Given Nystatin/Triamcinolone Acetonide (Nystatin/Triamcinolone Ointment) 0 gm TOP BID [facility] Last Admin: 11/28/17 18:13 Dose: Not Given Pantoprazole Sodium (Protonix Ec Tab) 40 mg PO 0600 [facility] Last Admin: 11/28/17 05:20 Dose: Not Given Prednisone (Prednisone Tab) 40 mg PO DAILY [facility] Stop: 11/29/17 23:59 Last Admin: 11/28/17 10:12 Dose: 40 mg Prednisone (Prednisone Tab) 30 mg PO DAILY [facility] Stop: 12/03/17 23:59 Prednisone (Prednisone Tab) 20 mg PO DAILY [facility] Stop: 12/05/17 23:59 Prednisone (Prednisone Tab) 10 mg PO DAILY [facility] Stop: 12/08/17 23:55 Prednisone (Prednisone Tab) 5 mg PO DAILY [facility] Stop: 12/10/17 11:55 Quetiapine Fumarate (Seroquel) 100 mg PO AMHS [facility] PRN Reason: Protocol Last Admin: 11/28/17 10:12 Dose: 100 mg Ziprasidone (Geodon Inj) 20 mg IM Q8H PRN; Protocol PRN Reason: severe agitaiton/psychosis - Labs Labs: 11/28/17 05:30 11/28/17 05:30 PT 14.6 SECONDS (9.4-12.5) H 11/22/17 08:20 INR 1.26 (0.93-1.08) H 11/22/17 08:20 - Constitutional Appears: Non-toxic, Chronically Ill - Head Exam Head Exam: NORMAL INSPECTION - Respiratory Exam Respiratory Exam: Decreased Breath Sounds - Cardiovascular Exam Cardiovascular Exam: +S1, +S2 - GI/Abdominal Exam GI & Abdominal Exam: Soft. 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) history of bilateral mesenteric lymphadenopathy, probably related to HIV chronic active hepatitis B history of heavy smoking Plan continue IV Bactrim with steroids, Levaquin (day 5) - patient will need 2 more days of Levaquin, complete 14-21 days of Bactrim (can be switched to PO Bactrim DS 3 tabs PO twice a day) and tapering steroids for another week continue ART (antiretroviral therapy) which also treats the Hepatitis B infection (Truvada and Dolutegravir) Fungitell is elevated, suggestive of Pneumocystis pneumonia will monitor CBC since WBC count and platelets are decreasing and if it continues to decrease, will change Bactrim to Mepron serum Crypt Ag is negative and CMV PCR is negative - follow up RPR reviewed MRI brain results - treatment for either of the two differential diagnoses is ART will continue to follow clinically while the patient is in the hospital - patient will need to follow up with HIV provider as outpatient with close follow up
--- NOTE | 2017-11-29 12:51 | CP.PCM.PN ---
Subjective - Date & Time of Evaluation Date of Evaluation: 11/29/17 Time of Evaluation: 12:49 - Subjective Subjective: Davie Alejo PGY2 - Neurology progress note for Dr. Almeida Patient is seen and examined this AM. No acute events overnight reported. Patient clinically improved from admission. Complaints regarding questioning from patient appreciated. Objective - Vital Signs/Intake and Output Vital Signs (last 24 hours): Temp Pulse Resp BP Pulse Ox 97.3 F L 91 H 20 92/60 L 96 11/29/17 11:37 11/29/17 11:37 11/29/17 11:37 11/29/17 11:37 11/29/17 05:55 Intake and Output: 11/29/17 11/29/17 06:59 18:59 Intake Total 1775 Output Total 100 Balance 1675 - Medications Medications: Current Medications Emtricitabine/Tenofovir (Truvada 200 Mg-300 Mg) 1 tab PO DAILY [facility] PRN Reason: Protocol Last Admin: 11/29/17 10:06 Dose: 1 tab Enoxaparin Sodium (Lovenox) 40 mg SC DAILY [facility] PRN Reason: Protocol Last Admin: 11/29/17 10:14 Dose: 40 mg Home Med (Home Med) 1 unit PO DAILY [facility] Last Admin: 11/29/17 10:07 Dose: 1 unit Dextrose/Sodium Chloride (Dextrose 5%/0.45% Ns 1000 Ml) 1,000 mls @ 75 mls/hr IV .[id number] [facility] Last Admin: 11/28/17 21:40 Dose: 75 mls/hr Levetiracetam (Keppra 500mg Ivpb) 500 mg in 100 mls @ 400 mls/hr IV Q12 [facility] Last Admin: 11/29/17 10:07 Dose: 400 mls/hr Trimethoprim/Sulfamethoxazole (300 mg/ Dextrose) 500 mls @ 250 mls/hr IVPB Q8 [facility] Last Admin: 11/29/17 05:20 Dose: 250 mls/hr Levalbuterol HCl (Xopenex) 1.25 mg IH [id number] PRN PRN Reason: Shortness of Breath Last Admin: 11/21/17 07:46 Dose: 1.25 mg Metoprolol Tartrate (Lopressor) 25 mg PO BID [facility] Last Admin: 11/29/17 10:06 Dose: 25 mg Nystatin/Triamcinolone Acetonide (Nystatin/Triamcinolone Ointment) 0 gm TOP BID [facility] Last Admin: 11/29/17 11:10 Dose: 1 applic Pantoprazole Sodium (Protonix Ec Tab) 40 mg PO 0600 [facility] Last Admin: 11/29/17 05:21 Dose: Not Given Prednisone (Prednisone Tab) 40 mg PO DAILY [facility] Stop: 11/29/17 23:59 Last Admin: 11/29/17 10:06 Dose: 40 mg Prednisone (Prednisone Tab) 30 mg PO DAILY [facility] Stop: 12/03/17 23:59 Prednisone (Prednisone Tab) 20 mg PO DAILY [facility] Stop: 12/05/17 23:59 Prednisone (Prednisone Tab) 10 mg PO DAILY [facility] Stop: 12/08/17 23:55 Prednisone (Prednisone Tab) 5 mg PO DAILY [facility] Stop: 12/10/17 11:55 Quetiapine Fumarate (Seroquel) 200 mg PO AMHS [facility] PRN Reason: Protocol Ziprasidone (Geodon Inj) 20 mg IM Q8H PRN; Protocol PRN Reason: severe agitaiton/psychosis - Labs Labs: 11/29/17 06:55 11/29/17 06:55 PT 14.6 SECONDS (9.4-12.5) H 11/22/17 08:20 INR 1.26 (0.93-1.08) H 11/22/17 08:20 - Constitutional Appears: No Acute Distress - Head Exam Head Exam: ATRAUMATIC, NORMAL INSPECTION, NORMOCEPHALIC - Eye Exam Eye Exam: EOMI, PERRL - Neck Exam Neck Exam: Full ROM - Respiratory Exam Respiratory Exam: NORMAL BREATHING PATTERN - Cardiovascular Exam Cardiovascular Exam: REGULAR RHYTHM - GI/Abdominal Exam GI & Abdominal Exam: Soft, Normal Bowel Sounds. absent: Tenderness - Neurological Exam Neurological Exam: Alert, Awake - Skin Skin Exam: Dry, Intact Assessment and Plan - Assessment and Plan (Free Text) Assessment: 57 year old female with past medical history of AIDS last known CD4 count of 99 from this admission, Hepatitis B with recent dx of PCP. Patient with altered mental status likely secondary to encephalopathy secondary to HIV encephalopathy vs. PML with psychiatric component. - No further neurological intervention at this time, Please refer to psychiatric service Patient case and plan reviewed with attending, Dr. Juan Pablo Alejo PGY2
--- NOTE | 2017-11-29 18:51 | CP.PCM.PN ---
<Omari Davis - Last Filed: 11/29/17 19:26> Subjective - Date & Time of Evaluation Date of Evaluation: 11/29/17 Time of Evaluation: 10:30 - Subjective Subjective: Omari Davis DO PGY-1, Senior Software Developer Medicine Progress Note Pt seen and examined at bedside. Resting comfortably, no acute distress. No acute events reported overnight. Pt denies any acute complaints. Objective - Vital Signs/Intake and Output Vital Signs (last 24 hours): Temp Pulse Resp BP Pulse Ox 97.8 F 68 19 96/65 L 94 L 11/29/17 18:00 11/29/17 18:13 11/29/17 18:00 11/29/17 18:13 11/29/17 08:30 Intake and Output: 11/29/17 11/29/17 06:59 18:59 Intake Total 1775 Output Total 100 Balance 1675 - Medications Medications: Current Medications Emtricitabine/Tenofovir (Truvada 200 Mg-300 Mg) 1 tab PO DAILY [facility] PRN Reason: Protocol Last Admin: 11/29/17 10:06 Dose: 1 tab Enoxaparin Sodium (Lovenox) 40 mg SC DAILY [facility] PRN Reason: Protocol Last Admin: 11/29/17 10:14 Dose: 40 mg Home Med (Home Med) 1 unit PO DAILY [facility] Last Admin: 11/29/17 10:07 Dose: 1 unit Dextrose/Sodium Chloride (Dextrose 5%/0.45% Ns 1000 Ml) 1,000 mls @ 75 mls/hr IV .[id number] [facility] Last Admin: 11/28/17 21:40 Dose: 75 mls/hr Levetiracetam (Keppra 500mg Ivpb) 500 mg in 100 mls @ 400 mls/hr IV Q12 [facility] Last Admin: 11/29/17 10:07 Dose: 400 mls/hr Trimethoprim/Sulfamethoxazole (300 mg/ Dextrose) 500 mls @ 250 mls/hr IVPB Q8 [facility] Last Admin: 11/29/17 17:00 Dose: 250 mls/hr Levalbuterol HCl (Xopenex) 1.25 mg IH [id number] PRN PRN Reason: Shortness of Breath Last Admin: 11/21/17 07:46 Dose: 1.25 mg Metoprolol Tartrate (Lopressor) 25 mg PO BID [facility] Last Admin: 11/29/17 18:13 Dose: Not Given Nystatin/Triamcinolone Acetonide (Nystatin/Triamcinolone Ointment) 0 gm TOP BID [facility] Last Admin: 11/29/17 18:14 Dose: 1 applic Pantoprazole Sodium (Protonix Ec Tab) 40 mg PO 0600 [facility] Last Admin: 11/29/17 05:21 Dose: Not Given Prednisone (Prednisone Tab) 40 mg PO DAILY [facility] Stop: 11/29/17 23:59 Last Admin: 11/29/17 10:06 Dose: 40 mg Prednisone (Prednisone Tab) 30 mg PO DAILY [facility] Stop: 12/03/17 23:59 Prednisone (Prednisone Tab) 20 mg PO DAILY [facility] Stop: 12/05/17 23:59 Prednisone (Prednisone Tab) 10 mg PO DAILY [facility] Stop: 12/08/17 23:55 Prednisone (Prednisone Tab) 5 mg PO DAILY [facility] Stop: 12/10/17 11:55 Quetiapine Fumarate (Seroquel) 200 mg PO AMHS [facility] PRN Reason: Protocol Ziprasidone (Geodon Inj) 20 mg IM Q8H PRN; Protocol PRN Reason: severe agitaiton/psychosis - Labs Labs: 11/29/17 06:55 11/29/17 06:55 PT 14.6 SECONDS (9.4-12.5) H 11/22/17 08:20 INR 1.26 (0.93-1.08) H 11/22/17 08:20 - Constitutional Appears: No Acute Distress, Older Than Stated Age, Chronically Ill - Head Exam Head Exam: ATRAUMATIC, NORMAL INSPECTION, NORMOCEPHALIC - Eye Exam Eye Exam: EOMI, Normal appearance, PERRL - ENT Exam ENT Exam: Mucous Membranes Moist, Normal Oropharynx - Neck Exam Neck Exam: Full ROM, Normal Inspection - Respiratory Exam Respiratory Exam: Clear to Ausculation Bilateral, NORMAL BREATHING PATTERN - Cardiovascular Exam Cardiovascular Exam: Tachycardia, +S1, +S2 - GI/Abdominal Exam GI & Abdominal Exam: Soft, Normal Bowel Sounds - Extremities Exam Extremities Exam: Full ROM, Normal Capillary Refill, Normal Inspection - Back Exam Back Exam: NORMAL INSPECTION - Neurological Exam Neurological Exam: Alert, Awake Additional comments: Oriented x2 - Psychiatric Exam Psychiatric exam: Flat Affect - Skin Skin Exam: Dry, Intact, Normal Color, Warm Assessment and Plan - Assessment and Plan (Free Text) Assessment: 57 y/o F with PMHx of hepatitis B, non-compliance, HIV and AIDS (last CD4 95) who presented to the ED for hallucinations and altered mental status, as per daughter. Patient was recently diagnosed with Pneumocystis pneumonia (PCP) but signed out AMA after last visit. Patient is on HAART therapy. Imaging showed diffuse pulmonary infiltrates - patient started on bactrim and steroids for PCP Pneumonia. 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 Pt's hypoxia has since improved and pt was transitioned from BiPap to high flow to venti mask, now saturating well on nasal cannula. Pt downgraded to medical floor. Ladonna Jones called on 11/27/17. Change in mental status likely due to delirium 2/2 to PCP Pneumonia. Plan: Sepsis 2/2 to PCP PNA Lactate of 3.8 on admission trending down, pt tachycardic, hypoxia improved CXR 11/20 and 11/21 demonstrated diffuse pulmonary infiltrates C/w Bactrim day #9, ID ok with pt going to PO anbx on d/c for total 14-21 day course C/w Levaquin 750 mg IVPB day #7 as per ID Blood cx 2/2 negative MRSA neg, urine cx neg RPR neg, Cryptococcal Ag neg, Beta-1,3-D-glucan elevated ID and pulm consulted, recs appreciated Repeat CD4 ct 99 (previous CD4 was 95 in 2017) LE Doppler done, results pending; pt has pancytopenia, r/o HIT as etiology, Heme /Onc consulted, recs appreciated Altered Mental Status Likely 2/2 dementia vs. 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 Changes of uncertain etiology though differential diagnosis would include sequela of HIV encephalopathy or PML. Per psych: pt on Seroquel; Ziprasidone prn Per neuro: Keppra 500 mg bid. Ammonia level wnl. Ladonna Jones called 11/27/17 for pt threatening staff with butter knife. Psych meds adjusted as per Dr. Marla. No acute events reported today, pt appeared calm. AIDS Hx non-compliance with HAART therapy Pt restarted on HAART therapy during admission F/u ID recs Hypokalemia - resolved GI/DVT prophylaxis: protonix 40 and lovenox 40 subQ Pt seen, examined with, and plan d/w Dr. Schultz, attending Omari Davis DO PGY-1, Senior Software Developer Pager #[phone] <Christ Schultz - Last Filed: 11/30/17 11:06> Objective - Vital Signs/Intake and Output Vital Signs (last 24 hours): Temp Pulse Resp BP Pulse Ox 97.5 F L 75 18 108/70 93 L 11/30/17 06:00 11/30/17 06:00 11/30/17 06:00 11/30/17 06:00 11/30/17 06:00 Intake and Output: 11/30/17 11/30/17 06:59 18:59 Intake Total 1680 Balance 1680 - Medications Medications: Current Medications Emtricitabine/Tenofovir (Truvada 200 Mg-300 Mg) 1 tab PO DAILY [facility] PRN Reason: Protocol Last Admin: 11/30/17 10:15 Dose: 1 tab Enoxaparin Sodium (Lovenox) 40 mg SC DAILY [facility] PRN Reason: Protocol Last Admin: 11/30/17 10:17 Dose: 40 mg Home Med (Home Med) 1 unit PO DAILY [facility] Last Admin: 11/30/17 10:21 Dose: 1 unit Dextrose/Sodium Chloride (Dextrose 5%/0.45% Ns 1000 Ml) 1,000 mls @ 75 mls/hr IV .[id number] [facility] Last Admin: 11/30/17 04:57 Dose: 75 mls/hr Levetiracetam (Keppra 500mg Ivpb) 500 mg in 100 mls @ 400 mls/hr IV Q12 [facility] Last Admin: 11/29/17 21:33 Dose: 400 mls/hr Trimethoprim/Sulfamethoxazole (300 mg/ Dextrose) 500 mls @ 250 mls/hr IVPB 0100 ,0900,1700 [facility] Last Admin: 11/30/17 10:15 Dose: 250 mls/hr Levalbuterol HCl (Xopenex) 1.25 mg IH [id number] PRN PRN Reason: Shortness of Breath Last Admin: 11/21/17 07:46 Dose: 1.25 mg Metoprolol Tartrate (Lopressor) 25 mg PO BID [facility] Last Admin: 11/30/17 10:18 Dose: 25 mg Nystatin/Triamcinolone Acetonide (Nystatin/Triamcinolone Ointment) 0 gm TOP BID [facility] Last Admin: 11/30/17 10:20 Dose: 1 applic Pantoprazole Sodium (Protonix Ec Tab) 40 mg PO 0600 [facility] Last Admin: 11/30/17 05:12 Dose: 40 mg Prednisone (Prednisone Tab) 30 mg PO DAILY [facility] Stop: 12/03/17 23:59 Last Admin: 11/30/17 10:17 Dose: 30 mg Prednisone (Prednisone Tab) 20 mg PO DAILY [facility] Stop: 12/05/17 23:59 Prednisone (Prednisone Tab) 10 mg PO DAILY [facility] Stop: 12/08/17 23:55 Prednisone (Prednisone Tab) 5 mg PO DAILY [facility] Stop: 12/10/17 11:55 Quetiapine Fumarate (Seroquel) 200 mg PO AMHS [facility] PRN Reason: Protocol Last Admin: 11/30/17 10:16 Dose: 200 mg Ziprasidone (Geodon Inj) 20 mg IM Q8H PRN; Protocol PRN Reason: severe agitaiton/psychosis - Labs Labs: 11/30/17 06:20 11/30/17 06:20 PT 14.6 SECONDS (9.4-12.5) H 11/22/17 08:20 INR 1.26 (0.93-1.08) H 11/22/17 08:20 Attending/Attestation - Attestation I have personally seen and examined this patient.: Yes I have fully participated in the care of the patient.: Yes I have reviewed all pertinent clinical information, including history, physical exam and plan: Yes Notes (Text): 11/30/17 11:02 Medical record note made by the resident after discussion with my direction and input after the patient was personally seen and examined by me. I have reviewed the chart and agree that the record accurately reflects by personal performance of the history, physical exam, data review, and medical decision-making, in the course for the patient. I have also personally directed the plan of care. 57 yrs old female with PMH of hepatitis B, non-compliance, HIV and AIDS (last CD4 95), presented with AMS, and diffuse bilateral infiltrates on CXR, and hypoxia. Patient was treated with broad spectrum antibiotics initially currently on treatment for PCP Pneumonia with Bactrim and steroid , and also on levofloxacin. Patient is currently afebrile, BP stable, on room air, sat 93%, O2 requirements decreasing Patient has Pancytopenia , likely due to medication /Bactrim ?,We will hold lovenox due to thrombocytopenia.We will get hematology consult. Mental status is better.Patient is awake but confused.MRI finding were reviewed, Case was discussed with Psychiatry. Prognosis is guarded. 11/30/17 11:06
--- NOTE | 2017-11-29 19:15 | US ---
HISTORY: Leg pain and swelling. Evaluate for DVT PHYSICIAN(S): Trey Gaines MD. TECHNIQUE: Duplex sonography and color-flow Doppler with graded compression were used to evaluate the deep venous systems of both lower extremities. FINDINGS: The visualized deep venous systems of both lower extremities are sonographically normal and compressible. Normal wave forms and augmentation are seen. There is no sonographic evidence for deep venous thrombosis in the visualized segments of both lower extremities. IMPRESSION: No sonographic evidence for deep venous thrombosis in the visualized segments of both lower extremities.
[2017-11-30] MEDS: Sulfamethoxazole/Trimethoprim 300 MG in Dextrose 5% In Water 500 ML IVPB SCH ×3 (01:15→18:06)
[2017-11-30] MEDS: Dextrose 5%/0.45% NS 1,000 ML IV SCH ×3 (04:57→22:38)
[2017-11-30] MEDS: Pantoprazole 40 mg EC Tab PO SCH (05:12)
--- NOTE | 2017-11-30 06:46 | CON ---
DATE: 11/29/2017 This is [facility]'s advanced surgical hospital visit on the telemetry floor. For Dr. Vasquez. CHIEF COMPLAINT: Pancytopenia. HISTORY OF PRESENT ILLNESS: The patient is a 57-year-old female, seen lying, awake in bed, confused, with her daughter at the bedside, who was anticipating discharge or transfer to a penitentiary/rehab facility earlier today when the patient's labs were reviewed showing that they were all better pancytopenic indices. It should be noted the patient is diagnosed with HIV, AIDS and is on high-dose steroids with tapering protocol, in fact also been treated with antibiotics as per Dr. Antoine, Dr. Justin, Infectious Disease consultants. With this the patient appears to be in no acute distress, resting comfortably. She was admitted for hallucinations with altered mental status with PCP pneumonia history in the past with this not being corrected since her admission on 11/20/2017. ALLERGIES: NO KNOWN ALLERGIES. PAST MEDICAL HISTORY: Significant for HIV, AIDS, hepatitis B with confusion. PAST SURGICAL HISTORY: Noncontributory. MEDICATIONS: At this time include IV Bactrim, Geodon, Keppra, Lopressor, Lovenox, nystatin, prednisone tapering doses tablets, Protonix, Seroquel, Xopenex, Truvada. FAMILY HISTORY AND SOCIAL HISTORY: Patient's daughter is at the bedside with patient admitted smoking or daughter admitted her mother smoking 1 to 2 packs a day for 20 plus years. Denies alcohol use. Otherwise noncontributory. It should be noted, patient is unfortunately not complying with her medical regimen. REVIEW OF SYSTEMS: A 12-point review of systems is done, which is negative to questioning except for items mentioned in the history of present illness as above. PHYSICAL EXAMINATION: VITAL SIGNS: Temperature 98.7, pulse 68, respirations 19, blood pressure 96/65, pulse ox is 94%. Height 5 feet 4 inches tall, weight 133 pounds. HEENT: Unremarkable. Tongue is moist, midline. NECK: Supple. HEART: Regular rate, occasional ectopic beat. LUNGS: Rare rhonchi. Poor inspiratory effort. ABDOMEN: Soft, nontender. EXTREMITIES: No edema. Toes wiggle freely. SKIN: Warm and dry. NEUROLOGIC: Awake and alert but confused. LABORATORY DATA: Patient's labs were done, white blood cell count of 3.3 today, however, upon review of her labs since 05/23, she had a white blood cell count ranging to 13.1 thousand and now slowly dropping despite being now started on oral steroids. Her hemoglobin today is 8.5, with at admission hemoglobin of 10.4, upon hydration it was 8.4 with the value yesterday of 8.9, 9.3. Her platelet count today is 98,000 with an admission platelet count of 223,000, the next day after hydration 171,000 with the patient having 122,000 value yesterday. I suspect that the labs need to be repeated prior to instituting any therapy as per Dr. Vasquez's recommendation. Chem metabolic panel from today showed a chloride of 108 with otherwise normal chem metabolic panel. AST is 87, ALT is 100, and these values are increased from her admission value, but her LFTs were within normal range. Urinalysis from 11/20 shows negative findings. Toxicology shows negative for drugs of abuse. Her absolute CD4 count is 99 with a absolute CD3 count of 322,000. Her serology showed negative Cryptococcus antigen, RPR was nonreactive, HSV-2 IgG was 12.9, it elevated with a beta 1,3 glucan test greater than 500 earlier in her hospital stay. Her Plavix genotype interpretation was positive on 11/[address] Justin's recommended testing. Urinalysis showed no growth, culture negative with the blood cultures also negative on her initial hospitalization. Patient had Doppler ultrasound done earlier today, it was read as no evidence of DVT in the visualized segments of both lower extremities. Patient had MRI of her brain done on 11/25/2017, it was read as limited motion degraded study, diffuse white matter prolonged T2 signal change, seen with periventricular deep subcortical white matter, changed on certain etiology includes sequelae of HIV encephalopathy. No enhancing lesions, moderate volume loss. ASSESSMENT: For this patient is that of anemia of chronic disease, human immunodeficiency virus with leukopenia, thrombocytopenia noted on today's labs. The patient's status post sepsis is probably due to pneumocystis, oral candidiasis now treated, acquired immune deficiency syndrome with CD4 count of 99, noncompliance, confusion with human immunodeficiency virus encephalopathy, mesenteric lymphadenopathy history, chronic active hepatitis B smoker, failure to thrive. PLAN: For this patient after conversation with Dr. Vasquez is to repeat her labs in the morning. We will also recommend continue present medical regimen as per Dr. Antoine, Infectious Disease with consideration for Granix, a growth factor for her neutropenia should persist with consideration for Aranesp subcu for her anemic indices should they persist. We will also check for a manual platelet count in the morning with further recommendations as indicated. Should her values improve, consideration would be then for transfer to her penitentiary/rehab facility as was recently planned with further testing as an outpatient as indicated. This is a complex patient with a comprehensive medically necessary and appropriate visit carried out in excess of 60 minutes [id number] time with the patient, her daughter and nurses on the floor with the patient's chart reviewed, the labs, tests were reviewed. Osiel Rosario MD
[2017-11-30 07:03] LABS: EOS % 0.7 % (1.5-5.0); GRAN # 2.39 (1.4-6.5); GRAN % 86.3 % (50.0-68.0); HEMOGLOBIN 8.7 g/dL (12.0-16.0); LYMPH # 0.3 (1.2-3.4); LYMPH % 10.1 % (22.0-35.0); MEAN CELL VOLUME 94.7 fl (80.0-105.0); MEAN CORPUSCULAR HEMOGLOBIN 32.8 pg (25.0-35.0); MEAN CORPUSCULAR HGB CONC 34.7 g/dl (31.0-37.0); MEAN PLATELET VOLUME 10.7 fl (7.0-11.0); MONO # 0.1 (0.1-0.6); MONO % 2.9 % (1.0-6.0); PLATELET COUNT 97 10^3/uL (120.0-450.0); RBC 2.65 10^6/uL (3.5-6.1); RED CELL DISTRIBUTION WIDTH 15.4 % (11.5-14.5)
[2017-11-30 07:20] LABS: WHITE BLOOD COUNT 2.8 10^3/ul (4.5-11.0)
[2017-11-30 07:26] LABS: ALB/GLOB RATIO 0.7 (1.1-1.8); ALBUMIN 2.4 g/dL (3.0-4.8); ALT/SGPT 119 U/L (7-56); AST/SGOT 112 U/L (14-36); BLOOD UREA NITROGEN 9 mg/dL (7-21); CALCIUM 8.6 mg/dL (8.4-10.5); GFR AFRICAN-AMERICAN > 60; GFR NON-AFRICAN AMERICAN > 60
[2017-11-30 09:00] LABS: PLATELET COUNT MANUAL 125 K/mm3 (120-450)
[2017-11-30] MEDS: Emtricitabine-Tenofovir 200 mg-300 mg Tab PO SCH (10:15)
[2017-11-30] MEDS: Enoxaparin 40 mg Syringe SC SCH (10:17)
[2017-11-30] MEDS: Nystatin-Triamcinolone Ointment(30 gm) TOP SCH ×2 (10:20→18:03)
[2017-11-30] MEDS: DOLUTEGRAVIR SODIUM 50 MG PO SCH (10:21)
--- NOTE | 2017-11-30 11:13 | CP.PCM.PN ---
<Pollo Dean - Last Filed: 11/30/17 11:15> Subjective - Date & Time of Evaluation Date of Evaluation: 11/30/17 Time of Evaluation: 09:12 - Subjective Subjective: Pollo Dean PGY2 IM Progress Note for Dr. Schultz Patient was seen and examined at bedside. She remains altered, and does not respond appropriately to questions. She is resting comfortably and appears to be in no acute distress. Per nursing notes, the patient slept well overnight, but is incontinent of urine. Discharge plans were delayed yesterday due to pancytopenia noted on labs, but if improved, patient is set up for discharge for [facility] per social work associate note. ROS was limited due to altered mental status of patient. Objective - Vital Signs/Intake and Output Vital Signs (last 24 hours): Temp Pulse Resp BP Pulse Ox 97.5 F L 75 18 108/70 93 L 11/30/17 06:00 11/30/17 06:00 11/30/17 06:00 11/30/17 06:00 11/30/17 06:00 Intake and Output: 11/30/17 11/30/17 06:59 18:59 Intake Total 1680 Balance 1680 - Medications Medications: Current Medications Emtricitabine/Tenofovir (Truvada 200 Mg-300 Mg) 1 tab PO DAILY [facility] PRN Reason: Protocol Last Admin: 11/30/17 10:15 Dose: 1 tab Enoxaparin Sodium (Lovenox) 40 mg SC DAILY [facility] PRN Reason: Protocol Last Admin: 11/30/17 10:17 Dose: 40 mg Home Med (Home Med) 1 unit PO DAILY [facility] Last Admin: 11/30/17 10:21 Dose: 1 unit Dextrose/Sodium Chloride (Dextrose 5%/0.45% Ns 1000 Ml) 1,000 mls @ 75 mls/hr IV .[id number] [facility] Last Admin: 11/30/17 04:57 Dose: 75 mls/hr Levetiracetam (Keppra 500mg Ivpb) 500 mg in 100 mls @ 400 mls/hr IV Q12 [facility] Last Admin: 11/29/17 21:33 Dose: 400 mls/hr Trimethoprim/Sulfamethoxazole (300 mg/ Dextrose) 500 mls @ 250 mls/hr IVPB 0100 ,0900,1700 [facility] Last Admin: 11/30/17 10:15 Dose: 250 mls/hr Levalbuterol HCl (Xopenex) 1.25 mg IH [id number] PRN PRN Reason: Shortness of Breath Last Admin: 11/21/17 07:46 Dose: 1.25 mg Metoprolol Tartrate (Lopressor) 25 mg PO BID [facility] Last Admin: 11/30/17 10:18 Dose: 25 mg Nystatin/Triamcinolone Acetonide (Nystatin/Triamcinolone Ointment) 0 gm TOP BID [facility] Last Admin: 11/30/17 10:20 Dose: 1 applic Pantoprazole Sodium (Protonix Ec Tab) 40 mg PO 0600 [facility] Last Admin: 11/30/17 05:12 Dose: 40 mg Prednisone (Prednisone Tab) 30 mg PO DAILY [facility] Stop: 12/03/17 23:59 Last Admin: 11/30/17 10:17 Dose: 30 mg Prednisone (Prednisone Tab) 20 mg PO DAILY [facility] Stop: 12/05/17 23:59 Prednisone (Prednisone Tab) 10 mg PO DAILY [facility] Stop: 12/08/17 23:55 Prednisone (Prednisone Tab) 5 mg PO DAILY [facility] Stop: 12/10/17 11:55 Quetiapine Fumarate (Seroquel) 200 mg PO AMHS [facility] PRN Reason: Protocol Last Admin: 11/30/17 10:16 Dose: 200 mg Ziprasidone (Geodon Inj) 20 mg IM Q8H PRN; Protocol PRN Reason: severe agitaiton/psychosis - Labs Labs: 11/30/17 06:20 11/30/17 06:20 PT 14.6 SECONDS (9.4-12.5) H 11/22/17 08:20 INR 1.26 (0.93-1.08) H 11/22/17 08:20 - Additional Findings Additional findings: - Constitutional Appears: No Acute Distress, Older Than Stated Age, Chronically Ill - Head Exam Head Exam: ATRAUMATIC, NORMAL INSPECTION, NORMOCEPHALIC - Eye Exam Eye Exam: EOMI, Normal appearance, PERRL - ENT Exam ENT Exam: Mucous Membranes Moist, Normal Oropharynx - Neck Exam Neck Exam: Full ROM, Normal Inspection - Respiratory Exam Respiratory Exam: Clear to Ausculation Bilateral, NORMAL BREATHING PATTERN - Cardiovascular Exam Cardiovascular Exam: Tachycardia, +S1, +S2 - GI/Abdominal Exam GI & Abdominal Exam: Soft, Normal Bowel Sounds - Extremities Exam Extremities Exam: Full ROM, Normal Capillary Refill, Normal Inspection - Back Exam Back Exam: NORMAL INSPECTION - Neurological Exam Neurological Exam: Alert, Awake, Altered - Psychiatric Exam Psychiatric exam: Flat Affect - Skin Skin Exam: Dry, Intact, Normal Color, Warm Assessment and Plan - Assessment and Plan (Free Text) Assessment: 57 y/o F with PMHx of HIV and AIDS (last CD4 99), hepatitis B, and medication non-compliance who was brought to the ED for hallucinations and altered mental status. Imaging showed diffuse pulmonary infiltrates - patient started on bactrim and steroids for PCP Pneumonia. Patient is on HAART therapy. Hospital course complicated by hypoxia and respiratroy distress for which EQUITY RESEARCH ANALYST was called and patient was started on BiPAP and managed under ICU. Pt's hypoxia has since improved and pt was transitioned from BiPap to high flow to venti mask, now saturating well on nasal cannula. Pt downgraded to medical floor. Ladonna Jones called on 11/27/17 for patient threatening staff w/ butter knife. Change in mental status likely due to delirium 2/2 to PCP Pneumonia and HIV encephalitis. Discharge was delayed due to pancytopenia noted on labs, likely a medication side effect. Plan: 1. Sepsis likely 2/2 to PCP PNA - C/w Bactrim day #9, ID ok with pt going to PO anbx on d/c for total 14-21 day course - C/w Levaquin 750 mg IVPB day #7 as per ID - RPR neg, Cryptococcal Ag neg, Beta-1,3-D-glucan elevated - ID and pulm consulted, recs appreciated - Repeat CD4 ct 99 (previous CD4 was 95 in 2017) 2. Pancytopenia likely 2/2 medication side effect - Heparin-induced platelet antibodies ordered to r/o HIT - peripheral smear ordered - retic count elevated - Heme/Onc consulted, recommending possible use of Granix 3. Altered Mental Status likely 2/2 dementia vs. HIV encephalopathy vs. PML - MRI brain 11/25: Diffuse/confluent chronic white matter prolonged T2 signal changes seen within the periventricular deep and subcortical white matter as well as superior basal ganglia/mcclellan radiata junction. Changes of uncertain etiology though differential diagnosis would include sequela of HIV encephalopathy or PML. - Per psych: pt on Seroquel; Ziprasidone prn - Per neuro: Keppra 500 mg bid. Ammonia level wnl. 4. AIDS w/ hx non-compliance with HAART therapy - restarted on HAART therapy during admission - F/u ID recs GI/DVT prophylaxis: protonix 40 and lovenox 40 subQ Dispo: medically optimized for discharge to [facility] once pancytopenia improves or per Heme/Onc and ID recs Patient was seen, examined and discussed with attending, Dr. Schultz <Christ Schultz - Last Filed: 12/01/17 15:29> Objective - Vital Signs/Intake and Output Vital Signs (last 24 hours): Temp Pulse Resp BP Pulse Ox 97.8 F 78 16 92/61 L 93 L 12/01/17 12:00 12/01/17 12:00 12/01/17 12:00 12/01/17 12:00 12/01/17 06:00 Intake and Output: 12/01/17 12/01/17 06:59 18:59 Intake Total 120 Balance 120 - Medications Medications: Current Medications Emtricitabine/Tenofovir (Truvada 200 Mg-300 Mg) 1 tab PO DAILY [facility] PRN Reason: Protocol Last Admin: 12/01/17 09:54 Dose: 1 tab Enoxaparin Sodium (Lovenox) 40 mg SC DAILY [facility] PRN Reason: Protocol Last Admin: 11/30/17 10:17 Dose: 40 mg Home Med (Home Med) 1 unit PO DAILY [facility] Last Admin: 12/01/17 09:37 Dose: 1 unit Dextrose/Sodium Chloride (Dextrose 5%/0.45% Ns 1000 Ml) 1,000 mls @ 75 mls/hr IV .[id number] [facility] Last Admin: 11/30/17 22:38 Dose: Not Given Levetiracetam (Keppra 500mg Ivpb) 500 mg in 100 mls @ 400 mls/hr IV Q12 [facility] Last Admin: 12/01/17 09:41 Dose: 400 mls/hr Trimethoprim/Sulfamethoxazole (300 mg/ Dextrose) 500 mls @ 250 mls/hr IVPB 0100 ,0900,1700 [facility] Last Admin: 12/01/17 09:36 Dose: 250 mls/hr Levalbuterol HCl (Xopenex) 1.25 mg IH [id number] PRN PRN Reason: Shortness of Breath Last Admin: 11/21/17 07:46 Dose: 1.25 mg Metoprolol Tartrate (Lopressor) 25 mg PO BID [facility] Last Admin: 12/01/17 09:37 Dose: 25 mg Nystatin/Triamcinolone Acetonide (Nystatin/Triamcinolone Ointment) 0 gm TOP BID [facility] Last Admin: 12/01/17 09:37 Dose: 1 applic Pantoprazole Sodium (Protonix Ec Tab) 40 mg PO 0600 [facility] Last Admin: 12/01/17 05:16 Dose: 40 mg Prednisone (Prednisone Tab) 30 mg PO DAILY [facility] Stop: 12/03/17 23:59 Last Admin: 12/01/17 09:41 Dose: 30 mg Prednisone (Prednisone Tab) 20 mg PO DAILY [facility] Stop: 12/05/17 23:59 Prednisone (Prednisone Tab) 10 mg PO DAILY [facility] Stop: 12/08/17 23:55 Prednisone (Prednisone Tab) 5 mg PO DAILY [facility] Stop: 12/10/17 11:55 Quetiapine Fumarate (Seroquel) 200 mg PO AMHS [facility] PRN Reason: Protocol Last Admin: 12/01/17 09:41 Dose: 200 mg Ziprasidone (Geodon Inj) 20 mg IM Q8H PRN; Protocol PRN Reason: severe agitaiton/psychosis - Labs Labs: 12/01/17 06:00 11/30/17 06:20 PT 14.6 SECONDS (9.4-12.5) H 11/22/17 08:20 INR 1.26 (0.93-1.08) H 11/22/17 08:20 Attending/Attestation - Attestation I have personally seen and examined this patient.: Yes I have fully participated in the care of the patient.: Yes I have reviewed all pertinent clinical information, including history, physical exam and plan: Yes Notes (Text): 12/01/17 15:28 Medical record note made by the resident after discussion with my direction and input after the patient was personally seen and examined by me. I have reviewed the chart and agree that the record accurately reflects by personal performance of the history, physical exam, data review, and medical decision-making, in the course for the patient. I have also personally directed the plan of care. 57 yrs old female with PMH of hepatitis B, non-compliance, HIV and AIDS (last CD4 95), presented with AMS, and diffuse bilateral infiltrates on CXR, and hypoxia. Patient was treated with broad spectrum antibiotics initially currently on treatment for PCP Pneumonia with Bactrim and steroid , and also on levofloxacin. Patient is currently afebrile, BP stable, on room air, sat 93% , O2 requirements decreasing Patient has Pancytopenia , likely due to medication /Bactrim ?,We will hold lovenox due to thrombocytopenia.Hematology evaluation is appreciated. Pancytopenia is stable. Mental status is better.Patient is awake but confused.MRI finding were reviewed, Prognosis is guarded.
[2017-11-30] MEDS ORDERED: Potassium Chloride 20 mEq ER Tab PO STA (11:42)
--- NOTE | 2017-11-30 12:14 | CP.PCM.PN ---
Subjective - Date & Time of Evaluation Date of Evaluation: 11/29/17 Time of Evaluation: 10:30 - Subjective Subjective: Patient still with periods of agitation. No fevers, not in distress. Objective - Vital Signs/Intake and Output Vital Signs (last 24 hours): Temp Pulse Resp BP Pulse Ox 97.8 F 68 19 96/65 L 94 L 11/29/17 18:00 11/29/17 18:13 11/29/17 18:00 11/29/17 18:13 11/29/17 08:30 - Medications Medications: Current Medications Emtricitabine/Tenofovir (Truvada 200 Mg-300 Mg) 1 tab PO DAILY [facility] PRN Reason: Protocol Last Admin: 11/29/17 10:06 Dose: 1 tab Enoxaparin Sodium (Lovenox) 40 mg SC DAILY [facility] PRN Reason: Protocol Last Admin: 11/29/17 10:14 Dose: 40 mg Home Med (Home Med) 1 unit PO DAILY [facility] Last Admin: 11/29/17 10:07 Dose: 1 unit Dextrose/Sodium Chloride (Dextrose 5%/0.45% Ns 1000 Ml) 1,000 mls @ 75 mls/hr IV .[id number] [facility] Last Admin: 11/28/17 21:40 Dose: 75 mls/hr Levetiracetam (Keppra 500mg Ivpb) 500 mg in 100 mls @ 400 mls/hr IV Q12 [facility] Last Admin: 11/29/17 21:33 Dose: 400 mls/hr Trimethoprim/Sulfamethoxazole (300 mg/ Dextrose) 500 mls @ 250 mls/hr IVPB Q8 [facility] Last Admin: 11/29/17 17:00 Dose: 250 mls/hr Levalbuterol HCl (Xopenex) 1.25 mg IH [id number] PRN PRN Reason: Shortness of Breath Last Admin: 11/21/17 07:46 Dose: 1.25 mg Metoprolol Tartrate (Lopressor) 25 mg PO BID [facility] Last Admin: 11/29/17 18:13 Dose: Not Given Nystatin/Triamcinolone Acetonide (Nystatin/Triamcinolone Ointment) 0 gm TOP BID [facility] Last Admin: 11/29/17 18:14 Dose: 1 applic Pantoprazole Sodium (Protonix Ec Tab) 40 mg PO 0600 [facility] Last Admin: 11/29/17 05:21 Dose: Not Given Prednisone (Prednisone Tab) 40 mg PO DAILY [facility] Stop: 11/29/17 23:59 Last Admin: 11/29/17 10:06 Dose: 40 mg Prednisone (Prednisone Tab) 30 mg PO DAILY [facility] Stop: 12/03/17 23:59 Prednisone (Prednisone Tab) 20 mg PO DAILY [facility] Stop: 12/05/17 23:59 Prednisone (Prednisone Tab) 10 mg PO DAILY [facility] Stop: 12/08/17 23:55 Prednisone (Prednisone Tab) 5 mg PO DAILY [facility] Stop: 12/10/17 11:55 Quetiapine Fumarate (Seroquel) 200 mg PO AMHS [facility] PRN Reason: Protocol Last Admin: 11/29/17 21:21 Dose: 200 mg Ziprasidone (Geodon Inj) 20 mg IM Q8H PRN; Protocol PRN Reason: severe agitaiton/psychosis - Labs Labs: 11/29/17 06:55 11/29/17 06:55 PT 14.6 SECONDS (9.4-12.5) H 11/22/17 08:20 INR 1.26 (0.93-1.08) H 11/22/17 08:20 - Constitutional Appears: Chronically Ill - Head Exam Head Exam: NORMAL INSPECTION - ENT Exam ENT Exam: Mucous Membranes Moist - Neck Exam Neck Exam: absent: Lymphadenopathy, Meningismus - Respiratory Exam Respiratory Exam: Decreased Breath Sounds - Cardiovascular Exam Cardiovascular Exam: +S1, +S2 - GI/Abdominal Exam GI & Abdominal Exam: Soft. 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) history of bilateral mesenteric lymphadenopathy, probably related to HIV chronic active hepatitis B history of heavy smoking Plan continue IV Bactrim with steroids (day 6) - we discontinued Levaquin and Diflucan especially since there is interaction with Quetiapine which may prolong QT - complete 14-21 days of Bactrim (can be switched to PO Bactrim DS 3 tabs PO twice a day) and tapering steroids for another week continue ART (antiretroviral therapy) which also treats the Hepatitis B infection (Truvada and Dolutegravir) Fungitell is elevated, suggestive of Pneumocystis pneumonia will monitor CBC since WBC count and platelets are decreasing and if it continues to decrease, may change Bactrim to Mepron - Heme/Onc is following and they may give intervention with meds serum Crypt Ag is negative and CMV PCR is negative - follow up RPR reviewed MRI brain results - treatment for either of the two differential diagnoses is ART will continue to follow clinically while the patient is in the hospital - patient will need to follow up with HIV provider as outpatient with close follow up
[2017-11-30] MEDS: levETIRAcetam 500mg IVPB 500 MG/100 ML BAG IV SCH ×2 (12:25→22:22)
[2017-12-01] MEDS: Sulfamethoxazole/Trimethoprim 300 MG in Dextrose 5% In Water 500 ML IVPB SCH ×3 (00:52→18:00)
--- NOTE | 2017-12-01 01:04 | CON ---
DATE: 11/30/2017 HISTORY OF PRESENT ILLNESS: The patient is a 57-year-old -[place] female with no prior psychiatric history, who is admitted on the medical site with multiple serious medical issues, which required ICU stay with subsequent transfer to the medical floor. Psychiatry has been following the patient due to reported bizarre behavior and paranoia as well as notable visual hallucinations. 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 Patient is scheduled to be transferred to subacute rehab, psychiatrist following up with her to ensure that her mental status continues to be improved. I am familiar with the patient as I interviewed her at one point last week for her psychosis. I interviewed the patient at bedside today and she appears to be a lot calmer, less restless, less paranoid, less bizarre, and her focus is a little bit better; however, she is still disoriented and has some difficulty with comprehension of my questioning. She does report resolution of hallucination with some relief. She denies having any depression. Her responses are slow, and at times, she is unable to respond, does not know what month it is. She is superficially aware that she is in the hospital. She does not want to and she denies any pain or discomfort. She is generally friendly and cooperative, but at times, she does exhibit thought blocking and slowed mentation as mentioned previously. There have been no major behavioral issues on the medical floor recently and her insight and judgement are slowly improving as well as her psychotic symptoms. Labs and vitals were reviewed by this provider. MEDICATIONS: Relative psychiatric medications include Seroquel 200 mg a.m. and at bedtime, Geodon injection 20 mg IM every 8 hours. 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 The patient is on steroids, so this could be case of substance-induced psychosis. Patient is also taking Keppra, which is also causing psychosis. PLAN: We will continue with current medications as there is no indication to change them at this time. Patient is slowly improving medical team should evaluate the patient's medications. Consider Keppra as etiology for psychotic symptoms, though they seem to be improving at least on the short-term basis as per my conversation with her at bedside this morning. Psychiatry will sign off at this time. Please re-consult as necessary. Maria Victoria Brown MD
[2017-12-01] MEDS: Pantoprazole 40 mg EC Tab PO SCH (05:16)
[2017-12-01 06:41] LABS: BASO # 0.01 K/mm3 (0.0-2.0); BASO % 0.3 % (0.0-3.0); EOS # 0.1 (0.0-0.7); EOS % 2.7 % (1.5-5.0); GRAN # 2.29 (1.4-6.5); GRAN % 76.9 % (50.0-68.0); HEMOGLOBIN 9.6 g/dL (12.0-16.0); LYMPH # 0.5 (1.2-3.4); LYMPH % 15.1 % (22.0-35.0); MEAN CELL VOLUME 95.9 fl (80.0-105.0); MEAN CORPUSCULAR HEMOGLOBIN 33.1 pg (25.0-35.0); MEAN CORPUSCULAR HGB CONC 34.5 g/dl (31.0-37.0); MEAN PLATELET VOLUME 11.4 fl (7.0-11.0); MONO # 0.2 (0.1-0.6); RBC 2.9 10^6/uL (3.5-6.1); RED CELL DISTRIBUTION WIDTH 15.9 % (11.5-14.5)
[2017-12-01] MEDS: DOLUTEGRAVIR SODIUM 50 MG PO SCH (09:37)
[2017-12-01] MEDS: Nystatin-Triamcinolone Ointment(30 gm) TOP SCH ×2 (09:37→17:12)
[2017-12-01] MEDS: levETIRAcetam 500mg IVPB 500 MG/100 ML BAG IV SCH ×2 (09:41→21:15)
[2017-12-01] MEDS: Emtricitabine-Tenofovir 200 mg-300 mg Tab PO SCH (09:54)
[2017-12-01 10:22] LABS: HEPATITIS A IGM NEGATIVE (NEGATIVE)
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
[2017-12-01 11:32] LABS: TOTAL IRON BINDING CAPACITY 221 ug/dL (265-497)
[2017-12-01 11:38] LABS: % IRON SATURATION 65 % (20-55); IRON 145 ug/dL (45-180)
[2017-12-01 12:03] LABS: HEPATITIS B SURFACE AG Reactive (NEGATIVE)
[2017-12-01 12:09] LABS: HEP B SURFACE AG CONF CONFIRMED POSITIVE
--- NOTE | 2017-12-01 14:25 | CP.PCM.PN ---
Subjective - Date & Time of Evaluation Date of Evaluation: 12/01/17 Time of Evaluation: 09:30 - Subjective Subjective: No fevers, but still with occasional confusion and agitation. Objective - Vital Signs/Intake and Output Vital Signs (last 24 hours): Temp Pulse Resp BP Pulse Ox 97.8 F 72 20 99/70 L 95 12/01/17 00:01 12/01/17 02:00 12/01/17 00:01 12/01/17 00:01 12/01/17 00:01 Intake and Output: 11/30/17 12/01/17 18:59 06:59 Intake Total 1680 120 Balance 1680 120 - Medications Medications: Current Medications Emtricitabine/Tenofovir (Truvada 200 Mg-300 Mg) 1 tab PO DAILY [facility] PRN Reason: Protocol Last Admin: 11/30/17 10:15 Dose: 1 tab Enoxaparin Sodium (Lovenox) 40 mg SC DAILY [facility] PRN Reason: Protocol Last Admin: 11/30/17 10:17 Dose: 40 mg Home Med (Home Med) 1 unit PO DAILY [facility] Last Admin: 11/30/17 10:21 Dose: 1 unit Dextrose/Sodium Chloride (Dextrose 5%/0.45% Ns 1000 Ml) 1,000 mls @ 75 mls/hr IV .[id number] [facility] Last Admin: 11/30/17 22:38 Dose: Not Given Levetiracetam (Keppra 500mg Ivpb) 500 mg in 100 mls @ 400 mls/hr IV Q12 [facility] Last Admin: 11/30/17 22:22 Dose: 400 mls/hr Trimethoprim/Sulfamethoxazole (300 mg/ Dextrose) 500 mls @ 250 mls/hr IVPB 0100 ,0900,1700 [facility] Last Admin: 12/01/17 00:52 Dose: 250 mls/hr Levalbuterol HCl (Xopenex) 1.25 mg IH [id number] PRN PRN Reason: Shortness of Breath Last Admin: 11/21/17 07:46 Dose: 1.25 mg Metoprolol Tartrate (Lopressor) 25 mg PO BID [facility] Last Admin: 11/30/17 18:17 Dose: Not Given Nystatin/Triamcinolone Acetonide (Nystatin/Triamcinolone Ointment) 0 gm TOP BID [facility] Last Admin: 11/30/17 18:03 Dose: 1 applic Pantoprazole Sodium (Protonix Ec Tab) 40 mg PO 0600 [facility] Last Admin: 12/01/17 05:16 Dose: 40 mg Prednisone (Prednisone Tab) 30 mg PO DAILY [facility] Stop: 12/03/17 23:59 Last Admin: 11/30/17 10:17 Dose: 30 mg Prednisone (Prednisone Tab) 20 mg PO DAILY [facility] Stop: 12/05/17 23:59 Prednisone (Prednisone Tab) 10 mg PO DAILY [facility] Stop: 12/08/17 23:55 Prednisone (Prednisone Tab) 5 mg PO DAILY [facility] Stop: 12/10/17 11:55 Quetiapine Fumarate (Seroquel) 200 mg PO AMHS [facility] PRN Reason: Protocol Last Admin: 11/30/17 22:21 Dose: 200 mg Ziprasidone (Geodon Inj) 20 mg IM Q8H PRN; Protocol PRN Reason: severe agitaiton/psychosis - Labs Labs: 11/30/17 06:20 11/30/17 06:20 PT 14.6 SECONDS (9.4-12.5) H 11/22/17 08:20 INR 1.26 (0.93-1.08) H 11/22/17 08:20 - Constitutional Appears: Chronically Ill - Head Exam Head Exam: NORMAL INSPECTION - Respiratory Exam Respiratory Exam: Decreased Breath Sounds - Cardiovascular Exam Cardiovascular Exam: +S1, +S2 - GI/Abdominal Exam GI & Abdominal Exam: Soft. 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) history of bilateral mesenteric lymphadenopathy, probably related to HIV chronic active hepatitis B history of heavy smoking Plan continue IV Bactrim with steroids (day 7) - we discontinued Levaquin and Diflucan especially since there is interaction with Quetiapine which may prolong QT - complete 14-21 days of Bactrim (can be switched to PO Bactrim DS 3 tabs PO twice a day) and tapering steroids for another week continue ART (antiretroviral therapy) which also treats the Hepatitis B infection (Truvada and Dolutegravir) Fungitell is elevated, suggestive of Pneumocystis pneumonia will monitor CBC since WBC count and platelets are decreasing and if it continues to decrease, may change Bactrim to Mepron (so far it has stabilized so will continue to monitor on Bactrim) - Heme/Onc is following and they may give intervention with meds serum Crypt Ag is negative and CMV PCR is negative - follow up RPR reviewed MRI brain results - treatment for either of the two differential diagnoses is ART will continue to follow clinically while the patient is in the hospital - patient will need to follow up with HIV provider as outpatient with close follow up
[2017-12-01 17:43] LABS: FOLATE 2.6 ng/mL
--- NOTE | 2017-12-01 21:25 | CP.PCM.PN ---
Subjective - Date & Time of Evaluation Date of Evaluation: 11/30/17 Time of Evaluation: 21:00 - Subjective Subjective: No acute events. ROS: 12 ROS negative Objective - Vital Signs/Intake and Output Vital Signs (last 24 hours): Temp Pulse Resp BP Pulse Ox 97.8 F 78 16 92/61 L 93 L 12/01/17 12:00 12/01/17 12:00 12/01/17 12:00 12/01/17 12:00 12/01/17 06:00 - Medications Medications: Current Medications Emtricitabine/Tenofovir (Truvada 200 Mg-300 Mg) 1 tab PO DAILY [facility] PRN Reason: Protocol Last Admin: 12/01/17 09:54 Dose: 1 tab Enoxaparin Sodium (Lovenox) 40 mg SC DAILY [facility] PRN Reason: Protocol Last Admin: 11/30/17 10:17 Dose: 40 mg Home Med (Home Med) 1 unit PO DAILY [facility] Last Admin: 12/01/17 09:37 Dose: 1 unit Dextrose/Sodium Chloride (Dextrose 5%/0.45% Ns 1000 Ml) 1,000 mls @ 75 mls/hr IV .[id number] [facility] Last Admin: 11/30/17 22:38 Dose: Not Given Levetiracetam (Keppra 500mg Ivpb) 500 mg in 100 mls @ 400 mls/hr IV Q12 [facility] Last Admin: 12/01/17 21:15 Dose: 400 mls/hr Trimethoprim/Sulfamethoxazole (300 mg/ Dextrose) 500 mls @ 250 mls/hr IVPB 0100 ,0900,1700 [facility] Last Admin: 12/01/17 18:00 Dose: 250 mls/hr Levalbuterol HCl (Xopenex) 1.25 mg IH [id number] PRN PRN Reason: Shortness of Breath Last Admin: 11/21/17 07:46 Dose: 1.25 mg Metoprolol Tartrate (Lopressor) 25 mg PO BID [facility] Last Admin: 12/01/17 17:58 Dose: 25 mg Nystatin/Triamcinolone Acetonide (Nystatin/Triamcinolone Ointment) 0 gm TOP BID [facility] Last Admin: 12/01/17 17:12 Dose: 1 applic Pantoprazole Sodium (Protonix Ec Tab) 40 mg PO 0600 [facility] Last Admin: 12/01/17 05:16 Dose: 40 mg Prednisone (Prednisone Tab) 30 mg PO DAILY [facility] Stop: 12/03/17 23:59 Last Admin: 12/01/17 09:41 Dose: 30 mg Prednisone (Prednisone Tab) 20 mg PO DAILY [facility] Stop: 12/05/17 23:59 Prednisone (Prednisone Tab) 10 mg PO DAILY [facility] Stop: 12/08/17 23:55 Prednisone (Prednisone Tab) 5 mg PO DAILY [facility] Stop: 12/10/17 11:55 Quetiapine Fumarate (Seroquel) 200 mg PO AMHS [facility] PRN Reason: Protocol Last Admin: 12/01/17 21:15 Dose: 200 mg Ziprasidone (Geodon Inj) 20 mg IM Q8H PRN; Protocol PRN Reason: severe agitaiton/psychosis - Labs Labs: 12/01/17 06:00 11/30/17 06:20 PT 14.6 SECONDS (9.4-12.5) H 11/22/17 08:20 INR 1.26 (0.93-1.08) H 11/22/17 08:20 - Constitutional Appears: Non-toxic - Respiratory Exam Respiratory Exam: Accessory Muscle Use - Cardiovascular Exam Cardiovascular Exam: REGULAR RHYTHM, +S1, +S2. absent: Murmur - GI/Abdominal Exam GI & Abdominal Exam: Soft, Normal Bowel Sounds. absent: Tenderness - Extremities Exam Extremities Exam: Full ROM, Normal Capillary Refill, Normal Inspection. absent : Joint Swelling, Pedal Edema - Skin Skin Exam: Dry, Intact, Normal Color, Warm Assessment and Plan - Assessment and Plan (Free Text) Assessment: Ms. Valladares femi 57 y/o fmeale with pmhx significant for HIV who has been admitted with AMS in setting of PCP pneumonia and AIDS and whose hospital course has been complicated by pancytopenia- which is multifactorial (marrow supression from infection/sepsis; perhaps medications). At present her counts are not dangerously low she does not require transfusional support nor support with G-CSF at present. Continue abx and HIV medication treatment per EDVIN Vasquez MD Oncology Fellow
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
[2017-12-02] MEDS: Sulfamethoxazole/Trimethoprim 300 MG in Dextrose 5% In Water 500 ML IVPB SCH (03:25)
[2017-12-02] MEDS: Dextrose 5%/0.45% NS 1,000 ML IV SCH (04:54)
[2017-12-02] MEDS: Pantoprazole 40 mg EC Tab PO SCH (05:55)
[2017-12-02 07:17] LABS: EOS # 0.1 (0.0-0.7); EOS % 2.1 % (1.5-5.0); GRAN # 1.49 (1.4-6.5); GRAN % 63.7 % (50.0-68.0); HEMOGLOBIN 9.1 g/dL (12.0-16.0); LYMPH # 0.5 (1.2-3.4); LYMPH % 21.8 % (22.0-35.0); MEAN CELL VOLUME 95.7 fl (80.0-105.0); MEAN CORPUSCULAR HEMOGLOBIN 32.7 pg (25.0-35.0); MEAN CORPUSCULAR HGB CONC 34.2 g/dl (31.0-37.0); MEAN PLATELET VOLUME 9.8 fl (7.0-11.0); MONO # 0.3 (0.1-0.6); MONO % 12.4 % (1.0-6.0); RBC 2.78 10^6/uL (3.5-6.1)
--- NOTE | 2017-12-02 07:27 | CP.PCM.PN ---
Subjective - Date & Time of Evaluation Date of Evaluation: 12/02/17 Time of Evaluation: 07:15 - Subjective Subjective: Michael Ward DO, Internal Medicine Resident PGY-1 Hematology/Oncology Progress Note for Dr. Vasquez Patient seen and examined at bedside. Patient reports having fevers overnight but chart review of vital signs do not correlate. Patient denied SOB, chest pain , cough, nausea/vomiting. RN reports patient was agitated overnight, and required geodon for agitation. She received the geodon at 0340 and had not slept before then. Patient requested if she could go outside for a cigarette. We informed her that she could not but that we could give her a nicotine patch if need be. 1-1 sitter was present at bedside at the time of examination. Objective - Vital Signs/Intake and Output Vital Signs (last 24 hours): Temp Pulse Resp BP Pulse Ox 97.9 F 79 20 107/71 98 12/01/17 21:33 12/01/17 21:33 12/01/17 21:33 12/01/17 21:33 12/01/17 21:33 - Medications Medications: Current Medications Emtricitabine/Tenofovir (Truvada 200 Mg-300 Mg) 1 tab PO DAILY [facility] PRN Reason: Protocol Last Admin: 12/01/17 09:54 Dose: 1 tab Enoxaparin Sodium (Lovenox) 40 mg SC DAILY [facility] PRN Reason: Protocol Last Admin: 11/30/17 10:17 Dose: 40 mg Home Med (Home Med) 1 unit PO DAILY [facility] Last Admin: 12/01/17 09:37 Dose: 1 unit Dextrose/Sodium Chloride (Dextrose 5%/0.45% Ns 1000 Ml) 1,000 mls @ 75 mls/hr IV .[id number] [facility] Last Admin: 12/02/17 04:54 Dose: Not Given Levetiracetam (Keppra 500mg Ivpb) 500 mg in 100 mls @ 400 mls/hr IV Q12 [facility] Last Admin: 12/01/17 21:15 Dose: 400 mls/hr Trimethoprim/Sulfamethoxazole (300 mg/ Dextrose) 500 mls @ 250 mls/hr IVPB 0100 ,0900,1700 [facility] Last Admin: 12/02/17 03:25 Dose: 250 mls/hr Levalbuterol HCl (Xopenex) 1.25 mg IH [id number] PRN PRN Reason: Shortness of Breath Last Admin: 11/21/17 07:46 Dose: 1.25 mg Metoprolol Tartrate (Lopressor) 25 mg PO BID [facility] Last Admin: 12/01/17 17:58 Dose: 25 mg Nystatin/Triamcinolone Acetonide (Nystatin/Triamcinolone Ointment) 0 gm TOP BID [facility] Last Admin: 12/01/17 17:12 Dose: 1 applic Pantoprazole Sodium (Protonix Ec Tab) 40 mg PO 0600 [facility] Last Admin: 12/02/17 05:55 Dose: 40 mg Prednisone (Prednisone Tab) 30 mg PO DAILY [facility] Stop: 12/03/17 23:59 Last Admin: 12/01/17 09:41 Dose: 30 mg Prednisone (Prednisone Tab) 20 mg PO DAILY [facility] Stop: 12/05/17 23:59 Prednisone (Prednisone Tab) 10 mg PO DAILY [facility] Stop: 12/08/17 23:55 Prednisone (Prednisone Tab) 5 mg PO DAILY [facility] Stop: 12/10/17 11:55 Quetiapine Fumarate (Seroquel) 200 mg PO AMHS [facility] PRN Reason: Protocol Last Admin: 12/01/17 21:15 Dose: 200 mg Ziprasidone (Geodon Inj) 20 mg IM Q8H PRN; Protocol PRN Reason: severe agitaiton/psychosis Last Admin: 12/02/17 03:41 Dose: 20 mg - Labs Labs: 12/01/17 06:00 11/30/17 06:20 PT 14.6 SECONDS (9.4-12.5) H 11/22/17 08:20 INR 1.26 (0.93-1.08) H 11/22/17 08:20 - Constitutional Appears: Unkempt, Confused, Chronically Ill - Head Exam Head Exam: ATRAUMATIC, NORMOCEPHALIC - Eye Exam Eye Exam: Normal appearance, PERRL - ENT Exam ENT Exam: Mucous Membranes Moist Additional comments: oral thrush present in mouth but significantly improved from prior examinations , tonsils non-enlarged without injection - Respiratory Exam Respiratory Exam: Clear to Ausculation Bilateral, NORMAL BREATHING PATTERN. absent: Accessory Muscle Use, Rales, Rhonchi, Wheezes, Respiratory Distress - Cardiovascular Exam Cardiovascular Exam: REGULAR RHYTHM, RRR, +S1, +S2. absent: Diastolic murmur, Gallop, Rubs, Murmur - Extremities Exam Extremities Exam: Full ROM, Normal Inspection - Neurological Exam Neurological Exam: Alert, Altered, Awake - Psychiatric Exam Psychiatric exam: Anxious. absent: Agitated - Skin Skin Exam: Dry, Intact, Warm Assessment and Plan - Assessment and Plan (Free Text) Assessment: Ms. Valladares is a 57 year old female with PMH of HIV and non-compliance with HAART admitted for worsening SOB and AMS found to have PCP PNA on admission. She was noted to have worsening pancytopenia since admission, prompting consult. Pancytopenia -Likely secondary to many factors including marrow suppression from opportunistic RAJANI and/or fungal infection -Recommend bone marrow biopsy at this point to r/o RAJANI -Will send marrow for fungal stains and cultures, AFB stain, and mycobacterium cx -At this time, her counts are not dangerously low -Will continue to monitor and follow -Consider treatment with G-CSF or transfusion if her counts worsen Case and plan were reviewed and discussed in detail with my attending physician Dr. Christina Ward DO IM Resident PGY-1
[2017-12-02 07:38] LABS: WHITE BLOOD COUNT 2.3 10^3/ul (4.5-11.0)
[2017-12-02 07:46] LABS: ALB/GLOB RATIO 0.7 (1.1-1.8); ALBUMIN 2.7 g/dL (3.0-4.8); ALT/SGPT 140 U/L (7-56); AST/SGOT 107 U/L (14-36); BLOOD UREA NITROGEN 7 mg/dL (7-21); CALCIUM 8.7 mg/dL (8.4-10.5); GFR AFRICAN-AMERICAN > 60; GFR NON-AFRICAN AMERICAN > 60
[2017-12-02] MEDS: Nystatin-Triamcinolone Ointment(30 gm) TOP SCH ×2 (10:20→18:16)
[2017-12-02] MEDS: levETIRAcetam 500mg IVPB 500 MG/100 ML BAG IV SCH ×2 (10:21→21:35)
[2017-12-02] MEDS: DOLUTEGRAVIR SODIUM 50 MG PO SCH (10:21)
[2017-12-02] MEDS: Emtricitabine-Tenofovir 200 mg-300 mg Tab PO SCH (10:22)
--- NOTE | 2017-12-02 13:14 | CP.PCM.PN ---
<Omari Davis - Last Filed: 12/02/17 17:49> Subjective - Date & Time of Evaluation Date of Evaluation: 12/02/17 Time of Evaluation: 10:30 - Subjective Subjective: Omari Davis DO PGY-1, Bread Oven Operator Medicine Progress Note Pt seen and examined at bedside. Denies any acute complaints, resting comfortably in bed. States she feels a little tired this am. Report from RN stated that pt was agitated and confused overnight. Objective - Vital Signs/Intake and Output Vital Signs (last 24 hours): Temp Pulse Resp BP Pulse Ox 97.9 F 80 20 121/60 98 12/01/17 21:33 12/02/17 10:23 12/01/17 21:33 12/02/17 10:23 12/01/17 21:33 - Medications Medications: Current Medications Atovaquone (Mepron) 750 mg PO BID [facility] PRN Reason: Protocol Emtricitabine/Tenofovir (Truvada 200 Mg-300 Mg) 1 tab PO DAILY [facility] PRN Reason: Protocol Last Admin: 12/02/17 10:22 Dose: 1 tab Enoxaparin Sodium (Lovenox) 40 mg SC DAILY [facility] PRN Reason: Protocol Last Admin: 11/30/17 10:17 Dose: 40 mg Home Med (Home Med) 1 unit PO DAILY [facility] Last Admin: 12/02/17 10:21 Dose: 1 unit Dextrose/Sodium Chloride (Dextrose 5%/0.45% Ns 1000 Ml) 1,000 mls @ 75 mls/hr IV .[id number] [facility] Last Admin: 12/02/17 04:54 Dose: Not Given Levetiracetam (Keppra 500mg Ivpb) 500 mg in 100 mls @ 400 mls/hr IV Q12 [facility] Last Admin: 12/02/17 10:21 Dose: 400 mls/hr Levalbuterol HCl (Xopenex) 1.25 mg IH [id number] PRN PRN Reason: Shortness of Breath Last Admin: 11/21/17 07:46 Dose: 1.25 mg Metoprolol Tartrate (Lopressor) 12.5 mg PO BID [facility] Nystatin/Triamcinolone Acetonide (Nystatin/Triamcinolone Ointment) 0 gm TOP BID [facility] Last Admin: 12/02/17 10:20 Dose: 1 applic Pantoprazole Sodium (Protonix Ec Tab) 40 mg PO 0600 [facility] Last Admin: 12/02/17 05:55 Dose: 40 mg Prednisone (Prednisone Tab) 30 mg PO DAILY [facility] Stop: 12/03/17 23:59 Last Admin: 12/02/17 10:23 Dose: 30 mg Prednisone (Prednisone Tab) 20 mg PO DAILY [facility] Stop: 12/05/17 23:59 Prednisone (Prednisone Tab) 10 mg PO DAILY [facility] Stop: 12/08/17 23:55 Prednisone (Prednisone Tab) 5 mg PO DAILY [facility] Stop: 12/10/17 11:55 Quetiapine Fumarate (Seroquel) 200 mg PO AMHS [facility] PRN Reason: Protocol Last Admin: 12/02/17 10:22 Dose: 200 mg Ziprasidone (Geodon Inj) 20 mg IM Q8H PRN; Protocol PRN Reason: severe agitaiton/psychosis Last Admin: 12/02/17 03:41 Dose: 20 mg - Labs Labs: 12/02/17 06:45 12/02/17 06:45 PT 14.6 SECONDS (9.4-12.5) H 11/22/17 08:20 INR 1.26 (0.93-1.08) H 11/22/17 08:20 - Constitutional Appears: No Acute Distress, Older Than Stated Age, Chronically Ill - Head Exam Head Exam: ATRAUMATIC, NORMAL INSPECTION, NORMOCEPHALIC - Eye Exam Eye Exam: EOMI, Normal appearance - ENT Exam ENT Exam: Mucous Membranes Moist, Normal Oropharynx - Neck Exam Neck Exam: Full ROM, Normal Inspection - Respiratory Exam Respiratory Exam: Clear to Ausculation Bilateral, NORMAL BREATHING PATTERN - Cardiovascular Exam Cardiovascular Exam: REGULAR RHYTHM, +S1, +S2 - GI/Abdominal Exam GI & Abdominal Exam: Soft, Normal Bowel Sounds - Extremities Exam Extremities Exam: Full ROM, Normal Capillary Refill, Normal Inspection - Neurological Exam Neurological Exam: Alert, Awake, CN II-XII Intact Additional comments: Oriented x2 - Psychiatric Exam Psychiatric exam: Flat Affect - Skin Skin Exam: Dry, Intact, Normal Color, Warm Assessment and Plan - Assessment and Plan (Free Text) Assessment: 57 y/o F with PMHx of HIV and AIDS (last CD4 99), hepatitis B, and medication non-compliance who was brought to the ED for hallucinations and altered mental status. Imaging showed diffuse pulmonary infiltrates - patient started on bactrim and steroids for PCP Pneumonia. Patient is on HAART therapy. Hospital course complicated by hypoxia and respiratroy distress for which HEAD IRRIGATOR was called and patient was started on BiPAP and managed under ICU. Pt's hypoxia has since improved and pt was transitioned from BiPap to high flow to venti mask, now saturating well on nasal cannula. Pt downgraded to medical floor. Code Robert called on 11/27/17 for patient threatening staff w/ butter knife. Change in mental status likely due to delirium 2/2 to PCP Pneumonia and HIV encephalitis. Discharge was delayed due to pancytopenia noted on labs, likely a medication side effect. Plan: Sepsis likely 2/2 to PCP PNA - Bactrim d/c'd as per ID, ID started Mepron 750 mg PO bid day #1 - RPR neg, Cryptococcal Ag neg, Beta-1,3-D-glucan elevated - ID and pulm consulted, recs appreciated - Repeat CD4 ct 99 (previous CD4 was 95 in 2017) Pancytopenia - R/o medication-induced side effect vs. marrow suppression from opportunistic RAJANI and/or fungal infection - HD Stable/ VSS; no clinical complaints - Heparin-induced platelet antibodies ordered to r/o HIT - Retic count elevated - B12/Folic Acid wnl, low TIBC on anemia w/u - Heme/Onc consulted, recommend pt undergo bone marrow biopsy to r/o RAJANI Transaminitis -Trending up since admission -Pt has hx Hep B infection, unknown if pt ever gotten treatment -R/o medication-induced side effect -Pending Hepatic/Splenic U/s -GI consulted, recs appreciated Altered Mental Status likely 2/2 dementia vs. HIV encephalopathy vs. PML vs. delirium - MRI brain 11/25: Diffuse/confluent chronic white matter prolonged T2 signal changes seen within the periventricular deep and subcortical white matter as well as superior basal ganglia/mcclellan radiata junction. Changes of uncertain etiology though differential diagnosis would include sequela of HIV encephalopathy or PML. - Per psych continue pt on Seroquel; Ziprasidone prn - Per neuro: Keppra 500 mg bid. Ammonia level wnl; no further neuro intervention AIDS w/ hx non-compliance with HAART therapy - restarted on HAART therapy during admission - F/u ID recs GI/DVT prophylaxis: protonix 40 and lovenox 40 subQ Dispo: medically optimized for discharge to [facility] once pancytopenia improves or per Heme/Onc and ID recs Pt seen, examined with, and plan discussed with Dr. Schultz, attending Omari Davis DO, PGY-1, Bread Oven Operator Pager #[phone] <Christ Schultz - Last Filed: 12/10/17 13:41> Objective - Vital Signs/Intake and Output Vital Signs (last 24 hours): Temp Pulse Resp BP Pulse Ox 97.7 F 87 18 102/67 100 12/07/17 08:28 12/07/17 08:28 12/07/17 08:28 12/07/17 08:28 12/07/17 08:28 - Labs Labs: 12/07/17 07:00 12/07/17 07:00 PT 11.4 SECONDS (9.4-12.5) 12/04/17 07:00 INR 0.99 (0.93-1.08) 12/04/17 07:00 APTT 25.8 Seconds (25.1-36.5) 12/04/17 07:00 Attending/Attestation - Attestation I have personally seen and examined this patient.: Yes I have fully participated in the care of the patient.: Yes I have reviewed all pertinent clinical information, including history, physical exam and plan: Yes Notes (Text): 12/10/17 13:39 Medical record note made by the resident after discussion with my direction and input after the patient was personally seen and examined by me. I have reviewed the chart and agree that the record accurately reflects by personal performance of the history, physical exam, data review, and medical decision-making, in the course for the patient. I have also personally directed the plan of care. 57 yrs old female with PMH of hepatitis B, non-compliance, HIV and AIDS (last CD4 95), was admitted with hypoxic Resp Failure, ( diffuse bilateral infiltrates on CXR, and hypoxia) and AMS. Patient was treated with broad spectrum antibiotics, followed by Bactrim and steroid for PCP Pneumonia , developed Pancytopenia , likely due to medication /Bactrim ?,Bactrim is changed to Atovaquone,Hematology is planning for bone marrow biopsy LFT has also gone up,we will get abdominal USG and will monitor.
[2017-12-02] MEDS: Atovaquone 750 mg/5 ml Susp UD PO SCH ×2 (13:33→18:16)
--- NOTE | 2017-12-02 15:41 | CP.PCM.PN ---
Subjective - Date & Time of Evaluation Date of Evaluation: 12/02/17 Time of Evaluation: 13:20 - Subjective Subjective: Not in distress, no fevers but still with agitation. Objective - Vital Signs/Intake and Output Vital Signs (last 24 hours): Temp Pulse Resp BP Pulse Ox 97.9 F 80 20 121/60 98 12/01/17 21:33 12/02/17 10:23 12/01/17 21:33 12/02/17 10:23 12/01/17 21:33 - Medications Medications: Current Medications Emtricitabine/Tenofovir (Truvada 200 Mg-300 Mg) 1 tab PO DAILY [facility] PRN Reason: Protocol Last Admin: 12/02/17 10:22 Dose: 1 tab Enoxaparin Sodium (Lovenox) 40 mg SC DAILY [facility] PRN Reason: Protocol Last Admin: 11/30/17 10:17 Dose: 40 mg Home Med (Home Med) 1 unit PO DAILY [facility] Last Admin: 12/02/17 10:21 Dose: 1 unit Dextrose/Sodium Chloride (Dextrose 5%/0.45% Ns 1000 Ml) 1,000 mls @ 75 mls/hr IV .[id number] [facility] Last Admin: 12/02/17 04:54 Dose: Not Given Levetiracetam (Keppra 500mg Ivpb) 500 mg in 100 mls @ 400 mls/hr IV Q12 [facility] Last Admin: 12/02/17 10:21 Dose: 400 mls/hr Trimethoprim/Sulfamethoxazole (300 mg/ Dextrose) 500 mls @ 250 mls/hr IVPB 0100 ,0900,1700 [facility] Last Admin: 12/02/17 03:25 Dose: 250 mls/hr Levalbuterol HCl (Xopenex) 1.25 mg [facility] [id number] PRN PRN Reason: Shortness of Breath Last Admin: 11/21/17 07:46 Dose: 1.25 mg Metoprolol Tartrate (Lopressor) 25 mg PO BID [facility] Last Admin: 12/02/17 10:23 Dose: 25 mg Nystatin/Triamcinolone Acetonide (Nystatin/Triamcinolone Ointment) 0 gm TOP BID [facility] Last Admin: 12/02/17 10:20 Dose: 1 applic Pantoprazole Sodium (Protonix Ec Tab) 40 mg PO 0600 [facility] Last Admin: 12/02/17 05:55 Dose: 40 mg Prednisone (Prednisone Tab) 30 mg PO DAILY [facility] Stop: 12/03/17 23:59 Last Admin: 12/02/17 10:23 Dose: 30 mg Prednisone (Prednisone Tab) 20 mg PO DAILY [facility] Stop: 12/05/17 23:59 Prednisone (Prednisone Tab) 10 mg PO DAILY [facility] Stop: 12/08/17 23:55 Prednisone (Prednisone Tab) 5 mg PO DAILY [facility] Stop: 12/10/17 11:55 Quetiapine Fumarate (Seroquel) 200 mg PO AMHS [facility] PRN Reason: Protocol Last Admin: 12/02/17 10:22 Dose: 200 mg Ziprasidone (Geodon Inj) 20 mg IM Q8H PRN; Protocol PRN Reason: severe agitaiton/psychosis Last Admin: 12/02/17 03:41 Dose: 20 mg - Labs Labs: 12/02/17 06:45 12/02/17 06:45 PT 14.6 SECONDS (9.4-12.5) H 11/22/17 08:20 INR 1.26 (0.93-1.08) H 11/22/17 08:20 - Constitutional Appears: Chronically Ill - Head Exam Head Exam: NORMAL INSPECTION - ENT Exam ENT Exam: Mucous Membranes Moist - Respiratory Exam Respiratory Exam: Decreased Breath Sounds - Cardiovascular Exam Cardiovascular Exam: +S1, +S2 - GI/Abdominal Exam GI & Abdominal Exam: Soft. 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 Vasquez - patient to undergo Bone marrow biopsy which should be sent for AFB smears and cultures, fungal smears and cultures continue ART (antiretroviral therapy) which also treats the Hepatitis B infection (Truvada and Dolutegravir) Fungitell is elevated, suggestive of Pneumocystis pneumonia serum Crypt Ag is negative and CMV PCR is negative - follow up RPR reviewed MRI brain results - treatment for either of the two differential diagnoses is ART will continue to follow clinically while the patient is in the hospital - patient will need to follow up with HIV provider as outpatient with close follow up
--- NOTE | 2017-12-02 19:03 | US ---
Date of service: 12/02/2017 HISTORY: Transaminitis COMPARISON: None. TECHNIQUE: Sonographic evaluation of the abdomen. FINDINGS: LIVER: Measures 14.7 cm. Increased echogenicity of the liver parenchyma. Small hypoechoic areas in the right hepatic lobe measuring 1.3 x 1.0 x 1.2 cm and 0.9 x 0.5 x 1.0 cm. No intrahepatic bile duct dilatation. GALLBLADDER: Gallbladder sludge. No wall thickening. Sonographic Braxton sign was not elicited. COMMON BILE DUCT: Measures 3 mm. No stones. No dilatation. PANCREAS: Questionable small hypoechoic area in the pancreatic body measuring 0.8 x 0.4 cm and another in the tail measuring 0.7 x 0.4 cm. No ductal dilatation. RIGHT KIDNEY: Measures 10.9 x 3.3 x 4.6cm. Normal echogenicity. No calculus, mass, or hydronephrosis. LEFT KIDNEY: Measures 10.5 x 5.1 x 5.0cm. Normal echogenicity. No calculus, mass, or hydronephrosis. SPLEEN: Normal in size and contour. No mass. AORTA: No aneurysmal dilatation. IVC: Unremarkable. OTHER FINDINGS: None. IMPRESSION: Hepatic steatosis. Small hypoechoic areas in the right hepatic lobe measuring 1.3 cm and 1.0 cm are nonspecific and may represent areas of focal fatty sparing versus metastases. Questionable sub centimeter hypoechoic areas in the pancreatic body and tail. Pancreatic protocol CT/MRI can be obtained for further characterization as clinically warranted. Gallbladder sludge without sonographic evidence of acute cholecystitis.
[2017-12-03] MEDS: Pantoprazole 40 mg EC Tab PO SCH (05:49)
--- NOTE | 2017-12-03 06:55 | CP.PCM.PN ---
Subjective - Date & Time of Evaluation Date of Evaluation: 12/03/17 Time of Evaluation: 06:30 - Subjective Subjective: Michael Ward DO, IM Resident PGY-1: Hematology/Oncology Progress Note for Dr. Vasquez Patient was seen and examined at bedside. Per RN, her agitation was improved overnight and she was more willing to take her seroquel. She took the seroquel around 2200 last night and slept comfortably for many hours. This AM, she is awake and alert. The recommendation for bone marrow biopsy was explained to the patient given her continued pancytopenia. She didn't want to consider bone marrow biopsy at this point but agreed to speak with Dr. Gaines regarding the procedure. Objective - Vital Signs/Intake and Output Vital Signs (last 24 hours): Temp Pulse Resp BP Pulse Ox 97.8 F 85 18 94/59 L 93 L 12/02/17 21:50 12/02/17 21:50 12/02/17 21:50 12/02/17 21:50 12/02/17 21:50 Intake and Output: 12/02/17 12/03/17 18:59 06:59 Intake Total 540 Balance 540 - Medications Medications: Current Medications Atovaquone (Mepron) 750 mg PO BID [facility] PRN Reason: Protocol Last Admin: 12/02/17 18:16 Dose: Not Given Emtricitabine/Tenofovir (Truvada 200 Mg-300 Mg) 1 tab PO DAILY [facility] PRN Reason: Protocol Last Admin: 12/02/17 10:22 Dose: 1 tab Enoxaparin Sodium (Lovenox) 40 mg SC DAILY [facility] PRN Reason: Protocol Last Admin: 11/30/17 10:17 Dose: 40 mg Home Med (Home Med) 1 unit PO DAILY [facility] Last Admin: 12/02/17 10:21 Dose: 1 unit Dextrose/Sodium Chloride (Dextrose 5%/0.45% Ns 1000 Ml) 1,000 mls @ 75 mls/hr IV .[id number] [facility] Last Admin: 12/02/17 04:54 Dose: Not Given Levetiracetam (Keppra 500mg Ivpb) 500 mg in 100 mls @ 400 mls/hr IV Q12 [facility] Last Admin: 12/02/17 21:35 Dose: 400 mls/hr Levalbuterol HCl (Xopenex) 1.25 mg [facility] [id number] PRN PRN Reason: Shortness of Breath Last Admin: 11/21/17 07:46 Dose: 1.25 mg Metoprolol Tartrate (Lopressor) 12.5 mg PO BID [facility] Last Admin: 12/02/17 18:16 Dose: Not Given Nystatin/Triamcinolone Acetonide (Nystatin/Triamcinolone Ointment) 0 gm TOP BID [facility] Last Admin: 12/02/17 18:16 Dose: 1 applic Pantoprazole Sodium (Protonix Ec Tab) 40 mg PO 0600 [facility] Last Admin: 12/03/17 05:49 Dose: 40 mg Prednisone (Prednisone Tab) 30 mg PO DAILY [facility] Stop: 12/03/17 23:59 Last Admin: 12/02/17 10:23 Dose: 30 mg Prednisone (Prednisone Tab) 20 mg PO DAILY [facility] Stop: 12/05/17 23:59 Prednisone (Prednisone Tab) 10 mg PO DAILY [facility] Stop: 12/08/17 23:55 Prednisone (Prednisone Tab) 5 mg PO DAILY [facility] Stop: 12/10/17 11:55 Quetiapine Fumarate (Seroquel) 200 mg PO AMHS [facility] PRN Reason: Protocol Last Admin: 12/02/17 21:35 Dose: 200 mg Ziprasidone (Geodon Inj) 20 mg IM Q8H PRN; Protocol PRN Reason: severe agitaiton/psychosis Last Admin: 12/02/17 03:41 Dose: 20 mg - Labs Labs: 12/02/17 06:45 12/02/17 06:45 PT 14.6 SECONDS (9.4-12.5) H 11/22/17 08:20 INR 1.26 (0.93-1.08) H 11/22/17 08:20 - Constitutional Appears: Non-toxic, No Acute Distress - Head Exam Head Exam: ATRAUMATIC, NORMOCEPHALIC - Eye Exam Eye Exam: PERRL. absent: Scleral icterus - ENT Exam ENT Exam: Mucous Membranes Dry - Neck Exam Neck Exam: Full ROM. absent: Lymphadenopathy, Thyromegaly - Respiratory Exam Respiratory Exam: Clear to Ausculation Bilateral, NORMAL BREATHING PATTERN. absent: Accessory Muscle Use, Rales, Rhonchi, Wheezes - Cardiovascular Exam Cardiovascular Exam: REGULAR RHYTHM, RRR, +S1, +S2. absent: Gallop, Rubs, Murmur - GI/Abdominal Exam GI & Abdominal Exam: Soft, Normal Bowel Sounds. absent: Guarding, Rebound - Extremities Exam Extremities Exam: Full ROM. absent: Pedal Edema, Tenderness - Neurological Exam Neurological Exam: Alert, Awake - Psychiatric Exam Psychiatric exam: Anxious - Skin Skin Exam: Dry, Intact Assessment and Plan - Assessment and Plan (Free Text) Assessment: Ms. Valladares is a 57 year old female with PMH of HIV and non-compliance with HAART admitted for worsening SOB and AMS found to have PCP PNA on admission. She was noted to have worsening pancytopenia since admission, prompting consult. Pancytopenia -Likely secondary to many factors including marrow suppression from opportunistic RAJANI and/or fungal infection -This AM her WBC are continuing to decrease -We discussed her case with ID who are in agreement that RAJANI and/or fungal infection need to be ruled out with bone marrow bx -Case was discussed with Dr. Gaines -She is scheduled for bone marrow biopsy tomorrow -Will need to send marrow for fungal cultures and stains, AFB stain, and mycobacterium cultures -We reached out to the primary team for obtaining consent for the procedure Case and plan were reviewed and discussed in detail with my attending physician Dr. Vasquez. Michael Ward DO IM Resident PGY-1
[2017-12-03 07:11] LABS: BASO # 0.01 K/mm3 (0.0-2.0); BASO % 0.4 % (0.0-3.0); EOS % 0.4 % (1.5-5.0); GRAN # 1.51 (1.4-6.5); GRAN % 63.5 % (50.0-68.0); LYMPH # 0.6 (1.2-3.4); LYMPH % 23.9 % (22.0-35.0); MEAN CELL VOLUME 97.8 fl (80.0-105.0); MEAN CORPUSCULAR HEMOGLOBIN 33.7 pg (25.0-35.0); MEAN CORPUSCULAR HGB CONC 34.5 g/dl (31.0-37.0); MEAN PLATELET VOLUME 10.2 fl (7.0-11.0); MONO # 0.3 (0.1-0.6); MONO % 11.8 % (1.0-6.0); RBC 2.67 10^6/uL (3.5-6.1); RED CELL DISTRIBUTION WIDTH 16.4 % (11.5-14.5)
[2017-12-03 07:23] LABS: WHITE BLOOD COUNT 2.4 10^3/ul (4.5-11.0)
[2017-12-03 07:39] LABS: ALB/GLOB RATIO 0.7 (1.1-1.8); ALBUMIN 2.7 g/dL (3.0-4.8); ALT/SGPT 146 U/L (7-56); AST/SGOT 99 U/L (14-36); BLOOD UREA NITROGEN 10 mg/dL (7-21); CALCIUM 8.6 mg/dL (8.4-10.5); GFR AFRICAN-AMERICAN > 60; GFR NON-AFRICAN AMERICAN > 60
[2017-12-03] MEDS: Atovaquone 750 mg/5 ml Susp UD PO SCH (09:48)
[2017-12-03] MEDS: Emtricitabine-Tenofovir 200 mg-300 mg Tab PO SCH (09:48)
[2017-12-03] MEDS: levETIRAcetam 500mg IVPB 500 MG/100 ML BAG IV SCH (09:49)
[2017-12-03] MEDS: Nystatin-Triamcinolone Ointment(30 gm) TOP SCH (14:10)
[2017-12-03] MEDS: DOLUTEGRAVIR SODIUM 50 MG PO SCH (14:14)
[2017-12-03] MEDS ORDERED: Sodium Chloride 0.9% 1,000 ML IV STA (15:02)
--- NOTE | 2017-12-03 16:44 | CP.PCM.PN ---
<Omari Davis - Last Filed: 12/03/17 16:40> Subjective - Date & Time of Evaluation Date of Evaluation: 12/03/17 Time of Evaluation: 11:20 - Subjective Subjective: Omari Davis DO PGY-1, Toll Lineman Medicine Progress Note Pt seen and examined at bedside, denies any acute complaints. Resting comfortably at bedside. No acute events reported overnight. Objective - Vital Signs/Intake and Output Vital Signs (last 24 hours): Temp Pulse Resp BP Pulse Ox 97.8 F 90 18 123/61 97 12/03/17 06:00 12/03/17 06:00 12/03/17 06:00 12/03/17 06:00 12/03/17 06:00 Intake and Output: 12/03/17 12/03/17 06:59 18:59 Intake Total 540 Balance 540 - Medications Medications: Current Medications Atovaquone (Mepron) 750 mg PO BID [facility] PRN Reason: Protocol Last Admin: 12/03/17 09:48 Dose: 750 mg Emtricitabine/Tenofovir (Truvada 200 Mg-300 Mg) 1 tab PO DAILY [facility] PRN Reason: Protocol Last Admin: 12/03/17 09:48 Dose: 1 tab Enoxaparin Sodium (Lovenox) 40 mg SC DAILY [facility] PRN Reason: Protocol Last Admin: 11/30/17 10:17 Dose: 40 mg Home Med (Home Med) 1 unit PO DAILY [facility] Last Admin: 12/03/17 14:14 Dose: 1 unit Levalbuterol HCl (Xopenex) 1.25 mg IH [id number] PRN PRN Reason: Shortness of Breath Last Admin: 11/21/17 07:46 Dose: 1.25 mg Levetiracetam (Keppra) 500 mg PO BID [facility] Last Admin: 12/03/17 10:54 Dose: Not Given Metoprolol Tartrate (Lopressor) 12.5 mg PO BID [facility] Last Admin: 12/02/17 18:16 Dose: Not Given Nystatin/Triamcinolone Acetonide (Nystatin/Triamcinolone Ointment) 0 gm TOP BID [facility] Last Admin: 12/03/17 14:10 Dose: Not Given Pantoprazole Sodium (Protonix Ec Tab) 40 mg PO 0600 [facility] Last Admin: 07/17/18 05:49 Dose: 40 mg Prednisone (Prednisone Tab) 30 mg PO DAILY [facility] Stop: 12/03/17 23:59 Last Admin: 12/03/17 09:48 Dose: 30 mg Prednisone (Prednisone Tab) 20 mg PO DAILY [facility] Stop: 12/05/17 23:59 Prednisone (Prednisone Tab) 10 mg PO DAILY [facility] Stop: 12/08/17 23:55 Prednisone (Prednisone Tab) 5 mg PO DAILY [facility] Stop: 12/10/17 11:55 Quetiapine Fumarate (Seroquel) 200 mg PO [facility] PRN Reason: Protocol Last Admin: 12/03/17 09:48 Dose: 200 mg Ziprasidone (Geodon Inj) 20 mg IM Q8H PRN; Protocol PRN Reason: severe agitaiton/psychosis Last Admin: 12/02/17 03:41 Dose: 20 mg - Labs Labs: 12/03/17 06:45 12/03/17 06:45 PT 14.6 SECONDS (9.4-12.5) H 11/22/17 08:20 INR 1.26 (0.93-1.08) H 11/22/17 08:20 - Constitutional Appears: No Acute Distress, Older Than Stated Age, Chronically Ill - Head Exam Head Exam: ATRAUMATIC, NORMAL INSPECTION, NORMOCEPHALIC - Eye Exam Eye Exam: EOMI, Normal appearance, PERRL - ENT Exam ENT Exam: Mucous Membranes Moist, Normal Oropharynx - Neck Exam Neck Exam: Full ROM, Normal Inspection - Respiratory Exam Respiratory Exam: Clear to Ausculation Bilateral, NORMAL BREATHING PATTERN - Cardiovascular Exam Cardiovascular Exam: REGULAR RHYTHM, +S1, +S2 - GI/Abdominal Exam GI & Abdominal Exam: Soft, Normal Bowel Sounds - Extremities Exam Extremities Exam: Full ROM, Normal Capillary Refill, Normal Inspection - Back Exam Back Exam: Full ROM, NORMAL INSPECTION - Neurological Exam Neurological Exam: Alert, Awake, CN II-XII Intact Additional comments: Oriented x2 - Psychiatric Exam Psychiatric exam: Flat Affect - Skin Skin Exam: Dry, Intact, Normal Color, Warm Assessment and Plan - Assessment and Plan (Free Text) Assessment: 57 y/o F with PMHx of HIV and AIDS (last CD4 99), hepatitis B, and medication non-compliance who was brought to the ED for hallucinations and altered mental status. Imaging showed diffuse pulmonary infiltrates - patient started on bactrim and steroids for PCP Pneumonia. Patient is on HAART therapy. Hospital course complicated by hypoxia and respiratroy distress for which EVENT MARKETING MANAGER was called and patient was started on BiPAP and managed under ICU. Pt's hypoxia has since improved and pt was transitioned from BiPap to high flow to venti mask, now saturating well on nasal cannula. Pt downgraded to medical floor. Code Robert called on 11/27/17 for patient threatening staff w/ butter knife. Change in mental status likely due to delirium 2/2 to PCP Pneumonia and HIV encephalitis. Discharge was delayed due to pancytopenia noted on labs, likely a medication side effect. Plan: Sepsis likely 2/2 to PCP PNA - Bactrim d/c'd as per ID, c/w Mepron 750 mg PO bid day #2 - RPR neg, Cryptococcal Ag neg, Beta-1,3-D-glucan elevated - ID and pulm consulted, recs appreciated - Repeat CD4 ct 99 (previous CD4 was 95 in 2017) Pancytopenia - R/o medication-induced side effect vs. marrow suppression from opportunistic RAJANI and/or fungal infection - HD Stable/ VSS; no clinical complaints - Heparin-induced platelet antibodies ordered to r/o HIT - Retic count elevated - B12/Folic Acid wnl, low TIBC on anemia w/u - Heme/Onc consulted, recommend pt undergo bone marrow biopsy to r/o RAJANI - Pt scheduled for bone marrow biopsy with Dr. Gaines (IR) tomorrow afternoon Transaminitis -Trending up since admission -Pt has hx Hep B infection, unknown if pt ever gotten treatment -R/o medication-induced side effect -Hepatic/Splenic U/s 12/02: Hepatic steatosis. Small hypoechoic areas in R hepatic lobe 1.3 cm and 1.0 cm nonspecific, may represent areas of focal fatty sparing vs. metastasis. Questionable sub-cm hypoechoic areas in pancreatic body and tail. GB sludge w/o sono evidence of acute cholecystitis. -GI consulted, recs appreciated Altered Mental Status likely 2/2 dementia vs. HIV encephalopathy vs. PML vs. delirium - MRI brain 11/25: Diffuse/confluent chronic white matter prolonged T2 signal changes seen within the periventricular deep and subcortical white matter as well as superior basal ganglia/mcclellan radiata junction. Changes of uncertain etiology though differential diagnosis would include sequela of HIV encephalopathy or PML. - Per psych continue pt on Seroquel; Ziprasidone prn - Per neuro: Keppra 500 mg bid. Ammonia level wnl; no further neuro intervention AIDS w/ hx non-compliance with HAART therapy - restarted on HAART therapy during admission - F/u ID recs GI/DVT prophylaxis: protonix 40 and lovenox 40 subQ Dispo: medically optimized for discharge to [facility] once pancytopenia improves or per Heme/Onc and ID recs Pt seen, examined with, and plan discussed with Dr. Christianson, attending Omari Davis DO PGY-1, Toll Lineman Pager #[phone] <Day Christianson - Last Filed: 12/03/17 17:32> Objective - Vital Signs/Intake and Output Vital Signs (last 24 hours): Temp Pulse Resp BP Pulse Ox 98.1 F 114 H 18 101/68 94 L 12/03/17 14:00 12/03/17 14:00 12/03/17 14:00 12/03/17 16:50 12/03/17 14:00 Intake and Output: 12/03/17 12/03/17 06:59 18:59 Intake Total 540 Balance 540 - Medications Medications: Current Medications Atovaquone (Mepron) 750 mg PO BID [facility] PRN Reason: Protocol Last Admin: 12/03/17 09:48 Dose: 750 mg Emtricitabine/Tenofovir (Truvada 200 Mg-300 Mg) 1 tab PO DAILY [facility] PRN Reason: Protocol Last Admin: 12/03/17 09:48 Dose: 1 tab Enoxaparin Sodium (Lovenox) 40 mg SC DAILY [facility] PRN Reason: Protocol Last Admin: 11/30/17 10:17 Dose: 40 mg Home Med (Home Med) 1 unit PO DAILY [facility] Last Admin: 12/03/17 14:14 Dose: 1 unit Levalbuterol HCl (Xopenex) 1.25 mg IH [id number] PRN PRN Reason: Shortness of Breath Last Admin: 11/21/17 07:46 Dose: 1.25 mg Levetiracetam (Keppra) 500 mg PO BID [facility] Last Admin: 12/03/17 10:54 Dose: Not Given Metoprolol Tartrate (Lopressor) 12.5 mg PO BID [facility] Last Admin: 12/02/17 18:16 Dose: Not Given Nystatin/Triamcinolone Acetonide (Nystatin/Triamcinolone Ointment) 0 gm TOP BID [facility] Last Admin: 12/03/17 14:10 Dose: Not Given Pantoprazole Sodium (Protonix Ec Tab) 40 mg PO 0600 [facility] Last Admin: 12/03/17 05:49 Dose: 40 mg Prednisone (Prednisone Tab) 30 mg PO DAILY [facility] Stop: 12/03/17 23:59 Last Admin: 12/03/17 09:48 Dose: 30 mg Prednisone (Prednisone Tab) 20 mg PO DAILY [facility] Stop: 12/05/17 23:59 Prednisone (Prednisone Tab) 10 mg PO DAILY [facility] Stop: 12/08/17 23:55 Prednisone (Prednisone Tab) 5 mg PO DAILY [facility] Stop: 12/10/17 11:55 Quetiapine Fumarate (Seroquel) 200 mg PO [facility] PRN Reason: Protocol Last Admin: 12/03/17 09:48 Dose: 200 mg Ziprasidone (Geodon Inj) 20 mg IM Q8H PRN; Protocol PRN Reason: severe agitaiton/psychosis Last Admin: 12/02/17 03:41 Dose: 20 mg - Labs Labs: 12/03/17 06:45 12/03/17 06:45 PT 14.6 SECONDS (9.4-12.5) H 11/22/17 08:20 INR 1.26 (0.93-1.08) H 11/22/17 08:20 Attending/Attestation - Attestation I have personally seen and examined this patient.: Yes I have fully participated in the care of the patient.: Yes I have reviewed all pertinent clinical information, including history, physical exam and plan: Yes Notes (Text): 12/03/17 17:26 57 year old female with past medical history of HIV/AIDs, hepatitis B and medication noncompliance who presented with altered mental status and shortness of breath with hypoxia. CXR showed diffuse pulmonary infiltrates and she was started on bactrim and steroids for PCP pneumonia. Bactrim has been switched to mepron. She is on HAART therapy. Her mental status has improved since admission. She is being followed by ID, neurology and psychiatry. Hematology was also following for pancytopenia. Plan is for possible bone marrow biopsy tomorrow. GI was consulted for increased LFTs. She has abdominal ultrasound yesterday which was reviewed as above. Will follow up with GI recommendations. Day Christianson MD Hospitalist.
[2017-12-04] MEDS: Pantoprazole 40 mg EC Tab PO SCH (05:14)
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
[2017-12-04 07:38] LABS: BASO # 0.01 K/mm3 (0.0-2.0); BASO % 0.4 % (0.0-3.0); EOS % 0.4 % (1.5-5.0); GRAN # 1.37 (1.4-6.5); HEMOGLOBIN 9.6 g/dL (12.0-16.0); LYMPH # 0.8 (1.2-3.4); LYMPH % 32.2 % (22.0-35.0); MEAN CELL VOLUME 99.3 fl (80.0-105.0); MEAN CORPUSCULAR HEMOGLOBIN 33.2 pg (25.0-35.0); MEAN CORPUSCULAR HGB CONC 33.4 g/dl (31.0-37.0); MEAN PLATELET VOLUME 10.6 fl (7.0-11.0); MONO # 0.3 (0.1-0.6); RBC 2.89 10^6/uL (3.5-6.1); RED CELL DISTRIBUTION WIDTH 16.6 % (11.5-14.5)
[2017-12-04 07:44] LABS: INR 0.99 (0.93-1.08); PARTIAL THROMBOPLASTIN TIME 25.8 Seconds (25.1-36.5); PROTHROMBIN TIME 11.4 SECONDS (9.4-12.5); WHITE BLOOD COUNT 2.5 10^3/ul (4.5-11.0)
[2017-12-04 08:05] LABS: ALB/GLOB RATIO 0.7 (1.1-1.8); ALBUMIN 2.8 g/dL (3.0-4.8); ALT/SGPT 170 U/L (7-56); AST/SGOT 128 U/L (14-36); BLOOD UREA NITROGEN 11 mg/dL (7-21); CALCIUM 8.6 mg/dL (8.4-10.5); GFR AFRICAN-AMERICAN > 60; GFR NON-AFRICAN AMERICAN > 60
--- NOTE | 2017-12-04 08:37 | CP.PCM.PN ---
<Omari Davis - Last Filed: 12/04/17 14:30> Subjective - Date & Time of Evaluation Date of Evaluation: 12/04/17 Time of Evaluation: 06:45 - Subjective Subjective: Omari Davis DO PGY-1, Pest Control Worker Helper Medicine Progress Note Pt seen and examined at bedside. Denies any acute complaints. States she slept well last night, tolerating PO diet well. Pt to have bone marrow biopsy today, states she understands the procedure and agrees to have it performed. No acute events reported overnight. Objective - Vital Signs/Intake and Output Vital Signs (last 24 hours): Temp Pulse Resp BP Pulse Ox 98.7 F 90 18 96/64 L 100 12/03/17 23:02 12/03/17 23:02 12/03/17 23:02 12/03/17 23:02 12/03/17 23:02 Intake and Output: 12/04/17 12/04/17 06:59 18:59 Intake Total 740 Balance 740 - Medications Medications: Current Medications Atovaquone (Mepron) 750 mg PO BID [facility] PRN Reason: Protocol Last Admin: 12/03/17 09:48 Dose: 750 mg Emtricitabine/Tenofovir (Truvada 200 Mg-300 Mg) 1 tab PO DAILY [facility] PRN Reason: Protocol Last Admin: 12/03/17 09:48 Dose: 1 tab Enoxaparin Sodium (Lovenox) 40 mg SC DAILY [facility] PRN Reason: Protocol Last Admin: 11/30/17 10:17 Dose: 40 mg Home Med (Home Med) 1 unit PO DAILY [facility] Last Admin: 12/03/17 14:14 Dose: 1 unit Levalbuterol HCl (Xopenex) 1.25 mg IH [id number] PRN PRN Reason: Shortness of Breath Last Admin: 11/21/17 07:46 Dose: 1.25 mg Levetiracetam (Keppra) 500 mg PO BID [facility] Last Admin: 12/03/17 17:46 Dose: 500 mg Metoprolol Tartrate (Lopressor) 12.5 mg PO BID [facility] Last Admin: 12/02/17 18:16 Dose: Not Given Nystatin/Triamcinolone Acetonide (Nystatin/Triamcinolone Ointment) 0 gm TOP BID [facility] Last Admin: 12/03/17 14:10 Dose: Not Given Pantoprazole Sodium (Protonix Ec Tab) 40 mg PO 0600 [facility] Last Admin: 12/04/17 05:14 Dose: Not Given Prednisone (Prednisone Tab) 20 mg PO DAILY [facility] Stop: 12/05/17 23:59 Prednisone (Prednisone Tab) 10 mg PO DAILY [facility] Stop: 12/08/17 23:55 Prednisone (Prednisone Tab) 5 mg PO DAILY [facility] Stop: 12/10/17 11:55 Quetiapine Fumarate (Seroquel) 200 mg PO AM[facility] PRN Reason: Protocol Last Admin: 12/03/17 21:02 Dose: 200 mg Ziprasidone (Geodon Inj) 20 mg IM Q8H PRN; Protocol PRN Reason: severe agitaiton/psychosis Last Admin: 12/02/17 03:41 Dose: 20 mg - Labs Labs: 12/04/17 07:00 12/04/17 07:00 PT 11.4 SECONDS (9.4-12.5) 12/04/17 07:00 INR 0.99 (0.93-1.08) 12/04/17 07:00 APTT 25.8 Seconds (25.1-36.5) 12/04/17 07:00 - Constitutional Appears: No Acute Distress, Older Than Stated Age, Chronically Ill - Head Exam Head Exam: ATRAUMATIC, NORMAL INSPECTION, NORMOCEPHALIC - Eye Exam Eye Exam: EOMI, Normal appearance, PERRL - ENT Exam ENT Exam: Mucous Membranes Moist, Normal Oropharynx - Neck Exam Neck Exam: Full ROM, Normal Inspection - Respiratory Exam Respiratory Exam: Clear to Ausculation Bilateral, NORMAL BREATHING PATTERN - Cardiovascular Exam Cardiovascular Exam: REGULAR RHYTHM, +S1, +S2 - GI/Abdominal Exam GI & Abdominal Exam: Soft, Normal Bowel Sounds - Extremities Exam Extremities Exam: Full ROM, Normal Capillary Refill, Normal Inspection - Neurological Exam Neurological Exam: Alert, Awake, CN II-XII Intact Additional comments: Oriented x2 - Psychiatric Exam Psychiatric exam: Flat Affect - Skin Skin Exam: Dry, Intact, Normal Color, Warm Assessment and Plan - Assessment and Plan (Free Text) Assessment: 57 y/o F with PMHx of HIV and AIDS (last CD4 99), hepatitis B, and medication non-compliance who was brought to the ED for hallucinations and altered mental status. Imaging showed diffuse pulmonary infiltrates - patient started on bactrim and steroids for PCP Pneumonia. Patient is on HAART therapy. Hospital course complicated by hypoxia and respiratroy distress for which MARKETING AND PUBLIC RELATIONS MANAGER was called and patient was started on BiPAP and managed under ICU. Pt's hypoxia has since improved and pt was transitioned from BiPap to high flow to venti mask, now saturating well on nasal cannula. Pt downgraded to medical floor. Code Robert called on 11/27/17 for patient threatening staff w/ butter knife. Change in mental status likely due to delirium 2/2 to PCP Pneumonia and HIV encephalitis. Discharge was delayed due to pancytopenia noted on labs, likely a medication side effect. Pt to undergo bone marrow biopsy today by Dr. Gaines (IR), as per Heme/Onc and ID recs. Plan: Sepsis likely 2/2 to PCP PNA - Bactrim d/c'd as per ID, c/w Mepron 750 mg PO bid day #3 - RPR neg, Cryptococcal Ag neg, Beta-1,3-D-glucan elevated - ID and pulm consulted, recs appreciated - Repeat CD4 ct 99 (previous CD4 was 95 in 2017) - Per ID, lumbar puncture recommended, will be performed tomorrow Pancytopenia - R/o medication-induced side effect vs. marrow suppression from opportunistic RAJANI and/or fungal infection - HD Stable/ VSS; no clinical complaints - Heparin-induced platelet antibodies ordered to r/o HIT - Retic count elevated - B12/Folic Acid wnl, low TIBC on anemia w/u - Heme/Onc consulted, recommend pt undergo bone marrow biopsy to r/o RAJANI - Pt to have bone marrow biopsy with Dr. Gaines (IR) today, f/u results Transaminitis -Trending up since admission -Pt has hx Hep B infection, unknown if pt ever gotten treatment -R/o medication-induced side effect -Hepatic/Splenic U/s 12/02: Hepatic steatosis. Small hypoechoic areas in R hepatic lobe 1.3 cm and 1.0 cm nonspecific, may represent areas of focal fatty sparing vs. metastasis. Questionable sub-cm hypoechoic areas in pancreatic body and tail. GB sludge w/o sono evidence of acute cholecystitis. -GI consulted, recs appreciated -Pt to have MRCP today, f/u results Altered Mental Status likely 2/2 dementia vs. HIV encephalopathy vs. PML vs. delirium - MRI brain 11/25: Diffuse/confluent chronic white matter prolonged T2 signal changes seen within the periventricular deep and subcortical white matter as well as superior basal ganglia/mcclellan radiata junction. Changes of uncertain etiology though differential diagnosis would include sequela of HIV encephalopathy or PML. - Per psych continue pt on Seroquel; Ziprasidone prn - Per neuro: Keppra 500 mg bid. Ammonia level wnl; no further neuro intervention AIDS w/ hx non-compliance with HAART therapy - restarted on HAART therapy during admission - F/u ID recs GI/DVT prophylaxis: protonix 40 and lovenox 40 subQ Dispo: medically optimized for discharge to [facility] once pancytopenia improves or per Heme/Onc and ID recs Pt seen, examined with, and plan discussed with Dr. Christianson, attending Omari Davis DO PGY-1, Pest Control Worker Helper Pager #[phone] <Day Christianson - Last Filed: 12/04/17 18:32> Objective - Vital Signs/Intake and Output Vital Signs (last 24 hours): Temp Pulse Resp BP Pulse Ox 98.3 F 88 20 98/58 L 96 12/04/17 14:00 12/04/17 06:00 12/04/17 14:00 12/04/17 14:00 12/04/17 14:00 Intake and Output: 12/04/17 12/04/17 06:59 18:59 Intake Total 740 780 Balance 740 780 - Medications Medications: Current Medications Atovaquone (Mepron) 750 mg PO BID [facility] PRN Reason: Protocol Last Admin: 12/04/17 10:19 Dose: 750 mg Emtricitabine/Tenofovir (Truvada 200 Mg-300 Mg) 1 tab PO DAILY [facility] PRN Reason: Protocol Last Admin: 12/04/17 10:19 Dose: 1 tab Enoxaparin Sodium (Lovenox) 40 mg SC DAILY [facility] PRN Reason: Protocol Last Admin: 11/30/17 10:17 Dose: 40 mg Home Med (Home Med) 1 unit PO DAILY [facility] Last Admin: 12/04/17 12:52 Dose: Not Given Levalbuterol HCl (Xopenex) 1.25 mg IH [id number] PRN PRN Reason: Shortness of Breath Last Admin: 11/21/17 07:46 Dose: 1.25 mg Levetiracetam (Keppra) 500 mg PO BID [facility] Last Admin: 12/04/17 10:19 Dose: 500 mg Metoprolol Tartrate (Lopressor) 12.5 mg PO BID [facility] Last Admin: 12/02/17 18:16 Dose: Not Given Nystatin/Triamcinolone Acetonide (Nystatin/Triamcinolone Ointment) 0 gm TOP BID [facility] Last Admin: 12/04/17 10:00 Dose: 1 applic Pantoprazole Sodium (Protonix Ec Tab) 40 mg PO 0600 [facility] Last Admin: 12/04/17 05:14 Dose: Not Given Prednisone (Prednisone Tab) 20 mg PO DAILY [facility] Stop: 12/05/17 23:59 Last Admin: 12/04/17 10:19 Dose: 20 mg Prednisone (Prednisone Tab) 10 mg PO DAILY [facility] Stop: 12/08/17 23:55 Prednisone (Prednisone Tab) 5 mg PO DAILY [facility] Stop: 12/10/17 11:55 Quetiapine Fumarate (Seroquel) 200 mg PO [facility] PRN Reason: Protocol Last Admin: 12/04/17 10:19 Dose: 200 mg Ziprasidone (Geodon Inj) 20 mg IM Q8H PRN; Protocol PRN Reason: severe agitaiton/psychosis Last Admin: 12/02/17 03:41 Dose: 20 mg - Labs Labs: 12/04/17 07:00 12/04/17 07:00 PT 11.4 SECONDS (9.4-12.5) 12/04/17 07:00 INR 0.99 (0.93-1.08) 12/04/17 07:00 APTT 25.8 Seconds (25.1-36.5) 12/04/17 07:00 Attending/Attestation - Attestation I have personally seen and examined this patient.: Yes I have fully participated in the care of the patient.: Yes I have reviewed all pertinent clinical information, including history, physical exam and plan: Yes Notes (Text): 12/04/17 18:30 57 year old female with past medical history of HIV/AIDs, hepatitis B and medication noncompliance who presented with altered mental status and shortness of breath with hypoxia. CXR showed diffuse pulmonary infiltrates and she was started on bactrim and steroids for PCP pneumonia. Bactrim has been switched to mepron. She is on HAART therapy. Her mental status has improved since admission. She is being followed by ID, neurology and psychiatry. Hematology is also following for pancytopenia. Patient is pending bone marrow biopsy today and possible LP tomorrow (if patient is agreeable). GI was consulted for increased LFTs. She had abdominal ultrasound which was reviewed as above. MRCP was ordered and pending. Day Christianson MD Hospitalist.
--- NOTE | 2017-12-04 08:38 | PN ---
DATE: 12/03/2017 SUBJECTIVE: The patient is in bed, in no acute distress, nontoxic. PHYSICAL EXAMINATION: VITAL SIGNS: Temperature is 98, blood pressure is 101/60, respiratory rate of 18, heart rate of 114. HEENT: Unremarkable. NECK: Supple. LUNGS: Have decreased breath sounds. HEART: Normal S1 and S2. ABDOMEN: Soft, nontender. LABORATORY DATA: Reveals a white count of , hemoglobin of 9. BUN of 10, creatinine 0.8. The patient's calcitonin is 0.21. LFTs are noted to be improving somewhat. Microbiology is noted to have negative urine culture, negative blood cultures. Nasal MRSA screen is negative. The patient had a 500 beta 1, 3 D glucan tabs T4 at 99 which is unusual for PCP of 70% very close. Review of orders reveals the patient to be on Mepron, prednisone, home medication for HIV. 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 The patient is also on Truvada and dolutegravir with negative crypt antigen, negative CMV, PCR. The patient has an MRI of the brain on 11/25, chronic white matter changes seen, the patient . We will need a spinal fluid with PCR from the cerebrospinal fluid. Kelby Justin MD
[2017-12-04] MEDS: Nystatin-Triamcinolone Ointment(30 gm) TOP SCH ×2 (10:00→20:24)
[2017-12-04] MEDS: Atovaquone 750 mg/5 ml Susp UD PO SCH ×2 (10:19→20:24)
[2017-12-04] MEDS: Emtricitabine-Tenofovir 200 mg-300 mg Tab PO SCH (10:19)
[2017-12-04] MEDS: DOLUTEGRAVIR SODIUM 50 MG PO SCH (12:52)
--- NOTE | 2017-12-04 16:26 | CP.PCM.PN ---
Subjective - Date & Time of Evaluation Date of Evaluation: 12/04/17 Time of Evaluation: 11:50 - Subjective Subjective: Still with periods of agitations, no fevers. Objective - Vital Signs/Intake and Output Vital Signs (last 24 hours): Temp Pulse Resp BP Pulse Ox 98.2 F 88 20 108/73 100 12/04/17 06:00 12/04/17 06:00 12/04/17 06:00 12/04/17 06:00 12/04/17 06:00 Intake and Output: 12/04/17 12/04/17 06:59 18:59 Intake Total 740 Balance 740 - Medications Medications: Current Medications Atovaquone (Mepron) 750 mg PO BID [facility] PRN Reason: Protocol Last Admin: 12/04/17 10:19 Dose: 750 mg Emtricitabine/Tenofovir (Truvada 200 Mg-300 Mg) 1 tab PO DAILY [facility] PRN Reason: Protocol Last Admin: 12/04/17 10:19 Dose: 1 tab Enoxaparin Sodium (Lovenox) 40 mg SC DAILY [facility] PRN Reason: Protocol Last Admin: 11/30/17 10:17 Dose: 40 mg Home Med (Home Med) 1 unit PO DAILY COUNT INCLUDES [facility] Last Admin: 12/03/17 14:14 Dose: 1 unit Levalbuterol HCl (Xopenex) 1.25 mg IH [id number] PRN PRN Reason: Shortness of Breath Last Admin: 11/21/17 07:46 Dose: 1.25 mg Levetiracetam (Keppra) 500 mg PO BID COUNT INCLUDES [facility] Last Admin: 12/04/17 10:19 Dose: 500 mg Metoprolol Tartrate (Lopressor) 12.5 mg PO BID COUNT INCLUDES [facility] Last Admin: 12/02/17 18:16 Dose: Not Given Nystatin/Triamcinolone Acetonide (Nystatin/Triamcinolone Ointment) 0 gm TOP BID COUNT INCLUDES THE [facility] Last Admin: 12/03/17 14:10 Dose: Not Given Pantoprazole Sodium (Protonix Ec Tab) 40 mg PO 0600 COUNT INCLUDES [facility] Last Admin: 12/04/17 05:14 Dose: Not Given Prednisone (Prednisone Tab) 20 mg PO DAILY COUNT [facility]CLUDES [facility] Stop: 12/05/17 23:59 Last Admin: 12/04/17 10:19 Dose: 20 mg Prednisone (Prednisone Tab) 10 mg PO DAILY COUNT INCLUDES [facility] Stop: 12/08/17 23:55 Prednisone (Prednisone Tab) 5 mg PO DAILY [facility] Stop: 12/10/17 11:55 Quetiapine Fumarate (Seroquel) 200 mg PO AMHS [facility] PRN Reason: Protocol Last Admin: 12/04/17 10:19 Dose: 200 mg Ziprasidone (Geodon Inj) 20 mg IM Q8H PRN; Protocol PRN Reason: severe agitaiton/psychosis Last Admin: 12/02/17 03:41 Dose: 20 mg - Labs Labs: 12/04/17 07:00 12/04/17 07:00 PT 11.4 SECONDS (9.4-12.5) 12/04/17 07:00 INR 0.99 (0.93-1.08) 12/04/17 07:00 APTT 25.8 Seconds (25.1-36.5) 12/04/17 07:00 - Constitutional Appears: Chronically Ill - Head Exam Head Exam: NORMAL INSPECTION - ENT Exam ENT Exam: Mucous Membranes Moist - Neck Exam Neck Exam: absent: Meningismus - Respiratory Exam Respiratory Exam: Decreased Breath Sounds - Cardiovascular Exam Cardiovascular Exam: +S1, +S2 - GI/Abdominal Exam GI & Abdominal Exam: Soft. 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 Vasquez - patient to undergo Bone marrow biopsy which should be sent for AFB smears and cultures, fungal smears and cultures continue ART (antiretroviral therapy) which also treats the Hepatitis B infection (Truvada and Dolutegravir) Fungitell is elevated, suggestive of Pneumocystis pneumonia serum Crypt Ag is negative and CMV PCR is negative - follow up RPR reviewed MRI brain results - treatment for either of the two differential diagnoses is ART - would recommend lumbar puncture with CSF analysis for VDRL, Crypt Ag, EFRAÍN virus PCR will continue to follow clinically while the patient is in the hospital - patient will need to follow up with HIV provider as outpatient with close follow up
--- NOTE | 2017-12-04 17:05 | CP.PCM.CON ---
<Mark Erickson - Last Filed: 12/04/17 19:05> History of Present Illness - History of Present Illness History of Present Illness: GI Consult Note for TANISHA Serrato PGY-3 This is a 57 yo F with PMH of HIV/AIDS (last CD4 99), hepatitis B (pt reports knowing about Hep B for > 1 yr), and medication non-compliance who was initially brought to the ED for hallucinations and altered mental status, and has remained due to PCP Pneumonia and HIV encephalitis. Discharge was further delayed due to pancytopenia noted on labs, likely a medication side effect. GI was consulted due to her Hep B status and elevated transaminases. At time of exam, patient is awake, alert, oriented to self/location/year. No acute complaints. When queried about her Hep B, reports she thinks she got it from a newer partner (NOT the one who gave her HIV), has known about it for > 1 yr. Reports following up with an outpatient ID physician (Dr. Benitez, [facility] [place]) for HIV and Hep B management. Admits non-compliance with HIV medications. Denies any emesis, diarrhea, dysuria, hematuria, melena. Labs and Imaging from duration of admission reviewed, most recently notable Hepatic steatosis, Small hypoechoic areas in R hepatic lobe, and questionable sub-cm hypoechoic areas in pancreatic body and tail. PMH: HIV/AIDS, hepatitis B, medication non-compliance PSH: x1 Fam Hx: pt unaware of family hx Soc Hx: denies drinking or drug use, smokes 1-2 PPD for at least 20 years, HIV acquired through unprotected sex (still not using protection) PMD: Dr. Cornelius ID: Dr. Benitez ([facility] [place]) Review of Systems - Review of Systems All systems: reviewed and no additional remarkable complaints except (as per HPI ) Past Patient History - Infectious Disease Hx of Infectious Diseases: None - Past Social History Smoking Status: Heavy Smoker > 10 Cigarettes Daily Alcohol: None Drugs: Denies - CARDIAC Hx Cardiac Disorders: No - PULMONARY Hx Respiratory Disorders: Yes Hx Pneumonia: Yes - NEUROLOGICAL Hx Neurological Disorder: No - HEENT Hx HEENT Problems: No - RENAL Hx Chronic Kidney Disease: No - ENDOCRINE/METABOLIC Hx Endocrine Disorders: No - HEMATOLOGICAL/ONCOLOGICAL Hx Blood Disorders: Yes Hx AIDS: Yes Hx Hepatitis B: Yes Hx Human Immunodeficiency Virus (HIV): Yes - INTEGUMENTARY Hx Dermatological Problems: Yes (DERMATITIS) - MUSCULOSKELETAL/RHEUMATOLOGICAL Hx Falls: No (DENIES) - GASTROINTESTINAL Hx Gastrointestinal Disorders: Yes (ESOPHAGITIS, THRUSH) - GENITOURINARY/GYNECOLOGICAL Hx Sexually Transmitted Disorders: Yes - PSYCHIATRIC Hx Psychophysiologic Disorder: No (DENIES) - SURGICAL HISTORY Hx Surgeries: Yes (C SECTION) - ANESTHESIA Hx Anesthesia: Yes Hx Anesthesia Reactions: No Hx Malignant Hyperthermia: No Meds Home Medications: Home Medication List Medication Instructions Recorded Confirmed Type Emtricitabine/Tenofovir Diso 1 tab PO DAILY tab 11/29/17 Rx [Truvada 200 MG-300 MG] Levalbuterol [Xopenex] 1.25 mg IH [id number] PRN neb 11/29/17 Rx Metoprolol Tartrate [Lopressor] 25 mg PO BID tab 11/29/17 Rx Nystatin/Triamcinolone 1 unit TOP BID tube 11/29/17 Rx [Nystatin/Triamcinolone Ointment] Pantoprazole [Protonix EC Tab] 40 mg PO 0600 ect 11/29/17 Rx QUEtiapine [Seroquel] 200 mg PO AMHS tab 11/29/17 Rx Sulfamethoxazole/Trimethoprim 1 each PO BID #24 tablet 11/29/17 Rx [Bactrim Ds Tablet] levoFLOXacin [Levaquin] 500 mg PO DAILY tab 11/29/17 Rx predniSONE [predniSONE Tab] 5 mg PO DAILY tab 11/29/17 Rx predniSONE [predniSONE Tab] 10 mg PO DAILY tab 11/29/17 Rx predniSONE [predniSONE Tab] 20 mg PO DAILY tab 11/29/17 Rx predniSONE [predniSONE Tab] 30 mg PO DAILY tab 11/29/17 Rx Allergies/Adverse Reactions: Allergies Allergy/AdvReac Type Severity Reaction Status Date / Time No Known Allergies Allergy Unverified 10/22/16 17:07 - Medications Medications: Current Medications Atovaquone (Mepron) 750 mg PO BID [facility]ICE PRN Reason: Protocol Last Admin: 12/04/17 10:19 Dose: 750 mg Emtricitabine/Tenofovir (Truvada 200 Mg-300 Mg) 1 tab PO DAILY [facility] PRN Reason: Protocol Last Admin: 12/04/17 10:19 Dose: 1 tab Enoxaparin Sodium (Lovenox) 40 mg SC DAILY [facility] PRN Reason: Protocol Last Admin: 11/30/17 10:17 Dose: 40 mg Home Med (Home Med) 1 unit PO DAILY [facility] Last Admin: 12/04/17 12:52 Dose: Not Given Levalbuterol HCl (Xopenex) 1.25 mg IH [id number] PRN PRN Reason: Shortness of Breath Last Admin: 11/21/17 07:46 Dose: 1.25 mg Levetiracetam (Keppra) 500 mg PO BID [facility] Last Admin: 12/04/17 10:19 Dose: 500 mg Metoprolol Tartrate (Lopressor) 12.5 mg PO BID [facility] Last Admin: 12/02/17 18:16 Dose: Not Given Nystatin/Triamcinolone Acetonide (Nystatin/Triamcinolone Ointment) 0 gm TOP BID [facility] Last Admin: 12/04/17 10:00 Dose: 1 applic Pantoprazole Sodium (Protonix Ec Tab) 40 mg PO 0600 [facility] Last Admin: 12/04/17 05:14 Dose: Not Given Prednisone (Prednisone Tab) 20 mg PO DAILY [facility] Stop: 12/05/17 23:59 Last Admin: 12/04/17 10:19 Dose: 20 mg Prednisone (Prednisone Tab) 10 mg PO DAILY [facility] Stop: 12/08/17 23:55 Prednisone (Prednisone Tab) 5 mg PO DAILY [facility] Stop: 12/10/17 11:55 Quetiapine Fumarate (Seroquel) 200 mg PO AMHS [facility] PRN Reason: Protocol Last Admin: 12/04/17 10:19 Dose: 200 mg Ziprasidone (Geodon Inj) 20 mg IM Q8H PRN; Protocol PRN Reason: severe agitaiton/psychosis Last Admin: 12/02/17 03:41 Dose: 20 mg Physical Exam - Constitutional Appears: Non-toxic, No Acute Distress, Chronically Ill - Head Exam Head Exam: ATRAUMATIC, NORMAL INSPECTION, NORMOCEPHALIC - Eye Exam Eye Exam: EOMI, Normal appearance. absent: Conjunctival injection, Scleral icterus Pupil Exam: absent: Fixed, Irregular - ENT Exam ENT Exam: Mucous Membranes Moist. absent: Mucous Membranes Dry Additional comments: no oral candidiasis or other lesions appreciated - Neck Exam Neck exam: Positive for: Normal Inspection. Negative for: Lymphadenopathy, Thyromegaly - Respiratory Exam Respiratory Exam: Clear to Auscultation Bilateral, NORMAL BREATHING PATTERN. absent: Accessory Muscle Use, Chest Wall Tenderness, Decreased Breath Sounds, Rales, Rhonchi, Wheezes, Respiratory Distress - Cardiovascular Exam Cardiovascular Exam: REGULAR RHYTHM, RRR, +S1, +S2. absent: Bradycardia, Tachycardia, Irregular Rhythm, JVD, +S4 - GI/Abdominal Exam GI & Abdominal Exam: Normal Bowel Sounds, Soft. absent: Diminished Bowel Sounds , Distended, Firm, Hyperactive Bowel Sounds, Hypoactive Bowel Sounds, Rigid, Tenderness Additional comments: no spider angiomata appreciated - Extremities Exam Extremities exam: Positive for: normal inspection. Negative for: calf tenderness, pedal edema, tenderness - Back Exam Back exam: absent: CVA tenderness (L), CVA tenderness (R) - Neurological Exam Neurological exam: Alert, Oriented x3 - Psychiatric Exam Psychiatric exam: Normal Affect, Normal Mood - Skin Skin Exam: Dry, Intact, Normal Color, Warm Results - Vital Signs Recent Vital Signs: Last Vital Signs Temp 98.2 F 12/04/17 06:00 Pulse 88 12/04/17 06:00 Resp 20 12/04/17 06:00 BP 108/73 12/04/17 06:00 Pulse Ox 100 12/04/17 06:00 - Labs Result Diagrams: 12/04/17 07:00 12/04/17 07:00 Labs: Laboratory Results - last 24 hr 11/29/17 12/03/17 12/04/17 18:50 01:00 07:00 WBC 2.5 L* RBC 2.89 L Hgb 9.6 L Hct 28.7 L MCV 99.3 MCH 33.2 MCHC 33.4 RDW 16.6 H Plt Count 91 L MPV 10.6 Gran % 56.0 Lymph % (Auto) 32.2 [place] % (Auto) 11.0 H Eos % (Auto) 0.4 L Baso % (Auto) 0.4 Gran # 1.37 L Lymph # (Auto) 0.8 L [place] # (Auto) 0.3 Eos # (Auto) 0.0 Baso # (Auto) 0.01 PT INR APTT Sodium Potassium Chloride Carbon Dioxide Anion Gap BUN Creatinine Est GFR ( Amer) Est GFR (Non-Af Amer) Random Glucose Calcium Total Bilirubin AST ALT Alkaline Phosphatase Lactate Dehydrogenase Total Protein Albumin Globulin Albumin/Globulin Ratio Heparin-induced Plt Ab Negative Hepatitis Be Antigen Reactive H 12/04/17 12/04/17 07:00 07:00 WBC RBC Hgb Hct MCV MCH MCHC RDW Plt Count MPV Gran % Lymph % (Auto) [place] % (Auto) Eos % (Auto) Baso % (Auto) Gran # Lymph # (Auto) [place] # (Auto) Eos # (Auto) Baso # (Auto) PT 11.4 INR 0.99 APTT 25.8 Sodium 139 Potassium 3.9 Chloride 107 Carbon Dioxide 25 Anion Gap 11 BUN 11 Creatinine 0.7 Est GFR ( Amer) > 60 Est GFR (Non-Af Amer) > 60 Random Glucose 82 Calcium 8.6 Total Bilirubin 0.3 AST 128 H D ALT 170 H Alkaline Phosphatase 91 Lactate Dehydrogenase 710 H Total Protein 6.6 Albumin 2.8 L Globulin 3.8 Albumin/Globulin Ratio 0.7 L Heparin-induced Plt Ab Hepatitis Be Antigen Assessment & Plan - Assessment and Plan (Free Text) Assessment: This is a 57 yo F with PMH of HIV/AIDS (last CD4 99), hepatitis B (pt reports knowing about Hep B for > 1 yr), and medication non-compliance who was initially brought to the ED for hallucinations and altered mental status, and has remained due to PCP Pneumonia and HIV encephalitis. Discharge was further delayed due to pancytopenia noted on labs, likely a medication side effect. GI was consulted due to her Hep B status and elevated transaminases. Plan: Hep B (chronic) HIV progression to AIDS (last CD4 < 100) Chronic medical non-compliance Ddx: elevated LFTs 2/2 chronic Hep B infection vs medication induced (restarted HAART meds vs antibiotics) -Abd US obtained 12/02/17 notable for hepatic steatosis, small hypoechoic areas in R hepatic lobe, questionable sub-centimeter hypoechoic area of pancreatic body and tail, GB sludge without evidence of acute cholecystitis -Pending bone-marrow bx due to pancytopenia as per primary team -MRCP ordered to assess lesions on pancreas and liver on US, still pending -Due to co-infection with HIV/AIDS, we will not start Hep B anti-viral tx at this time, will defer to patient's outpatient ID physician who is also managing her HIV/AIDS meds, as careful co-management of the conditions is required -AFP ordered, Hep A total antibody ordered, f/u Patient seen, reviewed, and discussed with attending, Dr. Vargas <Sherry Vargas V - Last Filed: 12/04/17 22:38> Meds - Medications Medications: Current Medications Atovaquone (Mepron) 750 mg PO BID [facility] PRN Reason: Protocol Last Admin: 12/04/17 20:24 Dose: 750 mg Emtricitabine/Tenofovir (Truvada 200 Mg-300 Mg) 1 tab PO DAILY [facility] PRN Reason: Protocol Last Admin: 12/04/17 10:19 Dose: 1 tab Enoxaparin Sodium (Lovenox) 40 mg SC DAILY [facility] PRN Reason: Protocol Last Admin: 11/30/17 10:17 Dose: 40 mg Home Med (Home Med) 1 unit PO DAILY [facility] Last Admin: 12/04/17 12:52 Dose: Not Given Levalbuterol HCl (Xopenex) 1.25 mg IH [id number] PRN PRN Reason: Shortness of Breath Last Admin: 11/21/17 07:46 Dose: 1.25 mg Levetiracetam (Keppra) 500 mg PO BID [facility] Last Admin: 12/04/17 20:24 Dose: 500 mg Metoprolol Tartrate (Lopressor) 12.5 mg PO BID [facility] Last Admin: 12/02/17 18:16 Dose: Not Given Nystatin/Triamcinolone Acetonide (Nystatin/Triamcinolone Ointment) 0 gm TOP BID [facility] Last Admin: 12/04/17 20:24 Dose: 1 applic Pantoprazole Sodium (Protonix Ec Tab) 40 mg PO 0600 [facility] Last Admin: 12/04/17 05:14 Dose: Not Given Prednisone (Prednisone Tab) 20 mg PO DAILY [facility] Stop: 12/05/17 23:59 Last Admin: 12/04/17 10:19 Dose: 20 mg Prednisone (Prednisone Tab) 10 mg PO DAILY [facility] Stop: 12/08/17 23:55 Prednisone (Prednisone Tab) 5 mg PO DAILY [facility] Stop: 12/10/17 11:55 Quetiapine Fumarate (Seroquel) 200 mg PO AMHS [facility] PRN Reason: Protocol Last Admin: 12/04/17 21:53 Dose: 200 mg Ziprasidone (Geodon Inj) 20 mg IM Q8H PRN; Protocol PRN Reason: severe agitaiton/psychosis Last Admin: 12/02/17 03:41 Dose: 20 mg Results - Vital Signs Recent Vital Signs: Last Vital Signs Temp 98.3 F 12/04/17 14:00 Pulse 88 12/04/17 06:00 Resp 20 12/04/17 14:00 BP 98/58 L 12/04/17 14:00 Pulse Ox 96 12/04/17 14:00 - Labs Result Diagrams: 12/04/17 07:00 12/04/17 07:00 Labs: Laboratory Results - last 24 hr 11/29/17 12/03/17 12/04/17 18:50 01:00 07:00 WBC 2.5 L* RBC 2.89 L Hgb 9.6 L Hct 28.7 L MCV 99.3 MCH 33.2 MCHC 33.4 RDW 16.6 H Plt Count 91 L MPV 10.6 Gran % 56.0 Lymph % (Auto) 32.2 [place] % (Auto) 11.0 H Eos % (Auto) 0.4 L Baso % (Auto) 0.4 Gran # 1.37 L Lymph # (Auto) 0.8 L [place] # (Auto) 0.3 Eos # (Auto) 0.0 Baso # (Auto) 0.01 PT INR APTT Sodium Potassium Chloride Carbon Dioxide Anion Gap BUN Creatinine Est GFR ( Amer) Est GFR (Non-Af Amer) Random Glucose Calcium Total Bilirubin AST ALT Alkaline Phosphatase Lactate Dehydrogenase Total Protein Albumin Globulin Albumin/Globulin Ratio UF Heparin Interp Negative Heparin-induced Plt Ab Negative JUAN C UFH Low Dose 0.1 0 JUAN C UFH Low Dose 0.5 0 JUAN C UFH High Dose 100 0 Hepatitis Be Antigen Reactive H 12/04/17 12/04/17 07:00 07:00 WBC RBC Hgb Hct MCV MCH MCHC RDW Plt Count MPV Gran % Lymph % (Auto) [place] % (Auto) Eos % (Auto) Baso % (Auto) Gran # Lymph # (Auto) [place] # (Auto) Eos # (Auto) Baso # (Auto) PT 11.4 INR 0.99 APTT 25.8 Sodium 139 Potassium 3.9 Chloride 107 Carbon Dioxide 25 Anion Gap 11 BUN 11 Creatinine 0.7 Est GFR ( Amer) > 60 Est GFR (Non-Af Amer) > 60 Random Glucose 82 Calcium 8.6 Total Bilirubin 0.3 AST 128 H D ALT 170 H Alkaline Phosphatase 91 Lactate Dehydrogenase 710 H Total Protein 6.6 Albumin 2.8 L Globulin 3.8 Albumin/Globulin Ratio 0.7 L UF Heparin Interp Heparin-induced Plt Ab JUAN C UFH Low Dose 0.1 JUAN C UFH Low Dose 0.5 JUAN C UFH High Dose 100 Hepatitis Be Antigen Attending/Attestation - Attestation I have personally seen and examined this patient.: Yes I have fully participated in the care of the patient.: Yes I have reviewed all pertinent clinical information: Yes Notes (Text): This is an addendum to GI consult report dictated by the Physics Teacher.The patient was seen and examined earlier. Medical records, lab studies, imagings were reviewed. Last 24 hours events reviewed. Agreed with the above treatment plan as outlined in Physics Teacher 's notes the with the addition of the following patient is aware of Hepatitis B infection many months ago and she is being followed by ID This patient has hep B, HIV coinfection which is better managed by ID On examination abdomen soft and no tenderness explained patient has pancytopenia plan for bone marrow Requested MRI with MRCP to further evaluate pancreatic cystic lesion 12/04/17 22:38
[2017-12-05 07:16] LABS: BASO # 0.01 K/mm3 (0.0-2.0); BASO % 0.3 % (0.0-3.0); EOS % 1.2 % (1.5-5.0); GRAN # 1.83 (1.4-6.5); GRAN % 56.5 % (50.0-68.0); HEMOGLOBIN 9.3 g/dL (12.0-16.0); LYMPH # 0.9 (1.2-3.4); LYMPH % 28.4 % (22.0-35.0); MEAN CELL VOLUME 99.3 fl (80.0-105.0); MEAN CORPUSCULAR HEMOGLOBIN 33.1 pg (25.0-35.0); MEAN CORPUSCULAR HGB CONC 33.3 g/dl (31.0-37.0); MEAN PLATELET VOLUME 11.1 fl (7.0-11.0); MONO # 0.4 (0.1-0.6); MONO % 13.6 % (1.0-6.0); RBC 2.81 10^6/uL (3.5-6.1); RED CELL DISTRIBUTION WIDTH 16.7 % (11.5-14.5); WHITE BLOOD COUNT 3.2 10^3/ul (4.5-11.0)
[2017-12-05 07:44] LABS: ALB/GLOB RATIO 0.7 (1.1-1.8); ALBUMIN 2.8 g/dL (3.0-4.8); ALT/SGPT 161 U/L (7-56); AST/SGOT 108 U/L (14-36); BLOOD UREA NITROGEN 14 mg/dL (7-21); CALCIUM 8.3 mg/dL (8.4-10.5); GFR AFRICAN-AMERICAN > 60; GFR NON-AFRICAN AMERICAN > 60
--- NOTE | 2017-12-05 08:56 | CP.PCM.PN ---
<Mark Erickson - Last Filed: 12/05/17 08:57> Subjective - Date & Time of Evaluation Date of Evaluation: 12/05/17 Time of Evaluation: 07:00 - Subjective Subjective: GI Progress Note for Dr. Sam Erickson, PGY-3 Patient seen and examined at bedside. No acute complaint. Still pending MRCP. Denies any emesis, diarrhea, dysuria. Objective - Vital Signs/Intake and Output Vital Signs (last 24 hours): Temp Pulse Resp BP Pulse Ox 98.1 F 96 H 18 100/67 99 12/04/17 22:00 12/04/17 22:00 12/04/17 22:00 12/04/17 22:00 12/04/17 22:00 Intake and Output: 12/05/17 12/05/17 06:59 18:59 Intake Total 860 Balance 860 - Medications Medications: Current Medications Atovaquone (Mepron) 750 mg PO BID [facility] PRN Reason: Protocol Last Admin: 12/04/17 20:24 Dose: 750 mg Emtricitabine/Tenofovir (Truvada 200 Mg-300 Mg) 1 tab PO DAILY [facility] PRN Reason: Protocol Last Admin: 12/04/17 10:19 Dose: 1 tab Enoxaparin Sodium (Lovenox) 40 mg SC DAILY [facility] PRN Reason: Protocol Last Admin: 11/30/17 10:17 Dose: 40 mg Home Med (Home Med) 1 unit PO DAILY [facility] Last Admin: 12/04/17 12:52 Dose: Not Given Levalbuterol HCl (Xopenex) 1.25 mg I[facility] [id number] PRN PRN Reason: Shortness of Breath Last Admin: 11/21/17 07:46 Dose: 1.25 mg Levetiracetam (Keppra) 500 mg PO BID [facility] Last Admin: 12/04/17 20:24 Dose: 500 mg Metoprolol Tartrate (Lopressor) 12.5 mg PO BID [facility] Last Admin: 12/02/17 18:16 Dose: Not Given Nystatin/Triamcinolone Acetonide (Nystatin/Triamcinolone Ointment) 0 gm TOP BID [facility] Last Admin: 12/04/17 20:24 Dose: 1 applic Pantoprazole Sodium (Protonix Ec Tab) 40 mg PO 0600 [facility] Last Admin: 12/04/17 05:14 Dose: Not Given Prednisone (Prednisone Tab) 20 mg PO DAILY [facility] Stop: 12/05/17 23:59 Last Admin: 12/04/17 10:19 Dose: 20 mg Prednisone (Prednisone Tab) 10 mg PO DAILY [facility] Stop: 12/08/17 23:55 Prednisone (Prednisone Tab) 5 mg PO DAILY [facility] Stop: 12/10/17 11:55 Quetiapine Fumarate (Seroquel) 200 mg PO [facility] PRN Reason: Protocol Last Admin: 12/04/17 21:53 Dose: 200 mg Ziprasidone (Geodon Inj) 20 mg IM Q8H PRN; Protocol PRN Reason: severe agitaiton/psychosis Last Admin: 12/02/17 03:41 Dose: 20 mg - Labs Labs: 12/05/17 06:30 12/05/17 06:30 PT 11.4 SECONDS (9.4-12.5) 12/04/17 07:00 INR 0.99 (0.93-1.08) 12/04/17 07:00 APTT 25.8 Seconds (25.1-36.5) 12/04/17 07:00 - Additional Findings Additional findings: - Constitutional Appears: Non-toxic, No Acute Distress, Chronically Ill - Head Exam Head Exam: ATRAUMATIC, NORMAL INSPECTION, NORMOCEPHALIC - Eye Exam Eye Exam: Normal appearance. absent: Conjunctival injection, Scleral icterus Pupil Exam: absent: Fixed, Irregular - ENT Exam ENT Exam: Mucous Membranes Moist, no oral candidiasis or other lesions appreciated - Neck Exam Neck exam: Negative for: Lymphadenopathy, Thyromegaly - Respiratory Exam Respiratory Exam: Clear to Auscultation Bilateral, NORMAL BREATHING PATTERN. absent: Accessory Muscle Use, Chest Wall Tenderness, Decreased Breath Sounds, Rales, Rhonchi, Wheezes, Respiratory Distress - Cardiovascular Exam Cardiovascular Exam: REGULAR RHYTHM, RRR, +S1, +S2. absent: Bradycardia, Tachycardia, Irregular Rhythm, JVD, +S4 - GI/Abdominal Exam GI & Abdominal Exam: Normal Bowel Sounds, Soft. absent: Diminished Bowel Sounds , Distended, Firm, Hyperactive Bowel Sounds, Hypoactive Bowel Sounds, Rigid, Tenderness Additional comments: no spider angiomata appreciated - Extremities Exam Extremities exam: Positive for: normal inspection, pt cleaning nails on exam. Negative for: calf tenderness, pedal edema, tenderness - Back Exam Back exam: absent: CVA tenderness (L), CVA tenderness (R) - Neurological Exam Neurological exam: Awake and Alert, Oriented x3 (self, year, location), moving all extremities without issue, no fine motor control issues - Psychiatric Exam Psychiatric exam: Normal Affect, Normal Mood - Skin Skin Exam: Dry, Intact, Normal Color, Warm Assessment and Plan - Assessment and Plan (Free Text) Assessment: This is a 57 yo F with PMH of HIV/AIDS (last CD4 99), hepatitis B (pt reports knowing about Hep B for > 1 yr), and medication non-compliance who was initially brought to the ED for hallucinations and altered mental status, and has remained due to PCP Pneumonia and HIV encephalitis. Discharge was further delayed due to pancytopenia noted on labs, likely a medication side effect. GI was consulted due to her Hep B status and elevated transaminases. Plan: Hep B (chronic) HIV progression to AIDS (last CD4 < 100) Chronic medical non-compliance Ddx: elevated LFTs 2/2 chronic Hep B infection vs medication induced (restarted HAART meds vs antibiotics) -Abd US obtained 12/02/17 notable for hepatic steatosis, small hypoechoic areas in R hepatic lobe, questionable sub-centimeter hypoechoic area of pancreatic body and tail, GB sludge without evidence of acute cholecystitis -S/p bone-marrow bx due to pancytopenia, pending pathology -LFTs improved minorly today, continue to trend daily -MRCP ordered to assess lesions on pancreas and liver on US, still pending -Due to co-infection with HIV/AIDS, we will not start Hep B anti-viral tx at this time, will defer to patient's outpatient ID physician who is also managing her HIV/AIDS meds, as careful co-management of the conditions is required -AFP ordered, Hep A total antibody ordered, f/u Patient seen, reviewed, and discussed with attending, Dr. Vargas <Sherry Vargas V - Last Filed: 12/05/17 23:48> Objective - Vital Signs/Intake and Output Vital Signs (last 24 hours): Temp Pulse Resp BP Pulse Ox 98.2 F 99 H 18 104/69 95 12/05/17 21:58 12/05/17 21:58 12/05/17 21:58 12/05/17 21:58 12/05/17 21:58 Intake and Output: 12/05/17 12/06/17 18:59 06:59 Intake Total 75 520 Balance 75 520 - Medications Medications: Current Medications Acetaminophen (Tylenol 325mg Tab) 650 mg PO Q4 PRN PRN Reason: Pain, Mild (1-3) Atovaquone (Mepron) 750 mg PO BID [facility] PRN Reason: Protocol Last Admin: 12/05/17 18:08 Dose: 750 mg Emtricitabine/Tenofovir (Truvada 200 Mg-300 Mg) 1 tab PO DAILY [facility] PRN Reason: Protocol Last Admin: 12/05/17 10:53 Dose: 1 tab Enoxaparin Sodium (Lovenox) 40 mg SC DAILY [facility] PRN Reason: Protocol Last Admin: 11/30/17 10:17 Dose: 40 mg Home Med (Home Med) 1 unit PO DAILY [facility] Last Admin: 12/05/17 10:53 Dose: 1 unit Sodium Chloride (Sodium Chloride 0.45%) 1,000 mls @ 80 mls/hr IV .[id number] [facility] Stop: 12/06/17 08:00 Levalbuterol HCl (Xopenex) 1.25 mg IH [id number] PRN PRN Reason: Shortness of Breath Last Admin: 11/21/17 07:46 Dose: 1.25 mg Levetiracetam (Keppra) 500 mg PO BID [facility] Last Admin: 12/05/17 18:08 Dose: 500 mg Metoprolol Tartrate (Lopressor) 12.5 mg PO BID [facility] Last Admin: 12/02/17 18:16 Dose: Not Given Nystatin/Triamcinolone Acetonide (Nystatin/Triamcinolone Ointment) 0 gm TOP BID [facility] Last Admin: 12/05/17 18:08 Dose: 1 applic Ondansetron HCl (Zofran Inj) 4 mg IVP Q6H PRN PRN Reason: Nausea/Vomiting Pantoprazole Sodium (Protonix Ec Tab) 40 mg PO 0600 [facility] Last Admin: 12/05/17 10:53 Dose: 40 mg Prednisone (Prednisone Tab) 20 mg PO DAILY [facility] Stop: 12/05/17 23:59 Last Admin: 12/05/17 10:53 Dose: 20 mg Prednisone (Prednisone Tab) 10 mg PO DAILY [facility] Stop: 12/08/17 23:55 Prednisone (Prednisone Tab) 5 mg PO DAILY [facility] Stop: 12/10/17 11:55 Quetiapine Fumarate (Seroquel) 200 mg PO [facility] PRN Reason: Protocol Last Admin: 12/05/17 21:51 Dose: 200 mg Ziprasidone (Geodon Inj) 20 mg IM Q8H PRN; Protocol PRN Reason: severe agitaiton/psychosis Last Admin: 12/02/17 03:41 Dose: 20 mg - Labs Labs: 12/05/17 06:30 12/05/17 06:30 PT 11.4 SECONDS (9.4-12.5) 12/04/17 07:00 INR 0.99 (0.93-1.08) 12/04/17 07:00 APTT 25.8 Seconds (25.1-36.5) 12/04/17 07:00 Attending/Attestation - Attestation I have personally seen and examined this patient.: Yes I have fully participated in the care of the patient.: Yes I have reviewed all pertinent clinical information, including history, physical exam and plan: Yes Notes (Text): This is an addendum to GI progress report dictated by the Field Examiner.The patient was seen and examined earlier. Medical records, lab studies, imagings were reviewed. Last 24 hours events reviewed. Agreed with the above treatment plan as outlined in Field Examiner 's notes the with the addition of the following 12/05/17 23:48
--- NOTE | 2017-12-05 09:00 | CP.PCM.PN ---
Subjective - Date & Time of Evaluation Date of Evaluation: 12/05/17 Time of Evaluation: 06:30 - Subjective Subjective: Michael Ward DO, IM Resident PGY-1 Hematology/Oncology Progress Note for Dr. Vasquez Patient was seen and examined. She is due for bone marrow bx this AM, was unable to be fitted into the schedule yesterday. She reports that she felt more calm last night with her seroquel treatment. Objective - Vital Signs/Intake and Output Vital Signs (last 24 hours): Temp Pulse Resp BP Pulse Ox 98.1 F 96 H 18 100/67 99 12/04/17 22:00 12/04/17 22:00 12/04/17 22:00 12/04/17 22:00 12/04/17 22:00 Intake and Output: 12/05/17 12/05/17 06:59 18:59 Intake Total 860 Balance 860 - Medications Medications: Current Medications Atovaquone (Mepron) 750 mg PO BID [facility] PRN Reason: Protocol Last Admin: 12/04/17 20:24 Dose: 750 mg Emtricitabine/Tenofovir (Truvada 200 Mg-300 Mg) 1 tab PO DAILY [facility] PRN Reason: Protocol Last Admin: 12/04/17 10:19 Dose: 1 tab Enoxaparin Sodium (Lovenox) 40 mg SC DAILY [facility] PRN Reason: Protocol Last Admin: 11/30/17 10:17 Dose: 40 mg Home Med (Home Med) 1 unit PO DAILY [facility] Last Admin: 12/04/17 12:52 Dose: Not Given Levalbuterol HCl (Xopenex) 1.25 mg IH [id number] PRN PRN Reason: Shortness of Breath Last Admin: 11/21/17 07:46 Dose: 1.25 mg Levetiracetam (Keppra) 500 mg PO BID [facility] Last Admin: 12/04/17 20:24 Dose: 500 mg Metoprolol Tartrate (Lopressor) 12.5 mg PO BID [facility] Last Admin: 12/02/17 18:16 Dose: Not Given Nystatin/Triamcinolone Acetonide (Nystatin/Triamcinolone Ointment) 0 gm TOP BID [facility] Last Admin: 12/04/17 20:24 Dose: 1 applic Pantoprazole Sodium (Protonix Ec Tab) 40 mg PO 0600 [facility] Last Admin: 12/04/17 05:14 Dose: Not Given Prednisone (Prednisone Tab) 20 mg PO DAILY [facility] Stop: 12/05/17 23:59 Last Admin: 12/04/17 10:19 Dose: 20 mg Prednisone (Prednisone Tab) 10 mg PO DAILY [facility] Stop: 12/08/17 23:55 Prednisone (Prednisone Tab) 5 mg PO DAILY [facility] Stop: 12/10/17 11:55 Quetiapine Fumarate (Seroquel) 200 mg PO [facility] PRN Reason: Protocol Last Admin: 12/04/17 21:53 Dose: 200 mg Ziprasidone (Geodon Inj) 20 mg IM Q8H PRN; Protocol PRN Reason: severe agitaiton/psychosis Last Admin: 12/02/17 03:41 Dose: 20 mg - Labs Labs: 12/05/17 06:30 12/05/17 06:30 PT 11.4 SECONDS (9.4-12.5) 12/04/17 07:00 INR 0.99 (0.93-1.08) 12/04/17 07:00 APTT 25.8 Seconds (25.1-36.5) 12/04/17 07:00 - Constitutional Appears: No Acute Distress, Unkempt - Head Exam Head Exam: ATRAUMATIC, NORMOCEPHALIC - Eye Exam Eye Exam: Normal appearance, PERRL - ENT Exam ENT Exam: Mucous Membranes Moist - Neck Exam Neck Exam: Full ROM - Respiratory Exam Respiratory Exam: Clear to Ausculation Bilateral, NORMAL BREATHING PATTERN - Cardiovascular Exam Cardiovascular Exam: REGULAR RHYTHM, RRR, +S1, +S2. absent: Gallop, Rubs, Murmur - GI/Abdominal Exam GI & Abdominal Exam: Soft, Normal Bowel Sounds. absent: Tenderness, Organomegaly - Extremities Exam Extremities Exam: Full ROM, Normal Inspection. absent: Calf Tenderness, Pedal Edema - Neurological Exam Neurological Exam: Alert, Awake - Skin Skin Exam: Dry, Intact Assessment and Plan - Assessment and Plan (Free Text) Assessment: Ms. Valladares is a 57 year old female with PMH of HIV and non-compliance with HAART admitted for worsening SOB and AMS found to have PCP PNA on admission. She was noted to have worsening pancytopenia since admission, prompting consult. Pancytopenia -Likely secondary to many factors including marrow suppression from opportunistic RAJANI and/or fungal infection -Leukopenia improved from yesterday -Bone marrow bx to be completed today, they could not fit her into the schedule yesterday -Will send biopsy for fungal cultures and stains, AFB stain, and mycobacterium cultures Case and plan were reviewed and discussed in detail with my attending physician Dr. Christina Ward, DO IM Resident PGY-1
--- NOTE | 2017-12-05 10:39 | MRI ---
Date of service: 12/05/2017 PROCEDURE: Magnetic Resonance Cholangiopancreatography HISTORY: Follow-up pancreatic and liver lesions on ultrasound COMPARISON: Ultrasound 12/02/2017. TECHNIQUE: Multiplanar, multisequence MR images of the abdomen were obtained, including heavily T2 weighted MRCP images of the biliary system. Rotating maximum intensity projection images of the biliary system were generated. FINDINGS: MRCP: The common bile duct is of a normal caliber. No evidence of choledocholithiasis. No intrahepatic biliary ductal dilatation. LIVER: Scattered simple cysts are seen in the liver. There is mild fatty infiltration. GALLBLADDER: Unremarkable. SPLEEN: Unremarkable. PANCREAS: There are no discrete pancreatic lesions. The questionable lesions seen on ultrasound are not visible on MRI. ADRENALS: Unremarkable. KIDNEYS: Unremarkable. AORTA: No aneurysm. ASCITES: None. OTHER FINDINGS: None. IMPRESSION: Negative study
[2017-12-05] MEDS: Atovaquone 750 mg/5 ml Susp UD PO SCH ×2 (10:52→18:08)
[2017-12-05] MEDS: Emtricitabine-Tenofovir 200 mg-300 mg Tab PO SCH (10:53)
[2017-12-05] MEDS: DOLUTEGRAVIR SODIUM 50 MG PO SCH (10:53)
[2017-12-05] MEDS: Pantoprazole 40 mg EC Tab PO SCH (10:53)
[2017-12-05] MEDS: Nystatin-Triamcinolone Ointment(30 gm) TOP SCH ×2 (10:54→18:08)
--- NOTE | 2017-12-05 12:50 | CP.PCM.PN ---
<Omari Davis - Last Filed: 12/05/17 21:40> Subjective - Date & Time of Evaluation Date of Evaluation: 12/05/17 Time of Evaluation: 07:15 - Subjective Subjective: Omari Davis DO PGY-1, Equity Analyst Medicine Progress Note Pt seen and examined at bedside. Denies any acute complaints, Resting comfortably in chair oob. No acute events reported overnight. Objective - Vital Signs/Intake and Output Vital Signs (last 24 hours): Temp Pulse Resp BP Pulse Ox 97.5 F L 96 H 20 90/62 L 95 12/05/17 06:00 12/05/17 06:00 12/05/17 06:00 12/05/17 06:00 12/05/17 06:00 Intake and Output: 12/05/17 12/05/17 06:59 18:59 Intake Total 860 Balance 860 - Medications Medications: Current Medications Atovaquone (Mepron) 750 mg PO BID [facility] PRN Reason: Protocol Last Admin: 12/05/17 10:52 Dose: 750 mg Emtricitabine/Tenofovir (Truvada 200 Mg-300 Mg) 1 tab PO DAILY [facility] PRN Reason: Protocol Last Admin: 12/05/17 10:53 Dose: 1 tab Enoxaparin Sodium (Lovenox) 40 mg SC DAILY [facility] PRN Reason: Protocol Last Admin: 11/30/17 10:17 Dose: 40 mg Home Med (Home Med) 1 unit PO DAILY [facility] Last Admin: 12/05/17 10:53 Dose: 1 unit Levalbuterol HCl (Xopenex) 1.25 mg I[facility] [id number] PRN PRN Reason: Shortness of Breath Last Admin: 11/21/17 07:46 Dose: 1.25 mg Levetiracetam (Keppra) 500 mg PO BID [facility] Last Admin: 12/05/17 10:53 Dose: 500 mg Metoprolol Tartrate (Lopressor) 12.5 mg PO BID [facility] Last Admin: 12/02/17 18:16 Dose: Not Given Nystatin/Triamcinolone Acetonide (Nystatin/Triamcinolone Ointment) 0 gm TOP BID [facility] Last Admin: 12/05/17 10:54 Dose: 1 applic Pantoprazole Sodium (Protonix Ec Tab) 40 mg PO 0600 [facility] Last Admin: 12/05/17 10:53 Dose: 40 mg Prednisone (Prednisone Tab) 20 mg PO DAILY [facility] Stop: 12/05/17 23:59 Last Admin: 12/05/17 10:53 Dose: 20 mg Prednisone (Prednisone Tab) 10 mg PO DAILY [facility] Stop: 12/08/17 23:55 Prednisone (Prednisone Tab) 5 mg PO DAILY [facility] Stop: 12/10/17 11:55 Quetiapine Fumarate (Seroquel) 200 mg PO [facility] PRN Reason: Protocol Last Admin: 12/05/17 10:53 Dose: 200 mg Ziprasidone (Geodon Inj) 20 mg IM Q8H PRN; Protocol PRN Reason: severe agitaiton/psychosis Last Admin: 12/02/17 03:41 Dose: 20 mg - Labs Labs: 12/05/17 06:30 12/05/17 06:30 PT 11.4 SECONDS (9.4-12.5) 12/04/17 07:00 INR 0.99 (0.93-1.08) 12/04/17 07:00 APTT 25.8 Seconds (25.1-36.5) 12/04/17 07:00 - Constitutional Appears: No Acute Distress, Older Than Stated Age, Chronically Ill - Head Exam Head Exam: ATRAUMATIC, NORMAL INSPECTION, NORMOCEPHALIC - Eye Exam Eye Exam: EOMI, Normal appearance, PERRL - ENT Exam ENT Exam: Mucous Membranes Moist, Normal Oropharynx - Neck Exam Neck Exam: Full ROM, Normal Inspection - Respiratory Exam Respiratory Exam: Clear to Ausculation Bilateral, NORMAL BREATHING PATTERN - Cardiovascular Exam Cardiovascular Exam: REGULAR RHYTHM, +S1, +S2 - GI/Abdominal Exam GI & Abdominal Exam: Soft, Normal Bowel Sounds - Extremities Exam Extremities Exam: Full ROM, Normal Capillary Refill, Normal Inspection - Neurological Exam Neurological Exam: Alert, Awake Additional comments: Oriented x2 - Psychiatric Exam Psychiatric exam: Flat Affect - Skin Skin Exam: Dry, Intact, Normal Color, Warm Assessment and Plan - Assessment and Plan (Free Text) Assessment: 57 y/o F with PMHx of HIV and AIDS (last CD4 99), hepatitis B, and medication non-compliance who was brought to the ED for hallucinations and altered mental status. Imaging showed diffuse pulmonary infiltrates - patient started on bactrim and steroids for PCP Pneumonia. Patient is on HAART therapy. Hospital course complicated by hypoxia and respiratroy distress for which CANOPY STRINGER was called and patient was started on BiPAP and managed under ICU. Pt's hypoxia has since improved and pt was transitioned from BiPap to high flow to venti mask, now saturating well on nasal cannula. Pt downgraded to medical floor. Ladonna Jones called on 11/27/17 for patient threatening staff w/ butter knife. Change in mental status likely due to delirium 2/2 to PCP Pneumonia and HIV encephalitis. Discharge was delayed due to pancytopenia noted on labs, likely a medication side effect. Pt to undergo bone marrow biopsy, MRCP, and lumbar puncture, as per Heme/Onc and ID recs. Plan: Sepsis likely 2/2 to PCP PNA - Bactrim d/c'd as per ID, c/w Mepron 750 mg PO bid day #4 - RPR neg, Cryptococcal Ag neg, Beta-1,3-D-glucan elevated - ID and pulm consulted, recs appreciated - Repeat CD4 ct 99 (previous CD4 was 95 in 2017) - Per ID, lumbar puncture recommended, to be performed in am tomorrow Pancytopenia - R/o medication-induced side effect vs. marrow suppression from opportunistic RAJANI and/or fungal infection - HD Stable/ VSS; no clinical complaints - Heparin-induced platelet antibodies ordered to r/o HIT - Retic count elevated - B12/Folic Acid wnl, low TIBC on anemia w/u - Heme/Onc consulted, recommend pt undergo bone marrow biopsy to r/o RAJANI - Pt to have bone marrow biopsy with Dr. Gaines, f/u results Transaminitis -Trending up since admission -Pt has hx Hep B infection, unknown if pt ever gotten treatment -R/o medication-induced side effect -Hepatic/Splenic U/s 12/02: Hepatic steatosis. Small hypoechoic areas in R hepatic lobe 1.3 cm and 1.0 cm nonspecific, may represent areas of focal fatty sparing vs. metastasis. Questionable sub-cm hypoechoic areas in pancreatic body and tail. GB sludge w/o sono evidence of acute cholecystitis. -GI consulted, recs appreciated -Pt to have MRCP, f/u results Altered Mental Status likely 2/2 dementia vs. HIV encephalopathy vs. PML vs. delirium - MRI brain 11/25: Diffuse/confluent chronic white matter prolonged T2 signal changes seen within the periventricular deep and subcortical white matter as well as superior basal ganglia/mcclellan radiata junction. Changes of uncertain etiology though differential diagnosis would include sequela of HIV encephalopathy or PML. - Per psych continue pt on Seroquel; Ziprasidone prn - Per neuro: Keppra 500 mg bid. Ammonia level wnl; no further neuro intervention AIDS w/ hx non-compliance with HAART therapy - restarted on HAART therapy during admission - F/u ID recs GI/DVT prophylaxis: protonix 40 and lovenox 40 subQ Dispo: medically optimized for discharge to [facility] once pancytopenia improves or per Heme/Onc and ID recs Pt seen, examined with, and plan discussed with Dr. Christianson, attending Omari Davis DO PGY-1, Equity Analyst Pager #[phone] <Day Christianson - Last Filed: 12/06/17 07:42> Objective - Vital Signs/Intake and Output Vital Signs (last 24 hours): Temp Pulse Resp BP Pulse Ox 98.2 F 99 H 18 104/69 95 12/05/17 21:58 12/05/17 21:58 12/05/17 21:58 12/05/17 21:58 12/05/17 21:58 Intake and Output: 12/06/17 12/06/17 06:59 18:59 Intake Total 1960 Balance 1960 - Medications Medications: Current Medications Acetaminophen (Tylenol 325mg Tab) 650 mg PO Q4 PRN PRN Reason: Pain, Mild (1-3) Atovaquone (Mepron) 750 mg PO BID [facility] PRN Reason: Protocol Last Admin: 12/05/17 18:08 Dose: 750 mg Emtricitabine/Tenofovir (Truvada 200 Mg-300 Mg) 1 tab PO DAILY [facility] PRN Reason: Protocol Last Admin: 12/05/17 10:53 Dose: 1 tab Enoxaparin Sodium (Lovenox) 40 mg SC DAILY [facility] PRN Reason: Protocol Last Admin: 11/30/17 10:17 Dose: 40 mg Home Med (Home Med) 1 unit PO DAILY [facility] Last Admin: 12/05/17 10:53 Dose: 1 unit Sodium Chloride (Sodium Chloride 0.45%) 1,000 mls @ 80 mls/hr IV .[id number] [facility] Stop: 12/06/17 08:00 Levetiracetam (Keppra) 500 mg PO BID [facility] Last Admin: 12/05/17 18:08 Dose: 500 mg Metoprolol Tartrate (Lopressor) 12.5 mg PO BID [facility] Last Admin: 12/02/17 18:16 Dose: Not Given Nystatin/Triamcinolone Acetonide (Nystatin/Triamcinolone Ointment) 0 gm TOP BID [facility] Last Admin: 12/05/17 18:08 Dose: 1 applic Ondansetron HCl (Zofran Inj) 4 mg IVP Q6H PRN PRN Reason: Nausea/Vomiting Prednisone (Prednisone Tab) 10 mg PO DAILY [facility] Stop: 12/08/17 23:55 Prednisone (Prednisone Tab) 5 mg PO DAILY [facility] Stop: 12/10/17 11:55 Quetiapine Fumarate (Seroquel) 200 mg PO [facility] PRN Reason: Protocol Last Admin: 12/05/17 21:51 Dose: 200 mg Ziprasidone (Geodon Inj) 20 mg IM Q8H PRN; Protocol PRN Reason: severe agitaiton/psychosis Last Admin: 12/02/17 03:41 Dose: 20 mg - Labs Labs: 12/05/17 06:30 12/05/17 06:30 PT 11.4 SECONDS (9.4-12.5) 12/04/17 07:00 INR 0.99 (0.93-1.08) 12/04/17 07:00 APTT 25.8 Seconds (25.1-36.5) 12/04/17 07:00 Attending/Attestation - Attestation I have personally seen and examined this patient.: Yes I have fully participated in the care of the patient.: Yes I have reviewed all pertinent clinical information, including history, physical exam and plan: Yes Notes (Text): 12/05/17 57 year old female with past medical history of HIV/AIDs, hepatitis B and medication noncompliance who presented with altered mental status and shortness of breath with hypoxia. CXR showed diffuse pulmonary infiltrates and she was started on bactrim and steroids for PCP pneumonia. Bactrim has been switched to mepron. She is on HAART therapy. Her mental status has improved since admission to baseline. She is being followed by ID, neurology and psychiatry. Hematology is also following for pancytopenia. Patient is s/p bone marrow biopsy today. Plan for possible LP tomorrow (if patient is agreeable). GI is following for elevated LFTs. She had abdominal ultrasound which was reviewed as above. MRCP was reviewed today also. Day Christianson MD Hospitalist.
[2017-12-05] MEDS ORDERED: Lidocaine 1% Inj (20ml) ONE (15:57)
[2017-12-05] MEDS ORDERED: Midazolam 2 MG/2 ML VIAL ONE (16:06)
[2017-12-05] MEDS ORDERED: Sodium Chloride 0.45% 1,000 ML IV SCH (16:30)
--- NOTE | 2017-12-05 16:50 | CP.PCM.PN ---
Subjective - Date & Time of Evaluation Date of Evaluation: 12/05/17 Time of Evaluation: 12:30 - Subjective Subjective: Feeling a little better, has less agitation, no fevers. Objective - Vital Signs/Intake and Output Vital Signs (last 24 hours): Temp Pulse Resp BP Pulse Ox 97.5 F L 96 H 20 90/62 L 95 12/05/17 06:00 12/05/17 06:00 12/05/17 06:00 12/05/17 06:00 12/05/17 06:00 Intake and Output: 12/05/17 12/05/17 06:59 18:59 Intake Total 860 Balance 860 - Medications Medications: Current Medications Atovaquone (Mepron) 750 mg PO BID [facility] PRN Reason: Protocol Last Admin: 12/04/17 20:24 Dose: 750 mg Emtricitabine/Tenofovir (Truvada 200 Mg-300 Mg) 1 tab PO DAILY [facility] PRN Reason: Protocol Last Admin: 12/04/17 10:19 Dose: 1 tab Enoxaparin Sodium (Lovenox) 40 mg SC DAILY [facility] PRN Reason: Protocol Last Admin: 11/30/17 10:17 Dose: 40 mg Home Med (Home Med) 1 unit PO DAILY [facility] Last Admin: 12/04/17 12:52 Dose: Not Given Levalbuterol HCl (Xopenex) 1.25 mg IH [id number] PRN PRN Reason: Shortness of Breath Last Admin: 11/21/17 07:46 Dose: 1.25 mg Levetiracetam (Keppra) 500 mg PO BID [facility] Last Admin: 12/04/17 20:24 Dose: 500 mg Metoprolol Tartrate (Lopressor) 12.5 mg PO BID [facility] Last Admin: 12/02/17 18:16 Dose: Not Given Nystatin/Triamcinolone Acetonide (Nystatin/Triamcinolone Ointment) 0 gm TOP BID [facility] Last Admin: 12/04/17 20:24 Dose: 1 applic Pantoprazole Sodium (Protonix Ec Tab) 40 mg PO 0600 [facility] Last Admin: 12/04/17 05:14 Dose: Not Given Prednisone (Prednisone Tab) 20 mg PO DAILY [facility] Stop: 12/05/17 23:59 Last Admin: 12/04/17 10:19 Dose: 20 mg Prednisone (Prednisone Tab) 10 mg PO DAILY [facility] Stop: 12/08/17 23:55 Prednisone (Prednisone Tab) 5 mg PO DAILY [facility] Stop: 12/10/17 11:55 Quetiapine Fumarate (Seroquel) 200 mg PO [facility] PRN Reason: Protocol Last Admin: 12/04/17 21:53 Dose: 200 mg Ziprasidone (Geodon Inj) 20 mg IM Q8H PRN; Protocol PRN Reason: severe agitaiton/psychosis Last Admin: 12/02/17 03:41 Dose: 20 mg - Labs Labs: 12/05/17 06:30 12/05/17 06:30 PT 11.4 SECONDS (9.4-12.5) 12/04/17 07:00 INR 0.99 (0.93-1.08) 12/04/17 07:00 APTT 25.8 Seconds (25.1-36.5) 12/04/17 07:00 - Constitutional Appears: Chronically Ill - Head Exam Head Exam: NORMAL INSPECTION - Respiratory Exam Respiratory Exam: Decreased Breath Sounds - Cardiovascular Exam Cardiovascular Exam: +S1, +S2 - GI/Abdominal Exam GI & Abdominal Exam: Soft. 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 Vasquez - patient to undergo Bone marrow biopsy which should be sent for AFB smears and cultures, fungal smears and cultures continue ART (antiretroviral therapy) which also treats the Hepatitis B infection (Truvada and Dolutegravir) Fungitell is elevated, suggestive of Pneumocystis pneumonia serum Crypt Ag is negative and CMV PCR is negative - follow up RPR reviewed MRI brain results - treatment for either of the two differential diagnoses is ART - would recommend lumbar puncture with CSF analysis for VDRL, Crypt Ag, EFRAÍN virus PCR will continue to follow clinically while the patient is in the hospital - patient will need to follow up with HIV provider as outpatient with close follow up
[2017-12-05] MEDS ORDERED: Midazolam 5 MG/5 ML VIAL IVP ONE (16:58)
--- NOTE | 2017-12-05 16:58 | CT ---
PROCEDURE: CT guided bone marrow aspiration and biopsy HISTORY: HIV positive. Pancytopenia. Evaluate for lymphoma or infection PHYSICIAN(S): Trey Gaines MD. TECHNIQUE: The relative risks and indications of the procedure were explained to the patient and her son and consent obtained. The patient was placed prone on the CT scanner and preliminary images through the pelvis obtained. Conscious sedation and monitoring were provided throughout the procedure by a nurse. The right posterior superior iliac spine was selected for biopsy.. A posterior approach was selected and the area prepped and draped in the usual sterile fashion. 1% Xylocaine was used to anesthetize the skin and soft tissues. The on control needle was advanced and oblique angle into the right posterior, superior iliac spine. A limited aspiration was performed. Next a core biopsy was obtained. Smears were prepared by Dr. Mauricio IMPRESSION: 1. CT-guided bone marrow aspiration and biopsy.
[2017-12-05] MEDS ORDERED: Midazolam 2 MG/2 ML VIAL IVP ONE (17:15)
[2017-12-06] MEDS: Pantoprazole 40 mg EC Tab PO SCH (05:43)
--- NOTE | 2017-12-06 07:52 | CP.PCM.PN ---
Subjective - Date & Time of Evaluation Date of Evaluation: 12/06/17 Time of Evaluation: 07:30 - Subjective Subjective: Michael Ward DO, IM Resident PGY-1 Hematology/Oncology Progress Note for Dr. Vasquez Patient was seen and examined at bedside. Bone marrow bx was completed yesterday evening. She is currently resting quietly and does not complain of any pain. Objective - Vital Signs/Intake and Output Vital Signs (last 24 hours): Temp Pulse Resp BP Pulse Ox 98.2 F 99 H 18 104/69 95 12/05/17 21:58 12/05/17 21:58 12/05/17 21:58 12/05/17 21:58 12/05/17 21:58 Intake and Output: 12/06/17 12/06/17 06:59 18:59 Intake Total 1960 Balance 1960 - Medications Medications: Current Medications Acetaminophen (Tylenol 325mg Tab) 650 mg PO Q4 PRN PRN Reason: Pain, Mild (1-3) Atovaquone (Mepron) 750 mg PO BID [facility] PRN Reason: Protocol Last Admin: 12/05/17 18:08 Dose: 750 mg Emtricitabine/Tenofovir (Truvada 200 Mg-300 Mg) 1 tab PO DAILY [facility] PRN Reason: Protocol Last Admin: 12/05/17 10:53 Dose: 1 tab Enoxaparin Sodium (Lovenox) 40 mg SC DAILY [facility] PRN Reason: Protocol Last Admin: 11/30/17 10:17 Dose: 40 mg Home Med (Home Med) 1 unit PO DAILY [facility] Last Admin: 12/05/17 10:53 Dose: 1 unit Sodium Chloride (Sodium Chloride 0.45%) 1,000 mls @ 80 mls/hr IV .[id number] [facility] Stop: 12/06/17 08:00 Levetiracetam (Keppra) 500 mg PO BID [facility] Last Admin: 12/05/17 18:08 Dose: 500 mg Metoprolol Tartrate (Lopressor) 12.5 mg PO BID [facility] Last Admin: 12/02/17 18:16 Dose: Not Given Nystatin/Triamcinolone Acetonide (Nystatin/Triamcinolone Ointment) 0 gm TOP BID [facility] Last Admin: 12/05/17 18:08 Dose: 1 applic Ondansetron HCl (Zofran Inj) 4 mg IVP Q6H PRN PRN Reason: Nausea/Vomiting Prednisone (Prednisone Tab) 10 mg PO DAILY [facility] Stop: 12/08/17 23:55 Prednisone (Prednisone Tab) 5 mg PO DAILY [facility] Stop: 12/10/17 11:55 Quetiapine Fumarate (Seroquel) 200 mg PO [facility] PRN Reason: Protocol Last Admin: 12/05/17 21:51 Dose: 200 mg Ziprasidone (Geodon Inj) 20 mg IM Q8H PRN; Protocol PRN Reason: severe agitaiton/psychosis Last Admin: 12/02/17 03:41 Dose: 20 mg - Labs Labs: 12/05/17 06:30 12/05/17 06:30 PT 11.4 SECONDS (9.4-12.5) 12/04/17 07:00 INR 0.99 (0.93-1.08) 12/04/17 07:00 APTT 25.8 Seconds (25.1-36.5) 12/04/17 07:00 - Constitutional Appears: Unkempt, Cachectic, Chronically Ill - Head Exam Head Exam: ATRAUMATIC, NORMAL INSPECTION, NORMOCEPHALIC - Eye Exam Eye Exam: Normal appearance, PERRL - ENT Exam ENT Exam: Mucous Membranes Moist - Neck Exam Neck Exam: Full ROM - Respiratory Exam Respiratory Exam: Clear to Ausculation Bilateral, NORMAL BREATHING PATTERN. absent: Rales, Rhonchi, Wheezes - Cardiovascular Exam Cardiovascular Exam: REGULAR RHYTHM, +S1, +S2 - GI/Abdominal Exam GI & Abdominal Exam: Soft. absent: Guarding, Tenderness, Organomegaly - Extremities Exam Extremities Exam: Full ROM - Neurological Exam Neurological Exam: Alert, Awake - Skin Skin Exam: Dry, Intact, Warm Assessment and Plan - Assessment and Plan (Free Text) Assessment: Ms. Valladares is a 57 year old female with PMH of HIV and non-compliance with HAART admitted for worsening SOB and AMS found to have PCP PNA on admission. She was noted to have worsening pancytopenia since admission, prompting consult. Pancytopenia -Likely secondary to many factors including marrow suppression from opportunistic RAJANI and/or fungal infection -Will follow up with bone marrow bx results -Pancytopenia improving, will continue to monitor Case and plan were reviewed and discussed in detail with my attending physician Dr. Christina Ward, DO IM Resident PGY-1
[2017-12-06 08:30] LABS: BASO # 0.01 K/mm3 (0.0-2.0); BASO % 0.2 % (0.0-3.0); EOS % 0.9 % (1.5-5.0); GRAN # 2.57 (1.4-6.5); HEMOGLOBIN 9.6 g/dL (12.0-16.0); LYMPH # 1.2 (1.2-3.4); LYMPH % 28.4 % (22.0-35.0); MEAN CELL VOLUME 101.8 fl (80.0-105.0); MEAN CORPUSCULAR HEMOGLOBIN 33.8 pg (25.0-35.0); MEAN CORPUSCULAR HGB CONC 33.2 g/dl (31.0-37.0); MEAN PLATELET VOLUME 11.4 fl (7.0-11.0); MONO # 0.4 (0.1-0.6); MONO % 9.5 % (1.0-6.0); RBC 2.84 10^6/uL (3.5-6.1); RED CELL DISTRIBUTION WIDTH 17.4 % (11.5-14.5); WHITE BLOOD COUNT 4.2 10^3/ul (4.5-11.0)
[2017-12-06 08:35] LABS: ALB/GLOB RATIO 0.8 (1.1-1.8); ALT/SGPT 164 U/L (7-56); AST/SGOT 102 U/L (14-36); BLOOD UREA NITROGEN 12 mg/dL (7-21); CALCIUM 8.1 mg/dL (8.4-10.5); GFR AFRICAN-AMERICAN > 60; GFR NON-AFRICAN AMERICAN > 60
[2017-12-06] MEDS: Atovaquone 750 mg/5 ml Susp UD PO SCH ×2 (10:53→18:39)
[2017-12-06] MEDS: Nystatin-Triamcinolone Ointment(30 gm) TOP SCH (10:54)
[2017-12-06] MEDS: Emtricitabine-Tenofovir 200 mg-300 mg Tab PO SCH (10:54)
[2017-12-06] MEDS: DOLUTEGRAVIR SODIUM 50 MG PO SCH (10:54)
--- NOTE | 2017-12-06 13:19 | CP.PCM.PN ---
<Mark Erickson - Last Filed: 12/06/17 13:08> Subjective - Date & Time of Evaluation Date of Evaluation: 12/06/17 Time of Evaluation: 09:00 - Subjective Subjective: GI Progress Note for Dr. Sam Erickson, PGY-3 Patient seen and examined at bedside. No acute complaint. Still pending MRCP. Denies any emesis, diarrhea, dysuria. Objective - Vital Signs/Intake and Output Vital Signs (last 24 hours): Temp Pulse Resp BP Pulse Ox 98.4 F 92 H 20 101/68 96 12/06/17 06:00 12/06/17 06:00 12/06/17 06:00 12/06/17 06:00 12/06/17 06:00 Intake and Output: 12/06/17 12/06/17 06:59 18:59 Intake Total 1960 Balance 1960 - Medications Medications: Current Medications Acetaminophen (Tylenol 325mg Tab) 650 mg PO Q4 PRN PRN Reason: Pain, Mild (1-3) Atovaquone (Mepron) 750 mg PO BID [facility] PRN Reason: Protocol Last Admin: 12/06/17 10:53 Dose: 750 mg Emtricitabine/Tenofovir (Truvada 200 Mg-300 Mg) 1 tab PO DAILY [facility] PRN Reason: Protocol Last Admin: 12/06/17 10:54 Dose: 1 tab Enoxaparin Sodium (Lovenox) 40 mg SC DAILY [facility] PRN Reason: Protocol Last Admin: 11/30/17 10:17 Dose: 40 mg Home Med (Home Med) 1 unit PO DAILY [facility] Last Admin: 12/06/17 10:54 Dose: 1 unit Levetiracetam (Keppra) 500 mg PO BID [facility] Last Admin: 12/06/17 10:53 Dose: 500 mg Metoprolol Tartrate (Lopressor) 12.5 mg PO BID [facility] Last Admin: 12/02/17 18:16 Dose: Not Given Ondansetron HCl (Zofran Inj) 4 mg IVP Q6H PRN PRN Reason: Nausea/Vomiting Prednisone (Prednisone Tab) 10 mg PO DAILY [facility] Stop: 12/08/17 23:55 Last Admin: 12/06/17 10:54 Dose: 10 mg Prednisone (Prednisone Tab) 5 mg PO DAILY [facility] Stop: 12/10/17 11:55 Quetiapine Fumarate (Seroquel) 200 mg PO [facility] PRN Reason: Protocol Last Admin: 12/06/17 10:54 Dose: 200 mg - Labs Labs: 12/06/17 08:15 12/06/17 08:15 PT 11.4 SECONDS (9.4-12.5) 12/04/17 07:00 INR 0.99 (0.93-1.08) 12/04/17 07:00 APTT 25.8 Seconds (25.1-36.5) 12/04/17 07:00 - Additional Findings Additional findings: - Constitutional Appears: Non-toxic, No Acute Distress, Chronically Ill - Head Exam Head Exam: ATRAUMATIC, NORMAL INSPECTION, NORMOCEPHALIC - Eye Exam Eye Exam: Normal appearance. absent: Conjunctival injection, Scleral icterus Pupil Exam: absent: Fixed, Irregular - ENT Exam ENT Exam: Mucous Membranes Moist, no oral candidiasis or other lesions appreciated - Neck Exam Neck exam: Negative for: Lymphadenopathy, Thyromegaly - Respiratory Exam Respiratory Exam: Clear to Auscultation Bilateral, NORMAL BREATHING PATTERN. absent: Accessory Muscle Use, Chest Wall Tenderness, Decreased Breath Sounds, Rales, Rhonchi, Wheezes, Respiratory Distress - Cardiovascular Exam Cardiovascular Exam: REGULAR RHYTHM, RRR, +S1, +S2. absent: Bradycardia, Tachycardia, Irregular Rhythm, JVD, +S4 - GI/Abdominal Exam GI & Abdominal Exam: Normal Bowel Sounds, Soft, Non-tender - Extremities Exam Extremities exam: Positive for: normal inspection. Negative for: pedal edema - Neurological Exam Neurological exam: Awake and Alert, Oriented x3 (self, year, location), moving all extremities without issue, no fine motor control issues - Psychiatric Exam Psychiatric exam: Normal Affect, Normal Mood - Skin Skin Exam: Dry, Intact, Normal Color, Warm Assessment and Plan - Assessment and Plan (Free Text) Assessment: This is a 57 yo F with PMH of HIV/AIDS (last CD4 99), hepatitis B (pt reports knowing about Hep B for > 1 yr), and medication non-compliance who was initially brought to the ED for hallucinations and altered mental status, and has remained due to PCP Pneumonia and HIV encephalitis. Discharge was further delayed due to pancytopenia noted on labs, likely a medication side effect. GI was consulted due to her Hep B status and elevated transaminases. Plan: Hep B (chronic) HIV progression to AIDS (last CD4 < 100) Chronic medical non-compliance Ddx: elevated LFTs 2/2 chronic Hep B infection vs medication induced (restarted HAART meds vs antibiotics) -Abd US obtained 12/02/17 notable for hepatic steatosis, small hypoechoic areas in R hepatic lobe, questionable sub-centimeter hypoechoic area of pancreatic body and tail, GB sludge without evidence of acute cholecystitis -S/p bone-marrow bx due to pancytopenia, pending pathology -LFTs essentially unchanged, continue to trend while inpatient -MRCP negative for pancreatic lesions, reports only scattered simple cysts -Due to co-infection with HIV/AIDS, we will not start Hep B anti-viral tx at this time, will defer to patient's outpatient ID physician who is also managing her HIV/AIDS meds, as careful co-management of the conditions is required -AFP ordered mildly elevated at 12.8, Hep A total antibody negative Patient seen, reviewed, and discussed with attending, Dr. Vargas <Sherry Vargas V - Last Filed: 12/07/17 02:42> Objective - Vital Signs/Intake and Output Vital Signs (last 24 hours): Temp Pulse Resp BP Pulse Ox 98.3 F 100 H 18 117/73 100 12/06/17 22:54 12/06/17 22:54 12/06/17 22:54 12/06/17 22:54 12/06/17 22:54 Intake and Output: 12/06/17 12/07/17 18:59 06:59 Intake Total 960 Balance 960 - Medications Medications: Current Medications Acetaminophen (Tylenol 325mg Tab) 650 mg PO Q4 PRN PRN Reason: Pain, Mild (1-3) Last Admin: 12/07/17 00:57 Dose: 650 mg Atovaquone (Mepron) 750 mg PO BID [facility] PRN Reason: Protocol Last Admin: 12/06/17 18:39 Dose: 750 mg Emtricitabine/Tenofovir (Truvada 200 Mg-300 Mg) 1 tab PO DAILY [facility] PRN Reason: Protocol Last Admin: 12/06/17 10:54 Dose: 1 tab Enoxaparin Sodium (Lovenox) 40 mg SC DAILY [facility] PRN Reason: Protocol Last Admin: 11/30/17 10:17 Dose: 40 mg Home Med (Home Med) 1 unit PO DAILY [facility] Last Admin: 12/06/17 10:54 Dose: 1 unit Levetiracetam (Keppra) 500 mg PO BID [facility] Last Admin: 12/06/17 18:39 Dose: 500 mg Metoprolol Tartrate (Lopressor) 12.5 mg PO BID [facility] Last Admin: 12/02/17 18:16 Dose: Not Given Ondansetron HCl (Zofran Inj) 4 mg IVP Q6H PRN PRN Reason: Nausea/Vomiting Prednisone (Prednisone Tab) 10 mg PO DAILY [facility] Stop: 12/08/17 23:55 Last Admin: 12/06/17 10:54 Dose: 10 mg Prednisone (Prednisone Tab) 5 mg PO DAILY [facility] Stop: 12/10/17 11:55 Quetiapine Fumarate (Seroquel) 200 mg PO AMHS [facility] PRN Reason: Protocol Last Admin: 12/06/17 22:26 Dose: 200 mg - Labs Labs: 12/06/17 08:15 12/06/17 08:15 PT 11.4 SECONDS (9.4-12.5) 12/04/17 07:00 INR 0.99 (0.93-1.08) 12/04/17 07:00 APTT 25.8 Seconds (25.1-36.5) 12/04/17 07:00 Attending/Attestation - Attestation I have personally seen and examined this patient.: Yes I have fully participated in the care of the patient.: Yes I have reviewed all pertinent clinical information, including history, physical exam and plan: Yes Notes (Text): This is an addendum to GI progress report dictated by the Medical ResidentThe patient was seen and examined earlier. Medical records, lab studies, imagings were reviewed. Last 24 hours events reviewed. Agreed with the above treatment plan as outlined in Resident 's notes the with the addition of the following 12/07/17 02:41
[2017-12-06 14:53] VITALS: O2SAT 100
--- NOTE | 2017-12-06 15:37 | CP.PCM.PN ---
Subjective - Date & Time of Evaluation Date of Evaluation: 12/06/17 Time of Evaluation: 13:10 - Subjective Subjective: No fevers, not in distress. Objective - Vital Signs/Intake and Output Vital Signs (last 24 hours): Temp Pulse Resp BP Pulse Ox 98.4 F 92 H 20 101/68 96 12/06/17 06:00 12/06/17 06:00 12/06/17 06:00 12/06/17 06:00 12/06/17 06:00 Intake and Output: 12/06/17 12/06/17 06:59 18:59 Intake Total 1960 Balance 1960 - Medications Medications: Current Medications Acetaminophen (Tylenol 325mg Tab) 650 mg PO Q4 PRN PRN Reason: Pain, Mild (1-3) Atovaquone (Mepron) 750 mg PO BID [facility] PRN Reason: Protocol Last Admin: 12/05/17 18:08 Dose: 750 mg Emtricitabine/Tenofovir (Truvada 200 Mg-300 Mg) 1 tab PO DAILY [facility] PRN Reason: Protocol Last Admin: 12/05/17 10:53 Dose: 1 tab Enoxaparin Sodium (Lovenox) 40 mg SC DAILY [facility] PRN Reason: Protocol Last Admin: 11/30/17 10:17 Dose: 40 mg Home Med (Home Med) 1 unit PO DAILY [facility] Last Admin: 12/05/17 10:53 Dose: 1 unit Levetiracetam (Keppra) 500 mg PO BID [facility] Last Admin: 12/05/17 18:08 Dose: 500 mg Metoprolol Tartrate (Lopressor) 12.5 mg PO BID [facility] Last Admin: 12/02/17 18:16 Dose: Not Given Ondansetron HCl (Zofran Inj) 4 mg IVP Q6H PRN PRN Reason: Nausea/Vomiting Prednisone (Prednisone Tab) 10 mg PO DAILY [facility] Stop: 12/08/17 23:55 Prednisone (Prednisone Tab) 5 mg PO DAILY [facility] Stop: 12/10/17 11:55 Quetiapine Fumarate (Seroquel) 200 mg PO [facility] PRN Reason: Protocol Last Admin: 12/05/17 21:51 Dose: 200 mg Ziprasidone (Geodon Inj) 20 mg IM Q8H PRN; Protocol PRN Reason: severe agitaiton/psychosis Last Admin: 12/02/17 03:41 Dose: 20 mg - Labs Labs: 12/06/17 08:15 12/06/17 08:15 PT 11.4 SECONDS (9.4-12.5) 12/04/17 07:00 INR 0.99 (0.93-1.08) 12/04/17 07:00 APTT 25.8 Seconds (25.1-36.5) 12/04/17 07:00 - Constitutional Appears: Chronically Ill - Head Exam Head Exam: NORMAL INSPECTION - Respiratory Exam Respiratory Exam: Decreased Breath Sounds - Cardiovascular Exam Cardiovascular Exam: +S1, +S2 - GI/Abdominal Exam GI & Abdominal Exam: Soft. 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 Vasquez - patient underwent bone marrow biopsy yesterday and was sent for AFB smears and cultures, fungal smears and cultures continue ART (antiretroviral therapy) which also treats the Hepatitis B infection (Truvada and Dolutegravir) Fungitell is elevated, suggestive of Pneumocystis pneumonia serum Crypt Ag is negative and CMV PCR is negative - follow up RPR reviewed MRI brain results - treatment for either of the two differential diagnoses is ART - would recommend lumbar puncture with CSF analysis for VDRL, Crypt Ag, EFRAÍN virus PCR will continue to follow clinically while the patient is in the hospital - patient will need to follow up with HIV provider as outpatient with close follow up
[2017-12-06] MEDS ORDERED: Lidocaine 1% Inj (20ml) IJ STA (16:23)
--- NOTE | 2017-12-06 16:43 | PCM.PROC ---
Procedures Attestation:: I certify that I have explained the specified Operation(s) or Procedure(s), risks, benefits and reasonable alternatives to the Patient and/or other person responsible. The opportunity was given to ask questions and all questions answered - Lumbar Puncture Consent Obtained: Verbal Consent Time Out Performed: Yes Patient Position: Upright Skin Prep: Povidone-Iodine 1%, 0.5% Chlorhexidine/Alcohol Local Anesthetic Used: Lidocaine 1% Amount of Anesthesia Used (mls): 30 Spinal Needle Gauge: Other (21) Interspace Used: L3-L4 Fluid Initially Obtained: Clear Complications: None Additional comments: Procedure was performed under the supervision of Dr. Lewis and Dr. Neves
--- NOTE | 2017-12-06 20:41 | CP.PCM.PN ---
<Shilo Laguerre - Last Filed: 12/06/17 20:31> Subjective - Date & Time of Evaluation Date of Evaluation: 12/06/17 Time of Evaluation: 08:10 - Subjective Subjective: Medicine progress note for Dr. Sammy Laguerre, PGY - 2, IM Patient seen and examined at bedside. No acute events overnight, patient is doing very well and denies any complaints. Patient is still amenable for lumbar puncture Objective - Vital Signs/Intake and Output Vital Signs (last 24 hours): Temp Pulse Resp BP Pulse Ox 97.9 F 108 H 20 100/69 100 12/06/17 14:00 12/06/17 14:00 12/06/17 14:00 12/06/17 14:00 12/06/17 14:00 - Medications Medications: Current Medications Acetaminophen (Tylenol 325mg Tab) 650 mg PO Q4 PRN PRN Reason: Pain, Mild (1-3) Atovaquone (Mepron) 750 mg PO BID [facility] PRN Reason: Protocol Last Admin: 12/06/17 18:39 Dose: 750 mg Emtricitabine/Tenofovir (Truvada 200 Mg-300 Mg) 1 tab PO DAILY [facility] PRN Reason: Protocol Last Admin: 12/06/17 10:54 Dose: 1 tab Enoxaparin Sodium (Lovenox) 40 mg SC DAILY [facility] PRN Reason: Protocol Last Admin: 11/30/17 10:17 Dose: 40 mg Home Med (Home Med) 1 unit PO DAILY [facility] Last Admin: 12/06/17 10:54 Dose: 1 unit Levetiracetam (Keppra) 500 mg PO BID [facility] Last Admin: 12/06/17 18:39 Dose: 500 mg Metoprolol Tartrate (Lopressor) 12.5 mg PO BID [facility] Last Admin: 12/02/17 18:16 Dose: Not Given Ondansetron HCl (Zofran Inj) 4 mg IVP Q6H PRN PRN Reason: Nausea/Vomiting Prednisone (Prednisone Tab) 10 mg PO DAILY [facility] Stop: 12/08/17 23:55 Last Admin: 12/06/17 10:54 Dose: 10 mg Prednisone (Prednisone Tab) 5 mg PO DAILY [facility] Stop: 12/10/17 11:55 Quetiapine Fumarate (Seroquel) 200 mg PO [facility] PRN Reason: Protocol Last Admin: 12/06/17 10:54 Dose: 200 mg - Labs Labs: 12/06/17 08:15 12/06/17 08:15 PT 11.4 SECONDS (9.4-12.5) 12/04/17 07:00 INR 0.99 (0.93-1.08) 12/04/17 07:00 APTT 25.8 Seconds (25.1-36.5) 12/04/17 07:00 - Constitutional Appears: Well - Head Exam Head Exam: ATRAUMATIC, NORMAL INSPECTION, NORMOCEPHALIC - Eye Exam Eye Exam: EOMI, Normal appearance, PERRL Pupil Exam: NORMAL ACCOMODATION, PERRL - ENT Exam ENT Exam: Mucous Membranes Moist, Normal Exam - Neck Exam Neck Exam: Full ROM, Normal Inspection. absent: Lymphadenopathy - Respiratory Exam Respiratory Exam: Clear to Ausculation Bilateral, NORMAL BREATHING PATTERN - Cardiovascular Exam Cardiovascular Exam: REGULAR RHYTHM, +S1, +S2. absent: Murmur - GI/Abdominal Exam GI & Abdominal Exam: Soft, Normal Bowel Sounds. absent: Tenderness - Extremities Exam Extremities Exam: Full ROM, Normal Capillary Refill, Normal Inspection. absent : Joint Swelling, Pedal Edema - Back Exam Back Exam: NORMAL INSPECTION - Neurological Exam Neurological Exam: Alert, Awake, CN II-XII Intact, Normal Gait, Oriented x3 - Psychiatric Exam Psychiatric exam: Normal Affect, Normal Mood - Skin Skin Exam: Dry, Intact, Normal Color, Warm Assessment and Plan - Assessment and Plan (Free Text) Assessment: 57 y/o F with PMHx of HIV and AIDS (last CD4 99), hepatitis B, and medication non-compliance who was brought to the ED for hallucinations and altered mental status. Patient was found to have PCP PNA, and was initially treated with Bactrim. Patient restarted on HAART therapy. Hospital course complicated by hypoxia and respiratroy distress for which G[employer]BAGE [employer]OR was called and patient was started on BiPAP and managed under ICU. Pt's hypoxia has since improved and pt was transitioned from BiPap to high flow to venti mask, now saturating well on RA. Pt downgraded to medical floor. Ladonna Jones called on 11/27/17 for patient threatening staff w/ butter knife. Change in mental status likely due to delirium 2/2 to PCP Pneumonia and HIV encephalitis VS ICU Psychosis VS Steroids. Patient was later found to have Pancytopenia; bactrim was changed to atovaquone (another choice is Clindamycin + Primaquine; but primaquine also causes pancytopenia). Work up for HIT was done, and is being followed by Jaime. BM Bx to rule out MAC as cause for pancytopenia was performed yesterday. Plan: Sepsis likely 2/2 to PCP PNA - Resolved - Mepron 750 mg PO bid day #4; patient needs 3 more days, will be given to her through [facility] at [facility] - ID and pulm consulted, recs appreciated - Repeat CD4 ct 99 (previous CD4 was 95 in 2017) Pancytopenia - R/o medication-induced side effect vs. marrow suppression from opportunistic RAJANI and/or fungal infection - HD Stable/ VSS; no clinical complaints - Heparin-induced platelet antibodies ordered to r/o HIT - LP done today, CSF sent for HSV, JCV, and VDRL Transaminitis - Trending up since admission - Pt has hx Hep B infection, unknown if pt ever gotten treatment - R/o medication-induced side effect - Hepatic/Splenic U/s 12/02: Hepatic steatosis. Small hypoechoic areas in R hepatic lobe 1.3 cm and 1.0 cm nonspecific, may represent areas of focal fatty sparing vs. metastasis. Questionable sub-cm hypoechoic areas in pancreatic body and tail. GB sludge w/o sono evidence of acute cholecystitis. - GI consulted, recs appreciated - MRCP negative Altered Mental Status likely 2/2 dementia vs. HIV encephalopathy vs. PML vs. delirium - MRI brain 11/25: Diffuse/confluent chronic white matter prolonged T2 signal changes seen within the periventricular deep and subcortical white matter as well as superior basal ganglia/mcclellan radiata junction. Changes of uncertain etiology though differential diagnosis would include sequela of HIV encephalopathy or PML. - Per psych continue pt on Seroquel; Ziprasidone prn - Per neuro: Keppra 500 mg bid. Ammonia level wnl; no further neuro intervention AIDS w/ hx non-compliance with HAART therapy - restarted on HAART therapy during admission - F/u ID recs GI/DVT prophylaxis: protonix 40 and SCD Dispo: medically optimized for discharge to [facility] once pancytopenia improves or per Heme/Onc and ID recs Pt seen, examined with, and plan discussed with Dr. Sammydottie aguilar <Day Christianson - Last Filed: 12/07/17 08:00> Objective - Vital Signs/Intake and Output Vital Signs (last 24 hours): Temp Pulse Resp BP Pulse Ox 98.3 F 100 H 18 117/73 100 12/06/17 22:54 12/06/17 22:54 12/06/17 22:54 12/06/17 22:54 12/06/17 22:54 Intake and Output: 12/07/17 12/07/17 06:59 18:59 Intake Total 960 Balance 960 - Medications Medications: Current Medications Acetaminophen (Tylenol 325mg Tab) 650 mg PO Q4 PRN PRN Reason: Pain, Mild (1-3) Last Admin: 12/07/17 00:57 Dose: 650 mg Atovaquone (Mepron) 750 mg PO BID [facility] PRN Reason: Protocol Last Admin: 12/06/17 18:39 Dose: 750 mg Emtricitabine/Tenofovir (Truvada 200 Mg-300 Mg) 1 tab PO DAILY [facility] PRN Reason: Protocol Last Admin: 12/06/17 10:54 Dose: 1 tab Enoxaparin Sodium (Lovenox) 40 mg SC DAILY [facility] PRN Reason: Protocol Last Admin: 11/30/17 10:17 Dose: 40 mg Home Med (Home Med) 1 unit PO DAILY [facility] Last Admin: 12/06/17 10:54 Dose: 1 unit Levetiracetam (Keppra) 500 mg PO BID [facility] Last Admin: 12/06/17 18:39 Dose: 500 mg Metoprolol Tartrate (Lopressor) 12.5 mg PO BID [facility] Last Admin: 12/02/17 18:16 Dose: Not Given Ondansetron HCl (Zofran Inj) 4 mg IVP Q6H PRN PRN Reason: Nausea/Vomiting Prednisone (Prednisone Tab) 10 mg PO DAILY [facility] Stop: 12/08/17 23:55 Last Admin: 12/06/17 10:54 Dose: 10 mg Prednisone (Prednisone Tab) 5 mg PO DAILY [facility] Stop: 12/10/17 11:55 Quetiapine Fumarate (Seroquel) 200 mg PO [facility] PRN Reason: Protocol Last Admin: 12/06/17 22:26 Dose: 200 mg - Labs Labs: 12/06/17 08:15 12/06/17 08:15 PT 11.4 SECONDS (9.4-12.5) 12/04/17 07:00 INR 0.99 (0.93-1.08) 12/04/17 07:00 APTT 25.8 Seconds (25.1-36.5) 12/04/17 07:00 Attending/Attestation - Attestation I have personally seen and examined this patient.: Yes I have fully participated in the care of the patient.: Yes I have reviewed all pertinent clinical information, including history, physical exam and plan: Yes Notes (Text): 12/06/17 57 year old female with past medical history of HIV/AIDs, hepatitis B and medication noncompliance who presented with altered mental status and shortness of breath with hypoxia. CXR showed diffuse pulmonary infiltrates and she was started on bactrim and steroids for PCP pneumonia. Bactrim has been switched to mepron. She is on HAART therapy. Her mental status has improved since admission to baseline. She is being followed by ID, neurology and psychiatry. Hematology is also following for pancytopenia which has been stable. Patient is s/p bone marrow biopsy yesterday and will have LP today. GI is following for elevated LFTs. She had abdominal ultrasound which was reviewed as above. MRCP was reviewed today also. Possible d/c planning tomorrow. Day Christianson MD Hospitalist.
[2017-12-06 22:54] VITALS: RESP 18
[2017-12-07 07:54] LABS: BASO # 0.01 K/mm3 (0.0-2.0); BASO % 0.3 % (0.0-3.0); EOS # 0.1 (0.0-0.7); EOS % 1.9 % (1.5-5.0); GRAN # 1.91 (1.4-6.5); HEMOGLOBIN 9.4 g/dL (12.0-16.0); LYMPH # 1.3 (1.2-3.4); LYMPH % 35.8 % (22.0-35.0); MEAN CELL VOLUME 102.5 fl (80.0-105.0); MEAN CORPUSCULAR HEMOGLOBIN 34.2 pg (25.0-35.0); MEAN CORPUSCULAR HGB CONC 33.3 g/dl (31.0-37.0); MEAN PLATELET VOLUME 10.3 fl (7.0-11.0); MONO # 0.4 (0.1-0.6); RBC 2.75 10^6/uL (3.5-6.1); RED CELL DISTRIBUTION WIDTH 17.9 % (11.5-14.5); WHITE BLOOD COUNT 3.7 10^3/ul (4.5-11.0)
[2017-12-07 08:17] LABS: ALB/GLOB RATIO 0.8 (1.1-1.8); ALBUMIN 2.7 g/dL (3.0-4.8); ALT/SGPT 137 U/L (7-56); AST/SGOT 77 U/L (14-36); BLOOD UREA NITROGEN 14 mg/dL (7-21); CALCIUM 8.3 mg/dL (8.4-10.5); GFR AFRICAN-AMERICAN > 60; GFR NON-AFRICAN AMERICAN > 60
[2017-12-07 08:30] VITALS: BP 102/67; PULSE 87; TEMP 97.7
[2017-12-07] MEDS: Atovaquone 750 mg/5 ml Susp UD PO SCH (10:00)
[2017-12-07] MEDS: Emtricitabine-Tenofovir 200 mg-300 mg Tab PO SCH (10:00)
[2017-12-07] MEDS: DOLUTEGRAVIR SODIUM 50 MG PO SCH (10:10)
--- NOTE | 2017-12-07 14:25 | PN ---
DATE: 12/07/2017 SUBJECTIVE: The patient is in bed, in no acute distress, nontoxic. PHYSICAL EXAMINATION: VITAL SIGNS: Temperature is 98, blood pressure is 102/60, respiratory rate of 18. HEENT: Examination of HEENT is unremarkable. NECK: Supple. LUNGS: Have decreased breath sounds. HEART: Normal S1, S2. ABDOMEN: Soft, nontender. LABORATORY DATA: Laboratory examination reveals a white count of 3.7, hemoglobin of 9. Chemistries are noted. Urinalysis is noted. Toxicology is reviewed. T cells are reviewed. 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 Currently on prednisone, , tenofovir home medication. The patient is also on Mepron. We will follow with you. Kelby Justin MD
--- NOTE | 2017-12-08 07:51 | CP.PCM.DIS ---
<Shilo Laguerre - Last Filed: 12/08/17 07:39> Provider - Provider Date of Admission: 11/20/17 20:53 Attending physician: Day Christianson MD Time Spent in preparation of Discharge (in minutes): 35 Hospital Course - Lab Results Lab Results: Micro Results 12/05/17 17:00 Other: Please Indicate Mycobacterial Culture - Preliminary 12/05/17 17:00 Bone Marrow Fungal Smear - Final 12/05/17 17:00 Other: Please Indicate Fungal Culture - Preliminary 11/21/17 02:23 Nose MRSA Culture (Admit) - Final MRSA NOT DETECTED Most Recent Lab Values WBC 3.7 10^3/ul (4.5-11.0) L 12/07/17 07:00 RBC 2.75 10^6/uL (3.5-6.1) L 12/07/17 07:00 Hgb 9.4 g/dL (12.0-16.0) L 12/07/17 07:00 Hct 28.2 % (36.0-48.0) L 12/07/17 07:00 MCV 102.5 fl (80.0-105.0) 12/07/17 07:00 MCH 34.2 pg (25.0-35.0) 12/07/17 07:00 MCHC 33.3 g/dl (31.0-37.0) 12/07/17 07:00 RDW 17.9 % (11.5-14.5) H 12/07/17 07:00 Plt Count 97 10^3/uL (120.0-450.0) L 12/07/17 07:00 Manual Plt Count 125 K/mm3 (120-450) 11/30/17 06:20 MPV 10.3 fl (7.0-11.0) 12/07/17 07:00 Gran % 51.0 % (50.0-68.0) 12/07/17 07:00 Lymph % (Auto) 35.8 % (22.0-35.0) H 12/07/17 07:00 [place] % (Auto) 11.0 % (1.0-6.0) H 12/07/17 07:00 Eos % (Auto) 1.9 % (1.5-5.0) 12/07/17 07:00 Baso % (Auto) 0.3 % (0.0-3.0) 12/07/17 07:00 Gran # 1.91 (1.4-6.5) 12/07/17 07:00 Lymph # (Auto) 1.3 (1.2-3.4) 12/07/17 07:00 [place] # (Auto) 0.4 (0.1-0.6) 12/07/17 07:00 Eos # (Auto) 0.1 (0.0-0.7) 12/07/17 07:00 Baso # (Auto) 0.01 K/mm3 (0.0-2.0) 12/07/17 07:00 Neutrophils % (Manual) 95 % (50.0-70.0) H 11/26/17 05:40 Band Neutrophils % 1 % (0-2) 11/26/17 05:40 Lymphocytes % (Manual) 2 % (22.0-35.0) L 11/26/17 05:40 Atypical Lymphs % 1 % (0.0-0.0) H 11/23/17 05:30 Monocytes % (Manual) 2 % (1.0-6.0) 11/26/17 05:40 Platelet Evaluation Normal (NORMAL) 11/26/17 05:40 Anisocytosis (manual) 1+ 11/23/17 05:30 Retic Count 1.58 % (0.5-1.5) H 11/30/17 06:20 PT 11.4 SECONDS (9.4-12.5) 12/04/17 07:00 INR 0.99 (0.93-1.08) 12/04/17 07:00 APTT 25.8 Seconds (25.1-36.5) 12/04/17 07:00 pCO2 26 mm/Hg (35-45) L 11/21/17 01:30 pO2 82 mm/Hg (30-55) H 11/21/17 12:00 HCO3 17.3 mmol/L (21-28) L 11/21/17 01:30 ABG pH 7.43 (7.35-7.45) 11/21/17 01:30 ABG Total CO2 18.1 mmol.L (22-28) L 11/21/17 01:30 ABG O2 Saturation 100.1 % (95-98) H 11/21/17 01:30 ABG Base Excess -5.4 mmol/L (-2.0-3.0) L 11/21/17 01:30 ABG Potassium 2.9 mmol/L (3.6-5.2) L 11/21/17 01:30 VBG pH 7.45 (7.32-7.43) H 11/21/17 12:00 VBG pCO2 26.0 (40-60) L 11/21/17 12:00 VBG HCO3 18.1 mmol/l (21-28) L 11/21/17 12:00 VBG Total CO2 18.9 mmol.L (22-28) L 11/21/17 12:00 VBG O2 Sat (Calc) 98.3 % (40-65) H 11/21/17 12:00 VBG Base Excess -4.3 mmol/L (0.0-2.0) L 11/21/17 12:00 VBG Potassium 4.4 mmol/L (3.6-5.2) 11/21/17 12:00 Sodium 139.0 mmol/L (132-148) 11/21/17 12:00 Chloride 113.0 mmol/L (98-107) H 11/21/17 12:00 Glucose 112 mg/dl (65-105) H 11/21/17 12:00 Lactate 3.3 mmol/L (0.7-2.1) H 11/21/17 12:00 FiO2 21.0 % 11/21/17 12:00 Sodium 140 mmol/L (132-148) 12/07/17 07:00 Potassium 4.1 mmol/L (3.6-5.0) 12/07/17 07:00 Chloride 106 mmol/L (98-107) 12/07/17 07:00 Carbon Dioxide 27 mmol/L (21-33) 12/07/17 07:00 Anion Gap 11 (10-20) 12/07/17 07:00 BUN 14 mg/dL (7-21) 12/07/17 07:00 Creatinine 0.8 mg/dl (0.7-1.2) 12/07/17 07:00 Est GFR ( Amer) > 60 12/07/17 07:00 Est GFR (Non-Af Amer) > 60 12/07/17 07:00 POC Glucose (mg/dL) 93 mg/dL (65-110) 11/21/17 01:37 Random Glucose 99 mg/dL (70-110) 12/07/17 07:00 Calcium 8.3 mg/dL (8.4-10.5) L 12/07/17 07:00 Phosphorus 2.7 mg/dL (2.5-4.5) 11/28/17 05:30 Magnesium 1.7 mg/dL (1.7-2.2) 11/28/17 05:30 Iron 145 ug/dL (45-180) 12/01/17 11:00 TIBC 221 ug/dL (265-497) L 12/01/17 11:00 % Saturation 65 % (20-55) H 12/01/17 11:00 Transferrin 86.34 mg/dL (206-381) L 11/20/17 23:00 Ferritin 794.0 ng/mL 12/01/17 11:00 Total Bilirubin 0.3 mg/dL (0.2-1.3) 12/07/17 07:00 AST 77 U/L (14-36) H D 12/07/17 07:00 ALT 137 U/L (7-56) H 12/07/17 07:00 Alkaline Phosphatase 83 U/L (38-126) 12/07/17 07:00 Ammonia 9 umol/L (9-33) 11/26/17 05:40 Lactate Dehydrogenase 710 U/L (333-699) H 12/04/17 07:00 Total Protein 6.3 g/dL (5.8-8.3) 12/07/17 07:00 Albumin 2.7 g/dL (3.0-4.8) L 12/07/17 07:00 Globulin 3.5 gm/dL 12/07/17 07:00 Albumin/Globulin Ratio 0.8 (1.1-1.8) L 12/07/17 07:00 Alpha Fetoprotein 12.8 ng/mL (0.0-7.5) H 12/05/17 06:30 UF Heparin Interp Negative (Negative) 11/29/17 18:50 Vitamin B12 488 pg/mL (239-931) 12/01/17 11:00 Folate 2.6 ng/mL 12/01/17 11:00 Ethanolamine None detected 11/21/17 11:20 Procalcitonin 0.21 NG/ML (0.19-0.49) 11/20/17 23:00 Arterial Blood Potassium 2.9 mmol/L (3.6-5.2) L 11/21/17 01:30 Venous Blood Potassium 4.4 mmol/L (3.6-5.2) 11/21/17 12:00 Urine Color Yellow (YELLOW) 11/20/17 19:56 Urine Appearance Clear (CLEAR) 11/20/17 19:56 Urine pH 6.0 (4.7-8.0) 11/20/17 19:56 Ur Specific [place] >= 1.030 (1.005-1.035) 11/20/17 19:56 Urine Protein 30 mg/dL (<30 mg/dL) H 11/20/17 19:56 Urine Glucose (UA) Negative mg/dL (NEGATIVE) 11/20/17 19:56 Urine Ketones Negative mg/dL (NEGATIVE) 11/20/17 19:56 Urine Blood Negative (NEGATIVE) 11/20/17 19:56 Urine Nitrate Negative (NEGATIVE) 11/20/17 19:56 Urine Bilirubin Negative (NEGATIVE) 11/20/17 19:56 Urine Urobilinogen 4.0 E.U./dL (<1 E.U./dL) H 11/20/17 19:56 Ur Leukocyte Esterase Negative Brennen/uL (NEGATIVE) 11/20/17 19:56 Urine RBC 0 - 2 /hpf (0-2) 11/20/17 19:56 Urine WBC 0 - 2 /hpf (0-6) 11/20/17 19:56 Ur Epithelial Cells 1 - 3 /hpf (0-5) 11/20/17 19:56 Urine Opiates Screen Negative (NEGATIVE) 11/21/17 23:50 Urine Methadone Screen Negative (NEGATIVE) 11/21/17 23:50 Ur Barbiturates Screen Negative (NEGATIVE) 11/21/17 23:50 Ur Phencyclidine Scrn Negative (NEGATIVE) 11/21/17 23:50 Ur Amphetamines Screen Negative (NEGATIVE) 11/21/17 23:50 U Benzodiazepines Scrn Negative (NEGATIVE) 07/05/18 23:50 U Oth Cocaine Metabols Negative (NEGATIVE) 11/21/17 23:50 U Cannabinoids Screen Negative (NEGATIVE) 11/21/17 23:50 Toxicology Panel see note 11/21/17 11:20 Methyl Alcohol Level None detected 11/21/17 11:20 Isopropanol None detected 11/21/17 11:20 Acetone Level None detected 11/21/17 11:20 Heparin-induced Plt Ab Negative (Negative) 11/29/17 18:50 JUAN C UFH Low Dose 0.1 0 % Release 11/29/17 18:50 JUAN C UFH Low Dose 0.5 0 % Release 11/29/17 18:50 JUAN C UFH High Dose 100 0 % Release 11/29/17 18:50 Absolute Lymphs (Flow) 612 Cells/mcL (850-3900) L 11/21/17 07:15 % CD3 Cells 54 Percent (57-85) L 11/21/17 07:15 Absolute CD3 Count 322 Cells/mcL (840-3060) L 11/21/17 07:15 % CD3-/CD16+/CD56+ 13 Percent (4-25) 11/21/17 07:15 % CD4 Cells 17 Percent (30-61) L 11/21/17 07:15 Absolute CD4 Count 99 Cells/mcL (490-1740) L 11/21/17 07:15 T-Help/Suppress Ratio 0.49 Ratio (0.86-5.00) L 11/21/17 07:15 % CD8 Cells 35 Percent (12-42) 11/21/17 07:15 Absolute CD8 Count 204 Cells/mcL (180-1170) 11/21/17 07:15 Absolute CD16/CD56 Count 77 Cells/mcL (70-760) 11/21/17 07:15 % CD19 Cells 30 Percent (6-29) H 11/21/17 07:15 Absolute CD19 Count 182 Cells/mcL (110-660) 11/21/17 07:15 T-Lymph Analys Comment See note 11/21/17 07:15 RPR Nonreactive (NONREACTIVE) 11/28/17 05:30 Cryptococcus Ag Screen Not detected (Not Detected) 11/21/17 10:45 CMV Specimen Source Plasma 11/21/17 10:45 CMV DNA Quant PCR <200 IU/mL 11/21/17 10:45 CMV Qnt PCR log IU/mL <2.30 Log IU/mL 11/21/17 10:45 Hepatitis A IgM Ab Negative (NEGATIVE) 11/30/17 06:20 Hepatitis A Ab Total Antibody neg (NEGATIVE) 12/05/17 06:30 Hep Bs Antigen Reactive (NEGATIVE) 11/30/17 06:20 Hep Bs Ag Neutralizatn Confirmed positive H 11/30/17 06:20 Hep Bs Antibody Negative (NEGATIVE) 11/30/17 06:20 Hep B Core Total Ab Reactive (Non Reactive) H 11/29/17 09:00 Hepatitis Be Antigen Reactive (Non-reactive) H 12/03/17 01:00 Hepatitis C Antibody Non reactive (Non Reactive) 11/29/17 09:00 Hep C Ab Signal/Cutoff 0.05 Ratio (<1.0) 11/29/17 09:00 HSV IgM Ab Screen Negative (Negative) 11/24/17 08:35 HSV I IgG Ab 26.80 index H 11/24/17 08:35 HSV I IgM Titer (()) 11/24/17 08:35 HSV II IgG 12.90 index H 11/24/17 08:35 HSV II IgM Titer (()) 11/24/17 08:35 HHV-6 IgM Ab Scrn Negative (Negative) 11/24/17 08:35 Beta-(1,3)-D-Glucan >500 pg/mL (<60) H 11/23/17 05:30 B-(1,3)-D-Glucan Intrp Positive H 11/23/17 05:30 Plavix Genotype Interp Positive H 11/23/17 05:30 Blood Type O POSITIVE 11/20/17 19:36 Blood Type Confirm O POSITIVE 11/20/17 20:17 Antibody Screen Negative 11/20/17 19:36 BBK History Checked No verified bt 11/20/17 19:36 - Hospital Course Hospital Course: Ms. Valladares is a 57 year old female with PMH of hepatitis B, non-compliance, HIV , and AIDS with CD4 of 95 in 2017 who presented to the ED on 11/20/17 with daughter for complaints of worsening hallucinations and altered mental status. Patient was initially placed on the medical floors for management of her PCP pneumonia, which she had been diagnosed with on an admission a few days prior but signed out AMA. However, an [employer] was called on her the very next day, and she was transferred to the ICU for hypoxic respiratory failure. PCP PNA was initially treated with Bactrim. Patient restarted on HAART therapy, and was started on BiPAP and managed under ICU. Pt's hypoxia has since improved and pt was transitioned from BiPap to high flow to venti mask, now saturating well on RA. Pt downgraded to medical floor. Ladonna Robert called on for patient threatening staff w/ butter knife. Change in mental status was likely due to delirium 2/2 to PCP Pneumonia and HIV encephalitis VS ICU Psychosis VS Steroids. Patient was later found to have Pancytopenia; bactrim was changed to atovaquone (another choice is Clindamycin + Primaquine; but primaquine also causes pancytopenia). Work up for HIT was done, and is being followed by Heme. BM Bx to rule out MAC as cause for pancytopenia was performed two days before discharge, and patient will be notified of results. Day before discharge, patient was optimized medically, but LP was done to rule out infectious causes of AMS - labs were sent for HSV, JCV, and VDRL. Results will be followed up with patient. Patient was advised to continue her HAART treatment and was given 4 more days of Atovaquone through ADDS for PCP PNA. Patient was advised to follow up with her HIV physician after discharge from [facility] ([facility]) and to be compliant with medications. Patient will also need to follow up with heme/onc pending results (Dr. Vasquez) and her PMD ([facility]). Discharge Exam - Head Exam Head Exam: ATRAUMATIC, NORMAL INSPECTION, NORMOCEPHALIC - Eye Exam Eye Exam: EOMI, Normal appearance, PERRL Pupil Exam: NORMAL ACCOMODATION, PERRL - Neck Exam Neck exam: Full Rom, Normal Inspection - Respiratory Exam Respiratory Exam: Clear to PA & Lateral, NORMAL BREATHING PATTERN, UNREMARKABLE - Cardiovascular Exam Cardiovascular Exam: REGULAR RHYTHM, RRR, +S1, +S2. absent: Diastolic murmur, Gallop, JVD, Rubs, Systolic Murmur - GI/Abdominal Exam GI & Abdominal Exam: Normal Bowel Sounds - Extremities Exam Extremities exam: full ROM - Back Exam Back exam: FULL ROM, NORMAL INSPECTION - Neurological Exam Neurological exam: Alert, CN II-XII Intact, Normal Gait, Oriented x3, Reflexes Normal - Psychiatric Exam Psychiatric exam: Normal Affect, Normal Mood - Skin Skin Exam: Dry, Intact, Normal Color, Warm Discharge Plan - Discharge Medications Prescriptions: Atovaquone [Mepron] 750 mg PO BID #8 packet - Follow Up Plan Condition: GUARDED Disposition: REHAB FACILITY/REHAB UNIT Instructions: Pneumocystis Pneumonia (PCP), Altered Mental Status (DC), HIV/ AIDS (DC), Sepsis (ED) Additional Instructions: Please follow up with a psychiatrist within 72 hours Please take medications as directed Please adhere to HIV medication regimen Please adhere to subacute rehab guidelines If symptoms continue please return to nearest ED <Day Christianson - Last Filed: 12/08/17 08:27> Provider - Provider Date of Admission: 11/20/17 20:53 Attending physician: Day Christianson MD Hospital Course - Lab Results Lab Results: Micro Results 12/05/17 17:00 Other: Please Indicate Mycobacterial Culture - Preliminary 12/05/17 17:00 Bone Marrow Fungal Smear - Final 12/05/17 17:00 Other: Please Indicate Fungal Culture - Preliminary 11/21/17 02:23 Nose MRSA Culture (Admit) - Final MRSA NOT DETECTED Most Recent Lab Values WBC 3.7 10^3/ul (4.5-11.0) L 12/07/17 07:00 RBC 2.75 10^6/uL (3.5-6.1) L 12/07/17 07:00 Hgb 9.4 g/dL (12.0-16.0) L 12/07/17 07:00 Hct 28.2 % (36.0-48.0) L 12/07/17 07:00 MCV 102.5 fl (80.0-105.0) 12/07/17 07:00 MCH 34.2 pg (25.0-35.0) 12/07/17 07:00 MCHC 33.3 g/dl (31.0-37.0) 12/07/17 07:00 RDW 17.9 % (11.5-14.5) H 12/07/17 07:00 Plt Count 97 10^3/uL (120.0-450.0) L 12/07/17 07:00 Manual Plt Count 125 K/mm3 (120-450) 11/30/17 06:20 MPV 10.3 fl (7.0-11.0) 12/07/17 07:00 Gran % 51.0 % (50.0-68.0) 12/07/17 07:00 Lymph % (Auto) 35.8 % (22.0-35.0) H 12/07/17 07:00 [place] % (Auto) 11.0 % (1.0-6.0) H 12/07/17 07:00 Eos % (Auto) 1.9 % (1.5-5.0) 12/07/17 07:00 Baso % (Auto) 0.3 % (0.0-3.0) 12/07/17 07:00 Gran # 1.91 (1.4-6.5) 12/07/17 07:00 Lymph # (Auto) 1.3 (1.2-3.4) 12/07/17 07:00 [place] # (Auto) 0.4 (0.1-0.6) 12/07/17 07:00 Eos # (Auto) 0.1 (0.0-0.7) 12/07/17 07:00 Baso # (Auto) 0.01 K/mm3 (0.0-2.0) 12/07/17 07:00 Neutrophils % (Manual) 95 % (50.0-70.0) H 11/26/17 05:40 Band Neutrophils % 1 % (0-2) 11/26/17 05:40 Lymphocytes % (Manual) 2 % (22.0-35.0) L 11/26/17 05:40 Atypical Lymphs % 1 % (0.0-0.0) H 11/23/17 05:30 Monocytes % (Manual) 2 % (1.0-6.0) 11/26/17 05:40 Platelet Evaluation Normal (NORMAL) 11/26/17 05:40 Anisocytosis (manual) 1+ 11/23/17 05:30 Retic Count 1.58 % (0.5-1.5) H 11/30/17 06:20 PT 11.4 SECONDS (9.4-12.5) 12/04/17 07:00 INR 0.99 (0.93-1.08) 12/04/17 07:00 APTT 25.8 Seconds (25.1-36.5) 12/04/17 07:00 pCO2 26 mm/Hg (35-45) L 11/21/17 01:30 pO2 82 mm/Hg (30-55) H 11/21/17 12:00 HCO3 17.3 mmol/L (21-28) L 11/21/17 01:30 ABG pH 7.43 (7.35-7.45) 11/21/17 01:30 ABG Total CO2 18.1 mmol.L (22-28) L 11/21/17 01:30 ABG O2 Saturation 100.1 % (95-98) H 11/21/17 01:30 ABG Base Excess -5.4 mmol/L (-2.0-3.0) L 11/21/17 01:30 ABG Potassium 2.9 mmol/L (3.6-5.2) L 11/21/17 01:30 VBG pH 7.45 (7.32-7.43) H 11/21/17 12:00 VBG pCO2 26.0 (40-60) L 11/21/17 12:00 VBG HCO3 18.1 mmol/l (21-28) L 11/21/17 12:00 VBG Total CO2 18.9 mmol.L (22-28) L 11/21/17 12:00 VBG O2 Sat (Calc) 98.3 % (40-65) H 11/21/17 12:00 VBG Base Excess -4.3 mmol/L (0.0-2.0) L 11/21/17 12:00 VBG Potassium 4.4 mmol/L (3.6-5.2) 11/21/17 12:00 Sodium 139.0 mmol/L (132-148) 11/21/17 12:00 Chloride 113.0 mmol/L (98-107) H 11/21/17 12:00 Glucose 112 mg/dl (65-105) H 11/21/17 12:00 Lactate 3.3 mmol/L (0.7-2.1) H 11/21/17 12:00 FiO2 21.0 % 11/21/17 12:00 Sodium 140 mmol/L (132-148) 12/07/17 07:00 Potassium 4.1 mmol/L (3.6-5.0) 12/07/17 07:00 Chloride 106 mmol/L (98-107) 12/07/17 07:00 Carbon Dioxide 27 mmol/L (21-33) 12/07/17 07:00 Anion Gap 11 (10-20) 12/07/17 07:00 BUN 14 mg/dL (7-21) 12/07/17 07:00 Creatinine 0.8 mg/dl (0.7-1.2) 12/07/17 07:00 Est GFR ( Amer) > 60 12/07/17 07:00 Est GFR (Non-Af Amer) > 60 12/07/17 07:00 POC Glucose (mg/dL) 93 mg/dL (65-110) 11/21/17 01:37 Random Glucose 99 mg/dL (70-110) 12/07/17 07:00 Calcium 8.3 mg/dL (8.4-10.5) L 12/07/17 07:00 Phosphorus 2.7 mg/dL (2.5-4.5) 11/28/17 05:30 Magnesium 1.7 mg/dL (1.7-2.2) 11/28/17 05:30 Iron 145 ug/dL (45-180) 12/01/17 11:00 TIBC 221 ug/dL (265-497) L 12/01/17 11:00 % Saturation 65 % (20-55) H 12/01/17 11:00 Transferrin 86.34 mg/dL (206-381) L 11/20/17 23:00 Ferritin 794.0 ng/mL 12/01/17 11:00 Total Bilirubin 0.3 mg/dL (0.2-1.3) 12/07/17 07:00 AST 77 U/L (14-36) H D 12/07/17 07:00 ALT 137 U/L (7-56) H 12/07/17 07:00 Alkaline Phosphatase 83 U/L (38-126) 12/07/17 07:00 Ammonia 9 umol/L (9-33) 11/26/17 05:40 Lactate Dehydrogenase 710 U/L (333-699) H 12/04/17 07:00 Total Protein 6.3 g/dL (5.8-8.3) 12/07/17 07:00 Albumin 2.7 g/dL (3.0-4.8) L 12/07/17 07:00 Globulin 3.5 gm/dL 12/07/17 07:00 Albumin/Globulin Ratio 0.8 (1.1-1.8) L 12/07/17 07:00 Alpha Fetoprotein 12.8 ng/mL (0.0-7.5) H 12/05/17 06:30 UF Heparin Interp Negative (Negative) 11/29/17 18:50 Vitamin B12 488 pg/mL (239-931) 12/01/17 11:00 Folate 2.6 ng/mL 12/01/17 11:00 Ethanolamine None detected 11/21/17 11:20 Procalcitonin 0.21 NG/ML (0.19-0.49) 11/20/17 23:00 Arterial Blood Potassium 2.9 mmol/L (3.6-5.2) L 11/21/17 01:30 Venous Blood Potassium 4.4 mmol/L (3.6-5.2) 11/21/17 12:00 Urine Color Yellow (YELLOW) 11/20/17 19:56 Urine Appearance Clear (CLEAR) 11/20/17 19:56 Urine pH 6.0 (4.7-8.0) 11/20/17 19:56 Ur Specific [place] >= 1.030 (1.005-1.035) 11/20/17 19:56 Urine Protein 30 mg/dL (<30 mg/dL) H 11/20/17 19:56 Urine Glucose (UA) Negative mg/dL (NEGATIVE) 11/20/17 19:56 Urine Ketones Negative mg/dL (NEGATIVE) 11/20/17 19:56 Urine Blood Negative (NEGATIVE) 11/20/17 19:56 Urine Nitrate Negative (NEGATIVE) 11/20/17 19:56 Urine Bilirubin Negative (NEGATIVE) 11/20/17 19:56 Urine Urobilinogen 4.0 E.U./dL (<1 E.U./dL) H 11/20/17 19:56 Ur Leukocyte Esterase Negative Brennen/uL (NEGATIVE) 11/20/17 19:56 Urine RBC 0 - 2 /hpf (0-2) 11/20/17 19:56 Urine WBC 0 - 2 /hpf (0-6) 11/20/17 19:56 Ur Epithelial Cells 1 - 3 /hpf (0-5) 11/20/17 19:56 Urine Opiates Screen Negative (NEGATIVE) 11/21/17 23:50 Urine Methadone Screen Negative (NEGATIVE) 11/21/17 23:50 Ur Barbiturates Screen Negative (NEGATIVE) 11/21/17 23:50 Ur Phencyclidine Scrn Negative (NEGATIVE) 11/21/17 23:50 Ur Amphetamines Screen Negative (NEGATIVE) 11/21/17 23:50 U Benzodiazepines Scrn Negative (NEGATIVE) 11/21/17 23:50 U Oth Cocaine Metabols Negative (NEGATIVE) 11/21/17 23:50 U Cannabinoids Screen Negative (NEGATIVE) 11/21/17 23:50 Toxicology Panel see note 11/21/17 11:20 Methyl Alcohol Level None detected 11/21/17 11:20 Isopropanol None detected 11/21/17 11:20 Acetone Level None detected 11/21/17 11:20 Heparin-induced Plt Ab Negative (Negative) 11/29/17 18:50 JUAN C UFH Low Dose 0.1 0 % Release 11/29/17 18:50 JUAN C UFH Low Dose 0.5 0 % Release 11/29/17 18:50 JUAN C UFH High Dose 100 0 % Release 11/29/17 18:50 Absolute Lymphs (Flow) 612 Cells/mcL (850-3900) L 11/21/17 07:15 % CD3 Cells 54 Percent (57-85) L 11/21/17 07:15 Absolute CD3 Count 322 Cells/mcL (840-3060) L 11/21/17 07:15 % CD3-/CD16+/CD56+ 13 Percent (4-25) 11/21/17 07:15 % CD4 Cells 17 Percent (30-61) L 11/21/17 07:15 Absolute CD4 Count 99 Cells/mcL (490-1740) L 11/21/17 07:15 T-Help/Suppress Ratio 0.49 Ratio (0.86-5.00) L 11/21/17 07:15 % CD8 Cells 35 Percent (12-42) 11/21/17 07:15 Absolute CD8 Count 204 Cells/mcL (180-1170) 11/21/17 07:15 Absolute CD16/CD56 Count 77 Cells/mcL (70-760) 11/21/17 07:15 % CD19 Cells 30 Percent (6-29) H 11/21/17 07:15 Absolute CD19 Count 182 Cells/mcL (110-660) 11/21/17 07:15 T-Lymph Analys Comment See note 11/21/17 07:15 RPR Nonreactive (NONREACTIVE) 11/28/17 05:30 Cryptococcus Ag Screen Not detected (Not Detected) 11/21/17 10:45 CMV Specimen Source Plasma 11/21/17 10:45 CMV DNA Quant PCR <200 IU/mL 11/21/17 10:45 CMV Qnt PCR log IU/mL <2.30 Log IU/mL 11/21/17 10:45 Hepatitis A IgM Ab Negative (NEGATIVE) 11/30/17 06:20 Hepatitis A Ab Total Antibody neg (NEGATIVE) 12/05/17 06:30 Hep Bs Antigen Reactive (NEGATIVE) 11/30/17 06:20 Hep Bs Ag Neutralizatn Confirmed positive H 11/30/17 06:20 Hep Bs Antibody Negative (NEGATIVE) 11/30/17 06:20 Hep B Core Total Ab Reactive (Non Reactive) H 11/29/17 09:00 Hepatitis Be Antigen Reactive (Non-reactive) H 12/03/17 01:00 Hepatitis C Antibody Non reactive (Non Reactive) 11/29/17 09:00 Hep C Ab Signal/Cutoff 0.05 Ratio (<1.0) 11/29/17 09:00 HSV IgM Ab Screen Negative (Negative) 11/24/17 08:35 HSV I IgG Ab 26.80 index H 11/24/17 08:35 HSV I IgM Titer (()) 11/24/17 08:35 HSV II IgG 12.90 index H 11/24/17 08:35 HSV II IgM Titer (()) 11/24/17 08:35 HHV-6 IgM Ab Scrn Negative (Negative) 11/24/17 08:35 Beta-(1,3)-D-Glucan >500 pg/mL (<60) H 11/23/17 05:30 B-(1,3)-D-Glucan Intrp Positive H 11/23/17 05:30 Plavix Genotype Interp Positive H 11/23/17 05:30 Blood Type O POSITIVE 11/20/17 19:36 Blood Type Confirm O POSITIVE 11/20/17 20:17 Antibody Screen Negative 11/20/17 19:36 BBK History Checked No verified bt 11/20/17 19:36 Attending/Attestation - Attestation I have personally seen and examined this patient.: Yes I have fully participated in the care of the patient.: Yes I have reviewed all pertinent clinical information, including history, physical exam and plan: Yes Notes (Text): D/C Summary for 12/07/17 57 year old female with past medical history of HIV/AIDs, hepatitis B and medication noncompliance who presented with altered mental status and shortness of breath with hypoxia. CXR showed diffuse pulmonary infiltrates and she was started on bactrim and steroids for PCP pneumonia. Bactrim has been switched to mepron. She is on HAART therapy. Her mental status has improved since admission to baseline. She is no longer hypoxix and off oxygen. She was followed by ID, neurology and psychiatry. She was also seen by hematology for pancytopenia which has been stable. Patient is s/p bone marrow biopsy earlier this week and LP yesterday. GI was seeing her for elevated LFTs. She had abdominal ultrasound which was followed up with an MRCP which was negative for pancreatic lesions. Patient is discharged to [facility]. She is to follow up with PMD and ID. Follow up with hematology and psychiatry. Monitor labs including LFTs and CBC as outpatient. Counselled on medication compliance. Family is at bedside and hospital course / outpatient follow up was discussed at length. Day Christianson MD Hospitalist.
== END 2017-12-07 11:59 | DRG 974 ==
LOC: ED 18:18 → ERH 20:53 → 2RNO 23:24 → CCU 11-21 02:21 → 2RNO 11-26 20:49 → 5RSO 12-01 15:36
PROVIDERS: ADMIT Internal Medicine; ATTEND Internal Medicine
PROC: 5A09457 Assistance with Respiratory Ventilation, 24-96 Consecutive Hours, Continuous Positive Airway Pressure (ICD-10-PCS; 2017-11-20)
PROC: 07DR3ZX Extraction of Iliac Bone Marrow, Percutaneous Approach, Diagnostic (ICD-10-PCS; 2017-12-05)
PROC: BQ20ZZZ Computerized Tomography (CT Scan) of Right Hip (ICD-10-PCS; 2017-12-05)
PROC: 009U3ZX Drainage of Spinal Canal, Percutaneous Approach, Diagnostic (ICD-10-PCS; principal; 2017-12-06)
DX: B20 Human immunodeficiency virus [HIV] disease (principal); A41.9 Sepsis, unspecified organism; G05.3 Encephalitis and encephalomyelitis in diseases classified elsewhere; B59 Pneumocystosis; G93.49 Other encephalopathy; J15.9 Unspecified bacterial pneumonia; J96.91 Respiratory failure, unspecified with hypoxia; R65.20 Severe sepsis without septic shock; B19.10 Unspecified viral hepatitis B without hepatic coma; B37.0 Candidal stomatitis; E44.1 Mild protein-calorie malnutrition; F22 Delusional disorders; D63.8 Anemia in other chronic diseases classified elsewhere; E87.6 Hypokalemia; F09 Unspecified mental disorder due to known physiological condition; F17.200 Nicotine dependence, unspecified, uncomplicated; K76.0 Fatty (change of) liver, not elsewhere classified; R32 Unspecified urinary incontinence; Z79.899 Other long term (current) drug therapy; Z87.01 Personal history of pneumonia (recurrent); Z91.14 Patient's other noncompliance with medication regimen; Z91.19 Patient's noncompliance with other medical treatment and regimen